=== PATIENT | female | born 1940 | race Caucasian/White ===

== ENCOUNTER 2020-12-12 02:33 | Emergency (ER) | payer MEDICARE, OTHER, SELFPAY ==
[2020-12-12] VITALS (8 sets, daily range): BP systolic 162–213; BP diastolic 75–113; PULSE 64–84; RESP 16–18; TEMP 36.7; O2SAT 93–98; BMI 32.5
--- NOTE | 2020-12-12 02:54 | HMH.EDGENADL ---
ED Disposition Clinical Impression: Angioedema Disposition: Home, Self-Care Condition on Discharge: Good Prescriptions: predniSONE [Prednisone 50mg Tab] 50 mg PO DAILY 4 Days #4 tab Transmission Status: Pending to [id number] - Critical Care Critical Care Time: No Attestation: On , the high probability of a clinically significant, sudden or life threatening deterioration of the following system(s) required my full and direct attention, intervention and personal management. The time I documented below is in addition to time spent performing reported procedures but includes the following listed in this critical care notation. Medical Decision Making - Medical Records Medical records reviewed: Yes: I reviewed the patient's medical records. - Pieter Inquiry Pt receiving controlled substance: No Vital Signs: 12/12/20 02:47 12/12/20 03:00 12/12/20 03:42 Temperature 98.0 F Temperature Source Oral Pulse Rate [Right] 76 71 70 Respiratory Rate 18 18 Blood Pressure [Right Arm] 213/113 H 202/85 H 165/75 H Blood Pressure Mean [Right Arm] 146 124 105 Blood Pressure Source [Right Arm] Automatic Cuff Automatic Cuff Blood Pressure Position [Right Arm] Sitting Supine 02 Sat by Pulse Oximetry 98 95 94 L Oxygen Delivery Method Room Air Room Air Room Air 12/12/20 04:00 12/12/20 04:30 12/12/20 05:00 Temperature Temperature Source Pulse Rate [Right] 69 71 64 Respiratory Rate Blood Pressure [Right Arm] 170/85 H 173/83 H 162/84 H Blood Pressure Mean [Right Arm] 113 113 110 Blood Pressure Source [Right Arm] Automatic Cuff Automatic Cuff Automatic Cuff Blood Pressure Position [Right Arm] 02 Sat by Pulse Oximetry 94 L 94 L 94 L Oxygen Delivery Method Room Air Room Air Room Air Orders (Tests/Meds): ED MEDICATIONS Generic Name Dose Route Start Last Admin Trade Name Freq PRN Reason Stop Dose Admin Sodium Chloride 8 ml 12/12/20 03:08 Sodium Chloride 0.9% 10ml Vial IV 01/11/21 03:07 NEEDED PRN dilute pepcid Discontinued Medications Generic Name Dose Route Start Last Admin Trade Name Freq PRN Reason Stop Dose Admin Dexamethasone Sodium Phosphate 10 mg 12/12/20 02:50 12/12/20 03:09 Dexamethasone 4mg/Ml 1ml Vial IV 12/12/20 02:51 10 mg ONCE ONE Administration Diphenhydramine HCl 25 mg 12/12/20 02:50 12/12/20 03:09 Diphenhydramine 25mg Capsule PO 12/12/20 02:51 Not Given ONCE ONE Diphenhydramine HCl 25 mg 12/12/20 03:08 12/12/20 03:09 Diphenhydramine 50mg/Ml Vial IV 12/12/20 03:09 25 mg ONCE ONE Administration Famotidine 20 mg 12/12/20 02:50 12/12/20 03:09 Famotidine 20mg Tablet PO 12/12/20 02:51 Not Given ONCE ONE Famotidine 20 mg 12/12/20 03:08 12/12/20 03:09 Famotidine 20mg/2ml Vial IV 12/12/20 03:09 20 mg ONCE ONE Administration Medical Decision Narrative: 80-year-old female presents with angioedema about 6 hours from onset. At this point she is able to speak in full sentences and she is awake and alert. She does not have palate or tonsillar edema and there is only one system involved and no concern for anaphylaxis. Given dexamethasone, Pepcid and Benadryl. Plan to observe in the emergency department with repeated evaluations. I reevaluated her at 4 AM and at 5:40 AM. On reassessment her uvula was better visualized and the tongue swelling was going down. She was requesting to go home and she says that she lives close should she have any issues she will return. No indication for intubation or admission at this point. General Adult HPI - General Chief complaint: Allergic Reaction Stated complaint: Tongue swollen Time Seen by Provider: 12/12/20 02:35 Mode of Arrival: Wheelchair Limitations: No Limitations Description of Symptoms (Recalled from ER Triage Doc. by RN): Pt states her tongue swelled up tonight about 2100, shw took 2 benadryl with no improvement. Pt states tjis happens every few months fo
== END 2020-12-12 05:52 | disposition home or self-care (01) ==
PROVIDERS: Emergency Provider Emergency Medicine
DX: T78.3XXA Angioneurotic edema, initial encounter (principal); J44.9 Chronic obstructive pulmonary disease, unspecified; Z79.899 Other long term (current) drug therapy; Z88.0 Allergy status to penicillin; Z88.2 Allergy status to sulfonamides
CPT/HCPCS: 96374; 96375; 99283

== ENCOUNTER 2021-05-01 16:32 | Emergency (ER) | payer MEDICARE, OTHER, SELFPAY ==
[2021-05-01 16:33] VITALS: RESP 16; O2SAT 98; BMI 31.7
--- NOTE | 2021-05-01 17:08 | HMH.EDUTC ---
[facility] [place] Clinical Impression: Allergic reaction Qualifiers: Encounter type: initial encounter Qualified Code(s): T78.40XA - Allergy, unspecified, initial encounter Disposition: Home, Self-Care Condition on Discharge: Good Instructions: DI for General Allergic Reactions, Prednisone Additional Instructions: Over the counter Benadryl may help with allergic reactions *Start oral steriods tomorrow and take as directed Follow up with your Family Doctor if any life threatening symptoms Straight to ER if any life threatening symptoms Return if needed Prescriptions: predniSONE [Prednisone 20mg Tab] 20 mg PO BID 5 Days #10 tab Transmission Status: [id number] Referrals: Provider,Referral, MD [Primary Care Provider] - As needed Time of Disposition: 17:15 Medical Decision Making - Pieter Inquiry Pt receiving controlled substance: No Pieter was queried for this patient: No Vital Signs: 05/01/21 16:33 Respiratory Rate 16 02 Sat by Pulse Oximetry 98 Oxygen Delivery Method Room Air Orders (Tests/Meds): ED MEDICATIONS Discontinued Medications Generic Name Dose Route Start Last Admin Trade Name Yocasta PRN Reason Stop Dose Admin Methylprednisolone Sodium Succinate 125 mg 05/01/21 17:10 05/01/21 17:24 Methylprednisolone Sod Succ 125mg Vial IM 05/01/21 17:11 125 mg ONCE ONE Administration Medical Decision Narrative: Patient states that she has taken SoluMedrol in the past without reactions or complications [facility] [place] - General Stated complaint: Jaw & lip is swollen pain in left ear Time Seen by Provider: 05/01/21 17:08 Mode of Arrival: Wheelchair Source of Information: Patient Limitations: No Limitations Description of Symptoms (Recalled from Triage Doc. by RN): pt c/o left ear pain and swelling on the side of her face HEENT Symptoms (Recalled from RN notes): No Resp Symptoms (Recalled from RN notes): No Skin Symptoms (Recalled from RN notes): No MS Symptoms (Recalled from RN notes): No Functional Status (Recalled from RN notes): na - History of Present Illness Provider Complaint: Patient state that she has had swelling on and off in her face for about 5 yrs State that they have done allergy tests and other testing to try to see what she may be having a reaction to but have not been able to find anything States that earlier today she noticed she was having some swelling beside the left side of her lip Denies swelling in her mouth, denies trouble swallowing or breathing able to speak easily - Related Data Home Medications Medication Instructions Recorded Confirmed Hydrocodone/Acetaminophen [Vicodin 1 each PO Q6 06/07/18 03/18/19 5-300 mg Tablet] LORazepam [Ativan 0.5mg 0.5 mg PO DAILY 06/07/18 03/18/19 tablet] Levothyroxine Sodium [Synthroid 50 mcg PO DAILY 06/07/18 03/18/19 50mcg (0.05mg) tab] Pantoprazole Sodium [Pantoprazole 20 mg PO DAILY 06/07/18 03/18/19 20mg Tab] Travoprost [Travatan 0.004% opth 2.5 ml EYE-BOTH DAILY 06/07/18 03/18/19 soln 2.5mL] Budesonide/Formoterol Fumarate 10.2 gm IH NEEDED PRN 03/18/19 03/18/19 [Symbicort 160-4.5 Mcg Inhaler] levalbuterol HCL [Xopenex] 0.31 mg IH NEEDED PRN 03/18/19 03/18/19 Previous Rx's Medication Instructions Recorded Benzonatate [Tessalon Perle 100mg 100 mg PO TID #30 cap 03/18/19 Cap] predniSONE [Prednisone 20mg 20 mg PO BID #10 tab 03/18/19 Tab] levofloxacin 500 mg tablet 500 mg PO DAILY 5 Days #5 tab 03/20/19 predniSONE [Prednisone 50mg Tab] 50 mg PO DAILY 4 Days #4 tab 12/12/20 predniSONE [Prednisone 20mg 20 mg PO BID 5 Days #10 tab 05/01/21 Tab] Allergies Allergy/AdvReac Type Severity Reaction Status Date / Time ibuprofen [From MOTRIN] Allergy Mild Verified 06/07/18 22:40 NSAIDS (Non-Steroidal Allergy Mild Verified 06/07/18 23:00 Anti-Inflamma [NSAIDS (NON-STEROIDAL ANTI-INFLAMMA] penicillin G [PENICILLIN G] Allergy Mild
[2021-05-01 17:28] VITALS: BP 0/0; PULSE 74; RESP 16; TEMP 36.9; O2SAT 98
== END 2021-05-01 17:31 | disposition home or self-care (01) ==
PROVIDERS: Emergency Provider Nurse Practitioner
DX: T78.40XA Allergy, unspecified, initial encounter (principal); H92.01 Otalgia, right ear; Z88.0 Allergy status to penicillin; Z88.2 Allergy status to sulfonamides
CPT/HCPCS: G0463; 96372; 99202

== ENCOUNTER 2021-07-09 11:14 | Emergency (ER) | payer MEDICARE, OTHER, SELFPAY ==
[2021-07-09 11:35] VITALS: BP 152/96; PULSE 88; RESP 20; TEMP 36.6; O2SAT 98; BMI 30.9
[2021-07-09 11:57] LABS: UTC Strep Screen (Rapid) Negative (Negative)
--- NOTE | 2021-07-09 12:14 | HMH.EDUTC ---
[facility] [place] Clinical Impression: Thrush Acid reflux Qualifiers: Esophagitis presence: esophagitis presence not specified Qualified Code(s): K21.9 - Gastro-esophageal reflux disease without esophagitis Disposition: Home, Self-Care Condition on Discharge: Good Instructions: DI for Gastroesophageal Reflux Disease (GERD), DI for Thrush, Thrush-Adult Additional Instructions: Take the medication as directed. Take the nystatin suspension as directed. The prescription will say for 14 days, just so you have plenty of it. If you are not getting better within 4 to 5 days, please follow up with your primary care doctor. If your symptoms do get better, please continue it for 48 hours after you feel better, then stop it. Drink plenty of fluids. Eat yogurt frequently for the next couple of weeks or so. Follow up with your primary care doctor. GO TO THE ER FOR ANY WORSENING SYMPTOMS OR CONCERNS Prescriptions: Nystatin 5 ml PO QID 14 Days #280 ml Transmission Status: Received by [id number] Pantoprazole Sodium [Protonix 40mg tablet] 40 mg PO DAILY #30 tab Transmission Status: Received by [id number] Referrals: Christiano Marsh CRNA [Primary Care Provider] - Time of Disposition: 12:35 Medical Decision Making - Pieter Inquiry Pt receiving controlled substance: No Vital Signs: 07/09/21 11:35 07/09/21 12:21 Temperature 97.9 F 97.9 F Temperature Source Oral Pulse Rate 88 Pulse Rate [Right Brachial] 88 Respiratory Rate 20 20 Blood Pressure 152/96 H Blood Pressure [Right Arm] 152/96 H Blood Pressure Mean [Right Arm] 114 Blood Pressure Source [Right Arm] Automatic Cuff Blood Pressure Position [Right Arm] Sitting 02 Sat by Pulse Oximetry 98 Oxygen Delivery Method Room Air - Lab Data Lab results reviewed: Yes: I reviewed the patient's lab results. Lab Results 07/09/21 11:52: Strep Scn Rapid Clinic Negative Orders (Tests/Meds): ED MEDICATIONS Discontinued Medications Generic Name Dose Route Start Last Admin Trade Name Freq PRN Reason Stop Dose Admin Methylprednisolone Sodium Succinate 125 mg 07/09/21 12:14 07/09/21 12:20 Methylprednisolone Sod Succ 125mg Vial IM 07/09/21 12:15 125 mg ONCE ONE Administration ORDERS Category Date Time Status Strep Screen Confirmation Routine Micro 07/09/21 11:52 Received [facility] [place] - General Stated complaint: sore throat, cracked tongue Time Seen by Provider: 07/09/21 12:14 Mode of Arrival: Ambulatory Source of Information: Patient Limitations: No Limitations Description of Symptoms (Recalled from Triage Doc. by RN): PATIENT C/O COUGH, SOA, DECREASED APPETITE (D/T GERD), SORE THROAT AND CRACKED TONGUE HEENT Symptoms (Recalled from RN notes): Yes Resp Symptoms (Recalled from RN notes): Yes Skin Symptoms (Recalled from RN notes): No MS Symptoms (Recalled from RN notes): No Functional Status (Recalled from RN notes): WNL - History of Present Illness Provider Complaint: She states that for the past 3 days she has had irritation of her mouth, throat and tongue. She states that there has been a white coating on her tongue and the inside of her cheeks. She has not been on antibiotics recently. She is out of her acid reflux medications and she is having to wait to see her pcp to get a prescription for this. She is afraid that her acid reflux has caused her mouth irritation. - Related Data Home Medications Medication Instructions Recorded Confirmed Hydrocodone/Acetaminophen [Vicodin 1 each PO Q6 06/07/18 03/18/19 5-300 mg Tablet] LORazepam [Ativan 0.5mg 0.5 mg PO DAILY 06/07/18 03/18/19 tablet] Levothyroxine Sodium [Synthroid 50 mcg PO DAILY 06/07/18 03/18/19 50mcg (0.05mg) tab] Pantoprazole Sodium [Pantoprazole 20 mg PO DAILY 06/07/18 03/18/19 20mg Tab] Travoprost [Travatan 0.004% opth 2.5 ml EYE-BOTH DAILY 06/07/18 03/18/19 soln 2.5mL] Budesonide/Formoterol Fumar
[2021-07-09 12:21] VITALS: BP 152/96; PULSE 88; RESP 20; TEMP 36.6; O2SAT 98
== END 2021-07-09 12:37 | disposition home or self-care (01) ==
PROVIDERS: Emergency Provider Nurse Practitioner Family; PCP Nurse Anesthetist, Certified Registered
DX: B37.0 Candidal stomatitis; K21.9 Gastro-esophageal reflux disease without esophagitis
CPT/HCPCS: 87880; 96372; 99202; G0463

== ENCOUNTER 2021-09-26 09:33 | Emergency (ER) | payer MEDICARE, OTHER, SELFPAY ==
[2021-09-26 11:05] VITALS: BP 175/82; PULSE 79; RESP 16; TEMP 36.5; O2SAT 96; BMI 30.9
--- NOTE | 2021-09-26 11:48 | HMH.EDUTC ---
[facility] – [place] Disposition Clinical Impression: COPD exacerbation Sinusitis Qualifiers: Sinusitis location: unspecified location Chronicity: acute Recurrence: non-recurrent Qualified Code(s): J01.90 - Acute sinusitis, unspecified Disposition: Home, Self-Care Condition on Discharge: Good Instructions: Chronic Obstructive Pulmonary Disease, DI for Sinusitis Additional Instructions: Drink plenty of fluids. Take tylenol or ibuprofen for pain or fever. Take the medications as directed. Follow up with your regular doctor. GO TO THE ER FOR ANY WORSENING SYMPTOMS Quarantine until you know the results of your covid-19 test. If it is positive, the health department should call you and give you further instructions about your length of Quarantine and other things. Notify your school or workplace of your results and follow their instructions regarding return to work/school. Don't start the oral steroids until tomorrow, since you had the shot here today. Prescriptions: predniSONE [Deltasone 10mg tablet] 10 mg PO DAILY 9 Days #21 tab Transmission Status: Received by [id number] guaiFENesin [Mucinex 600mg tablet] 1 - 2 tab PO BIDP PRN #30 tab PRN Reason: Congestion Transmission Status: Received by [id number] Azithromycin [Z-Nish 250mg Tab*] 250 mg PO UD DOSE PK #6 tab Transmission Status: Received by [id number] Referrals: Provider,Referral, MD [Primary Care Provider] - Time of Disposition: 12:00 Medical Decision Making - Medical Records Medical records reviewed: No: I reviewed the patient's medical records. - Pieter Inquiry Pt receiving controlled substance: No Vital Signs: 09/26/21 11:05 09/26/21 12:22 Temperature 97.7 F 97.7 F Temperature Source Oral Pulse Rate 79 Pulse Rate [Left] 79 Respiratory Rate 16 16 Blood Pressure 175/82 H Blood Pressure [Right Arm] 175/82 H Blood Pressure Mean [Right Arm] 113 02 Sat by Pulse Oximetry 96 - Lab Data Lab results reviewed: Yes: I reviewed the patient's lab results. Orders (Tests/Meds): ED MEDICATIONS Discontinued Medications Generic Name Dose Route Start Last Admin Trade Name Freq PRN Reason Stop Dose Admin Methylprednisolone Sodium Succinate 125 mg 09/26/21 11:54 09/26/21 12:12 Methylprednisolone Sod Succ 125mg Vial IM 09/26/21 11:55 125 mg ONCE ONE Administration Medical Decision Narrative: She refused a covid test [facility] [place] HPI - General Stated complaint: pain, sinus,SOA Time Seen by Provider: 09/26/21 11:48 Mode of Arrival: Ambulatory Source of Information: Patient Limitations: No Limitations Description of Symptoms (Recalled from Triage Doc. by RN): pt c/o worsening asthma. pt states she is having body aches, a sinus infection and SOA [id number]. HEENT Symptoms (Recalled from RN notes): Yes (sinus congestion/drainage) Resp Symptoms (Recalled from RN notes): Yes (SOA) Skin Symptoms (Recalled from RN notes): No MS Symptoms (Recalled from RN notes): No Functional Status (Recalled from RN notes): wnl - History of Present Illness Provider Complaint: She states that for the past 2 weeks she has had sinus congestion. She refuses a covid test. - Related Data Home Medications Medication Instructions Recorded Confirmed Hydrocodone/Acetaminophen [Vicodin 1 each PO Q6 06/07/18 03/18/19 5-300 mg Tablet] LORazepam [Ativan 0.5mg 0.5 mg PO DAILY 06/07/18 03/18/19 tablet] Levothyroxine Sodium [Synthroid 50 mcg PO DAILY 06/07/18 03/18/19 50mcg (0.05mg) tab] Pantoprazole Sodium [Pantoprazole 20 mg PO DAILY 06/07/18 03/18/19 20mg Tab] Travoprost [Travatan 0.004% opth 2.5 ml EYE-BOTH DAILY 06/07/18 03/18/19 soln 2.5mL] Budesonide/Formoterol Fumarate 10.2 gm IH NEEDED PRN 03/18/19 03/18/19 [Symbicort 160-4.5 Mcg Inhaler] levalbuterol HCL [Xopenex] 0.31 mg IH NEEDED PRN 03/18/19 03/18/19 Previous Rx's Medication Instructions Recorded Benzonatate [Tessal
[2021-09-26 12:22] VITALS: BP 175/82; PULSE 79; RESP 16; TEMP 36.5
== END 2021-09-26 12:24 | disposition home or self-care (01) ==
PROVIDERS: Emergency Provider Nurse Practitioner Family
DX: J44.1 Chronic obstructive pulmonary disease with (acute) exacerbation (principal); J01.90 Acute sinusitis, unspecified
CPT/HCPCS: G0463; 96372; 99202

== ENCOUNTER 2022-01-14 18:44 | Emergency (ER) | payer MEDICARE, OTHER, SELFPAY ==
[2022-01-14 18:45] VITALS: BP 144/86; PULSE 82; RESP 19; TEMP 37.1; O2SAT 97
--- NOTE | 2022-01-14 19:11 | HMH.EDUTC ---
[facility] [place]: Nasal congestion Disposition: Home, Self-Care Condition on Discharge: Good Instructions: DI for Arthritis, Prednisone, DI for Nasal Congestion Additional Instructions: *Monitor Temp, Over the counter Motrin or Tylenol as directed/as needed Tylenol every 4 hours and Motrin every 6 hours (as long as your family doctor has told you that you can take it) for fever or pain. and straight to ER if unable to lower temp less than 101.0 after medication given *Sleep elevated *Humidifier/Vaporizer Take medication as prescribed Return if needed Follow up IMMEDIATELY for new or worsening symptoms or no Noticeable improvement over the next 48-72 hours. 911 for difficulty breathing or swallowing Prescriptions: predniSONE [Deltasone 10mg tablet] 10 mg PO BID #8 tab Transmission Status: Pending to [id number] Referrals: Provider,Referral, MD [Primary Care Provider] - As needed Time of Disposition: 19:30 Medical Decision Making - Pieter Inquiry Pt receiving controlled substance: No Pieter was queried for this patient: No Vital Signs: 01/14/22 18:45 Temperature 98.8 F Temperature Source Oral Pulse Rate [Right Brachial] 82 Respiratory Rate 19 Blood Pressure [Right Arm] 144/86 H Blood Pressure Mean [Right Arm] 105 Blood Pressure Source [Right Arm] Automatic Cuff Blood Pressure Position [Right Arm] Sitting 02 Sat by Pulse Oximetry 97 Oxygen Delivery Method Room Air Medical Decision Narrative: Medication discussed with pharmacy [facility] [place] - General Stated complaint: SINUS DRAINAGE & BODY ACHES Time Seen by Provider: 01/14/22 19:11 Mode of Arrival: Ambulatory Source of Information: Patient Limitations: No Limitations Description of Symptoms (Recalled from Triage Doc. by RN): PATIENT C/O SINUS PRESSURE AND DRAINAGE SINCE THIS MORNING HEENT Symptoms (Recalled from RN notes): Yes Resp Symptoms (Recalled from RN notes): No Skin Symptoms (Recalled from RN notes): No MS Symptoms (Recalled from RN notes): No Functional Status (Recalled from RN notes): WNL - History of Present Illness Provider Complaint: Patient states that she has been having sinus pressure and drainage for a couple of days and got worse this morning States that she is also having issues with her arthritis States that usually she can take some Prednisone and it helps clear it up so tonight she came in to get checked and get treated if she can - Related Data Home Medications Medication Instructions Recorded Confirmed Hydrocodone/Acetaminophen [Vicodin 1 each PO Q6 06/07/18 03/18/19 5-300 mg Tablet] LORazepam [Ativan 0.5mg 0.5 mg PO DAILY 06/07/18 03/18/19 tablet] Levothyroxine Sodium [Synthroid 50 mcg PO DAILY 06/07/18 03/18/19 50mcg (0.05mg) tab] Pantoprazole Sodium [Pantoprazole 20 mg PO DAILY 06/07/18 03/18/19 20mg Tab] Travoprost [Travatan 0.004% opth 2.5 ml EYE-BOTH DAILY 06/07/18 03/18/19 soln 2.5mL] Budesonide/Formoterol Fumarate 10.2 gm IH NEEDED PRN 03/18/19 03/18/19 [Symbicort 160-4.5 Mcg Inhaler] levalbuterol HCL [Xopenex] 0.31 mg IH NEEDED PRN 03/18/19 03/18/19 Previous Rx's Medication Instructions Recorded Benzonatate [Tessalon Perle 100mg 100 mg PO TID #30 cap 03/18/19 Cap] predniSONE [Prednisone 20mg 20 mg PO BID #10 tab 03/18/19 Tab] levofloxacin 500 mg tablet 500 mg PO DAILY 5 Days #5 tab 03/20/19 predniSONE [Prednisone 50mg Tab] 50 mg PO DAILY 4 Days #4 tab 12/12/20 predniSONE [Prednisone 20mg 20 mg PO BID 5 Days #10 tab 05/01/21 Tab] Nystatin 5 ml PO QID 14 Days #280 ml 07/09/21 Pantoprazole Sodium [Protonix 40mg 40 mg PO DAILY #30 tab 07/09/21 tablet] Azithromycin [Z-Nish 250mg Tab*] 250 mg PO UD DOSE PK #6 tab 09/26/21 guaiFENesin [Mucinex 600mg tablet] 1 - 2 tab PO BIDP PRN #30 tab 09/26/21 predniSONE [Deltasone 10mg tablet] 10 mg PO DAILY 9 Days #21 tab 09/26/21 predniSONE [Deltasone 10mg tablet] 10 mg PO BID #8 tab 04
[2022-01-14 19:30] VITALS: BP 144/86; PULSE 82; RESP 19; TEMP 37.1; O2SAT 97
== END 2022-01-14 19:35 | disposition home or self-care (01) ==
PROVIDERS: Emergency Provider Nurse Practitioner
DX: J39.8 Other specified diseases of upper respiratory tract (principal); Z88.0 Allergy status to penicillin; Z88.2 Allergy status to sulfonamides
CPT/HCPCS: 96372; 99212; G0463

== ENCOUNTER 2022-08-04 18:21 | Emergency (ER) | payer MEDICARE, OTHER, SELFPAY ==
--- NOTE | 2022-08-04 18:31 | EXP.UTC ---
Discharge Plan Disposition Patient Disposition: Home, Self-Care Condition: Good Prescriptions Prescriptions: New azithromycin [Zithromax] 250 mg tablet 250 mg PO UD DOSE PK Qty: 6 0RF Rx Instructions: Take two (2) tablets today, then one (1) tablet days #2 thru #5 ketoconazole 2 % shampoo 1 applic topical Q3D 30 Days Qty: 120 2RF No Action levofloxacin [Levaquin] 500 mg tablet 500 mg PO DAILY 5 Days Qty: 5 0RF travoprost [Travatan Z] 2.5 ML drops 2.5 ml EYE-BOTH DAILY pantoprazole 20 MG tablet,delayed release (DR/EC) 20 mg PO DAILY lorazepam 0.5 MG tablet 0.5 mg PO DAILY levothyroxine [Synthroid] 50 MCG tablet 50 mcg PO DAILY hydrocodone-acetaminophen [Vicodin] 1 EACH tablet 1 ea PO Q6 prednisone 50 MG tablet 50 mg PO DAILY 4 Days Qty: 4 0RF prednisone 20 MG tablet 20 mg PO BID 5 Days Qty: 10 0RF Rx Instructions: Start on 05/02/21 prednisone 10 MG tablet 10 mg PO BID Qty: 8 0RF levalbuterol HCl 0.31 MG/3 ML solution for nebulization 0.31 mg IH NEEDED PRN (Reason: COPD) budesonide-formoterol 10.2 GM HFA aerosol inhaler 10.2 gm IH NEEDED PRN (Reason: COPD) prednisone 20 MG tablet 20 mg PO BID Qty: 10 0RF benzonatate 100 MG capsule 100 mg PO TID Qty: 30 0RF pantoprazole 40 MG tablet,delayed release (DR/EC) 40 mg PO DAILY Qty: 30 0RF nystatin 100,000 UNIT/ML suspension 5 ml PO QID 14 Days Qty: 280 0RF Rx Instructions: Swish and swallow 5 millilters qid for 14 days. (You may stop this 48 hours after your symptoms are better) prednisone 10 MG tablet 10 mg PO DAILY 9 Days Qty: 21 0RF Rx Instructions: Take 40 mg for 3 days, then take 20 mg for 3 days, then take 10 mg for 3 days, then stop. guaifenesin 600 MG tablet extended release 12hr 1 - 2 tab PO BIDP PRN (Reason: Congestion) Qty: 30 0RF azithromycin 250 MG tablet 250 mg PO UD DOSE PK Qty: 6 0RF Rx Instructions: Take two (2) tablets today, then one (1) tablet days #2 thru #5 Referrals Follow up/Referrals: Karishma Isblel MD [Referring] - See instructions Provider,MD Radha [Primary Care Provider] - See instructions Clinical Impressions Clinical Impression: Dermatitis, seborrheic, Sinusitis Instructions Patient Instructions: Sinusitis, Seborrheic Dermatitis, DI for Sinusitis Discharge ED Provider: Gabriel Harding [facility] [place] HPI General Stated complaint: rash on head, head pain Time Seen by Provider: 08/04/22 18:41 History of Present Illness Provider Complaint: She states that for the past 3 weeks she has had a rash on her scalp, the back of her neck and behind her ears. Her pcp has prescribed her a medication that did help. But, she is out of that medicine. She is also having sinus congestion and sinus drainage. Related Data Home Medications Medication Instructions Recorded Confirmed hydrocodone 5 mg-acetaminophen 300 1 ea PO Q6 Pain 06/07/18 03/18/19 mg tablet (Vicodin) levothyroxine 50 mcg tablet 50 mcg PO DAILY thyroid 06/07/18 03/18/19 (Synthroid) lorazepam 0.5 mg tablet 0.5 mg PO DAILY Anxiety 06/07/18 03/18/19 pantoprazole 20 mg tablet,delayed 20 mg PO DAILY GERD 06/07/18 03/18/19 release travoprost 0.004 % eye drops 2.5 ml EYE-BOTH DAILY unknown 06/07/18 03/18/19 (Travatan Z) budesonide-formoterol HFA 160 10.2 gm IH NEEDED PRN COPD 03/18/19 03/18/19 mcg-4.5 mcg/actuation aerosol inhaler levalbuterol HCl 0.31 mg/3 mL 0.31 mg IH NEEDED PRN COPD 03/18/19 03/18/19 solution for nebulization Previous Rx's Medication Instructions Recorded benzonatate 100 mg capsule 100 mg PO TID #30 caps 03/18/19 prednisone 20 mg tablet 20 mg PO BID #10 tabs 03/18/19 levofloxacin 500 mg tablet 500 mg PO DAILY 5 days #5 tabs 03/20/19 (Levaquin) prednisone 50 mg tablet 50 mg PO DAILY 4 days #4 tabs 12/12/20 prednisone 20 mg tablet 20 mg PO BID 5 days #10 tabs 05/01/21 nystatin 100,0
[2022-08-04 18:51] VITALS: BP 111/80; PULSE 69; RESP 20; TEMP 36.8; O2SAT 94; BMI 28.3
[2022-08-04 19:28] VITALS: BP 112/88; PULSE 71; RESP 20; TEMP 36.8; O2SAT 96
== END 2022-08-04 19:44 | disposition home or self-care (01) ==
PROVIDERS: Emergency Provider Nurse Practitioner Family
DX: L21.9 Seborrheic dermatitis, unspecified (principal); J32.9 Chronic sinusitis, unspecified
CPT/HCPCS: 96372; 99212; G0463; J1030

== ENCOUNTER 2022-10-20 19:08 | Emergency (ER) | payer MEDICARE, OTHER, SELFPAY ==
[2022-10-20 19:15] VITALS: BP 128/85; PULSE 85; RESP 20; TEMP 37; O2SAT 100; BMI 29.2
--- NOTE | 2022-10-20 19:50 | EXP.UTC ---
Discharge Plan Disposition Patient Disposition: Home, Self-Care Condition: Good Prescriptions Prescriptions: New prednisone 10 mg tablet 10 mg PO BID 3 Days Qty: 6 0RF azithromycin [Zithromax Z-Nish] 250 mg tablet See Rx Instructions .ROUTE .COMPLEX 5 Days Qty: 6 0RF Rx Instructions: For 250 mg dose pack: take 500 mg today (day 1), then 250 mg for 4 days (days 2-5) No Action levofloxacin [Levaquin] 500 mg tablet 500 mg PO DAILY 5 Days Qty: 5 0RF travoprost [Travatan Z] 2.5 ML drops 2.5 ml EYE-BOTH DAILY pantoprazole 20 MG tablet,delayed release (DR/EC) 20 mg PO DAILY lorazepam 0.5 MG tablet 0.5 mg PO DAILY levothyroxine [Synthroid] 50 MCG tablet 50 mcg PO DAILY hydrocodone-acetaminophen [Vicodin] 1 EACH tablet 1 ea PO Q6 prednisone 50 MG tablet 50 mg PO DAILY 4 Days Qty: 4 0RF prednisone 20 MG tablet 20 mg PO BID 5 Days Qty: 10 0RF Rx Instructions: Start on 05/02/21 prednisone 10 MG tablet 10 mg PO BID Qty: 8 0RF azithromycin [Zithromax] 250 mg tablet 250 mg PO UD DOSE PK Qty: 6 0RF Rx Instructions: Take two (2) tablets today, then one (1) tablet days #2 thru #5 ketoconazole 2 % shampoo 1 applic topical Q3D 30 Days Qty: 120 2RF levalbuterol HCl 0.31 MG/3 ML solution for nebulization 0.31 mg IH NEEDED PRN (Reason: COPD) budesonide-formoterol 10.2 GM HFA aerosol inhaler 10.2 gm IH NEEDED PRN (Reason: COPD) prednisone 20 MG tablet 20 mg PO BID Qty: 10 0RF benzonatate 100 MG capsule 100 mg PO TID Qty: 30 0RF pantoprazole 40 MG tablet,delayed release (DR/EC) 40 mg PO DAILY Qty: 30 0RF nystatin 100,000 UNIT/ML suspension 5 ml PO QID 14 Days Qty: 280 0RF Rx Instructions: Swish and swallow 5 millilters qid for 14 days. (You may stop this 48 hours after your symptoms are better) prednisone 10 MG tablet 10 mg PO DAILY 9 Days Qty: 21 0RF Rx Instructions: Take 40 mg for 3 days, then take 20 mg for 3 days, then take 10 mg for 3 days, then stop. guaifenesin 600 MG tablet extended release 12hr 1 - 2 tab PO BIDP PRN (Reason: Congestion) Qty: 30 0RF azithromycin 250 MG tablet 250 mg PO UD DOSE PK Qty: 6 0RF Rx Instructions: Take two (2) tablets today, then one (1) tablet days #2 thru #5 Referrals Follow up/Referrals: Provider,Referral, MD [Primary Care Provider] - See instructions Activity Restrictions/Add. Instructions Additional Instructions/Restrictions: Start oral steriods on 10/21/21 Take oral antibiotics as prescribed Make sure to follow up with your Family Doctor if no improvement or any worsenign of symptoms Straight to ER if any life threatening symptoms Clinical Impressions Clinical Impression: Lumbar radiculopathy Sinusitis Qualifiers: Sinusitis location: unspecified location Chronicity: unspecified Qualified Code(s): J32.9 - Chronic sinusitis, unspecified Instructions Patient Instructions: Sinusitis, Sciatica, DI for Sinusitis, DI for Sciatica Discharge ED Provider: Elaine Mayorga [facility] HPI General Stated complaint: sore throat, DEGROOT EARS Mode of Arrival: Wheelchair Source of Information: Patient and Relative Limitations: No Limitations Time Seen by Provider: 10/20/22 19:50 Description of Symptoms (Recalled from Triage Doc. by RN): DEGROOT, pain in right hip that shoots down leg, sinus pressure, and thrush HEENT Symptoms (Recalled from RN notes): Yes Resp Symptoms (Recalled from RN notes): No Skin Symptoms (Recalled from RN notes): No MS Symptoms (Recalled from RN notes): Yes (right hip) Functional Status (Recalled from RN notes): n/a History of Present Illness Provider Complaint: Patient states that she has been having sinus pain and pressure along with drainage in the back of her throat States that she noticed she had a white patch on her tongue and thinks she may have thrush States that also she has a history of sciatica and she has
[2022-10-20 20:26] VITALS: BP 128/85; PULSE 85; RESP 20; TEMP 37; O2SAT 100
== END 2022-10-20 20:26 | disposition home or self-care (01) ==
PROVIDERS: Emergency Provider Nurse Practitioner
DX: M54.16 Radiculopathy, lumbar region (principal); J32.9 Chronic sinusitis, unspecified
CPT/HCPCS: 96372; 99212; 99213; G0463

== ENCOUNTER 2022-10-30 15:16 | Emergency (ER) | payer MEDICARE, OTHER, SELFPAY ==
[2022-10-30 15:20] VITALS: BP 133/93; PULSE 85; RESP 22; TEMP 36.7; O2SAT 95; BMI 31.7
--- NOTE | 2022-10-30 15:29 | XR_ITS ---
PROCEDURE INFORMATION: Exam: XR Lumbosacral Spine Exam date and time: 10/30/2022 3:28 PM Age: 82 years old Clinical indication: Injury or trauma; Fall; Blunt trauma (contusions or hematomas) TECHNIQUE: Imaging protocol: Radiologic exam of the lumbosacral spine. Views: 2 or 3 views. COMPARISON: SPLUMBWO CT lumbar spine wo con 06/08/2018 12:23 AM FINDINGS: Bones/joints: Vertebral alignment is maintained. There is preservation of vertebral body heights. No visible fracture. Interpedicular distances are maintained. Intervertebral disc space narrowing at L5-S1 is re-identified in keeping with degenerative changes. Soft tissues: Unremarkable. IMPRESSION: No acute fracture. No traumatic subluxation.
--- NOTE | 2022-10-30 15:29 | XR_ITS ---
PROCEDURE INFORMATION: Exam: XR Left Foot Exam date and time: 10/30/2022 3:31 PM Age: 82 years old Clinical indication: Injury or trauma; Fall; Blunt trauma; Foot; Left TECHNIQUE: Imaging protocol: Radiologic exam of the Left foot. Views: 3 or more views. COMPARISON: No relevant prior studies available. FINDINGS: Bones/joints: Deformity along the 2nd 3rd and 4th metatarsal necks, suspicious for acute fractures. Correlate with point tenderness. Soft tissues: Soft tissue swelling about the forefoot. IMPRESSION: Deformity along the 2nd 3rd and 4th metatarsal necks, suspicious for acute fractures. Correlate with point tenderness.
--- NOTE | 2022-10-30 15:29 | XR_ITS ---
PROCEDURE INFORMATION: Exam: XR Left Hip Exam date and time: 10/30/2022 3:29 PM Age: 82 years old Clinical indication: Injury or trauma; Fall; Blunt trauma (contusions or hematomas); Left; Hip TECHNIQUE: Imaging protocol: Radiologic exam of the Left hip. Views: 2 or 3 views hip with pelvis when performed. COMPARISON: CR HIPCMLT XR hip LT 2-3V w/pelvis 06/08/2018 12:32 AM FINDINGS: Bones/joints: Moderate osteoarthritis right hip is re-identified as evidenced by diffusion space narrowing. No visible fracture or dislocation. Soft tissues: Unremarkable. IMPRESSION: No visible fracture or dislocation.
--- NOTE | 2022-10-30 16:09 | EXP.UTC ---
Discharge Plan Disposition Patient Disposition: Home, Self-Care Condition: Good Prescriptions Prescriptions: No Action hydrocodone-acetaminophen 7.5-325 mg tablet 1 tab PO Q6H PRN travoprost [Travatan Z] 2.5 ML drops 2.5 ml Eye-Both DAILY levothyroxine [Synthroid] 50 MCG tablet 50 mcg PO DAILY lorazepam 0.5 mg tablet 0.5 mg PO BID ketoconazole 2 % shampoo 1 applic topical Q3D 30 Days Qty: 120 2RF levalbuterol HCl 0.31 MG/3 ML solution for nebulization 0.31 mg inhalation NEEDED PRN (Reason: COPD) budesonide-formoterol 10.2 GM HFA aerosol inhaler 10.2 g inhalation NEEDED PRN (Reason: COPD) pantoprazole 40 MG tablet,delayed release (DR/EC) 40 mg PO DAILY Qty: 30 0RF Referrals Follow up/Referrals: Alycia Stewart, [Primary Care Provider] - See instructions Activity Restrictions/Add. Instructions Additional Instructions/Restrictions: minimum wt bearing to left foot. if walking apply wt to heel, leave boot in place specialty clinic(Dr. Dash) on tuesday at 8 am elevate ice Clinical Impressions Clinical Impression: Fracture of metatarsal bone of left foot Instructions Patient Instructions: DI for Foot Fracture Discharge ED Provider: Mikayla ([facility] [place] HPI General Stated complaint: AO@10/29/22 Fall LT foot and back inj Mode of Arrival: Ambulatory Source of Information: Patient Limitations: No Limitations Time Seen by Provider: 10/30/22 16:09 Description of Symptoms (Recalled from Triage Doc. by RN): PATIENT REPORTS FALLING LAST NIGHT AFTER TRIPPING OVER A RUG AND LANDING ON LEFT SIDE. C/O PAIN TO LEFT FOOT AND LOWER BACK. BRUING NOTED TO LEFT FOOT, LEG, AND ARM. DENIES HITTING HEAD, DENIES LOC HEENT Symptoms (Recalled from RN notes): No Resp Symptoms (Recalled from RN notes): No Skin Symptoms (Recalled from RN notes): No MS Symptoms (Recalled from RN notes): Yes Functional Status (Recalled from RN notes): WNL History of Present Illness Provider Complaint: 82 yr old female presents for s/p fall last pm. pt states she tripped over the rug and landed on her left side. pt c/o left foot and low back pain. pt states she did not hit her head. no loc Related Data Home Medications Medication Instructions Recorded Confirmed levothyroxine 50 mcg tablet 50 mcg PO DAILY thyroid 06/07/18 10/28/22 (Synthroid) travoprost 0.004 % eye drops 2.5 ml Eye-Both DAILY unknown 06/07/18 10/28/22 (Travatan Z) budesonide-formoterol HFA 160 10.2 g inhalation NEEDED PRN 03/18/19 10/28/22 mcg-4.5 mcg/actuation aerosol COPD inhaler levalbuterol HCl 0.31 mg/3 mL 0.31 mg inhalation NEEDED PRN 03/18/19 10/28/22 solution for nebulization COPD hydrocodone 7.5 mg-acetaminophen 1 tab PO Q6H PRN 10/28/22 10/28/22 325 mg tablet lorazepam 0.5 mg tablet 0.5 mg PO BID Anxiety 10/28/22 10/28/22 Previous Rx's Medication Instructions Recorded pantoprazole 40 mg tablet,delayed 40 mg PO DAILY #30 tabs 07/09/21 release ketoconazole 2 % shampoo 1 applic topical Q3D 1 month #120 08/04/22 mL Allergies Allergy/AdvReac Type Severity Reaction Status Date / Time levofloxacin [From Levaquin] Allergy Intermediate rash Verified 10/28/22 14:35 ibuprofen [From MOTRIN] Allergy Mild Verified 10/28/22 14:35 NSAIDS (Non-Steroidal Allergy Mild Verified 10/28/22 14:17 Anti-Inflamma [NSAIDS (NON-STEROIDAL ANTI-INFLAMMA] penicillin G [PENICILLIN G] Allergy Mild Verified 10/28/22 14:17 Sulfa (Sulfonamide Allergy Mild Verified 10/28/22 14:17 Antibiotics) [SULFA (SULFONAMIDE ANTIBIOTICS)] sibutramine [From Meridia] Allergy Verified 10/28/22 14:17 Worker's Comp Is this a Worker's Comp case?: No [facility] Disclaimer: The information contained in this section may have been updated after the patient was seen, as this information can be updated by other users. Medical History , YVONNE
[2022-10-30 16:50] VITALS: BP 133/93; PULSE 85; RESP 22; TEMP 36.7; O2SAT 95
== END 2022-10-30 16:58 | disposition home or self-care (01) ==
PROVIDERS: Emergency Provider Nurse Practitioner Family; PCP Family Medicine
DX: S92.325A Nondisplaced fracture of second metatarsal bone, left foot, initial encounter for closed fracture (principal); S92.335A Nondisplaced fracture of third metatarsal bone, left foot, initial encounter for closed fracture; S92.345A Nondisplaced fracture of fourth metatarsal bone, left foot, initial encounter for closed fracture; M54.50 Low back pain, unspecified; W01.0XXA Fall on same level from slipping, tripping and stumbling without subsequent striking against object, initial encounter
CPT/HCPCS: 72100; 73502; 73630; 99213; G0463

== ENCOUNTER → 2022-11-01 09:08 | Outpatient (CLI) | payer MEDICARE, OTHER, SELFPAY ==
[2022-11-01 10:08] LABS: Basophils # 0.1 K/mm3 (0-0.2); Basophils % 0.6 % (0.1-2.0); Eosinophils # 0.3 K/mm3 (0.0-0.4); Eosinophils % 2.6 % (0.1-12.0); Hematocrit 44.2 % (37.0-47.0); Hemoglobin 14.4 g/dL (12.2-16.2); Lymphocytes # 2.1 K/mm3 (0.7-4.5); Lymphocytes % 20.8 % (10-50); Mean Corpuscular HGB Conc 32.7 g/dL (31.8-35.4); Mean Corpuscular Hemoglobin 32.9 pg (27.0-31.2); Mean Corpuscular Volume 100.7 fl (81-99); Mean Platelet Volume 8.2 fl (7.4-10.4); Monocytes # 0.8 K/mm3 (0.1-1.0); Monocytes % 7.6 % (1.7-9.3); Neutrophils % 68.5 % (37.0-80.0); Platelet Count 363 K/mm3 (142-424); Red Blood Count 4.39 M/mm3 (4.20-5.40); Red Cell Distribution Width 14.2 % (11.5-17.5); White Blood Count 10.3 K/mm3 (4.8-10.8)
[2022-11-01 10:26] LABS: Chloride 103 mmol/L (98-107); Potassium 3.8 mmoL/L (3.5-5.1); Sodium 139 mmol/L (136-145)
[2022-11-01 10:28] LABS: Alanine Aminotransferase 16 U/L (12-78); Alkaline Phosphatase 77 U/L (38-126); Aspartate Amino Transferase 23 U/L (14-36); Bilirubin,Total 1.1 mg/dl (0.2-1.3); Blood Urea Nitrogen 14 mg/dl (7-17); Estimated Glomerular Filt Rate 95 ml/min (>60); GFR (African American) 116 ML/MIN (>60)
[2022-11-01 10:29] LABS: Albumin Level 4.1 g/dl (3.5-5.0); Albumin/Globulin Ratio 1.4 (1.1-1.8); Anion Gap 10.8 mEq/L (5-15); Carbon Dioxide 29 mmol/L (22.0-30.0); Chol/HDL Ratio 2.9 (1-3.5); Cholesterol 167 mg/dl (140-200); Glucose 104 mg/dl (74-100); HDL Cholesterol 58 mg/dl (40-60); Total Protein,Serum 7.1 g/dl (6.3-8.2); Triglycerides 109 mg/dl (30-150); VLDL Cholesterol 22 mg/dL (0-40)
[2022-11-01 10:40] LABS: Direct LDL Cholesterol 58.32 mg/dL (100-129)
[2022-11-01 11:00] LABS: Thyroid Stimulating Hormone 1.74 uIU/mL (0.465-4.68)
== END ==
PROVIDERS: PCP Family Medicine; Visit Provider Family Medicine
DX: E03.9 Hypothyroidism, unspecified (principal); K21.9 Gastro-esophageal reflux disease without esophagitis; J20.9 Acute bronchitis, unspecified; J44.0 Chronic obstructive pulmonary disease with (acute) lower respiratory infection
CPT/HCPCS: 36415; 80053; 80061; 84443; 85025

== ENCOUNTER → 2022-11-10 14:03 | Outpatient (POV) | payer MEDICARE, OTHER, SELFPAY ==
[2022-11-10 14:35] VITALS: BP 137/95; PULSE 85; RESP 18; O2SAT 98
--- NOTE | 2022-11-10 15:11 | EXP.PAIN.OV ---
HPI Data of Consult Patient: new to practice Consult date: 11/10/22 Requesting Physician: Odilia Bustos APRN Consult Narrative Reason for consult: Low back pain, right hip pain, right leg pain, recent left foot fracture History of present illness: Ms. Valdez is a 82 year old female who presents today as a new patient. She is a referral from Alycia Bustos's office. Today she rates her pain an 8 out of 10. Patient states her pain is all in her low back with radiating symptoms into her right hip and right leg. Patient also has left foot pain related to a recent fall approximately 2 weeks ago. Patient did have a fracture however it was non surgical and she is wearing a boot for [address] Dash is taking care of this left foot injury. Patient does state that she has had back pain for years and its progressively worsened over time. Patient denies any specific trauma or injury that started it. Patient does describe this as a throbbing, aching sensation with numbness and tingling down her right leg. She does states she has a significant osteoporosis history. Patient has had recent lumbar x-rays however she has not had any additional imaging for a few years. Patient has tried ibuprofen and Tylenol in the past and states that she had a severe allergic reaction to ibuprofen with swelling of her mouth and tongue. Patient does carry an EpiPen at all times for any such reactions. Patient states the Tylenol made no additional improvement. Patient is also tried heat and ice and topical creams such as icy hot Biofreeze and lidocaine with no relief. Patient does use a wheelchair or a walker for ambulation and she is currently in physical therapy however she states she has not had any improvement. Patient is currently managed with lorazepam 1 mg twice a day, [employer] 7.5 mg 4 times a day from an outside provider. Patient denies any side effects from these medications. She did state that she recently changed her primary care doctor. Her Pieter is [phone]. Its been reviewed and appropriate. CC: Odilia Bustos APRN [facility] Disclaimer: The information contained in this section may have been updated after the patient was seen, as this information can be updated by other users. Medical History (Updated 11/10/22 @ 15:14 by Odilia Bustos APRN) Bronchitis COPD exacerbation Nasal congestion Normal colonoscopy Sinusitis Sinusitis Thrush 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 H/O: hysterectomy 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 (Updated 11/10/22 @ 14:39 by Neha Gooden, RN) Smoking Status: Never smoker alcohol intake: never substance use type: denies use current occupational status: retired Travel in the last 8 weeks: None Review of Systems Review of Systems Review of systems:: pertinent systems reviewed and negative unless documented below Review of systems (narrative): Review of Systems: General: No recent weight changes, no fever, no sleep disturbances Respiratory: No cough, no shortness of air, no recurring pulmonary infections Cardiovascular/peripheral vascular: No chest pain, no palpitations, no edema, no shortness of breath Gastrointestinal: No new onset incontinence, normal bowel movements reported Genitourinary: No new onset incontinence Musculoskeletal: Low back pain, right hip pain, right leg pain Psychiatric: [Normal mood/affect] Neurological: [Denies weakness in extremities], [denies balance issues] Meds Home Medications and Allergies Home Medications Medication Instructions Recorded Confirmed Type levothyroxine 50 mcg tablet 50 mcg PO DAILY thyroid 06/07/18 11/10/22 History (Synthroid) travoprost 0.004 % eye drops 2.5 ml Eye-Both DAILY unknown 06/07/18 11/10/22 History (Travatan Z) budesonide-formoterol HFA 160 10.2 g inhalation NEEDED PRN 03/18/19 11/10/22 History mcg-4.5 mcg/actuation aerosol COPD inhaler levalbuterol HCl 0.31 mg/3 mL 0.31 mg inhalation NEEDED PRN 03/18/19
== END ==
PROVIDERS: Visit Provider Nurse Practitioner Family
DX: M51.16 Intervertebral disc disorders with radiculopathy, lumbar region (principal); M46.1 Sacroiliitis, not elsewhere classified; M47.26 Other spondylosis with radiculopathy, lumbar region; M24.28 Disorder of ligament, vertebrae; M16.11 Unilateral primary osteoarthritis, right hip
CPT/HCPCS: 99202; G0463

== ENCOUNTER 2022-11-16 09:37 | Day surgery (SDC) | payer MEDICARE, OTHER, SELFPAY ==
[2022-11-16 09:51] VITALS: BP 192/88; PULSE 90; RESP 18; TEMP 36.3; O2SAT 97
[2022-11-16 10:15] VITALS: BP 158/81; PULSE 87; RESP 18; O2SAT 90
--- NOTE | 2022-11-16 11:11 | P.PCN_ITS ---
Procedure Date: 11/16/22 Time: 10:45 Anesthesiologist:: Alex Tejeda CRNA Complications:: None Pre-procedure Diagnosis:: Right sacroiliitis. Right trochanteric bursitis Post-procedure Diagnosis:: Same. Indications for Procedure:: Patient is a very pleasant 82-year-old female comes our clinic today for right sacroiliac joint injection as well as right trochanteric bursa injection. Patient describes her pain as constant, dull, aching. She rates her pain 7/10. She has extreme point tenderness over the right sacroiliac joint as well as the right trochanteric bursa. Procedure Details:: Procedure: Right trochanteric bursa injection under fluoroscopy We then moved to the right trochanteric bursa.~ C-arm fluoroscopy was used to view the left greater trochanter.~ The skin and subcutaneous tissues overlying the right greater trochanter were anesthetized using lidocaine, 1.5% and a 25- gauge needle.~ After this, a 22-gauge spinal needle was inserted and advanced until it contacted the right greater trochanter.~ Dye was injected and good spread was seen throughout the right trochanteric bursa. After this, approximately 5 mL of bupivacaine, 0.25% and Depo-Medrol, 40 mg was incrementally injected into the right right trochanteric bursa.~ The patient tolerated the procedure well with no complications. Procedure: Right sacroliliac joint injection under fluoroscopy Informed consent was obtained and the risk and benefits of the procedure were explained to the patient.~ The patient was taken to the procedure room and noninvasive monitors were placed including noninvasive blood pressure cuff and pulse oximeter.~ The patient was placed prone on the procedure table.~ The~ right hip was cleansed using Betadine as a cleansing solution.~ C-arm fluorosocpy was used to view the right SI joint.~ The skin and subcutaneous tissues were anesthetized using Lidocaine 1.5% and a 25-gauge needle.~ After this, a 22-gauge spinal needle was inserted under fluoroscopic guidance into the inferior aspect of the right SI joint.~ Omnipaque dye was injected and a good spread was seen throughout the joint.~ After this, approximately 5 mL of bupivacaine 0.25% and Depo-Medrol 40 mg was incrementally injected into the sacroiliac joint.~ The patient tolerated the procedure well with no complications.~ The patient was observed in the Pain Clinic, then discharged home neurologically intact.~ Plan and Disposition:: Patient was discharged without incident.
== END 2022-11-16 10:15 | disposition home or self-care (01) ==
LOC: SC.PAINP 09:38
PROVIDERS: PCP Family Medicine; Visit Provider Nurse Anesthetist, Certified Registered
DX: M46.1 Sacroiliitis, not elsewhere classified (principal); M70.61 Trochanteric bursitis, right hip
CPT/HCPCS: 20610; 27096; 77002; G0260; J1030

== ENCOUNTER → 2022-11-30 11:06 | Outpatient (CLI) | payer MEDICARE, OTHER, SELFPAY ==
--- NOTE | 2022-11-30 11:15 | XR_ITS ---
FINAL REPORT CLINICAL HISTORY: Left met fracture COMPARISON: October 30, 2022 FINDINGS: 3 views of the left foot were obtained. There is interval healing of the fractures of the necks of the 2nd, 3rd, and 4th metatarsals. The bones are osteopenic. There are mild degenerative changes. There is new mild irregularity of the 2nd proximal phalanx. IMPRESSION: Interval healing of fractures of the 2nd, 3rd, and 4th metatarsal necks. New mild irregularity of the 2nd proximal phalanx. Nondisplaced fracture cannot be excluded. Reviewed, Interpreted and Dictated by Narciso Harding III, MD Transcribed by Mic Juárez Authenticated and . [facility]
== END ==
PROVIDERS: PCP Family Medicine; Visit Provider Podiatrist
DX: M79.672 Pain in left foot (principal)
CPT/HCPCS: 73630

== ENCOUNTER 2022-12-01 20:36 | Emergency (ER) | payer MEDICARE, OTHER, SELFPAY ==
[2022-12-01 20:39] VITALS: BP 152/88; PULSE 87; RESP 18; TEMP 37; O2SAT 94; BMI 29.2
--- NOTE | 2022-12-01 20:52 | XR_ITS ---
PROCEDURE INFORMATION: Exam: XR Chest Exam date and time: 12/01/2022 9:15 PM Age: 82 years old Clinical indication: Shortness of breath; Additional info: SOA TECHNIQUE: Imaging protocol: Radiologic exam of the chest. Views: 1 view. COMPARISON: CR Chest 03/18/2019 12:34 AM FINDINGS: Lungs: Hyperlucent changes are demonstrated. Increase in the lung volumes is demonstrated. Pleural spaces: Unremarkable. No pleural effusion. No pneumothorax. Heart/Mediastinum: Unremarkable. No cardiomegaly. Diaphragm: There is flattening of the hemidiaphragms. Bones/joints: Unremarkable. IMPRESSION: 1. No evidence of acute cardiopulmonary disease. 2. Chronic obstructive pulmonary disease.
[2022-12-01 21:09] LABS: Basophils # 0.1 K/mm3 (0-0.2); Basophils % 0.9 % (0.1-2.0); Eosinophils # 0.1 K/mm3 (0.0-0.4); Hematocrit 49.4 % (37.0-47.0); Hemoglobin 15.4 g/dL (12.2-16.2); Lymphocytes # 2.4 K/mm3 (0.7-4.5); Lymphocytes % 21.9 % (10-50); Mean Corpuscular HGB Conc 31.2 g/dL (31.8-35.4); Mean Corpuscular Hemoglobin 31.6 pg (27.0-31.2); Mean Corpuscular Volume 101.2 fl (81-99); Mean Platelet Volume 8.1 fl (7.4-10.4); Monocytes # 0.7 K/mm3 (0.1-1.0); Monocytes % 6.4 % (1.7-9.3); Neutrophils # 7.6 K/mm3 (1.8-7.8); Neutrophils % 69.9 % (37.0-80.0); Platelet Count 428 K/mm3 (142-424); Red Blood Count 4.88 M/mm3 (4.20-5.40); Red Cell Distribution Width 13.6 % (11.5-17.5); White Blood Count 10.9 K/mm3 (4.8-10.8)
[2022-12-01 21:11] LABS: VBG Base Excess 1.8 mmol/L (-2.4-2.3); VBG HCO3 25.9 mmol/L (23-30); VBG Oxygen Saturation 80.7 % (50-70); VBG PCO2 38.8 mmol/L (35-51); VBG PH 7.44 mmol/L (7.31-7.41); VBG PO2 41.5 mmol/L (28-40); VBG Total CO2 27.1 mmol/L (23-27)
[2022-12-01 21:14] VITALS: PULSE 79; PULSE 80
[2022-12-01 21:17] LABS: Anion Gap 7.2 mEq/L (5-15); Blood Urea Nitrogen 23 mg/dl (7-17); Calcium 9.4 mg/dl (8.4-10.2); Carbon Dioxide 28 mmol/L (22.0-30.0); Chloride 105 mmol/L (98-107); Creatinine Clearance Estimated 52 mL/min (50-200); Estimated Glomerular Filt Rate 95 ml/min (>60); GFR (African American) 116 ML/MIN (>60); Glucose 103 mg/dl (74-100); Magnesium 1.9 mg/dl (1.6-2.3); Potassium 4.2 mmoL/L (3.5-5.1); Sodium 136 mmol/L (136-145)
--- NOTE | 2022-12-01 21:21 | HMH.EDGENADL ---
Discharge Plan Disposition Patient Disposition: Home, Self-Care Condition: Good Prescriptions Prescriptions: New prednisone 50 mg tablet 50 mg PO DAILY 5 Days Qty: 5 0RF amoxicillin-pot clavulanate 875-125 mg tablet 1 tab PO BID Qty: 20 0RF No Action levalbuterol tartrate 45 mcg/actuation HFA aerosol inhaler 2 inh inhalation Q6H PRN acetaminophen [Tylenol] 325 mg capsule 325 mg PO QID PRN pantoprazole 40 mg tablet,delayed release (DR/EC) 40 mg PO DAILY Qty: 90 1RF levothyroxine [Synthroid] 50 mcg tablet 25 mcg PO DAILY Qty: 90 0RF methylprednisolone [Medrol (Nish)] 4 mg tablets,dose pack 4 mg PO DAILY Qty: 21 0RF Rx Instructions: Take as directed doxycycline hyclate 100 mg tablet 100 mg PO BID Qty: 20 0RF clobetasol 0.05 % solution 1 applic topical DAILY Qty: 50 3RF lorazepam 1 mg tablet 1 mg PO BID Label Comments: TAKE 1 TABLET BY MOUTH TWICE DAILY NEEDED FOR ANXIETY travoprost [Travatan Z] 2.5 ML drops 2.5 ml Eye-Both DAILY levalbuterol HCl 0.31 MG/3 ML solution for nebulization 0.31 mg inhalation NEEDED PRN (Reason: COPD) budesonide-formoterol 160-4.5 mcg/actuation HFA aerosol inhaler 2 inh inhalation BID Referrals Follow up/Referrals: Alycia Stewart DO [Primary Care Provider] - See instructions Activity Restrictions/Add. Instructions Additional Instructions/Restrictions: Return for worsening cough shortness of air chest pain or any other concerns within the next 8 hours otherwise follow-up with your primary care physician within the next few days Clinical Impressions Clinical Impression: Acute bacterial sinusitis Discharge ED Provider: Mark Pena General Adult HPI General Chief complaint: Shortness of Breath/Dyspnea Stated complaint: short breath cough Time Seen by Provider: 12/01/22 21:00 Mode of Arrival: Wheelchair Limitations: No Limitations Description of Symptoms (Recalled from ER Triage Doc. by RN): pt advises she started having drainage and a cough yesterday with some SOA that has gotten progressively worse today History of Present Illness HPI narrative: 82-year-old female with history of COPD chronic back pain GERD presents with sinus congestion for the last few days and cough. She says whenever this happens she starts wheezing a lot. She is trying to prevent this from getting bad. She denies fever or chills. No nausea vomiting diarrhea abdominal pain or chest pain. This feels like a typical asthma exacerbation for her. She says that the sinus drainage is dark and drainage down her throat coughing a lot keeping her up at night. Related Data Home Medications Medication Instructions Recorded Confirmed travoprost 0.004 % eye drops 2.5 ml Eye-Both DAILY unknown 06/07/18 11/30/22 (Travatan Z) levalbuterol HCl 0.31 mg/3 mL 0.31 mg inhalation NEEDED PRN 03/18/19 11/30/22 solution for nebulization COPD acetaminophen 325 mg capsule 325 mg PO QID PRN 11/25/22 11/30/22 (Tylenol) budesonide-formoterol HFA 160 2 inh inhalation BID COPD 11/25/22 11/30/22 mcg-4.5 mcg/actuation aerosol inhaler levalbuterol tartrate 45 2 inh inhalation Q6H PRN 11/25/22 11/30/22 mcg/actuation aerosol inhaler lorazepam 1 mg tablet 1 mg PO BID Anxiety 11/25/22 11/30/22 Previous Rx's Medication Instructions Recorded clobetasol 0.05 % scalp solution 1 applic topical DAILY #50 mL 11/25/22 doxycycline hyclate 100 mg tablet 100 mg PO BID #20 tabs 11/25/22 levothyroxine 50 mcg tablet 25 mcg PO DAILY thyroid #90 tabs 11/25/22 (Synthroid) methylprednisolone 4 mg tablets in 4 mg PO DAILY #21 tabs 11/25/22 a dose pack (Medrol (Nish)) pantoprazole 40 mg tablet,delayed 40 mg PO DAILY STOMACH #90 tabs 11/25/22 release amoxicillin 875 mg-potassium 1 tab PO BID #20 tabs 12/01/22 clavulanate 125 mg tablet prednisone 50 mg tablet 50 mg PO DAILY 5 days #5 tabs 12/01/22 Allergies Allergy/AdvReac Type S
--- NOTE | 2022-12-01 21:35 | PC.NURSE ---
md at bedside discussing poc with pt
[2022-12-01 21:45] VITALS: BP 160/105; PULSE 82; RESP 16; O2SAT 93
[2022-12-01 22:00] VITALS: BP 146/98; PULSE 76; RESP 16; O2SAT 95
[2022-12-01 22:07] VITALS: BP 140/96; PULSE 84; RESP 22; TEMP 36.8; O2SAT 98
== END 2022-12-01 22:21 | disposition home or self-care (01) ==
PROVIDERS: Emergency Provider Emergency Medicine; PCP Family Medicine
DX: J01.90 Acute sinusitis, unspecified (principal); J44.9 Chronic obstructive pulmonary disease, unspecified; K21.9 Gastro-esophageal reflux disease without esophagitis; M54.9 Dorsalgia, unspecified; G89.29 Other chronic pain; H26.9 Unspecified cataract; Z90.710 Acquired absence of both cervix and uterus
CPT/HCPCS: 71045; 80048; 82803; 83735; 85025; 96372; 99285

== ENCOUNTER → 2022-12-16 10:14 | Outpatient (CLI) | payer MEDICARE, OTHER, SELFPAY ==
--- NOTE | 2022-12-16 10:23 | XR_ITS ---
FINAL REPORT CLINICAL HISTORY: knee pain FINDINGS: Three views of the right knee reveal no evidence of fracture or dislocation. The bony alignment is normal. There are mild degenerative changes. There is a small joint effusion. No localized soft tissue abnormality is identified. IMPRESSION: Small joint effusion with no acute abnormality identified. Reviewed, Interpreted and Dictated by Narciso Harding III, MD Transcribed by Patricia Hilliard Authenticated and [facility]
--- NOTE | 2022-12-16 10:23 | XR_ITS ---
FINAL REPORT CLINICAL HISTORY: knee pain FINDINGS: Three views of the left knee reveal no evidence of fracture or dislocation. The bony alignment is normal. There are mild degenerative changes. There is medial compartment narrowing. There is no evidence of joint effusion. No localized soft tissue abnormality is seen. IMPRESSION: Mild degenerative change with medial compartment narrowing. No acute bony abnormality. Reviewed, Interpreted and Dictated by Narciso Harding III, MD Transcribed by Patricia Hilliard Authenticated and [facility]
== END ==
PROVIDERS: PCP Family Medicine; Visit Provider Orthopaedic Surgery
DX: M25.561 Pain in right knee (principal); M25.562 Pain in left knee
CPT/HCPCS: 73562

== ENCOUNTER → 2023-01-10 10:22 | Outpatient (CLI) | payer MEDICARE, OTHER, SELFPAY ==
--- NOTE | 2023-01-10 10:29 | XR_ITS ---
FINAL REPORT CLINICAL HISTORY: LEFT METATARSAL FRACTURES, FOLLOW-UP COMPARISON: 11/30/2022 FINDINGS: LEFT FOOT Three views again demonstrate mildly displaced and angulated fractures of the distal 2nd, 3rd, and 4th metatarsals. There is no intra-articular extension. The bones are well mineralized. No new abnormality is seen. IMPRESSION: Redemonstration of mildly displaced and angulated fractures of the distal 2nd, 3rd, and 4th metatarsals. Reviewed, Interpreted and Dictated by Rober Alamo MD Transcribed by Dang Eric Authenticated and [facility]
== END ==
PROVIDERS: PCP Family Medicine; Visit Provider Podiatrist
DX: S92.302A Fracture of unspecified metatarsal bone(s), left foot, initial encounter for closed fracture (principal)
CPT/HCPCS: 73630

== ENCOUNTER → 2023-01-10 11:37 | Outpatient (POV) | payer MEDICARE, OTHER, SELFPAY ==
--- NOTE | 2023-01-10 12:03 | EXP.PAIN.SOA ---
[facility] Pain Management SOAP Note Subjective:: Patient is a pleasant 82-year-old female who presents today for follow-up of right SI injection and right greater trochanteric bursa injection on 11/16/2022. We are currently treating the patient for degenerative disc disease of lumbar spine with lumbar radiculopathy symptoms, right hip pain, right leg pain, low back pain, recent left foot fracture, sacroiliitis, greater trochanteric bursitis, generalized joint pain. Today she rates her pain an 8 out of 10. Patient states that she had approximately 25% relief or more lasting approximately 3 to 4 weeks following these injections. She does states she is back to her baseline today and is complaining of overall joint pain in her back, hands and throughout her major joints. Patient states that she did recently have testing done by Dr. Yvonne Bustos's office and was diagnosed with rheumatoid arthritis. She does state that she has a family history of this. Patient is currently managed with Tylenol however she states that this does not provide significant relief. Patient previously had a severe allergic reaction to ibuprofen with mouth and tongue swelling. Patient does have to carry around an EpiPen and states that it is currently . Patient does use a wheelchair or walker for help with ambulation. She is currently in physical therapy however she does not state that she has had any additional relief. Patient is currently managed with lorazepam 1 mg twice daily. Patient denies any side effects from this medication. Patient denies any cardiac or kidney issues. Her Pieter is [phone]. Its been reviewed and appropriate. Review of Systems: General: No recent weight changes, no fever, no sleep disturbances Respiratory: No cough, no shortness of air, no recurring pulmonary infections Cardiovascular/peripheral vascular: No chest pain, no palpitations, no edema, no shortness of breath Gastrointestinal: No new onset incontinence, normal bowel movements reported Genitourinary: No new onset incontinence Musculoskeletal: Generalized joint pain Psychiatric: [Normal mood/affect] Neurological: [Denies weakness in extremities], [denies balance issues] Objective:: Physical Exam: General: Alert and oriented x3, no acute distress, pleasant and cooperative Lungs: Respirations even and unlabored, symmetrical chest expansion Eyes: PERRL Musculoskeletal: Flexion and extension of lumbar [spine] somewhat guarded secondary to pain, [antalgic gait noted] Neurological: Speech clear, no gross sensory deficit Assessment:: Low back pain, degenerative disc disease lumbar spine with lumbar radiculopathy symptoms, right hip pain, right leg pain, recent left foot fracture, sacroiliitis, greater trochanteric bursitis Plan:: Patient continues to experience significant pain in her low back as well as generalized joints. Patient did have limited range of motion of her lumbar spine during today's visit. I have discussed with the patient that she may benefit from a pain pump trial. Risk and benefits and educational handouts were given during today's visit. I will order the patient a psychiatric evaluation and if she is deemed an appropriate candidate we will plan on proceeding forward with a pain pump trial in the future. I have counseled the patient to contact her primary care doctor for sending in an updated prescription of her EpiPen's. Patient will follow-up in clinic following her psychiatric evaluation for reevaluation of symptoms and plan of care. Patient has been instructed to contact the clinic with any concerns before the next appointment. Dr. Wolf has reviewed this note and agrees with this plan of care. This note was dictated using voice recognition software and make contain errors or omissions. [facility] Disclaimer: The information contained in this section may have been updated after the patient was seen, as this information can be updated by other users. Medical History (Reviewed 04
[2023-01-10 12:55] VITALS: BP 150/100; PULSE 91; RESP 18; O2SAT 97
== END ==
PROVIDERS: Visit Provider Nurse Practitioner Family
DX: M51.16 Intervertebral disc disorders with radiculopathy, lumbar region (principal); M70.60 Trochanteric bursitis, unspecified hip; M46.1 Sacroiliitis, not elsewhere classified; M79.604 Pain in right leg; M25.551 Pain in right hip; S92.902D Unspecified fracture of left foot, subsequent encounter for fracture with routine healing
CPT/HCPCS: 73630; 99212; G0463

== ENCOUNTER 2023-02-08 18:19 | Emergency (ER) | payer MEDICARE, OTHER, SELFPAY ==
[2023-02-08 18:22] VITALS: BP 155/96; PULSE 105; RESP 22; TEMP 36.7; O2SAT 97; BMI 31.0
--- NOTE | 2023-02-08 18:35 | EXP.UTC ---
Discharge Plan Disposition Patient Disposition: Home, Self-Care Condition: Good Prescriptions Prescriptions: New mupirocin 2 % ointment 1 applic topical TID 7 Days Qty: 15 2RF methylprednisolone 4 mg Tablets,Dose Pack 4 mg PO DIRECTED Qty: 21 0RF cefdinir 300 mg capsule 300 mg PO BID Qty: 20 0RF No Action levalbuterol tartrate 45 mcg/actuation HFA aerosol inhaler 2 inh inhalation Q6H PRN (Reason: BREATHING) acetaminophen [Tylenol] 325 mg capsule 325 mg PO QID PRN (Reason: Pain) pantoprazole 40 mg tablet,delayed release (DR/EC) 40 mg PO DAILY Qty: 90 1RF levothyroxine [Synthroid] 50 mcg tablet 25 mcg PO DAILY Qty: 90 0RF lorazepam 1 mg tablet 1 mg PO BID Qty: 60 2RF travoprost [Travatan Z] 2.5 ML drops 2.5 ml Eye-Both DAILY clobetasol 0.05 % solution 1 applic topical DAILY levalbuterol HCl 0.31 MG/3 ML solution for nebulization 0.31 mg inhalation NEEDED PRN (Reason: COPD) budesonide-formoterol 160-4.5 mcg/actuation HFA aerosol inhaler 2 inh inhalation BID Referrals Follow up/Referrals: Alycia Stewart DO [Primary Care Provider] - See instructions Activity Restrictions/Add. Instructions Additional Instructions/Restrictions: Drink plenty of fluids. Take tylenol or ibuprofen for pain or fever. Take the medications as directed. Follow up with your regular doctor. GO TO THE ER FOR ANY WORSENING SYMPTOMS Apply the topical antibiotic ointment (mupirocin) to the areas on your scalp. Try not to scratch them or tear the scab off. Clinical Impressions Clinical Impression: Infected scalp abrasion, Sinusitis, Otitis media Instructions Patient Instructions: Middle Ear Infection, DI for Sinusitis, Mupirocin Discharge ED Provider: Gabriel Harding [facility] HPI General Stated complaint: Pressure on head,DEGROOT,earache, Time Seen by Provider: 02/08/23 18:35 History of Present Illness Provider Complaint: She states that for the past 2 days she has had worsening sinus congestion, bilateral ear pain and nasal drainage. She also has had several open areas on her scalp for the past several months. She was supposed to see the criminal records technician for these lesions but her appt was canceled today and rescheduled for May. Related Data Home Medications Medication Instructions Recorded Confirmed travoprost 0.004 % eye drops 2.5 ml Eye-Both DAILY unknown 06/07/18 01/10/23 (Travatan Z) levalbuterol HCl 0.31 mg/3 mL 0.31 mg inhalation NEEDED PRN 03/18/19 01/10/23 solution for nebulization COPD acetaminophen 325 mg capsule 325 mg PO QID PRN Pain 11/25/22 01/10/23 (Tylenol) budesonide-formoterol HFA 160 2 inh inhalation BID COPD 11/25/22 01/10/23 mcg-4.5 mcg/actuation aerosol inhaler levalbuterol tartrate 45 2 inh inhalation Q6H PRN BREATHING 11/25/22 01/10/23 mcg/actuation aerosol inhaler clobetasol 0.05 % scalp solution 1 applic topical DAILY SCALP 01/10/23 01/10/23 Previous Rx's Medication Instructions Recorded levothyroxine 50 mcg tablet 25 mcg PO DAILY thyroid #90 tabs 11/25/22 (Synthroid) pantoprazole 40 mg tablet,delayed 40 mg PO DAILY STOMACH #90 tabs 11/25/22 release lorazepam 1 mg tablet 1 mg PO BID Anxiety #60 tabs 12/15/22 cefdinir 300 mg capsule 300 mg PO BID #20 caps 02/08/23 methylprednisolone 4 mg tablets in 4 mg PO DIRECTED #21 tabs 02/08/23 a dose pack mupirocin 2 % topical ointment 1 applic topical TID 7 days #15 02/08/23 grams Allergies Allergy/AdvReac Type Severity Reaction Status Date / Time levofloxacin [From Levaquin] Allergy Intermediate rash Verified 01/10/23 10:07 ibuprofen [From MOTRIN] Allergy Mild Verified 01/10/23 10:07 NSAIDS (Non-Steroidal Allergy Mild Verified 01/10/23 10:07 Anti-Inflamma [NSAIDS (NON-STEROIDAL ANTI-INFLAMMA] Sulfa (Sulfonamide Allergy Mild Verified 01/10/23 10:07 Antibiotics) [SULFA (SULFONAMIDE ANTIBIOTICS)] domingaami
[2023-02-08 19:41] VITALS: BP 155/96; PULSE 105; RESP 22; TEMP 36.7; O2SAT 97
== END 2023-02-08 19:42 | disposition home or self-care (01) ==
PROVIDERS: Emergency Provider Nurse Practitioner Family; PCP Family Medicine
DX: J01.90 Acute sinusitis, unspecified (principal); H66.93 Otitis media, unspecified, bilateral; S01.00XA Unspecified open wound of scalp, initial encounter; L08.9 Local infection of the skin and subcutaneous tissue, unspecified; J44.9 Chronic obstructive pulmonary disease, unspecified; E03.9 Hypothyroidism, unspecified; K21.9 Gastro-esophageal reflux disease without esophagitis
CPT/HCPCS: 96372; 99212; 99214; G0463; J0696

== ENCOUNTER → 2023-03-01 11:24 | Outpatient (POV) | payer MEDICARE, OTHER, SELFPAY | PROVIDERS: Visit Provider Dermatology | DX: Z00.00 Encounter for general adult medical examination without abnormal findings (principal) ==

== ENCOUNTER 2023-03-28 15:17 | Emergency (ER) | payer MEDICARE, OTHER, SELFPAY ==
[2023-03-28 15:25] VITALS: BP 150/86; PULSE 96; RESP 28; TEMP 36.5; O2SAT 96; BMI 29.1
--- NOTE | 2023-03-28 15:41 | EXP.UTC ---
Discharge Plan Disposition Patient Disposition: Home, Self-Care Condition: Good Prescriptions Prescriptions: New levalbuterol tartrate 45 mcg/actuation HFA aerosol inhaler 2 inh inhalation Q6H Qty: 15 0RF azithromycin [Zithromax Z-Nish] 250 mg tablet See Rx Instructions .ROUTE .COMPLEX 5 Days Qty: 6 0RF Rx Instructions: For 250 mg dose pack: take 500 mg today (day 1), then 250 mg for 4 days (days 2-5) prednisone [prednisone] 20 mg tablet 20 mg PO BID 5 Days Qty: 10 0RF No Action levalbuterol tartrate 45 mcg/actuation HFA aerosol inhaler 2 inh inhalation Q6H PRN (Reason: BREATHING) acetaminophen [Tylenol] 325 mg capsule 325 mg PO QID PRN (Reason: Pain) pantoprazole 40 mg tablet,delayed release (DR/EC) 40 mg PO DAILY Qty: 90 1RF levothyroxine [Synthroid] 50 mcg tablet 25 mcg PO DAILY Qty: 90 0RF lorazepam 1 mg tablet 1 mg PO BID Qty: 60 2RF travoprost [Travatan Z] 2.5 ML drops 2.5 ml Eye-Both DAILY clobetasol 0.05 % solution 1 applic topical DAILY levalbuterol HCl 0.31 MG/3 ML solution for nebulization 0.31 mg inhalation NEEDED PRN (Reason: COPD) budesonide-formoterol 160-4.5 mcg/actuation HFA aerosol inhaler 2 inh inhalation BID mupirocin 2 % ointment 1 applic topical TID 7 Days Qty: 15 2RF methylprednisolone 4 mg Tablets,Dose Pack 4 mg PO DIRECTED Qty: 21 0RF cefdinir 300 mg capsule 300 mg PO BID Qty: 20 0RF Referrals Follow up/Referrals: Alycia Stewart, [Primary Care Provider] - See instructions Activity Restrictions/Add. Instructions Additional Instructions/Restrictions: Start oral steriods tomorrow You was sent in a replacement inhaler for the one you was prescribed that is not spraying Start antibiotic today. Be sure to complete entire prescription even if feeling better Monitor temp. Tylenol every 4 hours as needed and / or ibuprofen every 6 hours as needed ( As long as your primary care physician has told you that it ok to take both. For fever/aches/pains ER if no less than 101 despite Tylenol or Motrin Humidifier/vaporizer or hot steamy shower Inhaler every 6 hours as needed like we discussed. If unsure how to use it, ask pharmacist to demonstrate how. Should help open airways and improve cough, wheezing, and shortness of breath and use your Nebulizer as you was prescribed Mucinex during the day for your cough and cough suppressant only at night. Be sure to drink lots of water. Insurance may not cover a prescriptions for mucinex. Might be cheaper to get 400mg tablets and take 2 tablet in the morning, mid-day and evening with lots of water. *Start oral Prednisone steroid tomorrow. Helps with inflammation therefore, cough and wheezing. Follow directions on the package. Reviewed side effects. Patient reports taking them before. Follow up IMMEDIATELY for new or worsening of symptoms OR no noticeable improvement over the next 48-72 hours. 911 immediately for any life threatening symptoms such as chest pain or difficulty breathing Clinical Impressions Clinical Impression: COPD exacerbation Sinusitis Qualifiers: Sinusitis location: unspecified location Chronicity: unspecified Qualified Code(s): J32.9 - Chronic sinusitis, unspecified Instructions Patient Instructions: Sinusitis, DI for Sinusitis Discharge ED Provider: Elaine Mayorga [facility] General Stated complaint: Shortness of Breath Mode of Arrival: Ambulatory Source of Information: Patient Limitations: No Limitations Time Seen by Provider: 03/28/23 15:41 Description of Symptoms (Recalled from Triage Doc. by RN): PATIENT C/O SOA AND PRODUCTIVE COUGH WITH THICK, YELLOW SPUTUM X 2 DAYS HEENT Symptoms (Recalled from RN notes): No Resp Symptoms (Recalled from RN notes): Yes Skin Symptoms (Recalled from RN notes): No MS Symptoms (Recalled from RN notes): No Functional Status (Rec
[2023-03-28 16:17] VITALS: BP 150/86; PULSE 96; RESP 28; TEMP 36.5; O2SAT 96
== END 2023-03-28 16:30 | disposition home or self-care (01) ==
PROVIDERS: Emergency Provider Nurse Practitioner; PCP Family Medicine
DX: J44.1 Chronic obstructive pulmonary disease with (acute) exacerbation (principal); J01.90 Acute sinusitis, unspecified
CPT/HCPCS: 96372; 99212; 99214; G0463; J0696

== ENCOUNTER → 2023-04-06 16:19 | Outpatient (CLI) | payer MEDICARE, OTHER, SELFPAY ==
[2023-04-06 16:38] LABS: Basophils # 0.1 K/mm3 (0-0.2); Basophils % 0.3 % (0.1-2.0); Eosinophils # 0.1 K/mm3 (0.0-0.4); Eosinophils % 0.6 % (0.1-12.0); Hemoglobin 15.3 g/dL (12.2-16.2); Lymphocytes # 4.2 K/mm3 (0.7-4.5); Mean Corpuscular HGB Conc 30.6 g/dL (31.8-35.4); Mean Corpuscular Hemoglobin 31.5 pg (27.0-31.2); Mean Platelet Volume 8.2 fl (7.4-10.4); Monocytes # 1.1 K/mm3 (0.1-1.0); Monocytes % 6.4 % (1.7-9.3); Neutrophils % 68.7 % (37.0-80.0); Platelet Count 499 K/mm3 (142-424); Red Blood Count 4.86 M/mm3 (4.20-5.40); Red Cell Distribution Width 13.1 % (11.5-17.5); White Blood Count 17.4 K/mm3 (4.8-10.8)
[2023-04-06 16:40] LABS: MANUAL DIFFERENTIAL MANUAL DIFFERENTIAL (MANUAL DIFF)
[2023-04-06 18:14] LABS: Hypersegmented Neutrophils 1+; Lymphocytes % 31 % (10-50); Macrocytosis 1+; Monocytes % 2 % (2-9); Neutrophils % 67 % (42-76); Platelet Estimate Slight Increase; Total Cells Counted 100
[2023-04-15 14:28] LABS: D001-IgE D pteronyssinus <0.10 kU/L (Class 0); D002-IgE D farinae <0.10 kU/L (Class 0); E001-IgE Cat Dander <0.10 kU/L (Class 0); E005-IgE Dog Dander <0.10 kU/L (Class 0); E072-IgE Mouse Urine <0.10 kU/L (Class 0); G002-IgE Bermuda Grass <0.10 kU/L (Class 0); G006-IgE Timothy Grass <0.10 kU/L (Class 0); I006-IgE Cockroach, German <0.10 kU/L (Class 0); Immunoglobulin E, Total 101 IU/mL (6-495); M001-IgE Penicillium chrysogen <0.10 kU/L (Class 0); M002-IgE Cladosporium herbarum <0.10 kU/L (Class 0); M003-IgE Aspergillus fumigatus <0.10 kU/L (Class 0); M006-IgE Alternaria alternata <0.10 kU/L (Class 0); T001-IgE Maple/Box Elder <0.10 kU/L (Class 0); T003-IgE Common Silver Birch <0.10 kU/L (Class 0); T006-IgE Cedar, Mountain <0.10 kU/L (Class 0); T007-IgE Oak, White <0.10 kU/L (Class 0); T008-IgE Elm, American <0.10 kU/L (Class 0); T010-IgE Walnut <0.10 kU/L (Class 0); T014-IgE Cottonwood 0.15 kU/L (Class 0/I); T015-IgE Ash, White <0.10 kU/L (Class 0); T022-IgE Pecan, Hickory <0.10 kU/L (Class 0); T070-IgE White Mulberry <0.10 kU/L (Class 0); W001-IgE Ragweed, Short <0.10 kU/L (Class 0); W011-IgE Thistle, Russian <0.10 kU/L (Class 0); W014-IgE Pigweed, Common <0.10 kU/L (Class 0); W018-IgE Sheep Sorrel <0.10 kU/L (Class 0)
== END ==
PROVIDERS: PCP Nurse Practitioner Family; Visit Provider Internal Medicine Pulmonary Disease
DX: J30.9 Allergic rhinitis, unspecified (principal)
CPT/HCPCS: 36415; 82785; 85007; 85025; 86003

== ENCOUNTER 2023-05-06 08:56 | Day surgery (SDC) | payer MEDICARE, OTHER, SELFPAY ==
[2023-05-06 09:00] VITALS: BP 145/79; PULSE 94; RESP 20; O2SAT 97; BMI 30.9
[2023-05-06 10:27] VITALS: BP 178/89; PULSE 94; RESP 20; O2SAT 96
[2023-05-06 12:00] VITALS: BP 126/74; PULSE 107; RESP 20; O2SAT 94
--- NOTE | 2023-05-06 12:24 | PC.NURSE ---
1035-pt returned to bay, accompanied by nursing staff. denies pain, dressing c/d/i. 121/58, 102, 96%, 20. no needs or concerns at this time. 1050-pt resting in chair, family at bedside. no c/o pain. dressing c/d/i. 106/60, 90, 98%, 20. pt medicated with benadryl per prn order for c/o itching. no further needs or concerns at this time 1105-pt resting in chair. denies pain, dressing c/d/i. 135/86, 91, 96%, 20. tolerating po intake. no needs or concerns at this time. 1120-pt resting in chair. denies pain, dressing c/d/i. 119/82, 90 94%, 20. no needs or concerns at this time. 1130-pt ambulated in hallway accompanied by nursing staff. gait steady. no c/o pain. 1150-pt resting in chair. denies pain, dressing c/d/i. 134/76, 96, 96%, 20. no needs or concerns at this time.
--- NOTE | 2023-05-06 14:40 | P.PCN_ITS ---
Procedure Date: 05/06/23 Time: 14:41 Anesthesiologist:: Tai Wolf MD Complications:: None Pre-procedure Diagnosis:: Degenerative disc disease of lumbar spine with lumbar radiculopathy symptoms Post-procedure Diagnosis:: Same Indications for Procedure:: The patient is a pleasant 82-year-old white female who we are treating for low back pain with lumbar radiculopathy symptoms. She has increasing pain in her neck, low back, hips and legs. She also has a history of rheumatoid arthritis. She has failed all previous conservative treatments including injections, oral medications, physical therapy and she is not a candidate for surgery. She has had a successful psychological evaluation. She presents for intrathecal pump trial today. Procedure Details:: Pain pump trial Informed consent was obtained and the risk and benefits of the procedure was explained to the patient. The patient was taken to the procedure room and placed prone on the procedure table. Patient was prepped and draped in sterile fashion. C-arm fluoroscopy was used to view the lumbar spine. The skin and subcutaneous tissues were anesthetized using lidocaine. I placed a 18-gauge spinal needle into the L4-5 interspace and advanced until clear CSF was ob tained. After this intrathecal catheter was inserted and advanced very easily to the L1 vertebral body. The needle was withdrawn. We were able to freely withdraw clear CSF through the catheter. We then injected intrathecal opioid single shot bolus of 25 mcg followed by saline and followed by the previous CSF that was withdrawn. The needle and catheter were then removed and a Band-Aid was placed. Patient tolerated the procedure well with no complications. We reevaluated the patient after 30 minutes to 1 hour. She was also reassessed by physical therapy. Patient had 90 to 100% relief of her pain symptoms. Pain score is a 1 out of 10. She was much more functional. She was standing longer and walking better. By all indications this did seem to be a successful intrathecal pump trial. Patient was discharged home neurologic intact with good relief of pain symptoms. Plan and Disposition:: We will follow-up with this patient in 2 weeks. Will reevaluate symptoms at that time. We will evaluate efficacy of this trial. If successful we will plan on permanent placement with intrathecal morphine 1 mg per mill to start at 100 mcg/day.
== END 2023-05-06 12:00 | disposition home or self-care (01) ==
LOC: SC.PAINP 08:57
PROVIDERS: PCP Nurse Practitioner Family; Visit Provider Anesthesiology
DX: M51.16 Intervertebral disc disorders with radiculopathy, lumbar region (principal)
CPT/HCPCS: 62323; 96365

== ENCOUNTER → 2023-05-30 14:33 | Outpatient (CLI) | payer MEDICARE, OTHER, SELFPAY ==
[2023-05-30 15:02] LABS: Basophils # 0.1 K/mm3 (0-0.2); Basophils % 0.6 % (0.1-2.0); Eosinophils # 0.3 K/mm3 (0.0-0.4); Hematocrit 48.1 % (37.0-47.0); Hemoglobin 15.4 g/dL (12.2-16.2); Lymphocytes # 2.6 K/mm3 (0.7-4.5); Lymphocytes % 33.1 % (10-50); Mean Corpuscular Hemoglobin 31.8 pg (27.0-31.2); Mean Corpuscular Volume 99.4 fl (81-99); Mean Platelet Volume 7.9 fl (7.4-10.4); Monocytes # 0.5 K/mm3 (0.1-1.0); Monocytes % 6.7 % (1.7-9.3); Neutrophils # 4.4 K/mm3 (1.8-7.8); Neutrophils % 55.7 % (37.0-80.0); Platelet Count 447 K/mm3 (142-424); Red Blood Count 4.84 M/mm3 (4.20-5.40); Red Cell Distribution Width 13.5 % (11.5-17.5); White Blood Count 7.9 K/mm3 (4.8-10.8)
[2023-05-30 15:34] LABS: Anion Gap 15.1 mEq/L (5-15); Blood Urea Nitrogen 11 mg/dl (7-17); Calcium 9.9 mg/dl (8.4-10.2); Carbon Dioxide 23 mmol/L (22.0-30.0); Chloride 105 mmol/L (98-107); Estimated Glomerular Filt Rate 95 ml/min (>60); GFR (African American) 115 ML/MIN (>60); Glucose 107 mg/dl (74-100); Potassium 4.1 mmoL/L (3.5-5.1); Sodium 139 mmol/L (136-145)
[2023-05-30 21:42] LABS: Amphetamine/Metha Screen,Urine Negative ng/ml (<1000)
[2023-05-30 21:44] LABS: Benzodiazepines Screen,Urine Negative ng/ml (<200); Cannabinoid Screen,Urine Negative ng/ml (<50)
[2023-05-30 21:48] LABS: Cocaine Screen,Urine Negative ng/ml (<300); Methadone Screen,Urine Negative ng/ml (<300)
[2023-05-30 21:53] LABS: Barbiturates Screen,Urine Negative ng/ml (<200)
[2023-05-30 21:54] LABS: Opiate Screen,Urine Negative ng/ml (<300)
[2023-05-30 21:55] LABS: Phencyclidine Screen,Urine Negative ng/ml (<25)
== END ==
PROVIDERS: PCP Nurse Practitioner Family; Visit Provider Anesthesiology
DX: Z01.818 Encounter for other preprocedural examination (principal); Z79.899 Other long term (current) drug therapy
CPT/HCPCS: 36415; 80048; 80305; 85025

== ENCOUNTER 2023-05-30 15:05 | Emergency (ER) | payer MEDICARE, OTHER, SELFPAY ==
[2023-05-30 15:06] VITALS: BP 147/99; PULSE 97; RESP 20; TEMP 36.8; O2SAT 95; BMI 30.9
--- NOTE | 2023-05-30 15:21 | EXP.UTC ---
Discharge Plan Disposition Patient Disposition: Home, Self-Care Condition: Good Prescriptions Prescriptions: New budesonide-formoterol [Symbicort] 160-4.5 mcg/actuation HFA aerosol inhaler 2 puff inhalation BID 30 Days Qty: 10.2 2RF No Action acetaminophen [Tylenol] 325 mg capsule 325 mg PO QID PRN (Reason: Pain) pantoprazole 40 mg tablet,delayed release (DR/EC) 40 mg PO DAILY Qty: 90 1RF epinephrine 0.3 mg/0.3 mL auto-injector 0.3 mg IM Q5-15M PRN (Reason: Allergic Reaction) Rx Instructions: do not exceed 3 doses per episode fexofenadine [Audra Allergy] 180 mg tablet 180 mg PO DAILY fluticasone propionate [Flonase Allergy Relief] 50 mcg/actuation spray,suspension 1 spray intranasal DAILY Rx Instructions: administer into each nostril cyclobenzaprine 5 mg tablet 5 mg PO DAILY lorazepam 1 mg tablet 1 mg PO BID Qty: 60 2RF clobetasol 0.05 % solution 1 applic topical DAILY melatonin 1 mg Tablet 1 mg PO HS PRN (Reason: Insomnia) levothyroxine [Synthroid] 25 mcg tablet 25 mcg PO DAILY levalbuterol tartrate 45 mcg/actuation HFA aerosol inhaler 2 inh inhalation Q6H budesonide-formoterol [Symbicort] 160-4.5 mcg/actuation HFA aerosol inhaler 2 puff inhalation BID levalbuterol HCl 0.31 MG/3 ML solution for nebulization 0.31 mg inhalation NEEDED PRN (Reason: COPD) Referrals Follow up/Referrals: Sara Barrow APRN [Primary Care Provider] - See instructions Activity Restrictions/Add. Instructions Additional Instructions/Restrictions: Take the medications as directed. Follow up with your regular doctor. GO TO THE ER FOR ANY WORSENING SYMPTOMS Clinical Impressions Clinical Impression: Asthma Instructions Patient Instructions: Asthma -- Adult, Dexamethasone Discharge ED Provider: Gabriel Harding [facility] General Stated complaint: SOA Time Seen by Provider: 05/30/23 15:21 History of Present Illness Provider Complaint: She states that she has had history of asthma. She is out of her symbicort inhaler and she cannot travel to her pcp's office in [facility] at this time due to family illness. Related Data Home Medications Medication Instructions Recorded Confirmed levalbuterol HCl 0.31 mg/3 mL 0.31 mg inhalation NEEDED PRN 03/18/19 05/26/23 solution for nebulization COPD acetaminophen 325 mg capsule 325 mg PO QID PRN Pain 11/25/22 05/26/23 (Tylenol) clobetasol 0.05 % scalp solution 1 applic topical DAILY SCALP 01/10/23 05/26/23 epinephrine 0.3 mg/0.3 mL 0.3 mg IM Q5-15M PRN Allergic 04/04/23 05/26/23 injection, auto-injector Reaction fexofenadine 180 mg tablet 180 mg PO DAILY Allergy Symptoms 04/04/23 05/26/23 (Audra Allergy) fluticasone propionate 50 1 spray intranasal DAILY Allergy 04/04/23 05/26/23 mcg/actuation nasal Symptoms spray,suspension (Flonase Allergy Relief) cyclobenzaprine 5 mg tablet 5 mg PO DAILY Back Pain 04/06/23 05/26/23 budesonide-formoterol HFA 160 2 puff inhalation BID Copd 05/26/23 05/26/23 mcg-4.5 mcg/actuation aerosol inhaler (Symbicort) levalbuterol tartrate 45 2 inh inhalation Q6H Asthma 05/26/23 05/26/23 mcg/actuation aerosol inhaler levothyroxine 25 mcg tablet 25 mcg PO DAILY thyroid 05/26/23 05/26/23 (Synthroid) melatonin 1 mg tablet 1 mg PO HS PRN Insomnia 05/26/23 05/26/23 Previous Rx's Medication Instructions Recorded pantoprazole 40 mg tablet,delayed 40 mg PO DAILY STOMACH #90 tabs 11/25/22 release budesonide-formoterol HFA 160 2 puff inhalation BID 30 days 05/30/23 mcg-4.5 mcg/actuation aerosol #10.2 grams inhaler (Symbicort) lorazepam 1 mg tablet 1 mg PO BID Anxiety #60 tabs 05/30/23 Allergies Allergy/AdvReac Type Severity Reaction Status Date / Time levofloxacin [From Levaquin] Allergy Intermediate rash Verified 05/26/23 09:33 ibuprofen [From MOTRIN] Allergy Mild Verified 05/26/23 09:33 NSAIDS (Non-Steroidal
[2023-05-30 15:53] VITALS: BP 147/99; PULSE 97; RESP 20; TEMP 36.8; O2SAT 95
== END 2023-05-30 15:53 | disposition home or self-care (01) ==
PROVIDERS: Emergency Provider Nurse Practitioner Family; PCP Nurse Practitioner Family
DX: J45.901 Unspecified asthma with (acute) exacerbation (principal); I10 Essential (primary) hypertension; E03.9 Hypothyroidism, unspecified; G47.30 Sleep apnea, unspecified
CPT/HCPCS: 36415; 80048; 80305; 85025; 96372; 99212; 99214; G0463

== ENCOUNTER 2023-06-03 07:23 | Day surgery (SDC) | payer MEDICARE, OTHER, SELFPAY ==
[2023-05-26 09:50] VITALS: BMI 30.9
[2023-06-03 09:04] VITALS: BP 155/97; PULSE 96; RESP 18; TEMP 37.1; O2SAT 100
--- NOTE | 2023-06-03 10:56 | P.PNANES_ITS ---
[facility] Disclaimer: The information contained in this section may have been updated after the patient was seen, as this information can be updated by other users. Medical History Acute bacterial sinusitis Anxiety Asthma Bronchitis Cataract COPD exacerbation Dyspnea on exertion Edema of left foot Family history of asthma Fracture of metatarsal bone of left foot History of COPD History of COVID-19 History of gastroesophageal reflux (GERD) History of sleep apnea Hypertension Hypothyroid Infected scalp abrasion Ingrown toenail of left foot Irritable bowel syndrome (IBS) Left foot pain Menopause Multiple closed fractures of metatarsal bone of left foot Nail disorder (onychogryphosis) Nasal congestion Normal colonoscopy Psoriasis Sebaceous cyst of labia Sinusitis Sinusitis Sinusitis Sleep apnea Thrush Urinary tract infection 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 (Updated 06/03/23 @ 09:00 by Liv Montez RN) H/O bladder repair surgery H/O sinus surgery H/O: hysterectomy History of cholecystectomy History of surgery on arm Hx of cataract surgery 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 Other Asthma Diabetes Family history of cancer Heart attack Hypertension 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 Smoking Status: Never smoker alcohol intake: never substance use type: denies use current occupational status: retired Travel in the last 8 weeks: None [facility] Anesthesia Checklist Patient Identification Patient Identification: Arm Band and Verbal (Name & ) Structural Data Planned Operative Procedure/s: pain pump Consent for Planned Operative Procedure(s) Verified: Yes Verified Documents: Surgical Consent NPO Status Verified Time NPO: 00:00 Additional verifications Patient : No Anesthesia Reactions: No Hx Blood Transfusions: No Blood Transfusion Reaction: No Airway Assessment Mallampati Score:: Class I C-Spine Mobility Assessed: Yes TMJ Mobility Assessed: Yes Dentition: Edentulous Neurological Assessment Level of Consciousness: Awake and Alert Hx Seizures: No Anesthesia Plan ASA Class: III Anesthesia Type: IV sedation
[2023-06-03 11:56] VITALS: BP 91/63; PULSE 94; RESP 18; TEMP 36.7; O2SAT 98
[2023-06-03 12:07] VITALS: BP 89/67; PULSE 88; RESP 18; O2SAT 97
--- NOTE | 2023-06-03 12:21 | EXP.OP.NOTE ---
Date of procedure: 06/03/23 Pre-op Diagnosis:: Degenerative disease of lumbar spine with lumbar radiculopathy symptoms Post-op Diagnosis:: Same Procedure performed:: Permanent placement intrathecal pain pump with tunneled intrathecal catheter and pump generator placement Surgeon:: Tai Wolf MD PROSTHETIC TECHNICIAN:: Other Anesthesia: MAC Estimated blood loss (mL): 5 Clinical Note:: This patient is a pleasant 82-year-old white female who we are treating for low back pain with lumbar radiculopathy symptoms. She has increasing pain in her neck, low back, hips and legs. She also has history of rheumatoid arthritis. She has failed all previous conservative treatments including injections, oral medications, physical therapy and she is not a candidate for surgery. She has had a successful psychological evaluation and a successful intrathecal pump trial. She presents for permanent placement of her intrathecal pain pump today. Operative findings:: None Operative note:: Informed consent was obtained risk and benefits of the procedure were explained to the patient. Patient was taken the operating room placed prone on the procedure table. She was prepped and draped in sterile fashion. C-arm fluoroscopy was used to view the right flank. Nursing Home between the 12th rib and iliac crest we anesthetize the skin and subcutaneous tissues. I made an incision and dissected out the pump generator pocket. C-arm fluoroscopy was then used to be lumbar spine. The skin and subcutaneous tissues adjacent to the L5-S1 interspace were anesthetized using lidocaine. I made an incision and dissected down to the lumbar paraspinous fascia. A 17-gauge spinal needle was inserted and advanced into the L4-5 interspace until clear CSF was obtained. After this intrathecal catheter was inserted and advanced very easily to the T8 vertebral body. Catheter placement was checked in AP and lateral view. The catheter was posterior in position. The stylette of the catheter and the needle withdrawn. The catheter was secured to the fascia with anchoring device and 2-0 Prolene. I tunneled the catheter from the back to the generator pocket. I prepared the pump with 20 mils of intrathecal morphine 1 mg/mL. I connected to the field pump. We were able to freely withdraw clear CSF through the sideport. A antibiotic pouch was placed in the pocket. The pump was placed in the pocket. Again we checked to see if we could draw from the sideport. We are easily able to withdraw CSF from the sideport. Both incisions were then closed with 2-0 Vicryl followed by subcutaneous rishabh and 4-0 nylon. The patient was placed in an abdominal binder taken recovery in stable condition. Patient tolerated the procedure well with no complications. Pump was interrogated and started at 100 mcg/day of intrathecal morphine. Patient was discharged home neurologic intact with good relief of pain symptoms. Plan and disposition: We will follow-up with this patient in 1 week for wound check. We will follow-up in 2 to 3 weeks for suture removal. We will place the patient on Bactrim DS twice a day for 5 days for postop antibiotics. Condition: stable Disposition: PACU Complications:: None
[2023-06-03 12:25] VITALS: BP 109/56; PULSE 84; RESP 18; O2SAT 97
[2023-06-03 12:40] VITALS: BP 104/47; PULSE 83; RESP 18; O2SAT 94
== END 2023-06-03 12:45 | disposition home or self-care (01) ==
PROVIDERS: PCP Nurse Practitioner Family; Visit Provider Anesthesiology
DX: M51.16 Intervertebral disc disorders with radiculopathy, lumbar region (principal)
CPT/HCPCS: 62350; 62362; 96374; C1755; C1772

== ENCOUNTER → 2023-06-09 10:31 | Outpatient (POV) | payer MEDICARE, OTHER, SELFPAY ==
--- NOTE | 2023-06-09 11:02 | EXP.PAIN.PRO ---
Procedure Date: 06/09/23 Time: 11:02 Anesthesiologist:: Odilia Bustos APRN Complications:: None Pre-procedure Diagnosis:: Degenerative disc disease of lumbar spine with lumbar radiculopathy symptoms, right hip pain, right leg pain, recent left foot fracture, sacroiliitis, greater trochanteric bursa, generalized joint pain Post-procedure Diagnosis:: Same Indications for Procedure:: Patient is a pleasant 83-year-old female who presents today for 1 week postop of intrathecal pain pump placement on 06/03/2023. We are currently treating the patient for degenerative disc disease of lumbar spine with lumbar radiculopathy symptoms, right hip pain, right leg pain, recent left foot fracture, sacroiliitis, greater trochanteric bursitis, generalized joint pain. Today she rates her pain a 4 out of 10. Patient denies any new injury or trauma from her surgical procedure. Patient states that she has had much better improvement following the implant of this device. Patient is currently managed with morphine 1 mg/mL with a daily dose of 0.1 mg/day. Patient denies any side effects from this medication. Patient does state that today is a good day however she does still have incisional pain with some bruising and that yesterday she was having worsening pain. Patient does state today that a lot of her pain is related to her bilateral knees. She describes them as an achy sensation that is worse with increased activity or ambulation. She does state the pain interferes with her ability perform activities of daily living such as cooking and cleaning. Patient states that she has gotten cortisone injections in her knees before that did provide significant improvement. She does state that it has been several months and that she is interested in repeating these injections. Patient does use a wheelchair for help with ambulation. She is managed with lorazepam 1 mg twice a day from an outside provider. Her Pieter is [phone]. Its been reviewed and appropriate. Physical Exam: General: Alert and oriented x3, no acute distress, pleasant and cooperative Lungs: Respirations even and unlabored, symmetrical chest expansion Eyes: PERRL Musculoskeletal: Flexion and extension of lumbar [spine] somewhat guarded secondary to pain, [antalgic gait noted] Neurological: Speech clear, no gross sensory deficit Procedure Details:: Informed consent was obtained and the risk and benefits of the procedure were explained to the patient. Patient was taken to the procedure room where noninvasive monitoring was placed including noninvasive blood pressure cuff and pulse oximeter. Patient's pump was interrogated and was reprogrammed to morphine 0.11 mg/day. The patient tolerated the procedure well with no complications. Plan and Disposition:: Patient tolerated her intrathecal increase with no complications. Patient's incision sites are clean, dry, well-approximated with mild erythema and mild ecchymosis at right lateral incision, sutures intact at midline incision. I have discussed with the patient to continue her postop restrictions of minimal bending, lifting or twisting no submerging in water until her incision sites are fully healed and to use her abdominal binder to prevent seroma formation. I have discussed with the patient due to her worsening bilateral knee pain with limited range of motion that she may benefit from bilateral knee intra-articular injections. Risk and benefits were explained to the patient and she would like to proceed forward with this plan of care. We will schedule the patient for bilateral knee intra-articular injections. Patient has been instructed to contact the clinic with any concerns before the next appointment. Dr. Wolf has reviewed this note and agrees with this plan of care. This note was dictated using voice recognition software and make contain errors or omissions. -- It Is medically necessary for this patient to continue to have their intrathecal pump refil
[2023-06-09 12:53] VITALS: BP 138/53; PULSE 82; RESP 18; O2SAT 96; BMI 30.9
== END | disposition home or self-care (01) ==
PROVIDERS: PCP Internal Medicine; Visit Provider Nurse Practitioner Family
DX: M51.16 Intervertebral disc disorders with radiculopathy, lumbar region (principal); M25.551 Pain in right hip; M79.604 Pain in right leg; S92.902S Unspecified fracture of left foot, sequela; M46.1 Sacroiliitis, not elsewhere classified; M70.60 Trochanteric bursitis, unspecified hip; M25.50 Pain in unspecified joint; Z97.8 Presence of other specified devices
CPT/HCPCS: 62368; 99213; G0463

== ENCOUNTER 2023-06-21 09:59 | Day surgery (SDC) | payer MEDICARE, OTHER, SELFPAY ==
[2023-06-21 10:14] VITALS: BP 156/82; PULSE 84; RESP 16; TEMP 36.4; O2SAT 95; BMI 30.9
--- NOTE | 2023-06-21 10:24 | EXP.PAIN.PRO ---
Procedure Date: 06/21/23 Time: 10:10 Anesthesiologist:: Alex Tejeda CRNA Complications:: None Pre-procedure Diagnosis:: Bilateral osteoarthritis knees. Chronic bilateral knee pain. Post-procedure Diagnosis:: Same. Indications for Procedure:: Patient is a very pleasant 83-year-old female that comes our clinic today for bilateral intra-articular knee injections. Patient had the same procedure 6 months ago with significant improvement terms of her overall knee pain. Patient has difficulty ambulating secondary to increased pain in the bilateral knees. She has difficulty standing for any length of time due to bilateral knee pain. Procedure Details:: Details of the procedure explained to the patient. The patient taken to procedure room placed in the sitting position. The area of the bilateral knees was cleansed using chlorhexidine as a cleansing solution. Using a 22-gauge inch and half needle the right knee was accessed from the lateral anterior approach. After negative aspiration 60 cc of a solution containing 0.25% Marcaine +1% lidocaine and 40 mg of Depo-Medrol was injected. The same procedure was carried out in the left knee. Patient tolerated procedure without difficulty. No complications Plan and Disposition:: Patient was discharged without incident.
[2023-06-21 10:29] VITALS: BP 147/84; PULSE 80; RESP 20
== END 2023-06-21 10:30 | disposition home or self-care (01) ==
PROVIDERS: PCP Internal Medicine; Visit Provider Nurse Anesthetist, Certified Registered
DX: M17.0 Bilateral primary osteoarthritis of knee (principal); M25.561 Pain in right knee; M25.562 Pain in left knee; G89.29 Other chronic pain
CPT/HCPCS: 20610; J1040

== ENCOUNTER → 2023-07-06 11:33 | Outpatient (POV) | payer MEDICARE, OTHER, SELFPAY ==
--- NOTE | 2023-07-06 12:07 | EXP.PAIN.PRO ---
Procedure Date: 07/06/23 Time: 12:07 Anesthesiologist:: Odilia Bustos APRN Complications:: None Pre-procedure Diagnosis:: Degenerative disc disease of lumbar spine with lumbar radiculopathy symptoms, osteoarthritis bilateral knees, bilateral knee pain Post-procedure Diagnosis:: Same Indications for Procedure:: Patient is a pleasant 83-year-old female who presents today for follow-up of bilateral knee intra-articular injections as well as intrathecal adjustment and reprogram. We are currently treating the patient for degenerative disc disease of lumbar spine with lumbar radiculopathy symptoms, osteoarthritis bilateral knees, bilateral knee pain. Today the patient rates her pain a 6 out of 10. Patient does state that she is unsure to what extent the injections did help because she is continued to have pain and that the recent weather change has worsened and she does believe it is related to arthritis. Patient does state that she has noticed improvement in her walking and that her overall balance is much better. Patient is back to using her regular cane when walking. She does still state that she has some limited range of motion in her right leg however patient does have a history of shingles around that area and believes it might have something to do with that. Patient's daughter is a physical therapist and so she continues to do at home exercises and stretching to help with this. Patient denies any issues following her intrathecal pain pump implant. She is currently managed with morphine 1 mg/mL with a daily dose of 0.11 mg/day. Patient denies any side effects from this medication. Her Pieter is [phone]. Its been reviewed and appropriate Physical Exam: General: Alert and oriented x3, no acute distress, pleasant and cooperative Lungs: Respirations even and unlabored, symmetrical chest expansion Eyes: PERRL Musculoskeletal: Flexion and extension of lumbar [spine] somewhat guarded secondary to pain, [antalgic gait noted] Neurological: Speech clear, no gross sensory deficit Procedure Details:: Informed consent was obtained and the risk and benefits of the procedure were explained to the patient. Patient was taken to the procedure room where noninvasive monitoring was placed including noninvasive blood pressure cuff and pulse oximeter. Patient's pump was interrogated and was reprogrammed to morphine 0.121 mg/day. The patient tolerated the procedure well with no complications. Plan and Disposition:: Patient tolerated her intrathecal increase with no complications and was discharged neurologically intact. Patient will return to clinic in 2 weeks for reevaluation of symptoms and plan of care. Patient has been instructed to contact the clinic with any concerns before the next appointment. Dr. Wolf has reviewed this note and agrees with this plan of care. This note was dictated using voice recognition software and make contain errors or omissions. -- It Is medically necessary for this patient to continue to have their intrathecal pump refilled at regular intervals. This patient had an intrathecal pain pump implanted after meeting criteria of chronic intractable pain for greater than 3 months and failing conservative treatments. Patient has committed and been compliant to the treatment plan and all planned follow up care. Since implantation of the intrathecal pain pump, the patient has had decreased pain and been more functional. Oral medications have been reduced including intake of oral opioids. Patient continues to do well with intrathecal therapy with decrease in pain symptoms and increase in functional status. Stopping intrathecal medications can lead to life threatening withdrawal, seizures, cardiac arrest, severe pain, and possible . Pumps that are not refilled at regular intervals can be damages and cause and need for replacement. We continually titrate dose and concentration to optimize pain relief and function. We are limited in concen
[2023-07-06 13:35] VITALS: BP 153/100; PULSE 93; RESP 18; O2SAT 95; BMI 30.4
== END | disposition home or self-care (01) ==
PROVIDERS: PCP Internal Medicine; Visit Provider Nurse Practitioner Family
DX: M51.16 Intervertebral disc disorders with radiculopathy, lumbar region (principal); M17.0 Bilateral primary osteoarthritis of knee; M25.561 Pain in right knee; M25.562 Pain in left knee; Z97.8 Presence of other specified devices
CPT/HCPCS: 62368; 99213; G0463

== ENCOUNTER → 2023-07-18 12:53 | Outpatient (POV) | payer MEDICARE, OTHER, SELFPAY ==
--- OUTSIDE RECORDS SUMMARY | 2023-07-18 12:57 | XMS_ITS | Patient Health Record ---
Author Name Unknown Organization [facility] Address [address] [address] Care Team Providers Care Animal Nursery Worker Name Role Phone Camelia Collins Unavailable [phone] ALLERGIES Allergen (clinical drug ingredient) Drug/Non Drug Allergy documented on EMR Reaction Allergy Type Onset Date Status Non-steroidal anti-inflammatory agent (FN) NSAIDS (uncoded) short of breath Allergy Active ibuprofen Ibuprofen Unknown Drug Allergy Active Sulfanilamide swelling and hives Drug Allergy Active REASON FOR REFERRAL No Information MEDICATIONS Medication SIG (Take, Route, Frequency, Duration) Notes Start Date End Date Status Ativan 1 MG 1 tablet as needed O rally twice a day Unknown Synthroid 25 MCG 1 tablet on an empty stomach in the morning Orally Once a day Unknown Albuterol Sulfate 108 (90 Base) MCG/ACT 2 puffs as needed Inhalation every 6 hrs Unknown Xopenex 0.63 MG/3ML 3 ml Inhalation ever y 8 hrs Unknown HYDROcodone-Acetaminophen 7.5-325 MG 1 tablet as needed Orally every 6 hrs Unknown Ipratropium [place] 0.02 % Inhalation Unknown Gas-X 80 MG 1 tablet after meals and at bedtime as needed Orally Four times a day Unknown PROzac 20 MG 1 capsule Orally Onc e a day for 30 day(s)
[2023-07-18 13:10] VITALS: BP 151/85; PULSE 94; RESP 20; BMI 30.9
--- NOTE | 2023-07-18 13:19 | P.PCN_ITS ---
Procedure Date: 07/18/23 Time: 13:00 Anesthesiologist:: Alex Tejeda CRNA Complications:: None Pre-procedure Diagnosis:: Degenerative disc lumbar spine multilevels. Lumbar radiculopathy. Osteoarthritis bilateral knees. Chronic bilateral knee pain. Post-procedure Diagnosis:: Same. Indications for Procedure:: This patient is a very pleasant 83-year-old female who comes our clinic today for intrathecal pain pump reprogramming. Patient currently being managed with morphine sulfate 1 mg/mL at a daily dose of 0.1210 mg/day. Patient complaining of some right hip and leg radiculopathy to the foot. She rates her pain 6/10. Patient denies low back pain. I think it is reasonable to increase the pain pump rate. Patient denies any side effects or complications with the current intrathecal pain pump management. Patient is status post bilateral intra- articular knee injections on 07/06/2023. She reports 80% improvement in her bilateral knee pain. We will increase her pump by 10%. Also, we will set up PTM for her. Patient is continuing to take lorazepam 1 mg p.o. twice daily from her PCP. Procedure Details:: Details of the procedure explained to the patient. The patient's pump was interrogated. The rate was increased by 10%. Patient's new rate is 0.1329 mg/day. Patient's PTM was set up with her granddaughter present. They both voiced understanding. We will see her back in 2 weeks for additional reprogramming if needed. Plan and Disposition:: Patient was discharged without incident. Patient's [facility] #[id number] is been reviewed and appropriate.
== END | disposition home or self-care (01) ==
PROVIDERS: PCP Internal Medicine; Visit Provider Nurse Anesthetist, Certified Registered
DX: M51.16 Intervertebral disc disorders with radiculopathy, lumbar region (principal); M17.0 Bilateral primary osteoarthritis of knee; M25.561 Pain in right knee; M25.562 Pain in left knee; G89.29 Other chronic pain; Z97.8 Presence of other specified devices
CPT/HCPCS: 62368; 99212; G0463

== ENCOUNTER 2023-09-20 09:13 | Day surgery (SDC) | payer MEDICARE, OTHER, SELFPAY ==
[2023-09-20 09:35] VITALS: BP 144/76; PULSE 89; RESP 16; TEMP 36.4; O2SAT 96; BMI 30.9
[2023-09-20 09:51] VITALS: BP 145/77; PULSE 83; O2SAT 96
[2023-09-20 09:58] VITALS: BP 128/73; PULSE 83; RESP 16; O2SAT 96
--- NOTE | 2023-09-20 11:02 | EXP.PAIN.PRO ---
Procedure Date: 09/20/23 Time: 10:00 Anesthesiologist:: Alex Tejeda CRNA Complications:: None Pre-procedure Diagnosis:: Degenerative disc lumbar spine follows. Lumbar radiculopathy. Osteoarthritis bilateral knees. Chronic bilateral knee pain. Post-procedure Diagnosis:: Same. Indications for Procedure:: This patient is a very pleasant 83-year-old female comes our clinic today for intrathecal pain pump interrogation and reprogramming. She is currently being managed with morphine sulfate 1 mg/mL at a daily dose of 0.1329 mg/day. Patient complaining of some increased low back pain with activity. Pain supersedes PTM doses. She is requesting increase today. Patient rates her overall pain 5/10. Procedure Details:: Details of the procedure explained to the patient. The patient taken the procedure room placed in the sitting position. The area over the pump was cleaned using chlorhexidine's cleansing solution. I had difficulty accessing the intrathecal pain pump port. Patient was placed under fluoroscopy. Fluoroscopy view confirms pump has flipped. The pump was flipped upright with no trouble. Pump was accessed with ease using a 22-gauge inch and half needle. 6.1 mL of solution was withdrawn and discarded appropriately. The pump was then filled with morphine sulfate 1 mg/mL. The rate was increased by 10%. The new dose of 0.1461 mg/day. Patient tolerated procedure without difficulty. There are no complications. Plan and Disposition:: Patient was discharged without incident.
== END 2023-09-20 09:58 | disposition home or self-care (01) ==
PROVIDERS: PCP Internal Medicine; Visit Provider Nurse Anesthetist, Certified Registered
DX: M51.16 Intervertebral disc disorders with radiculopathy, lumbar region (principal); M17.0 Bilateral primary osteoarthritis of knee; M25.561 Pain in right knee; M25.562 Pain in left knee; G89.29 Other chronic pain; Z97.8 Presence of other specified devices
CPT/HCPCS: 62368

== ENCOUNTER 2023-10-13 19:07 | Emergency (ER) | payer MEDICARE, OTHER, SELFPAY ==
--- NOTE | 2023-10-13 19:18 | XR_ITS ---
PROCEDURE INFORMATION: Exam: XR Chest Exam date and time: 10/13/2023 7:17 PM Age: 83 years old Clinical indication: Cough TECHNIQUE: Imaging protocol: Radiologic exam of the chest. Views: 2 views. COMPARISON: CR XR CHEST PORTABLE 12/01/2022 9:15 PM FINDINGS: Lungs: Hyperexpanded lungs suggestive of underlying emphysematous changes. No consolidation. Pleural spaces: Unremarkable. No pleural effusion. No pneumothorax. Heart/Mediastinum: Unremarkable. No cardiomegaly. Bones/joints: No acute findings. Intraperitoneal space: Right upper quadrant surgical clips IMPRESSION: No acute pulmonary findings. Suspected emphysematous changes.
[2023-10-13 19:45] VITALS: BP 148/78; PULSE 97; RESP 20; TEMP 37; O2SAT 94; BMI 30.9
--- NOTE | 2023-10-13 19:56 | ED_ITS ---
Discharge Plan Disposition Patient Disposition: Home, Self-Care Condition: Good Prescriptions Prescriptions: New azithromycin [Zithromax] 250 mg tablet 250 mg PO UD DOSE PK Qty: 6 0RF Rx Instructions: Take two (2) tablets today, then one (1) tablet days #2 thru #5 benzonatate [benzonatate] 100 mg capsule 100 mg PO TIDP PRN (Reason: Cough) Qty: 30 0RF methylprednisolone 4 mg Tablets,Dose Pack 4 mg PO DIRECTED 6 Days Qty: 21 0RF Rx Instructions: Take 1 pack as directed for 6 days No Action acetaminophen [Tylenol] 325 mg capsule 325 mg PO QID PRN (Reason: Pain) fexofenadine [Audra Allergy] 180 mg tablet 180 mg PO DAILY fluticasone propionate [Flonase Allergy Relief] 50 mcg/actuation spray,suspension 1 spray intranasal DAILY Rx Instructions: administer into each nostril lorazepam 1 mg tablet 1 mg PO BID Qty: 60 2RF pantoprazole 40 mg tablet,delayed release (DR/EC) 40 mg PO DAILY Qty: 90 1RF pseudoephedrine HCl 60 mg tablet 60 mg PO Q6H PRN (Reason: nasal congestion) Qty: 30 0RF Rx Instructions: DNExceed 4 doses/24h griseofulvin ultramicrosize 125 mg tablet 125 mg PO TID Qty: 90 0RF Rx Instructions: must administer with high-fat meal or food albuterol sulfate 2.5 mg /3 mL (0.083 %) solution for nebulization 2.5 mg inhalation Q6H ipratropium-albuterol 0.5 mg-3 mg(2.5 mg base)/3 mL solution for nebulization 3 ml inhalation Q6H PRN (Reason: .) travoprost 0.004 % drops 1 drp ophthalmic (eye) HS fluocinonide 0.05 % solution 1 applic topical BID epinephrine 0.3 mg/0.3 mL auto-injector 0.3 mg IM Q5-15M PRN (Reason: Allergic Reaction) Qty: 2 0RF Rx Instructions: do not exceed 3 doses per episode levothyroxine [Synthroid] 25 mcg tablet 25 mcg PO DAILY Qty: 30 0RF levalbuterol tartrate 45 mcg/actuation HFA aerosol inhaler 2 puff inhalation Q4-6H PRN (Reason: shortness of breath or wheezing) Qty: 15 2RF budesonide-formoterol [Symbicort] 160-4.5 mcg/actuation HFA aerosol inhaler 2 puff inhalation BID Qty: 10.2 2RF terbinafine HCl 250 mg tablet 250 mg PO DAILY Qty: 30 0RF melatonin 1 mg Tablet 1 mg PO HS PRN (Reason: Insomnia) morphine (PF) 1 mg/mL Solution 1 mg epidural CONT Rx Instructions: SEE EMR FOR CURRENT DAILY DOSE Referrals Follow up/Referrals: Javed Olivares DO [Primary Care Provider] - See instructions Activity Restrictions/Add. Instructions Additional Instructions/Restrictions: Take tylenol for pain or fever. Take the medications as directed. Follow up with your regular doctor. GO TO THE ER FOR ANY WORSENING SYMPTOMS Clinical Impressions Clinical Impression: Acute bronchitis, Acute viral syndrome Instructions Patient Instructions: DI for Acute Bronchitis, DI for Viral Syndrome Discharge ED Provider: Gabriel Harding [facility] General Stated complaint: DEGROOTKINGA Time Seen by Provider: 10/13/23 19:56 History of Present Illness Provider Complaint: She states that for the past 2 days she has had chest congestion and a productive cough with yellowish sputum. She denies any fever/chills/body aches. She does c/o a headache that started earlier today. She denies any known covid-19 and influenza exposure. She took a home covid-19 test today that was negative. Related Data Home Medications Medication Instructions Recorded Confirmed acetaminophen 325 mg capsule 325 mg PO QID PRN Pain 11/25/22 09/20/23 (Tylenol) fexofenadine 180 mg tablet 180 mg PO DAILY Allergy Symptoms 04/04/23 09/20/23 (Audra Allergy) fluticasone propionate 50 1 spray intranasal DAILY Allergy 04/04/23 09/20/23 mcg/actuation nasal Symptoms spray,suspension (Flonase Allergy Relief) melatonin 1 mg tablet 1 mg PO HS PRN Insomnia 05/26/23 09/20/23 morphine (PF) 1 mg/mL injection 1 mg epidural CONT Pain 06/10/23 09/20/23 solution albuterol sulfate 2.5 mg/3 mL 2.5 mg inhalation Q6H 07/27/23 09/20/23 (0.083 %) solution for nebulization fluocinonide 0.05 % topical 1 applic topical BID 07/27/23 09/20/23 solution ipratropium 0.5 mg-albuterol 3 mg 3 ml inhalation Q6H PRN . 07/27/23 09/20/23 (2.5 mg base)/3 mL nebulization soln travoprost 0.004 % eye drops 1 drp ophthalmic (eye) HS 07/27/23 09/20/23 Previous Rx's Medication Instructions Recorded budesonide-formoterol HFA 160 2 puff inhalation BID soa #10.2 07/27/23 mcg-4.5 mcg/actuation aerosol grams inhaler (Symbicort) epinephrine 0.3 mg/0.3 mL 0.3 mg (0.3 mL) IM Q5-15M PRN 07/27/23 injection, auto-injector Allergic Reaction #2 ea levalbuterol tartrate 45 2 puff inhalation Q4-6H PRN 07/27/23 mcg/actuation aerosol inhaler shortness of breath or wheezing #15 grams levothyroxine 25 mcg tablet 25 mcg PO DAILY thyroid #30 tabs 07/27/23 (Synthroid) terbinafine HCl 250 mg tablet 250 mg PO DAILY #30 tabs 08/02/23 griseofulvin ultramicrosize 125 mg 125 mg PO TID #90 tabs 08/17/23 tablet pantoprazole 40 mg tablet,delayed 40 mg PO DAILY STOMACH #90 tabs 08/17/23 release pseudoephedrine HCl 60 mg tablet 60 mg PO Q6H PRN nasal congestion 08/17/23 #30 tabs lorazepam 1 mg tablet 1 mg PO BID Anxiety #60 tabs 08/29/23 azithromycin 250 mg tablet 250 mg PO UD DOSE PK #6 tabs 10/13/23 (Zithromax) benzonatate 100 mg capsule 100 mg PO TIDP PRN Cough #30 caps 10/13/23 methylprednisolone 4 mg tablets in 4 mg PO DIRECTED 6 days #21 tabs 10/13/23 a dose pack Allergies Allergy/AdvReac Type Severity Reaction Status Date / Time levofloxacin [From Levaquin] Allergy Intermediate rash Verified 10/13/23 20:05 ibuprofen [From MOTRIN] Allergy Mild Verified 10/13/23 20:05 NSAIDS (Non-Steroidal Allergy Mild Verified 10/13/23 20:05 Anti-Inflamma [NSAIDS (NON-STEROIDAL ANTI-INFLAMMA] Sulfa (Sulfonamide Allergy Mild Verified 10/13/23 20:05 Antibiotics) [SULFA (SULFONAMIDE ANTIBIOTICS)] sibutramine [From Meridia] Allergy Verified 10/13/23 20:05 [facility] Disclaimer: The information contained in this section may have been updated after the patient was seen, as this information can be updated by other users. Medical History Acute bacterial sinusitis Anxiety Asthma Bronchitis Cataract COPD exacerbation Dyspnea on exertion Edema of left foot Family history of asthma Fracture of metatarsal bone of left foot History of COPD History of COVID-19 History of gastroesophageal reflux (GERD) History of sleep apnea Hypertension Hypothyroid Infected scalp abrasion Ingrown toenail of left foot Irritable bowel syndrome (IBS) Left foot pain Menopause Multiple closed fractures of metatarsal bone of left foot Nail disorder (onychogryphosis) Nasal congestion Normal colonoscopy Psoriasis Sebaceous cyst of labia Sinusitis Sinusitis Sinusitis Sleep apnea Thrush Urinary tract infection 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 H/O bladder repair surgery H/O sinus surgery H/O: hysterectomy History of cholecystectomy History of surgery on arm Hx of cataract surgery 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 Other Asthma Diabetes Family history of cancer Heart attack Hypertension 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 Smoking Status: Never smoker alcohol intake: never substance use type: denies use current occupational status: other Travel in the last 8 weeks: None ROS Obtained: Yes All systems reviewed & no additional complaints except as documented Constitutional Constitutional: Reports poor appetite Eyes Eyes: Reports system reviewed and no additional complaints, except as documented ENT Ears, Nose, Mouth, and Throat: Reports as per HPI Cardiovascular Cardiovascular: Reports system reviewed and no additional complaints, except as documented and Denies chest pain Respiratory Respiratory: Denies shortness of breath, Reports chest congestion, Reports cough, Denies stridor and Denies wheezing Gastrointestinal Gastrointestingal: Reports system reviewed and no additional complaints, except as documented; Denies abdominal pain, diarrhea or vomiting Musculoskeletal Musculoskeletal: Reports system reviewed and no additional complaints, except as documented and Denies arthralgias Integumentary/Breasts Skin/Breast: Reports system reviewed and no additional complaints, except as documented and Denies rash Neurologic Neurologic: Denies paresthesias Allergic/Immunologic Allergic/Immunologic: Denies wheezing Physical Exam General General appearance: alert and in no apparent distress Head Head exam: atraumatic, normocephalic and normal inspection Eye Eye exam: Present normal appearance, PERRL and EOMI ENT ENT exam: Present normal exam, normal oropharynx, mucous membranes moist, TM's normal bilaterally and normal external ear exam Neck Neck exam: Present normal inspection, full ROM and trachea midline; Absent meningismus or lymphadenopathy Chest Chest inspection: Present normal inspection and symmetric chest wall rise; Absent tenderness Respiratory Respiratory exam: Present normal lung sounds bilaterally; Absent respiratory distress Cardiovascular Cardiovascular exam: Present regular rate and normal rhythm; Absent JVD Abdominal Exam Abdominal exam: Present soft and normal bowel sounds; Absent distention, tenderness or guarding Extremities Exam Extremities exam: Present normal inspection, full ROM and normal capillary refill; Absent calf tenderness Back Exam Back exam: Present normal inspection; Absent tenderness Neurological Exam Neurological exam: Present alert and oriented X3 Psychiatric Psychiatric exam: Present normal affect and normal mood Skin Skin exam: Present warm, dry, intact and normal color Lymphatic Lymphatic Findings: no adenopathy Medical Decision Making Medical Records Medical records reviewed: No I reviewed the patient's medical records. Pieter Inquiry Pt receiving controlled substance: No Lab Data Lab results reviewed: Yes I reviewed the patient's lab results. Orders (Tests/Meds): ORDERS Category Date Time Status Chest XR 2 view (NOT portable) [XR chest 2V] Stat Exams 10/13/23 19:18 Taken Radiology Data #1: Image(s): Chest Image Reviewed: Yes I reviewed the patient's radiology image Preliminary Findings: No Infiltrates Seen PROCEDURE INFORMATION: Exam: XR Chest Exam date and time: 10/13/2023 7:17 PM Age: 83 years old Clinical indication: Cough TECHNIQUE: Imaging protocol: Radiologic exam of the chest. Views: 2 views. COMPARISON: CR XR CHEST PORTABLE 12/01/2022 9:15 PM FINDINGS: Lungs: Hyperexpanded lungs suggestive of underlying emphysematous changes. No consolidation. Pleural spaces: Unremarkable. No pleural effusion. No pneumothorax. Heart/Mediastinum: Unremarkable. No cardiomegaly. Bones/joints: No acute findings. Intraperitoneal space: Right upper quadrant surgical clips IMPRESSION: No acute pulmonary findings. Suspected emphysematous changes.
[2023-10-13] MEDS: DEXAMETHASONE 4MG/ML 1ML VIAL 8 MG IM (20:25)
[2023-10-13 20:45] LABS: Adenovirus,PCR Not Detected (NotDetected); Coronavirus 19, PCR Not Detected (NotDetected); Coronavirus 229E Not Detected (NotDetected); Coronavirus NL63 Not Detected (NotDetected); Coronavirus OC43 Not Detected (NotDetected); Coronovirus HKU1,PCR Not Detected (NotDetected); Human Metapneumovirus Not Detected (NotDetected); Influenza A, PCR Not Detected (NotDetected); Influenza AH1, 2009 Not Detected (NotDetected); Influenza AH1, PCR Not Detected (NotDetected); Influenza AH3,PCR Not Detected (NotDetected); Influenza B, PCR Not Detected (NotDetected); Parainfluenza 1, PCR Not Detected (NotDetected); Parainfluenza 2, PCR Not Detected (NotDetected); Parainfluenza 3, PCR Not Detected (NotDetected); Parainfluenza 4, PCR Not Detected (NotDetected); Respiratory Syncytial Virus Not Detected (NotDetected); Rhinovirus/Enterovirus Not Detected (NotDetected)
[2023-10-13 20:52] VITALS: BP 148/78; PULSE 97; RESP 18; TEMP 37; O2SAT 94
== END 2023-10-13 20:52 | disposition home or self-care (01) ==
PROVIDERS: Emergency Provider Nurse Practitioner Family; PCP Internal Medicine
DX: J20.9 Acute bronchitis, unspecified (principal); B34.9 Viral infection, unspecified; R51.9 Headache, unspecified; J44.9 Chronic obstructive pulmonary disease, unspecified; I10 Essential (primary) hypertension; E03.9 Hypothyroidism, unspecified; G47.30 Sleep apnea, unspecified
CPT/HCPCS: 71046; 87581; 87632; 87635; 87798; 96372; 99212; 99214; G0463

== ENCOUNTER → 2023-11-10 10:48 | Outpatient (POV) | payer MEDICARE, OTHER, SELFPAY ==
--- NOTE | 2023-11-10 11:18 | EXP.PAIN.PRO ---
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 We are currently treating the patient for degenerative disc disease of lumbar spine with lumbar radiculopathy symptoms, osteoarthritis bilateral knees. Today she rates her pain a 3 out of 10. Patient states that she was getting out of her vehicle when she hit her back on the seat enough that it hit along the pump area. Patient states she did have some swelling and additional pain and felt like overall the device moved. Patient states they then had trouble with the bolus device trying to read. Patient states it was just until yesterday that they were able to finally find the right spots and then able to do the boluses. Patient is currently managed with morphine 1 mg/mL with a daily dose of 0.1461 mg/day. Patient denies any side effects from this medication. She does state that she feels like she could use an adjustment. She states she recently had a family function that was at [employer]ism and the prolonged alliance party worsened her overall back pain. Her Pieter has been reviewed and is appropriate. Physical Exam: General: Alert and oriented x3, no acute distress, pleasant and cooperative Lungs: Respirations even and unlabored, symmetrical chest expansion Eyes: PERRL Musculoskeletal: Flexion and extension of lumbar [spine] somewhat guarded secondary to pain, [antalgic gait noted] Neurological: Speech clear, no gross sensory deficit Procedure Details:: Informed consent was obtained and the risk and benefits of the procedure were explained to the patient. Patient was taken to the procedure room where noninvasive monitoring was placed including noninvasive blood pressure cuff and pulse oximeter. Patient's pump was interrogated and was reprogrammed to morphine 0.1535 mg/day. The patient tolerated the procedure well with no complications. Plan and Disposition:: Patient tolerated her intrathecal increase with no complications. Patient's device is within normal limits with no swelling noted or erythema. Patient's device was able to read without complications. I have counseled the patient that we will continue to watch this and when we do her pump refill we will see if we have any discrepancies or trouble accessing the pump at that point. Patient will return to clinic in 2 weeks for possible additional adjustment and reprogram. Patient has been instructed to contact the clinic with any concerns before the next appointment. Dr. Wolf has reviewed this note and agrees with this plan of care. This note was dictated using voice recognition software and make contain errors or omissions. -- It Is medically necessary for this patient to continue to have their intrathecal pump refilled at regular intervals. This patient had an intrathecal pain pump implanted after meeting criteria of chronic intractable pain for greater than 3 months and failing conservative treatments. Patient has committed and been compliant to the treatment plan and all planned follow up care. Since implantation of the intrathecal pain pump, the patient has had decreased pain and been more functional. Oral medications have been reduced including intake of oral opioids. Patient continues to do well with intrathecal therapy with decrease in pain symptoms and increase in functional status. Stopping intrathecal medications can lead to life threatening withdrawal, seizures, cardiac arrest, severe pain, and possible . Pumps that are not refilled at regular intervals can be damages and cause and need for replacement. We continually titrate dose and concentration to optimize pain relief and function. We are limited in concentration for certain drugs to safely deliver medications through the pump and stay within the recommendations from the Polyanalgesic Consensus Committee Guidelines. Depending on dose and concentration these pumps may need to be refilled sooner than 3 months as we titrate.
[2023-11-10 11:58] VITALS: BP 135/73; PULSE 95; RESP 18; O2SAT 94; BMI 29.5
== END | disposition home or self-care (01) ==
PROVIDERS: Visit Provider Nurse Practitioner Family
DX: M51.16 Intervertebral disc disorders with radiculopathy, lumbar region (principal); M17.0 Bilateral primary osteoarthritis of knee; Z97.8 Presence of other specified devices; Z45.1 Encounter for adjustment and management of infusion pump
CPT/HCPCS: 62368; 99213; G0463

== ENCOUNTER 2023-11-18 18:08 | Emergency (ER) | payer MEDICARE, OTHER, SELFPAY ==
[2023-11-18 18:40] VITALS: BP 138/72; PULSE 100; RESP 18; TEMP 36.4; O2SAT 95; BMI 29.5
[2023-11-18 18:59] LABS: Influenza A, PCR Not Detected (NotDetected); Influenza B, PCR Not Detected (NotDetected)
--- NOTE | 2023-11-18 19:19 | ED_ITS ---
Discharge Plan Disposition Patient Disposition: Home, Self-Care Condition: Good Prescriptions Prescriptions: No Action acetaminophen [Tylenol] 325 mg capsule 325 mg PO QID PRN (Reason: Pain) fexofenadine [Audra Allergy] 180 mg tablet 180 mg PO DAILY fluticasone propionate [Flonase Allergy Relief] 50 mcg/actuation spray,suspension 1 spray intranasal DAILY Rx Instructions: administer into each nostril lorazepam 1 mg tablet 1 mg PO BID Qty: 60 2RF pantoprazole 40 mg tablet,delayed release (DR/EC) 40 mg PO DAILY Qty: 90 1RF pseudoephedrine HCl 60 mg tablet 60 mg PO Q6H PRN (Reason: nasal congestion) Qty: 30 0RF Rx Instructions: DNExceed 4 doses/24h griseofulvin ultramicrosize 125 mg tablet 125 mg PO TID Qty: 90 0RF Rx Instructions: must administer with high-fat meal or food albuterol sulfate 2.5 mg /3 mL (0.083 %) solution for nebulization 2.5 mg inhalation Q6H ipratropium-albuterol 0.5 mg-3 mg(2.5 mg base)/3 mL solution for nebulization 3 ml inhalation Q6H PRN (Reason: .) travoprost 0.004 % drops 1 drp ophthalmic (eye) HS fluocinonide 0.05 % solution 1 applic topical BID epinephrine 0.3 mg/0.3 mL auto-injector 0.3 mg IM Q5-15M PRN (Reason: Allergic Reaction) Qty: 2 0RF Rx Instructions: do not exceed 3 doses per episode levothyroxine [Synthroid] 25 mcg tablet 25 mcg PO DAILY Qty: 30 0RF levalbuterol tartrate 45 mcg/actuation HFA aerosol inhaler 2 puff inhalation Q4-6H PRN (Reason: shortness of breath or wheezing) Qty: 15 2RF budesonide-formoterol [Symbicort] 160-4.5 mcg/actuation HFA aerosol inhaler 2 puff inhalation BID Qty: 10.2 2RF terbinafine HCl 250 mg tablet 250 mg PO DAILY Qty: 30 0RF melatonin 1 mg Tablet 1 mg PO HS PRN (Reason: Insomnia) morphine (PF) 1 mg/mL Solution 1 mg epidural CONT Rx Instructions: SEE EMR FOR CURRENT DAILY DOSE Referrals Follow up/Referrals: Javed Olivares DO [Primary Care Provider] - See instructions Activity Restrictions/Add. Instructions Additional Instructions/Restrictions: self isolate 5 days No sign of a bacterial infection. Likely viral. Viruses can take 7-14 days to run their course. Nasal saline and bulb syringe or nose Gerri to remove nasal drainage to help with nasal congestion. Hard to eat, drink, sleep with nasal congestion so important to keep this cleaned out. Monitor temp. Tylenol or Motrin as needed for pain or fever Encourage fluids, water, Gatorade, Powerade, Pedialyte if infant/toddler/child Warm salt water gargles Warm fluids Sore throat lozenges Sleep elevated Humidifier/vaporizer Follow-up immediately for new or worsening symptoms or no noticeable improvement over the next 48-72 hours. Clinical Impressions Clinical Impression: COVID-19 Instructions Patient Instructions: DI for COVID-19 (Suspected or Confirmed ) Discharge ED Provider: Mikayla ([facility])Beti [facility] [place] HPI General Stated complaint: headache, body aches Mode of Arrival: Ambulatory Source of Information: Patient Limitations: No Limitations Time Seen by Provider: 11/18/23 19:19 Description of Symptoms (Recalled from Triage Doc. by RN): Pt's symptoms are sinus pressure, chills, body aches, and DEGROOT. HEENT Symptoms (Recalled from RN notes): Yes Resp Symptoms (Recalled from RN notes): No Skin Symptoms (Recalled from RN notes): No MS Symptoms (Recalled from RN notes): No Functional Status (Recalled from RN notes): n/a History of Present Illness Provider Complaint: 83 yr old female presents for sinus pressure, chills, body aches, and DEGROOT. Related Data Home Medications Medication Instructions Recorded Confirmed acetaminophen 325 mg capsule 325 mg PO QID PRN Pain 11/25/22 11/10/23 (Tylenol) fexofenadine 180 mg tablet 180 mg PO DAILY Allergy Symptoms 04/04/23 11/10/23 (Audra Allergy) fluticasone propionate 50 1 spray intranasal DAILY Allergy 04/04/23 11/10/23 mcg/actuation nasal Symptoms spray,suspension (Flonase Allergy Relief) melatonin 1 mg tablet 1 mg PO HS PRN Insomnia 05/26/23 11/10/23 morphine (PF) 1 mg/mL injection 1 mg epidural CONT Pain 06/10/23 11/10/23 solution albuterol sulfate 2.5 mg/3 mL 2.5 mg inhalation Q6H 07/27/23 11/10/23 (0.083 %) solution for nebulization fluocinonide 0.05 % topical 1 applic topical BID 07/27/23 11/10/23 solution ipratropium 0.5 mg-albuterol 3 mg 3 ml inhalation Q6H PRN . 07/27/23 11/10/23 (2.5 mg base)/3 mL nebulization soln travoprost 0.004 % eye drops 1 drp ophthalmic (eye) HS 07/27/23 11/10/23 Previous Rx's Medication Instructions Recorded budesonide-formoterol HFA 160 2 puff inhalation BID soa #10.2 07/27/23 mcg-4.5 mcg/actuation aerosol grams inhaler (Symbicort) epinephrine 0.3 mg/0.3 mL 0.3 mg (0.3 mL) IM Q5-15M PRN 07/27/23 injection, auto-injector Allergic Reaction #2 ea levalbuterol tartrate 45 2 puff inhalation Q4-6H PRN 07/27/23 mcg/actuation aerosol inhaler shortness of breath or wheezing #15 grams levothyroxine 25 mcg tablet 25 mcg PO DAILY thyroid #30 tabs 07/27/23 (Synthroid) terbinafine HCl 250 mg tablet 250 mg PO DAILY #30 tabs 08/02/23 griseofulvin ultramicrosize 125 mg 125 mg PO TID #90 tabs 08/17/23 tablet pantoprazole 40 mg tablet,delayed 40 mg PO DAILY STOMACH #90 tabs 08/17/23 release pseudoephedrine HCl 60 mg tablet 60 mg PO Q6H PRN nasal congestion 08/17/23 #30 tabs lorazepam 1 mg tablet 1 mg PO BID Anxiety #60 tabs 08/29/23 Allergies Allergy/AdvReac Type Severity Reaction Status Date / Time levofloxacin [From Levaquin] Allergy Intermediate rash Verified 11/18/23 18:52 ibuprofen [From MOTRIN] Allergy Mild Verified 11/18/23 18:52 NSAIDS (Non-Steroidal Allergy Mild Verified 11/18/23 18:52 Anti-Inflamma [NSAIDS (NON-STEROIDAL ANTI-INFLAMMA] Sulfa (Sulfonamide Allergy Mild Verified 11/18/23 18:52 Antibiotics) [SULFA (SULFONAMIDE ANTIBIOTICS)] sibutramine [From Meridia] Allergy Verified 11/18/23 18:52 Worker's Comp Is this a Worker's Comp case?: No [facility] Disclaimer: The information contained in this section may have been updated after the patient was seen, as this information can be updated by other users. Medical History , 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) Acute bacterial sinusitis Anxiety Asthma Bronchitis Cataract COPD exacerbation Dyspnea on exertion Edema of left foot Family history of asthma Fracture of metatarsal bone of left foot History of COPD History of COVID-19 History of gastroesophageal reflux (GERD) History of sleep apnea Hypertension Hypothyroid Infected scalp abrasion Ingrown toenail of left foot Irritable bowel syndrome (IBS) Left foot pain Menopause Multiple closed fractures of metatarsal bone of left foot Nail disorder (onychogryphosis) Nasal congestion Normal colonoscopy Psoriasis Sebaceous cyst of labia Sinusitis Sinusitis Sinusitis Sleep apnea Thrush Urinary tract infection 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 , 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) H/O bladder repair surgery H/O sinus surgery H/O: hysterectomy History of cholecystectomy History of surgery on arm Hx of cataract surgery 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 , [employer]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) Diabetes Family history of cancer Heart attack Hypertension Asthma 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 , [employer]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) Smoking Status: Never smoker alcohol intake: never substance use type: denies use current occupational status: retired Travel in the last 8 weeks: None ROS Obtained: Yes All systems reviewed & no additional complaints except as documented Constitutional Constitutional: Reports system reviewed and no additional complaints, except as documented, Reports as per HPI, Reports body ache, Reports chills and Reports fever(s) Eyes Eyes: Reports system reviewed and no additional complaints, except as documented ENT Ears, Nose, Mouth, and Throat: Reports system reviewed and no additional complaints, except as documented and Reports as per HPI Cardiovascular Cardiovascular: Reports system reviewed and no additional complaints, except as documented Respiratory Respiratory: Reports system reviewed and no additional complaints, except as documented Musculoskeletal Musculoskeletal: Reports system reviewed and no additional complaints, except as documented Integumentary/Breasts Skin/Breast: Reports system reviewed and no additional complaints, except as documented Neurologic Neurologic: Reports system reviewed and no additional complaints, except as documented Endocrine Endocrine: Reports system reviewed and no additional complaints, except as documented Hematologic/Lymphatic Henatologic/Lymphatic: Reports system reviewed and no additional complaints, except as documented Allergic/Immunologic Allergic/Immunologic: Reports system reviewed and no additional complaints, except as documented Physical Exam General General appearance: alert and in no apparent distress Head Head exam: atraumatic Eye Eye exam: Present normal appearance and PERRL ENT ENT exam: Present TM's normal bilaterally Expanded ENT Exam Nose exam: Present sinus tenderness Respiratory Respiratory exam: Present normal lung sounds bilaterally Cardiovascular Cardiovascular exam: Present regular rate and normal rhythm Neurological Exam Neurological exam: Present alert and oriented X3 Skin Skin exam: Present warm, intact and normal color Medical Decision Making Medical Records Medical records reviewed: Yes I reviewed the patient's medical records. Pieter Inquiry Pt receiving controlled substance: No Pieter was queried for this patient: No Vital Signs: 11/18/23 18:40 Temperature 97.6 F Temperature Source Oral Pulse Rate [Right Radial] 100 H Respiratory Rate 18 Blood Pressure [Right Arm] 138/72 Blood Pressure Mean [Right Arm] 94 Blood Pressure Source [Right Arm] Automatic Cuff Blood Pressure Position [Right Arm] Sitting 02 Sat by Pulse Oximetry 95 Oxygen Delivery Method Room Air Lab Data Lab results reviewed: Yes I reviewed the patient's lab results. Orders (Tests/Meds): ORDERS Category Date Time Status Rapid PCR Covid and Flu A/B Stat Lab 11/18/23 18:46 Received
[2023-11-18 19:37] LABS: Coronavirus 19, PCR Detected (NotDetected)
[2023-11-18 19:48] VITALS: BP 138/72; PULSE 100; RESP 18; TEMP 36.4; O2SAT 95
== END 2023-11-18 19:48 | disposition home or self-care (01) ==
PROVIDERS: Emergency Provider Nurse Practitioner Family; PCP Internal Medicine
DX: U07.1 COVID-19 (principal); R51.9 Headache, unspecified; R50.9 Fever, unspecified; R09.81 Nasal congestion; M79.18 Myalgia, other site; I10 Essential (primary) hypertension; E03.9 Hypothyroidism, unspecified
CPT/HCPCS: 87636; 99212; 99213; G0463

== ENCOUNTER → 2023-11-28 10:42 | Outpatient (POV) | payer MEDICARE, OTHER, SELFPAY ==
--- NOTE | 2023-11-28 11:41 | P.PCN_ITS ---
Procedure Date: 11/28/23 Time: 11:42 Anesthesiologist:: Odilia Bustos APRN Complications:: None Pre-procedure Diagnosis:: Degenerative disc disease of lumbar spine with lumbar radiculopathy symptoms, osteoarthritis bilateral knees Post-procedure Diagnosis:: Same Indications for Procedure:: Patient is a pleasant 83-year-old female who presents today for intrathecal adjustment and reprogram. We are currently treating the patient for degenerative disc disease of lumbar spine with lumbar radiculopathy symptoms, osteoarthritis bilateral knees. Today she rates her pain a 8 out of 10. Patient denies any new trauma or injury. She does state that she has been recently sick however was negative for COVID. Patient states that she has allover pain in her back and neck as well as her hands legs and shoulders. She states she has been using her bolus device 3 times a day. Patient is currently managed with morphine 1 mg/mL with a daily dose of 0.1535 mg/day. She denies any side effects from this medication. Patient does have a history of osteoarthritis in multiple locations and states she is requesting a referral to rheumatology if we can help with this. Her Pieter has been reviewed and is appropriate. Physical Exam: General: Alert and oriented x3, no acute distress, pleasant and cooperative Lungs: Respirations even and unlabored, symmetrical chest expansion Eyes: PERRL Musculoskeletal: Flexion and extension of lumbar [spine] somewhat guarded secondary to pain, [antalgic gait noted] Neurological: Speech clear, no gross sensory deficit Procedure Details:: Informed consent was obtained and the risk and benefits of the procedure were explained to the patient. Patient was taken to the procedure room where noninvasive monitoring was placed including noninvasive blood pressure cuff and pulse oximeter. Patient's pump was interrogated and was reprogrammed to morphine 0.169 mg/day. The patient tolerated the procedure well with no complications. Plan and Disposition:: Patient tolerated her intrathecal increase with no complications and was discharged neurologically intact. I have discussed with the patient that I sent a referral for rheumatology and that they will reach out to her for her visit. Patient will return to clinic at her next intrathecal refill date. We will see the patient back in the clinic at the next intrathecal refill. Patient has been instructed to contact the clinic with any concerns before the next appointment. Dr. Wolf has reviewed this note and agrees with this plan of care. This note was dictated using voice recognition software and make contain errors or omissions. -- It Is medically necessary for this patient to continue to have their intrathecal pump refilled at regular intervals. This patient had an intrathecal pain pump i mplanted after meeting criteria of chronic intractable pain for greater than 3 months and failing conservative treatments. Patient has committed and been compliant to the treatment plan and all planned follow up care. Since implantation of the intrathecal pain pump, the patient has had decreased pain and been more functional. Oral medications have been reduced including intake of oral opioids. Patient continues to do well with intrathecal therapy with decrease in pain symptoms and increase in functional status. Stopping intrathecal medications can lead to life threatening withdrawal, seizures, cardiac arrest, severe pain, and possible . Pumps that are not refilled at regular intervals can be damages and cause and need for replacement. We continually titrate dose and concentration to optimize pain relief and function. We are limited in concentration for certain drugs to safely deliver medications through the pump and stay within the recommendations from the Polyanalgesic Consensus Committee Guidelines. Depending on dose and concentration these pumps may need to be refilled sooner than 3 months as we titrate.
[2023-11-28 11:45] VITALS: BP 145/76; PULSE 105; RESP 18; O2SAT 95; BMI 29.5
== END | disposition home or self-care (01) ==
PROVIDERS: PCP Internal Medicine; Visit Provider Nurse Practitioner Family
DX: M51.16 Intervertebral disc disorders with radiculopathy, lumbar region (principal); M17.0 Bilateral primary osteoarthritis of knee; Z97.8 Presence of other specified devices; Z45.1 Encounter for adjustment and management of infusion pump
CPT/HCPCS: 62368; 99213; G0463

== ENCOUNTER 2023-12-13 08:57 | Day surgery (SDC) | payer MEDICARE, OTHER, SELFPAY ==
[2023-12-13 09:13] VITALS: BP 164/97; PULSE 104; RESP 18; TEMP 36.4; O2SAT 96
[2023-12-13 09:48] VITALS: BP 152/101; PULSE 90; RESP 16; O2SAT 96
--- NOTE | 2023-12-13 09:51 | EXP.PAIN.PRO ---
Procedure Date: 12/13/23 Time: 09:40 Anesthesiologist:: Alex Tejeda CRNA Complications:: None Pre-procedure Diagnosis:: Degenerative disc sees lumbar spine multilevels. Lumbar radiculopathy. Lumbar postlaminectomy syndrome. Chronic pain syndrome. Post-procedure Diagnosis:: Same. Indications for Procedure:: Patient is a very pleasant 83-year-old female comes our clinic today for intrathecal pain pump interrogation refill. She is currently being managed with morphine sulfate 1 mg/mL at a rate of 0.1690 mg/day. She doing very well with her current settings. She does not report any side effects or complications. She is not requesting any changes. Procedure Details:: Details of the procedure explained to the patient. The patient taken procedure and placed in sitting position. The area of the pump was cleansed using chlorhexidine's cleansing solution. The pump was interrogated. The pump was accessed with ease using a 22-gauge inch and half needle. 9.5 mL of solution was withdrawn. 5.2 mL of solution was expected. The pump was then filled with 20 cc of solution containing morphine sulfate 1 mg/mL. The rate will continue at 0.1690 mg/day. Patient tolerated procedure without difficulty. There are no complications. Plan and Disposition:: Patient was discharged without incident.
== END 2023-12-13 09:48 | disposition home or self-care (01) ==
PROVIDERS: PCP Internal Medicine; Visit Provider Nurse Anesthetist, Certified Registered
DX: M51.16 Intervertebral disc disorders with radiculopathy, lumbar region (principal); M96.1 Postlaminectomy syndrome, not elsewhere classified; G89.4 Chronic pain syndrome; Z97.8 Presence of other specified devices; Z45.1 Encounter for adjustment and management of infusion pump
CPT/HCPCS: 95991

== ENCOUNTER 2024-02-21 09:52 | Day surgery (SDC) | payer MEDICARE, OTHER, SELFPAY ==
[2024-02-21 10:05] VITALS: BP 166/79; PULSE 95; RESP 18; TEMP 36.2; O2SAT 93
--- NOTE | 2024-02-21 10:13 | EXP.PAIN.PRO ---
Procedure Date: 02/21/24 Time: 10:30 Anesthesiologist:: Alex Tejeda CRNA Complications:: None Pre-procedure Diagnosis:: Degenerative disc lumbar spine multilevels. Lumbar radiculopathy. Lumbar postlaminectomy syndrome. Chronic pain syndrome. Post-procedure Diagnosis:: Same. Indications for Procedure:: Patient is a very pleasant 83-year-old female comes our clinic today for intrathecal pain pump interrogation refill. Patient is reporting increase in overall pain over the last several days. Cervical and lumbar pain. Bilateral hip and leg radicular symptoms. Bilateral shoulder pain. She is reporting pain score 10/10. She is currently being managed with morphine sulfate intrathecal 1 mg/mL at a rate of 0.1690 mg/day. Procedure Details:: Details of the procedure explained to the patient. The patient taken procedure room placed in the prone position on the fluoroscopy table. The area of the pump was cleansed using chlorhexidine as a cleansing solution. Under fluoroscopy it was noted the intrathecal pain pump was flipped. I was able to flip the pump upright without difficulty. 5 mL of solution was expected and 16 mL of solution was removed from the pump. Pump was refilled with 20 cc of solution containing morphine sulfate 1 mg/mL. The rate will remain the same. Discussed in detail the pump discrepancy with Dr. Wolf. He will see her tomorrow in [place] for catheter dye study. Discussed in detail with the patient today. She understands. Will give the patient the [place] office information, directions, time of appointment. Plan and Disposition:: Patient was discharged without incident.
[2024-02-21 11:01] VITALS: BP 137/75; PULSE 85; RESP 18; O2SAT 93
[2024-02-21 12:56] LABS: Amphetamine/Metha Screen,Urine Negative ng/ml (<1000)
[2024-02-21 12:57] LABS: Barbiturates Screen,Urine Negative ng/ml (<200); Benzodiazepines Screen,Urine Negative ng/ml (<200)
[2024-02-21 12:58] LABS: Cannabinoid Screen,Urine Negative ng/ml (<50)
[2024-02-21 12:59] LABS: Cocaine Screen,Urine Negative ng/ml (<300); Methadone Screen,Urine Negative ng/ml (<300)
[2024-02-21 13:00] LABS: Opiate Screen,Urine Negative ng/ml (<300); Phencyclidine Screen,Urine Negative ng/ml (<25)
[2024-02-28 11:25] LABS: Opiates Negative (Cutoff=100)
== END 2024-02-21 11:02 | disposition home or self-care (01) ==
PROVIDERS: Anesthesiology; PCP Internal Medicine; Visit Provider Nurse Anesthetist, Certified Registered
DX: M51.16 Intervertebral disc disorders with radiculopathy, lumbar region (principal); M96.1 Postlaminectomy syndrome, not elsewhere classified; G89.4 Chronic pain syndrome; Z97.8 Presence of other specified devices; Z45.1 Encounter for adjustment and management of infusion pump
CPT/HCPCS: 80307; 80361; 80365; 95991; G0480

== ENCOUNTER 2024-03-08 14:10 | Emergency (ER) | payer MEDICARE, OTHER, SELFPAY ==
[2024-03-08] VITALS (9 sets, daily range): BP systolic 105–150; BP diastolic 67–106; PULSE 83–109; RESP 18–22; TEMP 36.5; O2SAT 92–97; BMI 29.5
--- NOTE | 2024-03-08 14:20 | ECG_ITS ---
APPROVED REPORT Exam: Resting ECG HR:94 bpm ECG Measurements Heart Rate 94 AXES LA 126 P 82 QRSd 80 QRS 64 QT 328 T 48 QTc 380 Conclusion SINUS RHYTHM LOW QRS VOLTAGE IN PRECORDIAL LEADS [QRS DEFLECTION < 1.0 mV IN CHEST LEADS] POSSIBLE RIGHT VENTRICULAR CONDUCTION DELAY [RSR (QR) IN V1/V2] BORDERLINE ECG Electronically signed by : MARICEL JULIO, 03/08/2024 16:07:51
--- NOTE | 2024-03-08 14:23 | CT_ITS ---
FINAL REPORT TECHNIQUE: After the administration of intravenous contrast, axial images were obtained through the abdomen and pelvis by computed tomography. The study was performed with techniques to keep radiation dose as low as reasonably achievable, (ALARA). Individual dose reduction techniques using automated exposure control or adjustment of mA and/or kV according to the patient's size were employed. CLINICAL HISTORY: nausea/vomiting COMPARISON: None FINDINGS: Abdomen: There is chronic scarring at the lung bases. There is moderate fatty infiltration of the liver. There is extensive intra/extrahepatic biliary ductal dilatation. The common duct measures up to 2.1 cm in diameter. No definite obstructing stones are identified. The gallbladder is surgically absent. Spleen is unremarkable. The pancreas is atrophic. The adrenals and kidneys are unremarkable. a The aorta is normal in caliber. There is no free fluid or adenopathy. Pelvis: The appendix is not identified. There is moderate diverticulosis in the sigmoid colon without evidence of diverticulitis. There are fluid-filled loops in the proximal jejunum which are mildly distended up to 3 cm, nonspecific. The urinary bladder is incompletely distended. There is no free fluid or adenopathy. IMPRESSION: Marked intra/extrahepatic biliary ductal dilatation without definite obstructing lesion. Correlate with lab values. ERCP may be of value. Sigmoid diverticulosis without diverticulitis. Fluid-filled mildly distended loops in the proximal jejunum, nonspecific. Reviewed, Interpreted and Dictated by Rober Alamo MD Transcribed by Karuna Veloz Authenticated and [facility]
--- NOTE | 2024-03-08 14:25 | ED_ITS ---
Discharge Plan Disposition Patient Disposition: Xfer Short-Term Hosp Chief Complaint: Nausea/Vomiting/Diarrhea Prescriptions Prescriptions: No Action acetaminophen [Tylenol] 325 mg capsule 325 mg PO QID PRN (Reason: Pain) fexofenadine [Audra Allergy] 180 mg tablet 180 mg PO DAILY fluticasone propionate [Flonase Allergy Relief] 50 mcg/actuation spray,suspension 1 spray intranasal DAILY Rx Instructions: administer into each nostril pantoprazole 40 mg tablet,delayed release (DR/EC) 40 mg PO DAILY Qty: 90 1RF pseudoephedrine HCl 60 mg tablet 60 mg PO Q6H PRN (Reason: nasal congestion) Qty: 30 0RF Rx Instructions: DNExceed 4 doses/24h griseofulvin ultramicrosize 125 mg tablet 125 mg PO TID Qty: 90 0RF Rx Instructions: must administer with high-fat meal or food lorazepam 1 mg tablet 1 mg PO BID Qty: 60 2RF albuterol sulfate 2.5 mg /3 mL (0.083 %) solution for nebulization 2.5 mg inhalation Q6H ipratropium-albuterol 0.5 mg-3 mg(2.5 mg base)/3 mL solution for nebulization 3 ml inhalation Q6H PRN (Reason: .) travoprost 0.004 % drops 1 drp ophthalmic (eye) HS fluocinonide 0.05 % solution 1 applic topical BID epinephrine 0.3 mg/0.3 mL auto-injector 0.3 mg IM Q5-15M PRN (Reason: Allergic Reaction) Qty: 2 0RF Rx Instructions: do not exceed 3 doses per episode levothyroxine [Synthroid] 25 mcg tablet 25 mcg PO DAILY Qty: 30 0RF levalbuterol tartrate 45 mcg/actuation HFA aerosol inhaler 2 puff inhalation Q4-6H PRN (Reason: shortness of breath or wheezing) Qty: 15 2RF budesonide-formoterol [Symbicort] 160-4.5 mcg/actuation HFA aerosol inhaler 2 puff inhalation BID Qty: 10.2 2RF terbinafine HCl 250 mg tablet 250 mg PO DAILY Qty: 30 0RF melatonin 1 mg Tablet 1 mg PO HS PRN (Reason: Insomnia) morphine (PF) 1 mg/mL Solution 1 mg epidural CONT Rx Instructions: SEE EMR FOR CURRENT DAILY DOSE Referrals Follow up/Referrals: Javed Olivares DO [Primary Care Provider] - See instructions Clinical Impressions Clinical Impression: Nausea & vomiting, Constipation, Common bile duct dilatation, Abdominal pain Instructions Patient Instructions: DI for Diarrhea and Traveler's Diarrhea -- Adult, DI for Diarrhea and Traveler's Diarrhea -- Child, DI for Nausea -- Adult, DI for Nausea -- Child Discharge ED Provider: Gurpreet Morgan General Adult HPI <Odilia Valle DO - Last Filed: 03/08/24 15:51> General Chief complaint: Nausea/Vomiting/Diarrhea Stated complaint: vomiting, weakness, SOA Time Seen by Provider: 03/08/24 14:17 Mode of Arrival: Wheelchair Source of Information: Patient Limitations: No Limitations Description of Symptoms (Recalled from ER Triage Doc. by RN): n/v/d History of Present Illness HPI narrative: This patient is a 83-year-old female with a history of chronic pain with pain that she reports is not working, IBS with constipation, COPD, hypothyroidism, recurrent UTI presented to the emergency department for evaluation with concern for intractable nausea and vomiting since this morning. She has not been able to tolerate oral intake. She also notes that she is been having issues with constipation. Her last bowel movement was yesterday, but was very hard. Prior to that, it was 2 days before. She does note history of abdominal surgeries including hysterectomy, cholecystectomy, bladder repair. No fevers, chest pain, shortness of breath, or other concerns noted. She does note concern that she is not been able to keep her medications down today, including her oxycodone and anxiety medicine. Related Data Home Medications Medication Instructions Recorded Confirmed acetaminophen 325 mg capsule 325 mg PO QID PRN Pain 11/25/22 02/21/24 (Tylenol) fexofenadine 180 mg tablet 180 mg PO DAILY Allergy Symptoms 04/04/23 02/21/24 (Audra Allergy) fluticasone propionate 50 1 spray intranasal DAILY Allergy 04/04/23 02/21/24 mcg/actuation nasal Symptoms spray,suspension (Flonase Allergy Relief) melatonin 1 mg tablet 1 mg PO HS PRN Insomnia 05/26/23 02/21/24 morphine (PF) 1 mg/mL injection 1 mg epidural CONT Pain 06/10/23 02/21/24 solution albuterol sulfate 2.5 mg/3 mL 2.5 mg inhalation Q6H 07/27/23 02/21/24 (0.083 %) solution for nebulization fluocinonide 0.05 % topical 1 applic topical BID 07/27/23 02/21/24 solution ipratropium 0.5 mg-albuterol 3 mg 3 ml inhalation Q6H PRN . 07/27/23 02/21/24 (2.5 mg base)/3 mL nebulization soln travoprost 0.004 % eye drops 1 drp ophthalmic (eye) HS 07/27/23 02/21/24 Previous Rx's Medication Instructions Recorded budesonide-formoterol HFA 160 2 puff inhalation BID soa #10.2 07/27/23 mcg-4.5 mcg/actuation aerosol grams inhaler (Symbicort) epinephrine 0.3 mg/0.3 mL 0.3 mg (0.3 mL) IM Q5-15M PRN 07/27/23 injection, auto-injector Allergic Reaction #2 ea levalbuterol tartrate 45 2 puff inhalation Q4-6H PRN 07/27/23 mcg/actuation aerosol inhaler shortness of breath or wheezing #15 grams levothyroxine 25 mcg tablet 25 mcg PO DAILY thyroid #30 tabs 07/27/23 (Synthroid) terbinafine HCl 250 mg tablet 250 mg PO DAILY #30 tabs 08/02/23 griseofulvin ultramicrosize 125 mg 125 mg PO TID #90 tabs 08/17/23 tablet pantoprazole 40 mg tablet,delayed 40 mg PO DAILY STOMACH #90 tabs 08/17/23 release pseudoephedrine HCl 60 mg tablet 60 mg PO Q6H PRN nasal congestion 08/17/23 #30 tabs lorazepam 1 mg tablet 1 mg PO BID Anxiety #60 tabs 11/30/23 Allergies Allergy/AdvReac Type Severity Reaction Status Date / Time levofloxacin [From Levaquin] Allergy Intermediate rash Verified 02/21/24 10:06 ibuprofen [From MOTRIN] Allergy Mild Verified 02/21/24 10:06 NSAIDS (Non-Steroidal Allergy Mild Verified 02/21/24 10:06 Anti-Inflamma [NSAIDS (NON-STEROIDAL ANTI-INFLAMMA] Sulfa (Sulfonamide Allergy Mild Verified 02/21/24 10:06 Antibiotics) [SULFA (SULFONAMIDE ANTIBIOTICS)] sibutramine [From Meridia] Allergy Verified 02/21/24 10:06 PFSH <Odilia Valle DO - Last Filed: 03/08/24 15:51> [facility] Disclaimer: The information contained in this section may have been updated after the patient was seen, as this information can be updated by other users. Medical History Urinary tract infection Sleep apnea History of COVID-19 Menopause Anxiety Psoriasis History of gastroesophageal reflux (GERD) Irritable bowel syndrome (IBS) Hypothyroid Hypertension History of sleep apnea History of COPD Asthma Family history of asthma Dyspnea on exertion Sinusitis Infected scalp abrasion Acute bacterial sinusitis Ingrown toenail of left foot Nail disorder (onychogryphosis) Sebaceous cyst of labia Cataract Multiple closed fractures of metatarsal bone of left foot Left foot pain Edema of left foot Normal colonoscopy Fracture of metatarsal bone of left foot Sinusitis Nasal congestion Sinusitis COPD exacerbation Thrush Bronchitis 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 History of surgery on arm History of cholecystectomy H/O sinus surgery H/O bladder repair surgery Hx of cataract surgery H/O: hysterectomy 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 Other Asthma Diabetes Family history of cancer Heart attack Hypertension 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 Smoking Status: Never smoker alcohol intake: never substance use type: denies use current occupational status: retired Travel in the last 8 weeks: None <Odilia Valle DO - Last Filed: 03/08/24 15:51> ROS Obtained: Yes All systems reviewed & no additional complaints except as documented Physical Exam <Odilia Valle DO - Last Filed: 03/08/24 15:51> General General appearance: alert and in no apparent distress Head Head exam: atraumatic and normocephalic Eye Eye exam: Present normal appearance, PERRL and EOMI ENT ENT exam: Present normal exam, normal oropharynx, mucous membranes moist and normal external ear exam Neck Neck exam: Present normal inspection, full ROM and trachea midline; Absent tenderness Chest Chest inspection: Present normal inspection and symmetric chest wall rise; Absent tenderness Respiratory Respiratory exam: Present normal lung sounds bilaterally; Absent respiratory distress, wheezes, stridor or accessory muscle use Cardiovascular Cardiovascular exam: Present normal rhythm and tachycardia Abdominal Exam Abdominal exam: Present soft; Absent distention, tenderness or guarding Extremities Exam Extremities exam: Present normal inspection, full ROM and normal capillary refill; Absent tenderness or edema Back Exam Back exam: Present normal inspection and full ROM; Absent tenderness Neurological Exam Neurological exam: Present alert, oriented X3, CN II-XII intact and normal gait; Absent motor sensory deficit Psychiatric Psychiatric exam: Present normal affect and normal mood Skin Skin exam: Present warm and dry Medical Decision Making <Odilia Valle, DO - Last Filed: 03/08/24 15:51> Medical Records Medical records reviewed: Yes I reviewed the patient's medical records. Pieter Inquiry Pt receiving controlled substance: No Vital Signs: 03/08/24 14:12 03/08/24 14:24 03/08/24 14:30 Temperature 97.7 F Temperature Source Oral Pulse Rate 109 H 95 H Pulse Rate [Right] 97 H Respiratory Rate 22 Blood Pressure 105/74 L Blood Pressure [Right Arm] 117/78 Blood Pressure Mean Blood Pressure Mean [Right Arm] 91 02 Sat by Pulse Oximetry 94 L 95 94 L Oxygen Delivery Method Room Air Room Air 03/08/24 15:00 03/08/24 15:30 03/08/24 16:30 Temperature Temperature Source Pulse Rate 85 84 83 Pulse Rate [Right] Respiratory Rate 18 Blood Pressure 121/68 112/74 150/106 H Blood Pressure [Right Arm] Blood Pressure Mean 86 Blood Pressure Mean [Right Arm] 02 Sat by Pulse Oximetry 92 L 92 L 93 L Oxygen Delivery Method Room Air Room Air 03/08/24 17:00 Temperature Temperature Source Pulse Rate 88 Pulse Rate [Right] Respiratory Rate Blood Pressure 136/67 Blood Pressure [Right Arm] Blood Pressure Mean Blood Pressure Mean [Right Arm] 02 Sat by Pulse Oximetry 94 L Oxygen Delivery Method Room Air Lab Data Lab results reviewed: Yes I reviewed the patient's lab results. Lab Results 03/08/24 14:30: Sodium 139, Potassium 4.4, Chloride 105, Carbon Dioxide 23, A nion Gap 15.4 H, BUN 9, Creatinine 0.50 L, Estimated Creat Clear 52, Estimated GFR 118, Est GFR ( Amer) 142, Glucose 107 H, Calcium 10.3 H, Total Bilirubin 0.8, AST 52 H, ALT 29, Alkaline Phosphatase 137 H, Total Protein 7.5, Albumin 4.3, Globulin 3.2, Albumin/Globulin Ratio 1.3, Lipase 28 03/08/24 15:36: WBC 13.2 H, RBC 4.62, Hgb 14.9, Hct 47.7 H, MCV 103.2 H, MCH 32.3 H, MCHC 31.3 L, RDW 14.0, Plt Count 429 H, MPV 8.3, Neut % (Auto) 84.1 H, L ymph % (Auto) 9.3 L, Darke % (Auto) 5.6, Eos % (Auto) 0.8, Baso % (Auto) 0.3, N eut # (Auto) 11.1 H, Lymph # (Auto) 1.2, Darke # (Auto) 0.7, Eos # (Auto) 0.1, Baso # (Auto) 0.0 03/08/24 15:36 03/08/24 14:30 Orders (Tests/Meds): ED MEDICATIONS Discontinued Medications Generic Name Dose Route Start Last Admin Trade Name Freq PRN Reason Stop Dose Admin Lactated Ringer's 1,000 mls @ 999 mls/hr 03/08/24 14:24 03/08/24 14:43 Lactated Ringer's 1000 Ml Bag IV 03/08/24 15:24 999 mls/hr .Q1H1M ONE Administration Iopamidol 75 ml 03/08/24 16:10 03/08/24 16:11 Iopamidol-370 (76%);100ml Bottle IV 03/08/24 16:11 75 ml ONCE ONE Administration Ondansetron HCl 4 mg 03/08/24 14:24 03/08/24 14:43 Ondansetron 4mg/2ml Vial IV 03/08/24 14:25 4 mg ONCE ONE Administration Sodium Chloride 10 ml 03/08/24 16:10 03/08/24 16:11 Sodium Chloride 0.9% 10ml Syr (Rad Only) IV 03/08/24 16:11 10 ml ONCE ONE Administration ORDERS Category Date Time Status CT abdomen pelvis w con Stat Cat Scan 03/08/24 14:23 Completed POCUS Point of Care (ER Only) Stat Exams 03/08/24 17:05 Ordered Complete Blood Count Auto Diff Stat Lab 03/08/24 15:36 Completed Comprehensive Metabolic Panel Stat Lab 03/08/24 14:30 Completed Lipase Stat Lab 03/08/24 14:30 Completed UA [Urinalysis and Microscopic] Stat Lab 03/08/24 14:18 Ordered ECG Data Tracing #1: I reviewed this ECG and interpreted as documented below: Normal sinus rhythm with a ventricular rate of [address] changes concerning for ischemia. Normal axis and intervals. ECG initial impression date: 03/08/24 ECG initial impression time: 14:21 Medical Decision Narrative: In summary, this patient is a 83-year-old female presenting to the Emergency Department for evaluation of nausea, vomiting, and constipation. Differential diagnoses considered include but are not limited to bowel obstruction, colitis, diverticulitis, gastroenteritis, dehydration, electrolyte derangement. Ruling out the most morbid conditions drove assessment. It should be noted patient's history includes irritable bowel syndrome, DEEPIKA, and GERD which may or may not be at goal therapy. This complicates all aspects of care by increasing patient's risk for morbidity. I reviewed patient's past medical records and noted previous evaluations in pain management clinic with concern for chronic back pain as well as knee osteoarthritis with orthopedics. On exam, the patient is alert and oriented, GCS of 15. She is sitting in bed in no acute distress. Abdominal exam is relatively benign, however her age, surgical history, and comorbidities increased risk for intra-abdominal pathology. Workup included CBC, CMP, lipase, urinalysis, and CT abdomen and pelvis with IV contrast. She was given a bolus of IV fluids as well as IV Zofran. EKG was obtained and is reassuring. Patient care signed out to the oncoming provider, Dr. Morgan, pending workup and disposition. <Gurpreet Morgan MD - Last Filed: 03/08/24 17:52> Vital Signs: 03/08/24 14:12 03/08/24 14:24 03/08/24 14:30 Temperature 97.7 F Temperature Source Oral Pulse Rate 109 H 95 H Pulse Rate [Right] 97 H Respiratory Rate 22 Blood Pressure 105/74 L Blood Pressure [Right Arm] 117/78 Blood Pressure Mean Blood Pressure Mean [Right Arm] 91 02 Sat by Pulse Oximetry 94 L 95 94 L Oxygen Delivery Method Room Air Room Air 03/08/24 15:00 03/08/24 15:30 03/08/24 16:30 Temperature Temperature Source Pulse Rate 85 84 83 Pulse Rate [Right] Respiratory Rate 18 Blood Pressure 121/68 112/74 150/106 H Blood Pressure [Right Arm] Blood Pressure Mean 86 Blood Pressure Mean [Right Arm] 02 Sat by Pulse Oximetry 92 L 92 L 93 L Oxygen Delivery Method Room Air Room Air 03/08/24 17:00 Temperature Temperature Source Pulse Rate 88 Pulse Rate [Right] Respiratory Rate Blood Pressure 136/67 Blood Pressure [Right Arm] Blood Pressure Mean Blood Pressure Mean [Right Arm] 02 Sat by Pulse Oximetry 94 L Oxygen Delivery Method Room Air Lab Data Lab Results 03/08/24 14:30: Sodium 139, Potassium 4.4, Chloride 105, Carbon Dioxide 23, A nion Gap 15.4 H, BUN 9, Creatinine 0.50 L, Estimated Creat Clear 52, Estimated GFR 118, Est GFR ( Amer) 142, Glucose 107 H, Calcium 10.3 H, Total Bilirubin 0.8, AST 52 H, ALT 29, Alkaline Phosphatase 137 H, Total Protein 7.5, Albumin 4.3, Globulin 3.2, Albumin/Globulin Ratio 1.3, Lipase 28 03/08/24 15:36: WBC 13.2 H, RBC 4.62, Hgb 14.9, Hct 47.7 H, MCV 103.2 H, MCH 32.3 H, MCHC 31.3 L, RDW 14.0, Plt Count 429 H, MPV 8.3, Neut % (Auto) 84.1 H, L ymph % (Auto) 9.3 L, Darke % (Auto) 5.6, Eos % (Auto) 0.8, Baso % (Auto) 0.3, N eut # (Auto) 11.1 H, Lymph # (Auto) 1.2, Darke # (Auto) 0.7, Eos # (Auto) 0.1, Baso # (Auto) 0.0 Orders (Tests/Meds): ED MEDICATIONS Discontinued Medications Generic Name Dose Route Start Last Admin Trade Name Freq PRN Reason Stop Dose Admin Lactated Ringer's 1,000 mls @ 999 mls/hr 03/08/24 14:24 03/08/24 14:43 Lactated Ringer's 1000 Ml Bag IV 03/08/24 15:24 999 mls/hr .Q1H1M ONE Administration Iopamidol 75 ml 03/08/24 16:10 03/08/24 16:11 Iopamidol-370 (76%);100ml Bottle IV 03/08/24 16:11 75 ml ONCE ONE Administration Ondansetron HCl 4 mg 03/08/24 14:24 03/08/24 14:43 Ondansetron 4mg/2ml Vial IV 03/08/24 14:25 4 mg ONCE ONE Administration Sodium Chloride 10 ml 03/08/24 16:10 03/08/24 16:11 Sodium Chloride 0.9% 10ml Syr (Rad Only) IV 03/08/24 16:11 10 ml ONCE ONE Administration ORDERS Category Date Time Status CT abdomen pelvis w con Stat Cat Scan 03/08/24 14:23 Completed POCUS Point of Care (ER Only) Stat Exams 03/08/24 17:05 Ordered Complete Blood Count Auto Diff Stat Lab 03/08/24 15:36 Completed Comprehensive Metabolic Panel Stat Lab 03/08/24 14:30 Completed Lipase Stat Lab 03/08/24 14:30 Completed UA [Urinalysis and Microscopic] Stat Lab 03/08/24 14:18 Ordered Medical Decision Narrative: In summary, this patient is a 83-year-old female presenting to the Emergency Department for evaluation of nausea, vomiting, and constipation. Differential diagnoses considered include but are not limited to bowel obstruction, colitis, diverticulitis, gastroenteritis, dehydration, electrolyte derangement. Ruling out the most morbid conditions drove assessment. It should be noted patient's history includes irritable bowel syndrome, DEEPIKA, and GERD which may or may not be at goal therapy. This complicates all aspects of care by increasing patient's risk for morbidity. I reviewed patient's past medical records and noted previous evaluations in pain management clinic with concern for chronic back pain as well as knee osteoarthritis with orthopedics. On exam, the patient is alert and oriented, GCS of 15. She is sitting in bed in no acute distress. Abdominal exam is relatively benign, however her age, surgical history, and comorbidities increased risk for intra-abdominal pathology. Workup included CBC, CMP, lipase, urinalysis, and CT abdomen and pelvis with IV contrast. She was given a bolus of IV fluids as well as IV Zofran. EKG was obtained and is reassuring. Patient care signed out to the oncoming provider, Dr. Morgan, pending workup and disposition. Cathy: I assumed primary responsibility for this patient after signout from previous physician. On my evaluation, patient with mild discomfort, but very well-appearing on exam. Abdomen is benign. No overlying skin changes. Patient does appear chronically ill, but in no acute distress. Blood pressure 112/74, heart rate 74, 96% on room air. Workup independently interpreted and significant for Leukocytosis 13.2 with neutrophilia, thrombocytosis 429. Chemistry with nonactionable electrolytes or kidney function. Anion gap nonactionable at 15. LFTs nonactionable, with mild elevation AST and alkaline phosphatase, normal bilirubin and ALT. Lipase nonactionable as well. CT abdomen pelvis with dilated common bile duct and intrahepatic ducts, but no obvious source of obstruction. Right upper quadrant ultrasound with 18 mm common bile duct with no source of distal obstruction. Otherwise normal right upper quadrant ultrasound. [facility] was contacted and case was discussed at length given concern for common bile duct obstruction and dilation. Graciously excepted transfer under Dr. Wright to [facility] emergency department. Procedures <Gurpreet Morgan MD - Last Filed: 03/08/24 17:52> Limited Ultrasound Indication:: Limited RUQ ultrasound Indication: Abdominal pain Identified structures: -Common bile duct -Liver Findings: Surgically absent gallbladder Common bile duct width (mm) (normal is </= 6mm): 18 mm Impression: Surgically absent gallbladder Common bile duct dilation 18 mm Images were saved to permanent archive The study was technically adequate CPT 92290-64 This study was performed by me, and I personally interpreted all images/videos. Based on my clinical judgement, these images were adequate and did not necessitate further imaging. Critical Care <Odilia Valle DO - Last Filed: 03/08/24 15:51> Critical Care Time Critical Care Time: No
[2024-03-08] MEDS: ONDANSETRON 4MG/2ML VIAL 4 MG IV (14:43)
[2024-03-08] MEDS: LACTATED RINGERS 1000ML 1,000 ML 999 ML IV (14:43)
[2024-03-08 15:41] LABS: Basophils % 0.3 % (0.1-2.0); Eosinophils # 0.1 K/mm3 (0.0-0.4); Eosinophils % 0.8 % (0.1-12.0); Hematocrit 47.7 % (37.0-47.0); Hemoglobin 14.9 g/dL (12.2-16.2); Lymphocytes # 1.2 K/mm3 (0.7-4.5); Lymphocytes % 9.3 % (10-50); Mean Corpuscular HGB Conc 31.3 g/dL (31.8-35.4); Mean Corpuscular Hemoglobin 32.3 pg (27.0-31.2); Mean Corpuscular Volume 103.2 fl (81-99); Mean Platelet Volume 8.3 fl (7.4-10.4); Monocytes # 0.7 K/mm3 (0.1-1.0); Monocytes % 5.6 % (1.7-9.3); Neutrophils # 11.1 K/mm3 (1.8-7.8); Neutrophils % 84.1 % (37.0-80.0); Platelet Count 429 K/mm3 (142-424); Red Blood Count 4.62 M/mm3 (4.20-5.40); White Blood Count 13.2 K/mm3 (4.8-10.8)
[2024-03-08 15:43] LABS: Chloride 105 mmol/L (98-107)
[2024-03-08 15:44] LABS: Potassium 4.4 mmoL/L (3.5-5.1); Sodium 139 mmol/L (136-145)
[2024-03-08 15:46] LABS: Alanine Aminotransferase 29 U/L (12-78); Alkaline Phosphatase 137 U/L (38-126); Anion Gap 15.4 mEq/L (5-15); Aspartate Amino Transferase 52 U/L (14-36); Bilirubin,Total 0.8 mg/dl (0.2-1.3); Blood Urea Nitrogen 9 mg/dl (7-17); Calcium 10.3 mg/dl (8.4-10.2); Carbon Dioxide 23 mmol/L (22.0-30.0); Creatinine Clearance Estimated 52 mL/min (50-200); Estimated Glomerular Filt Rate 118 ml/min (>60); GFR (African American) 142 ML/MIN (>60); Glucose 107 mg/dl (74-100); Lipase 28 U/L (23-300)
[2024-03-08 15:47] LABS: Albumin Level 4.3 g/dl (3.5-5.0); Albumin/Globulin Ratio 1.3 (1.1-1.8); Globulin 3.2 g/dL (1.3-3.2); Total Protein,Serum 7.5 g/dl (6.3-8.2)
[2024-03-08] MEDS: IOPAMIDOL-370 (76%);100ML BOTTLE 75 ML IV (16:11)
[2024-03-08] MEDS: SODIUM CHLORIDE 0.9% 10ML SYR (RAD ONLY) 10 ML IV (16:11)
--- NOTE | 2024-03-08 17:44 | PC.NURSE ---
calling [facility] for transfer to hospital med [facility]
--- NOTE | 2024-03-08 17:44 | PC.NURSE ---
speaking with at [facility]
--- NOTE | 2024-03-08 18:10 | PC.NURSE ---
called report to [facility] at [facility]
== END 2024-03-08 18:45 | disposition short-term general hospital (02) ==
PROVIDERS: Emergency Medicine; Emergency Provider Emergency Medicine; PCP Internal Medicine
DX: R10.9 Unspecified abdominal pain (principal); R11.2 Nausea with vomiting, unspecified; K59.00 Constipation, unspecified; K83.8 Other specified diseases of biliary tract; J44.9 Chronic obstructive pulmonary disease, unspecified; E03.9 Hypothyroidism, unspecified; K21.9 Gastro-esophageal reflux disease without esophagitis; I10 Essential (primary) hypertension
CPT/HCPCS: 74177; 80053; 83690; 85025; 93005; 96361; 96374; 99285; J2405; J7120; Q9967

== ENCOUNTER 2024-04-06 06:01 | Day surgery (SDC) | payer MEDICARE, OTHER, SELFPAY ==
[2024-04-06] MEDS: LACTATED RINGERS 1000ML 1,000 ML 25 ML IV (06:26)
[2024-04-06 06:34] VITALS: BP 142/66; PULSE 83; RESP 18; TEMP 36.4; O2SAT 95
--- NOTE | 2024-04-06 07:15 | EXP.ANES.CKL ---
[facility] Disclaimer: The information contained in this section may have been updated after the patient was seen, as this information can be updated by other users. Medical History GERD (gastroesophageal reflux disease) Urinary tract infection Sleep apnea History of COVID-19 Menopause Anxiety Psoriasis History of gastroesophageal reflux (GERD) Irritable bowel syndrome (IBS) Hypothyroid Hypertension History of sleep apnea History of COPD Asthma Family history of asthma Dyspnea on exertion Sinusitis Infected scalp abrasion Acute bacterial sinusitis Ingrown toenail of left foot Nail disorder (onychogryphosis) Sebaceous cyst of labia Cataract Multiple closed fractures of metatarsal bone of left foot Left foot pain Edema of left foot Normal colonoscopy Fracture of metatarsal bone of left foot Sinusitis Nasal congestion Sinusitis COPD exacerbation Thrush Bronchitis 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 History of eye surgery History of surgery on arm History of cholecystectomy H/O sinus surgery H/O bladder repair surgery Hx of cataract surgery H/O: hysterectomy 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 Other Asthma Diabetes Family history of cancer Heart attack Hypertension 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 Smoking Status: Never smoker alcohol intake: never substance use type: denies use current occupational status: retired Travel in the last 8 weeks: None [facility] Anesthesia Checklist Patient Identification Patient Identification: Arm Band and Verbal (Name & ) Structural Data Admitted From: Home Planned Operative Procedure/s: IPPP Consent for Planned Operative Procedure(s) Verified: Yes Verified Documents: Surgical Consent NPO Status Verified Time NPO: 00:00 Chart Verification Results Verified: CBC and BMP Additional verifications Anesthesia Reactions: No Hx Blood Transfusions: No Blood Transfusion Reaction: No Airway Assessment Mallampati Score:: Class III C-Spine Mobility Assessed: Yes TMJ Mobility Assessed: Yes Dentition: Edentulous Neurological Assessment Level of Consciousness: Awake Hx Seizures: No Numbness or tingling in extremities: No Anesthesia Plan Anesthesia Risk discussed: Yes Anesthesia Plan: Verified ASA Class: III Anesthesia Type: MAC
[2024-04-06] MEDS: VANCOMYCIN/WATER FOR INJ (PEG) 1.5 GM/300 ML PIGGYBACK IV (07:50)
[2024-04-06] MEDS: SODIUM CHLORIDE 0.9% 20ML VIAL 40 ML IV (08:12)
[2024-04-06] MEDS: LIDOCAINE 1% W/EPI 1:100,000 20ML VIAL 40 ML (08:13)
[2024-04-06] MEDS: GENTAMICIN 80 MG/2 ML VIAL 160 MG (08:13)
[2024-04-06 08:55] VITALS: BP 122/63; PULSE 85; RESP 16; TEMP 36.8; O2SAT 100
[2024-04-06 09:05] VITALS: BP 132/72; PULSE 89; RESP 16; O2SAT 93
[2024-04-06 09:15] VITALS: BP 138/72; PULSE 86; RESP 18; O2SAT 94
[2024-04-06 09:25] VITALS: BP 134/65; PULSE 86; RESP 18; O2SAT 96
--- NOTE | 2024-04-06 12:39 | EXP.OP.NOTE ---
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 She started to have some increasing pain and there were discrepancies on her refill. We did do an intrathecal catheter dye study we were unable to withdraw through the catheter access port. It was suspected that the catheter was kinked or obstructed. Patient reports for replacement/revision of her intrathecal catheter today. Operative findings:: None Operative note:: Informed consent was obtained risk and benefits of the procedure were explained to the patient. Patient was taken the operating room placed prone on the procedure table. She was prepped and draped in sterile fashion. C-arm fluoroscopy was used to view the intrathecal pain pump reservoir and the current intrathecal catheter. The skin and subcutaneous tissues overlying the reservoir were anesthetized using lidocaine. I made an incision dissected out the pain pump generator and disconnected the catheter. I tied off the existing catheter with 0 silk ties x 3. C-arm fluoroscopy was then used to view the lumbar spine. The skin and subcutaneous tissues adjacent to the L4-5 and L5-S1 interspace were anesthetized using lidocaine. I made an incision dissected down to the lumbar paraspinous fascia. I then placed a 17-gauge spinal needle and advanced into the L4-5 interspace until clear CSF was obtained. After this intrathecal catheter was inserted and advanced very easily to the T8 vertebral body. The stylette of the catheter and the needle were withdrawn. Catheter was found to be in good position it was midline and posterior. Catheter was secured to the fascia with an anchor device and 2-0 Prolene. The pump was filled with 20 mL intrathecal morphine 1 mg/mL. I tunneled the catheter from the back to the generator pocket. I attached catheter to the generator. We were able to freely withdraw clear CSF through the catheter aspiration port. Placed the generator back in the pocket. This was with an antibiotic pouch. Both incisions were then closed with 2-0 Vicryl followed by 4-0 nylon and rishabh. Patient was placed in abdominal binder taken recovery in stable condition. The pump was interrogated and started at 50 mcg/day. Patient tolerated the procedure well with no complications. Patient was discharged home neurologic intact with good relief of pain symptoms. Plan and disposition: Will follow-up with this patient in 1 week for wound check and reprogram. Will follow-up in 2 to 3 weeks for suture and staple removal. Condition: stable Disposition: PACU Complications:: None
== END 2024-04-06 09:25 | disposition home or self-care (01) ==
PROVIDERS: PCP Internal Medicine; Visit Provider Anesthesiology
PROC: (CPT 62350; principal; 2024-04-06 07:30)
DX: Z45.49 Encounter for adjustment and management of other implanted nervous system device (principal)
CPT/HCPCS: 62350; 96374; C1755; J1580; J2704; J7120

== ENCOUNTER 2024-04-26 14:38 | Outpatient (POV) | payer MEDICARE, OTHER, SELFPAY ==
--- NOTE | 2024-04-26 15:09 | P.PCN_ITS ---
Procedure Date: 04/26/24 Time: 15:12 Anesthesiologist:: Odilia Bustos APRN Complications:: None Pre-procedure Diagnosis:: Degenerative disc disease of lumbar spine with lumbar radiculopathy symptoms, right leg pain Post-procedure Diagnosis:: same Indications for Procedure:: Patient is a pleasant 84-year-old female who presents today for 1 week postop of her catheter replacement on her intrathecal pump. Patient had this procedure done on April 07, 2024. She denies any new trauma or injury. She does state that she feels like the pain is better than what it was prior however she is still having worsening pain that goes from her low back into her entire right extremity. Patient is described the pain as an aching, throbbing sensation with numbness and tingling that does interfere with her ability perform activities of daily living.patient denies any recent injection therapy. Patient is currently managed with morphine 1 mg/mL with a daily dose of 0.1 mg/day. She denies any side effects. Patient is requesting if we can go up on her current medication. Her Pieter has been reviewed and is appropriate. Physical Exam: General: Alert and oriented x3, no acute distress, pleasant and cooperative Lungs: Respirations even and unlabored, symmetrical chest expansion Eyes: PERRL Musculoskeletal: Flexion and extension of lumbar [spine] somewhat guarded secondary to pain, [antalgic gait noted] positive right leg raise with decreased sensation to light touch Neurological: Speech clear, no gross sensory deficit Skin: Incision sites are clean, dry, well-approximated with sutures and rishabh intact Procedure Details:: Informed consent was obtained and the risk and benefits of the procedure were explained to the patient. Patient was taken to the procedure room where noninvasive monitoring was placed including noninvasive blood pressure cuff and pulse oximeter. Patient's pump was interrogated and was reprogrammed to morphine 0.11 mg/day. The patient tolerated the procedure well with no complications. Plan and Disposition:: Patient is experiencing worsening pain in her low back that radiates down her entire right extremity. Patient did have limited range of motion of her lumbar spine and a positive right leg raise with decreased sensation to light touch. I did discuss with patient that she may benefit from a right transforaminal epidural steroid injection. Risk and benefits were discussed with patient and she would like to proceed forward with this plan of care. Patient does have substantial numbness and tingling into her extremity. Patient has tried continu ed at home stretching exercise for longer than 6 weeks with no additional change. Patient did tolerate her intrathecal increase with no complications and was discharged neurologically intact. Patient did have most of her sutures and rishabh removed during today's visit however we did have to leave in place about 4 rishabh. We will plan on taking these out when she comes for her injection. Patient was counseled to continue her postop restrictions for the full 6 weeks and she is still continues to wear her back brace. Patient will be scheduled for a right transforaminal epidural steroid injection L4-L5 and L5-S1 under fluoroscopy. We will see the patient back in the clinic at the next intrathecal refill. Patient has been instructed to contact the clinic with any concerns before the next appointment. Dr. Wolf has reviewed this note and agrees with this plan of care. This note was dictated using voice recognition software and make contain errors or omissions. -- It Is medically necessary for this patient to continue to have their intrathecal pump refilled at regular intervals. This patient had an intrathecal pain pump implanted after meeting criteria of chronic intractable pain for greater than 3 months and failing conservative treatments. Patient has committed and been compliant to the treatment plan and all planned follow up care. Since implantation of the intrathecal pain pump, the patient has had decreased pain and been more functional. Oral medications have been reduced including intake of oral opioids. Patient continues to do well with intrathecal therapy with d ecrease in pain symptoms and increase in functional status. Stopping intrathecal medications can lead to life threatening withdrawal, seizures, cardiac arrest, severe pain, and possible . Pumps that are not refilled at regular intervals can be damages and cause and need for replacement. We continually titrate dose and concentration to optimize pain relief and function. We are limited in concentration for certain drugs to safely deliver medications through the pump and stay within the recommendations from the Polyanalgesic Consensus Committee Guidelines. Depending on dose and concentration these pumps may need to be refilled sooner than 3 months as we titrate.
[2024-04-26 15:10] VITALS: BP 124/79; PULSE 87; RESP 18; O2SAT 98; BMI 29.3
== END 2024-04-26 23:59 | disposition home or self-care (01) ==
PROVIDERS: PCP Internal Medicine; Visit Provider Nurse Practitioner Family
DX: G89.29 Other chronic pain (principal); M51.36 Other intervertebral disc degeneration, lumbar region; M54.16 Radiculopathy, lumbar region
CPT/HCPCS: 62368; 99213; G0463

== ENCOUNTER 2024-05-08 12:26 | Day surgery (SDC) | payer MEDICARE, OTHER, SELFPAY ==
[2024-05-08 13:03] VITALS: BP 135/79; PULSE 88; RESP 16; TEMP 36.8; O2SAT 93; BMI 29.3
--- NOTE | 2024-05-08 13:16 | PC.NURSE ---
Remaining rishabh removed from pt back from recent surgery. Skin glue and steri strips applied to area after rishabh removed. Pt tolerated well.
[2024-05-08] MEDS: LIDOCAINE 1% 5ML PF VIAL 5 ML (13:19)
--- NOTE | 2024-05-08 13:21 | EXP.PAIN.PRO ---
Procedure Date: 05/08/24 Time: 13:10 Anesthesiologist:: Alex Tejeda CRNA Complications:: None Pre-procedure Diagnosis:: Degenerative disc lumbar spine multilevels. Lumbar radiculopathy. Post-procedure Diagnosis:: Same Indications for Procedure:: Patient is a pleasant 84-year-old female comes our clinic today for right transforaminal L4-5 and L5-S1 level. Patient has right hip and leg radicular symptoms to the foot. She rates the pain 8/10. Patient is currently being managed with intrathecal pain pump containing morphine sulfate 1 mg/mL. She recently had pump revision done with Dr. Wolf. She is doing very well. Incision looks clean and dry. Benton were removed today and Steri-Strips applied. Procedure Details:: Details of the procedure explained to the patient. The patient was taken to procedure room placed in the prone position. The area over the lumbar spine was cleansed using chlorhexidine as a cleansing solution. Using fluoroscopy guidance markers were placed over the right border of the L5 vertebral body. At each marker the skin and subcutaneous tissue was anesthetized using 1% lidocaine and a 25-gauge needle. At this time using fluoroscopy guidance 3 and half inch 22-gauge spinal needle was used to access the upper one third of the L5-S1 foramen. Using fluoroscopy guidance in the lateral position needle position was confirmed using 0.5 mL of contrast dye. Good spread was noted in the epidural space at each level. After negative aspiration 2 mL of 1% lidocaine and 40 mg of Depo-Medrol was injected at each level. Patient tolerated procedure without difficulty. There are no complications. I did not do the L4-5 level transforaminal epidural steroid injection due to pump location and fresh incision proximity. My suggestion in the future as we treat the patient conservatively with her intrathecal pain pump medication. Patient has multiple sores that appear to be open in the region of the lumbar spine. Also, patient has extreme difficulty getting on the fluoroscopy table requiring a tremendous amount of assistance. Plan and Disposition:: Patient was discharged without incident.
[2024-05-08 13:26] VITALS: BP 136/91; PULSE 87; RESP 16; O2SAT 94
== END 2024-05-08 13:26 | disposition home or self-care (01) ==
PROVIDERS: PCP Internal Medicine; Visit Provider Nurse Anesthetist, Certified Registered
DX: M54.16 Radiculopathy, lumbar region (principal); G89.29 Other chronic pain
CPT/HCPCS: 64483; J1010

== ENCOUNTER 2024-05-30 09:26 | Outpatient (POV) | payer MEDICARE, OTHER, SELFPAY ==
[2024-05-30 10:05] VITALS: BP 116/80; PULSE 94; RESP 16; O2SAT 94; BMI 28.3
--- NOTE | 2024-05-30 10:08 | EXP.PAIN.PRO ---
Procedure Date: 05/30/24 Time: 10:09 Anesthesiologist:: Odilia Bustos APRN Complications:: None Pre-procedure Diagnosis:: Degenerative disc disease of lumbar spine with lumbar radiculopathy symptoms Post-procedure Diagnosis:: Same Indications for Procedure:: Patient is a pleasant 84-year-old female who presents today for follow-up. Today she rates her pain an 8 out of 10. Patient denies any new trauma or injury. She did just recently have a right transforaminal injection however she states she really did not notice significant relief. Patient does state that she still has the low back and right leg symptoms. Patient does state that she does also have joint pain all over and that she did talk to Pat regarding a referral to rheumatology. Patient would like to proceed forward with this option. Patient does also state that she has been still seeing Velvet Mccoy and that she does typically do a urine drug screen in their office as well as our office and would like to see whether or not if we can just go down to 1. Patient states that she did talk to Velvet Mccoy and that she said it was perfectly fine if she wanted to do her urine drug screens with our office and that they can get a copy of this. Patient is asking if this is an issue with our office. Patient is currently managed with morphine 1 mg/mL with a daily dose of 0.11 mg/day. Patient denies any side effects from this medication. She is also prescribed lorazepam from an outside provider. Her Pieter has been reviewed and is appropriate. Physical Exam: General: Alert and oriented x3, no acute distress, pleasant and cooperative Lungs: Respirations even and unlabored, symmetrical chest expansion Eyes: PERRL Musculoskeletal: Flexion and extension of lumbar [spine] somewhat guarded secondary to pain, [antalgic gait noted] Neurological: Speech clear, no gross sensory deficit Procedure Details:: Informed consent was obtained and the risk and benefits of the procedure were explained to the patient. Patient was taken to the procedure room where noninvasive monitoring was placed including noninvasive blood pressure cuff and pulse oximeter. Patient's pump was interrogated and was reprogrammed to morphine 0.121 mg/day. The patient tolerated the procedure well with no complications. Plan and Disposition:: Patient tolerated her intrathecal adjustment and reprogram with no complications and was discharged neurologically intact. We will submit for a rheumatology consult to [facility] for chronic joint pain. Patient is already scheduled for her next intrathecal refill. We will see the patient back in the clinic at the next intrathecal refill. Patient has been instructed to contact the clinic with any concerns before the next appointment. Dr. Wolf has reviewed this note and agrees with this plan of care. This note was dictated using voice recognition software and make contain errors or omissions. -- It Is medically necessary for this patient to continue to have their intrathecal pump refilled at regular intervals. This patient had an intrathecal pain pump implanted after meeting criteria of chronic intractable pain for greater than 3 months and failing conservative treatments. Patient has committed and been compliant to the treatment plan and all planned follow up care. Since implantation of the intrathecal pain pump, the patient has had decreased pain and been more functional. Oral medications have been reduced including intake of oral opioids. Patient continues to do well with intrathecal therapy with decrease in pain symptoms and increase in functional status. Stopping intrathecal medications can lead to life threatening withdrawal, seizures, cardiac arrest, severe pain, and possible . Pumps that are not refilled at regular intervals can be damages and cause and need for replacement. We continually titrate dose and concentration to optimize pain relief and function. We are limited in concentration for certain drugs to safely deliver medications through the pump and stay within the recommendations from the Polyanalgesic Consensus Committee Guidelines. Depending on dose and concentration these pumps may need to be refilled sooner than 3 months as we titrate.
== END 2024-05-30 23:59 | disposition home or self-care (01) ==
PROVIDERS: PCP Internal Medicine; Visit Provider Nurse Practitioner Family
DX: M51.36 Other intervertebral disc degeneration, lumbar region (principal)
CPT/HCPCS: 62368; 99213; G0463

== ENCOUNTER 2024-06-27 10:36 | Outpatient (CLI) | payer MEDICARE, OTHER, SELFPAY ==
[2024-06-27 10:27] LABS: Microscopic, Urine URINE MICROSCOPIC (MICROSCOPIC)
[2024-06-27 10:41] LABS: Appearance,Urine CLEAR (Clear); Bilirubin,Urine Negative (Negative); Blood, Urine TRACE-I (Negative); Color,Urine YELLOW (Yellow); Glucose,Urine (UA) Negative (Negative); Ketones,Urine Negative (Negative); Leukocyte Esterase,Urine TRACE (Negative); Nitrate,Urine Negative (Negative); PH,Urine 5.5 (5.0-8.5); Protein,Urine TRACE (Negative); Specific Gravity, Urine >= 1.030 (1.005-1.030); Urobilinogen,Urine 0.2 EU/dl (0.2)
[2024-06-27 11:11] LABS: Bacteria,Urine 1+ /lpf; RBC,Urine Occasional #/hpf (0-3)
== END 2024-06-27 23:59 | disposition home or self-care (01) ==
LOC: LAB.DROPOF 10:37
PROVIDERS: PCP Nurse Practitioner Family; Visit Provider Nurse Practitioner Family
DX: N39.0 Urinary tract infection, site not specified (principal)
CPT/HCPCS: 81001; 87086; 87088; 87186

== ENCOUNTER 2024-07-03 12:48 | Day surgery (SDC) | payer MEDICARE, OTHER, SELFPAY ==
[2024-07-03 12:55] VITALS: BP 118/53; PULSE 78; RESP 16; TEMP 36.6; O2SAT 95; BMI 28.5
[2024-07-03 13:10] VITALS: BP 169/72; PULSE 77; RESP 18; O2SAT 96
[2024-07-03 13:12] VITALS: BP 169/72; PULSE 77; RESP 18; O2SAT 96
[2024-07-03 13:24] VITALS: BP 139/74; PULSE 85; RESP 18; O2SAT 97
--- NOTE | 2024-07-03 13:30 | EXP.PAIN.PRO ---
Procedure Date: 07/03/24 Time: 13:15 Anesthesiologist:: Alex Tejeda CRNA Complications:: None Pre-procedure Diagnosis:: Degenerative disc lumbar spine multilevels. Lumbar radiculopathy. Post-procedure Diagnosis:: Same. Indications for Procedure:: InsultPatient is a very pleasant 84-year-old female that comes our clinic today for intrathecal pain pump interrogation and refill. Patient currently being managed with eight 1 mg/mL at a rate of 0.1-1 0 mg/day. She is doing very well with her current settings. She is not requesting any changes or adjustments. She is not reporting any side effects or complications. She rates her pain 2/10. Procedure Details:: Details of the procedure explained to the patient. The patient taken procedure and placed in sitting position. They over the pumps cleansed using chlorhexidine as a cleansing solution. The pump was interrogated. The pump was accessed with ease using a 22-gauge inch and a half needle. 8 mL of solution was withdrawn discarded appropriate. The pump was then filled with 20 cc of solution containing morphine sulfate 1 mg/mL. Pump rate will remain the same at 0.1-1 0 mg/day. Patient tolerated procedure without difficulty. No complications. Plan and Disposition:: Patient was discharged without incident.
== END 2024-07-03 13:24 | disposition home or self-care (01) ==
PROVIDERS: PCP Internal Medicine; Visit Provider Nurse Anesthetist, Certified Registered
DX: M51.16 Intervertebral disc disorders with radiculopathy, lumbar region (principal)
CPT/HCPCS: 95991

== ENCOUNTER 2024-09-09 11:16 | Observation (INO) | payer MEDICARE, OTHER, SELFPAY ==
[2024-09-09] VITALS (12 sets, daily range): BP systolic 110–139; BP diastolic 55–78; PULSE 80–105; RESP 12–24; TEMP 36.5–36.9; O2SAT 87–99; BMI 28.3; BMI 29.4
--- NOTE | 2024-09-09 11:36 | ECG_ITS ---
APPROVED REPORT Exam: Resting ECG HR:91 bpm ECG Measurements Heart Rate 91 AXES IL 161 P 96 QRSd 89 QRS 58 QT 342 T 52 QTc 391 Conclusion Sinus rhythm, occasional PVC Electronically signed by : AMADA RODRIGUEZ, 09/09/2024 15:23:44
--- NOTE | 2024-09-09 11:38 | [facility].EDCP ---
Discharge Plan Disposition Patient Disposition: Admitted Clinical Impressions Clinical Impression: Pneumonia, CHF (congestive heart failure), Acute hypoxemic respiratory failure Discharge ED Provider: Gurpreet Morgan HPI General Chief Complaint: Shortness of Breath/Dyspnea Stated Complaint: SOA, cough, pain on L side of head Time Seen by Provider: 09/09/24 11:24 Mode of Arrival: Wheelchair Source of Information: Patient Limitations: No Limitations Description of Symptoms (Recalled from ER Triage Doc. by RN): pt has been coughing and spitting up for the past 3-4 days and has been using nebulizer machine but not helping at all. History of Present Illness HPI narrative: Please note that above description of symptoms, in this electronic medical record under categorization of recalled from ER triage doctor by RN are reflective of an initial nursing assessment, however, is not reflective of my full history and physical exam that was personally taken and clarified. Consequentially, this preceding description of symptoms, which may include the patient's categorized chief complaint in the EMR, do not reflect my personal clinical impression, and the ultimate description of history of present illness and patient stated complaints should be deferred to this section of the note. Unless stated otherwise or congruent with this section of the note, additional signs, symptoms, or incongruence should be interpreted as inaccurate with my clinical impression. Related Data Home Medications ?Medication ?Instructions ?Recorded ?Confirmed acetaminophen 325 mg capsule 325 mg PO QID PRN Pain 11/25/22 07/03/24 (Tylenol) fexofenadine 180 mg tablet 180 mg PO DAILY Allergy Symptoms 04/04/23 07/03/24 (Audra Allergy) fluticasone propionate 50 1 spray intranasal DAILY Allergy 04/04/23 07/03/24 mcg/actuation nasal Symptoms spray,suspension (Flonase Allergy Relief) melatonin 1 mg tablet 1 mg PO HS PRN Insomnia 05/26/23 07/03/24 morphine (PF) 1 mg/mL injection 1 mg epidural CONT Pain 06/10/23 07/03/24 solution albuterol sulfate 2.5 mg/3 mL 2.5 mg inhalation Q6H 07/27/23 07/03/24 (0.083 %) solution for nebulization travoprost 0.004 % eye drops 1 drp ophthalmic (eye) HS 07/27/23 07/03/24 Previous Rx's ?Medication ?Instructions ?Recorded epinephrine 0.3 mg/0.3 mL 0.3 mg (0.3 mL) IM Q5-15M PRN 07/27/23 injection, auto-injector Allergic Reaction #2 ea budesonide-formoterol HFA 160 2 puff inhalation BID soa #10.2 05/07/24 mcg-4.5 mcg/actuation aerosol grams inhaler (Symbicort) ketoconazole 1 % shampoo 1 applic topical Q3D #200 mL 05/07/24 levalbuterol tartrate 45 2 puff inhalation Q4-6H PRN 05/07/24 mcg/actuation aerosol inhaler shortness of breath or wheezing #15 grams levothyroxine 25 mcg tablet 25 mcg PO DAILY thyroid #30 tabs 05/07/24 (Synthroid) pantoprazole 40 mg tablet,delayed 40 mg PO DAILY STOMACH #30 tabs 05/07/24 release calcipotriene 0.005 % scalp 1 applic topical DAILY #60 mL 06/27/24 solution cephalexin 500 mg capsule 500 mg PO Q12H 10 days #20 caps 06/27/24 fluocinonide 0.05 % topical 1 applic topical BID #60 mL 06/27/24 solution lorazepam 1 mg tablet 1 mg PO BID Anxiety #60 tabs 07/12/24 ipratropium 0.5 mg-albuterol 3 mg See Rx Instructions .Route 09/08/24 (2.5 mg base)/3 mL nebulization .COMPLEX #180 mL soln Allergies Allergy/AdvReac Type Severity Reaction Status Date / Time levofloxacin (From Levaquin) Allergy Intermediate rash Verified 06/27/24 08:47 ibuprofen (From MOTRIN) Allergy Mild Verified 06/27/24 08:47 NSAIDS (Non-Steroidal Allergy Mild Verified 06/27/24 08:47 Anti-Inflamma (NSAIDS (NON-STEROIDAL ANTI-INFLAMMA) Sulfa (Sulfonamide Allergy Mild Verified 06/27/24 08:47 Antibiotics) (SULFA (SULFONAMIDE ANTIBIOTICS)) sibutramine (From Meridia) Allergy Verified 06/27/24 08:47 [facility] Disclaimer: The information contained in this section may have been updated after the patient was seen, as this information can be updated by other users. Medical History (Updated 09/09/24 @ 13:52 by Gurpreet Morgan MD) UTI (urinary tract infection) Angioedema Allergic reaction Otitis media Acute bronchitis Acute viral syndrome COVID-19 Nausea & vomiting Abdominal pain GERD (gastroesophageal reflux disease) Urinary tract infection Sleep apnea History of COVID-19 Menopause Anxiety Psoriasis History of gastroesophageal reflux (GERD) Irritable bowel syndrome (IBS) Hypothyroid Hypertension History of sleep apnea History of COPD Asthma Family history of asthma Dyspnea on exertion Sinusitis Infected scalp abrasion Acute bacterial sinusitis Ingrown toenail of left foot Nail disorder (onychogryphosis) Sebaceous cyst of labia Cataract Multiple closed fractures of metatarsal bone of left foot Left foot pain Edema of left foot Normal colonoscopy Fracture of metatarsal bone of left foot Sinusitis Nasal congestion Sinusitis COPD exacerbation Thrush Bronchitis 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 History of eye surgery History of surgery on arm History of cholecystectomy H/O sinus surgery H/O bladder repair surgery Hx of cataract surgery H/O: hysterectomy 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 Other Asthma Diabetes Family history of cancer Heart attack Hypertension 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 Smoking Status: Never smoker alcohol intake: never substance use type: denies use current occupational status: retired Other Medical History Have you received the Flu Vaccine for this season: No Have you received the Pneumonia Vaccine: No ROS Obtained: Yes All systems reviewed & no additional complaints except as documented Physical Exam General General appearance: alert and in no apparent distress Neck Neck exam: Present trachea midline Chest Chest inspection: Present normal inspection and symmetric chest wall rise Respiratory Respiratory exam: Present wheezes (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 92% on room air, no history of COPD (reported)) and other (Speaking in full sentences); Absent respiratory distress, stridor, accessory muscle use or prolonged expiratory phase Cardiovascular Cardiovascular exam: Present regular rate, normal rhythm and other (Pulses equal and symmetric in upper and lower extremities) Extremities Exam Extremities exam: Absent edema Neurological Exam Neurological exam: Present alert, oriented X3 and CN II-XII intact Skin Skin exam: Present warm and dry; Absent cyanosis, diaphoresis or pallor HEART Score HEART Score HEART Score assessment performed?: Yes History (anamnesis): Slightly suspicious ECG: Normal Age: >65 years Risk factors: 3 or more risk factors Troponin: </= normal limit HEART Score: 4 Critical Care Critical Care Time Critical Care Time: Yes (cardiopulmonary) Attestation: On 09/09/24, the high probability of a clinically significant, sudden or life threatening deterioration of the following system(s) required my full and direct attention, intervention and personal management. The time I documented below is in addition to time spent performing reported procedures but includes the following listed in this critical care notation. Total Time Total Critical Care Time: 35 Medical Decision Making Medical Records Medical records reviewed: Yes I reviewed the patient's medical records. Pieter Inquiry Pt receiving controlled substance: No Pieter was queried for this patient: No Vital Signs Vital Signs: 09/09/24 11:18 09/09/24 13:36 Temperature 98.5 F 98.2 F Temperature Source Oral Pulse Rate 90 Pulse Rate [Left Radial] 98 H Respiratory Rate 20 12 Blood Pressure 120/57 L Blood Pressure [Right Arm] 120/78 Blood Pressure Mean [Right Arm] 92 02 Sat by Pulse Oximetry 92 L Oxygen Delivery Method Room Air Nasal Cannula Oxygen Flow Rate (LPM) 2 Lab Data Labs: Lab Results 09/09/24 11:41: VBG pH 7.48 H, VBG pCO2 30.2 L, VBG pO2 173.0 H, VBG HCO3 22.0 L, VBG Total CO2 23.0, VBG O2 Saturation 99.3 H, VBG Base Excess -1.5, VBG Lactic Acid 1.3 09/09/24 11:55: WBC 15.6 H, RBC 4.09 L, Hgb 13.0, Hct 40.8, MCV 99.6 H, MCH 31.9 H, MCHC 32.0, RDW 13.7, Plt Count 382, MPV 8.4, Neut % (Auto) 80.8 H, Lymph % (Auto) 12.4, Blount % (Auto) 5.9, Eos % (Auto) 0.5, Baso % (Auto) 0.4, Neut # (Auto) 12.6 H, Lymph # (Auto) 1.9, Blount # (Auto) 0.9, Eos # (Auto) 0.1, Baso # (Auto) 0.1, Total Counted 100, Neutrophils % (Manual) 81 H, Lymphocytes % (Manual) 16, Monocytes % (Manual) 3, Platelet Estimate Normal, RBC Morphology Normal, PT 11.6, INR 1.04, APTT 30.7 H, Sodium 136, Potassium 4.4, Chloride 107, Carbon Dioxide 23, Anion Gap 10.4, BUN 9, Creatinine 0.50 L, Estimated Creat Clear 49, Estimated GFR 117, Est GFR ( Amer) 142, Glucose 106 H, Calcium 8.4, Total Bilirubin 1.6 H, AST 26, ALT 12, Alkaline Phosphatase 63, Troponin I < 0.01, NT-Pro-B Natriuret Pep 2430 H, Total Protein 6.9, Albumin 3.6, Globulin 3.3 H, Albumin/Globulin Ratio 1.1 09/09/24 11:55 09/09/24 11:55 Response Orders (Tests/Meds): ED MEDICATIONS Discontinued Medications Generic Name Dose Route Start Last Admin Trade Name Freq PRN Reason Stop Dose Admin Albuterol/Ipratropium 9 ml 09/09/24 11:40 09/09/24 11:53 Ipratropium/Albuterol 3 Ml Neb IH 09/09/24 11:41 9 ml ONCE ONE Administration Azithromycin 500 mg 09/09/24 13:16 09/09/24 13:29 Azithromycin 250mg Tablet PO 09/09/24 13:17 500 mg ONCE ONE Administration Furosemide 40 mg 09/09/24 13:16 09/09/24 13:29 Furosemide 40mg/4ml Vial IV 09/09/24 13:17 40 mg ONCE ONE Administration Ceftriaxone Sodium 2 gm/ 100 mls @ 200 mls/hr 09/09/24 13:16 09/09/24 13:29 Sodium Chloride IV 09/09/24 13:45 200 mls/hr ONCE ONE Administration ORDERS Category Date Time Status CT head/brain wo con Stat Cat Scan 09/09/24 11:41 Completed XR chest portable Stat Exams 09/09/24 11:40 Completed Complete Blood Count Auto Diff AMLAB Lab 09/10/24 06:00 Ordered Complete Blood Count Auto Diff Stat Lab 09/09/24 11:55 Completed Comprehensive Metabolic Panel AMLAB Lab 09/10/24 06:00 Ordered Comprehensive Metabolic Panel Stat Lab 09/09/24 11:55 Completed Full Resp Panel w/COVID ([facility]) Routine Lab 09/09/24 13:24 Ordered Magnesium AMLAB Lab 09/10/24 06:00 Ordered NT Pro Brain Natriuretic Pep. Stat Lab 09/09/24 11:55 Completed PT INR [Prothrombin Time INR] Stat Lab 09/09/24 11:55 Completed PTT [Activated Partial Thrombo Time] Stat Lab 09/09/24 11:55 Completed Troponin I Q3H Lab 09/09/24 14:45 Ordered Troponin I Q3H Lab 09/09/24 17:45 Ordered Troponin I Stat Lab 09/09/24 11:55 Completed Blood Culture Stat Micro 09/09/24 12:00 Received Venous Blood Gas Stat RT 09/09/24 11:41 Completed CA echo doppler complete Routine Y 09/09/24 13:23 Ordered MDM Narrative Medical Decision Narrative: This is an 84-year-old female with history of hypertension, hyperlipidemia, DEEPIKA, anxiety, glaucoma presenting with shortness of breath and cough. Patient states that she was told she had COPD at 1 point, has never been formally tested for it. Has no smoking history, not on home oxygen. States that she is coming in because she started having a cough 4 days prior to this, became productive 2 days prior to this with yellow and green sputum. Today, 09/09, started having right-sided chest wall pains in the front and had 1 episode of hemoptysis that was dark brown. Associated fevers that were not objectively measured. Came in for this reason. No shortness of breath, nausea, vomiting, diarrhea, abdominal complaints, diaphoresis, syncope, or any other concerns. History was obtained via conversation with patient and family. On arrival, patient hemodynamically stable, alert, oriented x4, appropriate, GCS 15, moving all extremities spontaneously, pupils equal and reactive to light. Full physical exam performed and significant for chronically ill-appearing female no acute distress. Abdomen soft, nontender, nondistended. 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 Cardiac exam without murmurs gallops or rubs. Differential includes bronchitis, pneumonia, ACS, DC, PE, pneumothorax, among others. Patient was given DuoNebs for symptomatic management and correction of underlying abnormalities. Patient placed on continuous cardiac monitoring and continuous pulse ox with initial blood pressure 120/78, heart rate 98, saturation 92% on room air, placed on 2 L nasal cannula. Independent interpretation of EKG shows sinus rhythm 91 bpm with occasional PVCs. [place] 161, QRS 89, QTc 391. Normal axis. No acute ischemic change. Workup independently interpreted and significant for leukocytosis 16,000 with neutrophilia. Coags normal. VBG with pH 7.48, CO2 a little low at 30, bicarb low at 7.2 consistent with mild metabolic acidosis with respiratory compensation. Chemistry nonactionable. Troponin negative, BNP elevated 2400 with no baseline with which to compare. On independent interpretation of imaging, no acute pulmonary edema or vascular congestion. Bilateral lung space opacities concerning for potential atypical pneumonia. See radiology read for full review of final results. Heart score 4. On reevaluation, patient still requiring oxygen to saturate greater than 90 to 92%. Hypoxemic respiratory failure in the setting of CHF exacerbation as well as atypical pneumonia necessitates admission for further management. Patient was given 2 g ceftriaxone, 500 mg azithromycin, 40 mg IV Lasix. Hospital medicine contacted and interactive discussion had, patient to be admitted. Monorail Operator disclaimer Much of this encounter note is an electronic senior hydrogeologist spoken language to printed text. Electronic senior hydrogeologist of the spoken language may permit errors. Although I have reviewed the note, some errors may still exist.
--- NOTE | 2024-09-09 11:40 | XR_ITS ---
PROCEDURE INFORMATION: Exam: XR Chest Exam date and time: 09/09/2024 12:09 PM Age: 84 years old Clinical indication: Cough and wheezing; Additional info: Right anterior inspiratory wheezing, prod cough TECHNIQUE: Imaging protocol: Radiologic exam of the chest. Views: 1 view. COMPARISON: CR XR CHEST 2V 10/13/2023 7:17 PM FINDINGS: Lungs: Patchy ground glass and reticulonodular opacities compatible with atypical pneumonia. Pleural spaces: No visible pleural effusion. No pneumothorax. Heart/Mediastinum: Cardiomediastinal silouhette is within normal limits. Bones/joints: No evidence of acute osseous abnormality. IMPRESSION: Patchy ground glass and reticulonodular opacities compatible with atypical pneumonia.
--- NOTE | 2024-09-09 11:41 | CT_ITS ---
PROCEDURE INFORMATION: Exam: CT Head Without Contrast Exam date and time: 09/09/2024 12:15 PM Age: 84 years old Clinical indication: Pain; Headache; Other: DEGROOT; Additional info: Tenderness and DEGROOT crown of head TECHNIQUE: Imaging protocol: Computed tomography of the head without contrast. Radiation optimization: All CT scans at this facility use at least one of these dose optimization techniques: automated exposure control; mA and/or kV adjustment per patient size (includes targeted exams where dose is matched to clinical indication); or iterative reconstruction. COMPARISON: No relevant prior studies available. FINDINGS: Brain: Global cerebral volume loss. No acute intracranial hemorrhage. No intra- or extra-axial fluid collection. No mass effect or midline shift. No loss of bullock-white matter differentiation. Cerebral ventricles: No hydrocephalus. Paranasal sinuses: Mucosal thickening and frothy fluid in the right frontal sinus and right maxillary sinus compatible with sinusitis. Mastoid air cells: Visualized mastoid air cells are clear. Bones: No evidence of acute calvarial or skull base fracture. Soft tissues: Unremarkable. IMPRESSION: 1. No evidence of acute intracranial abnormality. 2. Mucosal thickening and frothy fluid in the right frontal sinus and right maxillary sinus compatible with sinusitis.
[2024-09-09] MEDS: IPRATROPIUM/ALBUTEROL 3 ML NEB 9 ML IH (11:53)
[2024-09-09 12:08] LABS: Lactate Venous 1.3 mmol/L (0.4-2.0); VBG Base Excess -1.5 mmol/L (-2.4-2.3); VBG Oxygen Saturation 99.3 % (50-70); VBG PCO2 30.2 mmol/L (35-51); VBG PH 7.48 mmol/L (7.31-7.41)
[2024-09-09 12:13] LABS: Basophils # 0.1 K/mm3 (0-0.2); Basophils % 0.4 % (0.1-2.0); Eosinophils # 0.1 K/mm3 (0.0-0.4); Eosinophils % 0.5 % (0.1-12.0); Hematocrit 40.8 % (37.0-47.0); Lymphocytes # 1.9 K/mm3 (0.7-4.5); Lymphocytes % 12.4 % (10-50); Mean Corpuscular Hemoglobin 31.9 pg (27.0-31.2); Mean Corpuscular Volume 99.6 fl (81-99); Mean Platelet Volume 8.4 fl (7.4-10.4); Monocytes # 0.9 K/mm3 (0.1-1.0); Monocytes % 5.9 % (1.7-9.3); Neutrophils # 12.6 K/mm3 (1.8-7.8); Neutrophils % 80.8 % (37.0-80.0); Platelet Count 382 K/mm3 (142-424); Red Blood Count 4.09 M/mm3 (4.20-5.40); Red Cell Distribution Width 13.7 % (11.5-17.5); White Blood Count 15.6 K/mm3 (4.8-10.8)
[2024-09-09 12:15] LABS: MANUAL DIFFERENTIAL MANUAL DIFFERENTIAL (MANUAL DIFF)
[2024-09-09 12:17] LABS: Albumin Level 3.6 g/dl (3.5-5.0); Chloride 107 mmol/L (98-107); Potassium 4.4 mmoL/L (3.5-5.1); Sodium 136 mmol/L (136-145)
[2024-09-09 12:19] LABS: Blood Urea Nitrogen 9 mg/dl (7-17)
[2024-09-09 12:20] LABS: Alanine Aminotransferase 12 U/L (12-78); Albumin/Globulin Ratio 1.1 (1.1-1.8); Alkaline Phosphatase 63 U/L (38-126); Anion Gap 10.4 mEq/L (5-15); Aspartate Amino Transferase 26 U/L (14-36); Bilirubin,Total 1.6 mg/dl (0.2-1.3); Calcium 8.4 mg/dl (8.4-10.2); Carbon Dioxide 23 mmol/L (22.0-30.0); Creatinine Clearance Estimated 49 mL/min (50-200); Estimated Glomerular Filt Rate 117 ml/min (>60); GFR (African American) 142 ML/MIN (>60); Globulin 3.3 g/dL (1.3-3.2); Glucose 106 mg/dl (74-100); Total Protein,Serum 6.9 g/dl (6.3-8.2)
[2024-09-09 12:24] LABS: Lymphocytes % 16 % (10-50); Monocytes % 3 % (2-9); Neutrophils % 81 % (42-76); Platelet Estimate Normal; RBC Morphology Normal; Total Cells Counted 100
[2024-09-09 12:28] LABS: Activated Partial Thrombo Time 30.7 seconds (22.8-30.6); INR 1.04 (0.9-1.1); Prothrombin Time 11.6 seconds (10.1-12.5)
[2024-09-09 12:29] LABS: NT Pro Brain Natriuretic Pep. 2430 pg/mL (0-450)
[2024-09-09 12:32] LABS: Troponin I < 0.01 ng/ml (0.00-0.034)
--- NOTE | 2024-09-09 13:24 | P.HP_ITS ---
History of Present Illness *Admission Date: 09/09/24 *Reason for visit:: Cough, shortness of breath, weakness *History of present illness: Ms. cid is an 84-year-old female with 3 to 4 days of productive cough. States she has been getting more weak lately. Has been using her nebulizer at home with no benefit. Denies any nausea or vomiting initially on presentation but had some upon arrival to the medicine floor. Workup in the ER concerning for O2 sats in the low 90s. BNP elevated above 2000. White count elevated at 15. Chest imaging obtained with no focal consolidation but does have patchy findings in her right lower lung concerning for atypical pneumonia. Medicine consulted for CHF exacerbation and atypical pneumonia. Started on ceftriaxone and azithromycin as well as 2 L oxygen to maintain sats in the mid 90s. On arrival to the floor, patient has family at bedside they help supplement history. States she had an episode of nausea and vomiting upon arrival to the floor. Has had intermittent fevers over the past few days. Denies any diarrhea. No chest pain but does have some abdominal discomfort. She had this several months ago and was at for several days with no clear diagnosis as to why she had unexplained biliary dilatation. Patient was feeling weak earlier today which is what caused her to come to the hospital for evaluation. Normally does not wear oxygen. No previous history of CHF. Cough productive for green sputum. [facility] Disclaimer: The information contained in this section may have been updated after the patient was seen, as this information can be updated by other users. Medical History UTI (urinary tract infection) Angioedema Allergic reaction Otitis media Acute bronchitis Acute viral syndrome COVID-19 Nausea & vomiting Abdominal pain GERD (gastroesophageal reflux disease) Urinary tract infection Sleep apnea History of COVID-19 Menopause Anxiety Psoriasis History of gastroesophageal reflux (GERD) Irritable bowel syndrome (IBS) Hypothyroid Hypertension History of sleep apnea History of COPD Asthma Family history of asthma Dyspnea on exertion Sinusitis Infected scalp abrasion Acute bacterial sinusitis Ingrown toenail of left foot Nail disorder (onychogryphosis) Sebaceous cyst of labia Cataract Multiple closed fractures of metatarsal bone of left foot Left foot pain Edema of left foot Normal colonoscopy Fracture of metatarsal bone of left foot Sinusitis Nasal congestion Sinusitis COPD exacerbation Thrush Bronchitis 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 History of eye surgery History of surgery on arm History of cholecystectomy H/O sinus surgery H/O bladder repair surgery Hx of cataract surgery H/O: hysterectomy 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 Other Asthma Diabetes Family history of cancer Heart attack Hypertension 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 Smoking Status: Never smoker alcohol intake: never substance use type: denies use current occupational status: retired Other Medical History Have you received the Flu Vaccine for this season: No Have you received the Pneumonia Vaccine: No Review of Systems Review of Systems Review of systems (narrative): 14 point review of systems performed, pertinent positives and negatives as per [facility] Meds Home Medications and Allergies Home Medications ?Medication ?Instructions ?Recorded ?Confirmed ?Type fexofenadine 180 mg tablet 180 mg PO DAILY 04/04/23 09/09/24 History (Audra Allergy) melatonin 1 mg tablet 1 mg PO HSP PRN Insomnia 05/26/23 09/09/24 History morphine (PF) 1 mg/mL injection 1 mg epidural CONT Pain 06/10/23 09/09/24 History solution lorazepam 1 mg tablet 1 mg PO BID Anxiety #60 tabs 07/12/24 09/09/24 Rx ipratropium 0.5 mg-albuterol 3 mg 3 ml inhalation Q6HP PRN Shortness 09/09/24 09/09/24 History (2.5 mg base)/3 mL nebulization Of Breath soln levothyroxine 25 mcg tablet 25 mcg PO DAILY 09/09/24 09/09/24 History netarsudil 0.02 % eye drops 1 drp ophthalmic (eye) HS 09/09/24 09/09/24 History (Rhopressa) pantoprazole 40 mg tablet,delayed 40 mg PO DAILY 09/09/24 09/09/24 History release New Prescriptions to Start Prescriptions: Allergies Allergy/AdvReac Type Severity Reaction Status Date / Time levofloxacin (From Levaquin) Allergy Intermediate rash Verified 06/27/24 08:47 ibuprofen (From MOTRIN) Allergy Mild Verified 06/27/24 08:47 NSAIDS (Non-Steroidal Allergy Mild Verified 06/27/24 08:47 Anti-Inflamma (NSAIDS (NON-STEROIDAL ANTI-INFLAMMA) Sulfa (Sulfonamide Allergy Mild Verified 06/27/24 08:47 Antibiotics) (SULFA (SULFONAMIDE ANTIBIOTICS)) sibutramine (From Meridia) Allergy Verified 06/27/24 08:47 Exam Data for Last 24 hours Vital signs and Labs for Last 24 Hours: Temp Pulse Resp BP Pulse Ox O2 Del Method 98.5 F 98 H 20 120/78 92 L Room Air 09/09/24 11:18 09/09/24 11:18 09/09/24 11:18 09/09/24 11:18 09/09/24 11:18 09/09/24 11:18 Laboratory Results - last 24 hr 09/09/24 11:41: VBG pH 7.48 H, VBG pCO2 30.2 L, VBG pO2 173.0 H, VBG HCO3 22.0 L , VBG Total CO2 23.0, VBG O2 Saturation 99.3 H, VBG Base Excess -1.5, VBG Lactic Acid 1.3 09/09/24 11:55: WBC 15.6 H, RBC 4.09 L, Hgb 13.0, Hct 40.8, MCV 99.6 H, MCH 31.9 H, MCHC 32.0, RDW 13.7, Plt Count 382, MPV 8.4, Neut % (Auto) 80.8 H, Lymph % (Auto) 12.4, [place] % (Auto) 5.9, Eos % (Auto) 0.5, Baso % (Auto) 0.4, Neut # (Auto) 12.6 H, Lymph # (Auto) 1.9, [place] # (Auto) 0.9, Eos # (Auto) 0.1, Baso # (Auto) 0.1, Total Counted 100, Neutrophils % (Manual) 81 H, Lymphocytes % (Manual) 16, Monocytes % (Manual) 3, Platelet Estimate Normal, RBC Morphology Normal, PT 11.6, INR 1.04, APTT 30.7 H, Sodium 136, Potassium 4.4, Chloride 107, Carbon Dioxide 23, Anion Gap 10.4, BUN 9, Creatinine 0.50 L, Estimated Creat Clear 49, Estimated GFR 117, Est GFR ( Amer) 142, Glucose 106 H, Calcium 8.4, Total Bilirubin 1.6 H, AST 26, ALT 12, Alkaline Phosphatase 63, Troponin I < 0.01, NT-Pro-B Natriuret Pep 2430 H, Total Protein 6.9, Albumin 3.6, Globulin 3.3 H, Albumin/Globulin Ratio 1.1 I & O for Last 24 hours: Intake & Output 09/06/24 09/07/24 09/08/24 09/09/24 23:59 23:59 23:59 23:59 Weight 74.843 kg Constitutional Constitutional: no acute distress, average body habitus, chronically ill appearing and cooperative *Routine HEENT Exam Head: Present normocephalic Eye: Present EOMI and PERRL ENT: Present mucous membranes moist *Routine Neck Exam Neck: Present supple; Absent lymphadenopathy *Routine Respiratory Exam Respiratory: Present prolonged expiratory phase and crackles; Absent accessory muscle use, rhonchi or wheezes *Routine Cardiovascular Exam Cardiovascular: Present RRR *Routine Abdominal Exam Abdominal: Present soft, normoactive bowel sounds and tenderness (Mild tenderness left abdomen) *Routine Rectal Exam Rectal:: deferred *Routine Genitalia Exam Genitalia:: deferred *Routine Extremities Exam Extremities: Absent cyanosis, clubbing or edema *Routine Skin Exam Skin: Present intact and warm; Absent rash *Routine Neurological Exam Neurological: Present alert, oriented X3 and moving all extremities; Absent altered mental status Assessment and Plan *Assessment and plan (1) Pneumonia: Status: Acute Category: Medical Code(s): J18.9 - Pneumonia, unspecified organism (2) CHF (congestive heart failure): Status: Acute Category: Medical Code(s): I50.9 - Heart failure, unspecified (3) Bilateral foot pain: Status: Acute Category: Medical Code(s): M79.671 - Pain in right foot; M79.672 - Pain in left foot (4) Rheumatoid arthritis: Status: Acute Category: Medical Code(s): M06.9 - Rheumatoid arthritis, unspecified (5) Constipation: Status: Acute Category: Medical Code(s): K59.00 - Constipation, unspecified (6) COPD (chronic obstructive pulmonary disease): Status: Acute Category: Medical Code(s): J44.9 - Chronic obstructive pulmonary disease, unspecified (7) Degenerative disc disease, lumbar: Status: Acute Category: Medical Code(s): M51.36 - Other intervertebral disc degeneration, lumbar region (8) Hypothyroid: Status: Acute Category: Medical Code(s): E03.9 - Hypothyroidism, unspecified (9) Anxiety: Status: Acute Category: Medical Code(s): F41.9 - Anxiety disorder, unspecified Plan 84-year-old female with history of rheumatoid arthritis who presents with worsening cough. Findings concerning for atypical pneumonia and CHF. Discussed case with ER physician, request admission for diuresis and further management along with antibiotics. I agreed to admit for further treatment. Problems addressed as follows: Atypical pneumonia -Per my review of chest x-ray, has patchy airspace findings bilaterally, more prominent in right lower lobe. Concern for atypical pneumonia. In setting of elevated white count and oxygen requirement, will continue ceftriaxone and azithromycin daily -Sputum and blood cultures pending -Goal sats greater than 90%, wean as tolerated - DuoNebs every 6 hours scheduled New onset CHF -No previous history. BNP elevated at 2400. Administered Lasix 40 mg IV once in the ER. Responding well -Continue Lasix 40 mg daily. Echo ordered for the morning. -Kidney function electrolytes normal with BUN 9, creatinine 0.5, potassium 4.4. Repeat CBC, CMP, magnesium ordered for the morning. Chronic pain Pain pump in situ Rheumatoid arthritis -Due to have her pain pump refilled tomorrow. Pain management consulted to evaluate and assist with refill during admission if possible. Anxiety: continue Ativan 1 mg twice daily per home regimen Hypothyroid: Continue home levothyroxine 25 mcg daily. TSH pending Left-sided abdominal discomfort. Reviewed imaging from earlier this year. Patient had significant constipation. Given her pain pump presents, suspect she still has constipation. Liver enzymes were not abnormal. Will add lipase to her labs. Initiate bowel regimen with MiraLAX and docusate senna. Monitor for improvement Continue pantoprazole 40 mg daily per home regimen DNR Regular diet Lovenox 40 mg subcu daily
--- NOTE | 2024-09-09 13:25 | PC.NURSE ---
SPOKE WITH WEAVING SUPERVISOR FOR BED ASSIGNMENT FOR ADMISSION
[2024-09-09] MEDS: AZITHROMYCIN 250MG TABLET 500 MG PO (13:29)
[2024-09-09] MEDS: CEFTRIAXONE SODIUM 2 GM in 0.9 % SODIUM CHLORIDE 100 ML IV (13:29)
[2024-09-09] MEDS: FUROSEMIDE 40MG/4ML VIAL 40 MG IV (13:29)
--- NOTE | 2024-09-09 13:36 | PC.NURSE ---
Called report to Rober Mo RN
--- NOTE | 2024-09-09 13:55 | PC.NURSE ---
assisted room 6 to and from the bathroom gave her a warm blanket and pt had no other needs
[2024-09-09 13:57] LABS: Adenovirus,PCR Not Detected (NotDetected); Bordetella Pertussis Not Detected (NotDetected); Chlamydophila Pneumoniae, PCR Not Detected (NotDetected); Coronavirus 19, PCR Not Detected (NotDetected); Coronavirus 229E Not Detected (NotDetected); Coronavirus NL63 Not Detected (NotDetected); Coronavirus OC43 Not Detected (NotDetected); Coronovirus HKU1,PCR Not Detected (NotDetected); Human Metapneumovirus Not Detected (NotDetected); Influenza A, PCR Not Detected (NotDetected); Influenza AH1, 2009 Not Detected (NotDetected); Influenza AH1, PCR Not Detected (NotDetected); Influenza AH3,PCR Not Detected (NotDetected); Influenza B, PCR Not Detected (NotDetected); Mycoplasma Pneumoniae, PCR Not Detected (NotDetected); Parainfluenza 1, PCR Not Detected (NotDetected); Parainfluenza 2, PCR Not Detected (NotDetected); Parainfluenza 3, PCR Not Detected (NotDetected); Parainfluenza 4, PCR Not Detected (NotDetected); Respiratory Syncytial Virus Not Detected (NotDetected); Rhinovirus/Enterovirus Not Detected (NotDetected)
--- NOTE | 2024-09-09 14:02 | HMH.PHAINT1 ---
Pharmacy Intervention Comments: MEDICATION RECONCILIATION COMPLETED ON PATIENT USING EXTERNAL FILL HISTORY FROM PHARMACY AND RICK REPORT. -SHARON BRADFORD, KAREND
--- NOTE | 2024-09-09 14:08 | PC.NURSE ---
arrived by w/c from ED
[2024-09-09 15:09] LABS: Troponin I < 0.01 ng/ml (0.00-0.034)
[2024-09-09] MEDS: ONDANSETRON 4MG/2ML VIAL 4 MG IV (15:24)
[2024-09-09 17:01] LABS: Lipase 20 U/L (23-300)
[2024-09-09] MEDS: POLYETHYLENE GLYCOL 3350 17 GM PACKET PO (17:53)
[2024-09-09 18:16] LABS: Troponin I < 0.01 ng/ml (0.00-0.034)
[2024-09-09] MEDS: IPRATROPIUM/ALBUTEROL 3 ML NEB IH (18:57)
[2024-09-09] MEDS: MELATONIN 5MG TABLET 2.5 MG PO (20:38)
[2024-09-09] MEDS: PANTOPRAZOLE 40MG TABLET 40 MG PO (20:38)
[2024-09-09] MEDS: SENNOSIDES 8.6MG/DOCUSATE 50MG TABLET 1 TAB PO (20:38)
[2024-09-09] MEDS: LORazepam 1MG TABLET 1 MG PO (20:39)
[2024-09-10] VITALS: BP 121/55; PULSE 84; RESP 14; TEMP 37.4; O2SAT 95
[2024-09-10 04:00] VITALS: BP 106/56; PULSE 83; RESP 16; TEMP 36.5; O2SAT 96; BMI 29.6
[2024-09-10 06:17] VITALS: PULSE 64; PULSE 68; O2SAT 94
[2024-09-10] MEDS: IPRATROPIUM/ALBUTEROL 3 ML NEB IH ×2 (06:17→11:38)
[2024-09-10 07:17] LABS: Basophils # 0.1 K/mm3 (0-0.2); Eosinophils # 0.1 K/mm3 (0.0-0.4); Eosinophils % 0.8 % (0.1-12.0); Hematocrit 40.5 % (37.0-47.0); Hemoglobin 13.1 g/dL (12.2-16.2); Lymphocytes # 1.9 K/mm3 (0.7-4.5); Lymphocytes % 14.3 % (10-50); Mean Corpuscular HGB Conc 32.4 g/dL (31.8-35.4); Mean Corpuscular Hemoglobin 31.7 pg (27.0-31.2); Mean Corpuscular Volume 97.9 fl (81-99); Mean Platelet Volume 8.8 fl (7.4-10.4); Monocytes # 1.2 K/mm3 (0.1-1.0); Monocytes % 8.7 % (1.7-9.3); Neutrophils # 9.9 K/mm3 (1.8-7.8); Neutrophils % 75.2 % (37.0-80.0); Platelet Count 404 K/mm3 (142-424); Red Blood Count 4.13 M/mm3 (4.20-5.40); Red Cell Distribution Width 13.5 % (11.5-17.5); White Blood Count 13.2 K/mm3 (4.8-10.8)
[2024-09-10 07:23] LABS: Alanine Aminotransferase 10 U/L (12-78); Albumin Level 3.5 g/dl (3.5-5.0); Albumin/Globulin Ratio 1.2 (1.1-1.8); Alkaline Phosphatase 99 U/L (38-126); Anion Gap 10.6 mEq/L (5-15); Aspartate Amino Transferase 27 U/L (14-36); Blood Urea Nitrogen 14 mg/dl (7-17); Calcium 8.5 mg/dl (8.4-10.2); Carbon Dioxide 29 mmol/L (22.0-30.0); Chloride 101 mmol/L (98-107); Creatinine Clearance Estimated 51 mL/min (50-200); Estimated Glomerular Filt Rate 95 ml/min (>60); GFR (African American) 115 ML/MIN (>60); Glucose 90 mg/dl (74-100); Magnesium 1.9 mg/dl (1.6-2.3); Potassium 3.6 mmoL/L (3.5-5.1); Sodium 137 mmol/L (136-145); Total Protein,Serum 6.5 g/dl (6.3-8.2)
[2024-09-10 07:53] LABS: Thyroid Stimulating Hormone 1.37 uIU/mL (0.465-4.68)
[2024-09-10 08:00] VITALS: BP 125/51; PULSE 83; RESP 18; TEMP 36.8; O2SAT 91
[2024-09-10] MEDS: FUROSEMIDE 40MG/4ML VIAL 40 MG IV (08:37)
[2024-09-10] MEDS: LEVOTHYROXINE 25MCG (0.025MG) TAB 25 MCG PO (08:37)
[2024-09-10] MEDS: ENOXAPARIN 40MG/0.4ML SYRINGE 40 MG SUBCUT (08:37)
[2024-09-10] MEDS: LORazepam 1MG TABLET 1 MG PO (08:39)
--- NOTE | 2024-09-10 10:01 | PC.NURSE ---
room air saturation 88% at rest. pt is now on 1 l nc.
--- NOTE | 2024-09-10 10:23 | HMH.PROCNOTE ---
[facility] Procedure Note Date: 09/10/24 Time: 10:20 Procedure Note:: Degenerative disc disease of lumbar spine with lumbar radiculopathy symptoms Patient is a pleasant 84-year-old female who presents today for intrathecal adjustment and reprogram. Today she does rate her pain a 10 out of 10. Patient states over the last month her pain is just been increased and does believe some of the issues of her heart failure and pneumonia that she was admitted for was causing some of the problems. Patient states that she has not had any side effects to her pump medication of morphine 1 mg/mL with a daily dose of 0.121 mg/day. She states that this does make a big difference for her however she feels like it could use additional adjustment. Patient does state that they are planning on sending her home today. Patient denies any other changes from our last visit. She does state that she did get into see a customer success representative and that appointment will be in October. Patient is prescribed lorazepam from an outside provider. Her Pieter has been reviewed and is appropriate. Physical Exam: General: Alert and oriented x3, no acute distress, pleasant and cooperative Lungs: Respirations even and unlabored, symmetrical chest expansion Eyes: PERRL Musculoskeletal: Flexion and extension of Lumbar [spine] somewhat guarded secondary to pain, [antalgic gait noted] Neurological: Speech clear, no gross sensory deficit Informed consent was obtained and the risk and benefits of the procedure were explained to the patient. Patient was taken to the procedure room where noninvasive monitoring was placed including noninvasive blood pressure cuff and pulse oximeter. Patient's pump was interrogated and was reprogrammed to morphine 0.139 mg/day. The patient tolerated the procedure well with no complications. Patient tolerated her intrathecal adjustment with no complications and was discharged neurologically intact. Patient does have medication and her pump to get to October 19, 2023 however does have her next intrathecal refill coming up mid September. Patient was counseled at that appointment we will plan on doing additional adjustment if needed. Patient acknowledges understanding. Patient did have family present for this visit. We will see the patient back in the clinic at the next intrathecal refill. Patient has been instructed to contact the clinic with any concerns before the next appointment. Dr. Wolf has reviewed this note and agrees with this plan of care. This note was dictated using voice recognition software and make contain errors or omissions. -- It Is medically necessary for this patient to continue to have their intrathecal pump refilled at regular intervals. This patient had an intrathecal pain pump implanted after meeting criteria of chronic intractable pain for greater than 3 months and failing conservative treatments. Patient has committed and been compliant to the treatment plan and all planned follow up care. Since implantation of the intrathecal pain pump, the patient has had decreased pain and been more functional. Oral medications have been reduced including intake of oral opioids. Patient continues to do well with intrathecal therapy with decrease in pain symptoms and increase in functional status. Stopping intrathecal medications can lead to life threatening withdrawal, seizures, cardiac arrest, severe pain, and possible . Pumps that are not refilled at regular intervals can be damages and cause and need for replacement. We continually titrate dose and concentration to optimize pain relief and function. We are limited in concentration for certain drugs to safely deliver medications through the pump and stay within the recommendations from the Polyanalges[employer] Consensus Committee Guidelines. Depending on dose and concentration these pumps may need to be refilled sooner than 3 months as we titrate.
--- NOTE | 2024-09-10 11:15 | HMH.PTEV ---
Physical Therapy Evaluation Rehab PT IP Evaluation Start: 09/10/24 09:00 Freq: ONCE Status: Active Protocol: Document 09/10/24 10:46 PHORNE (Rec: 09/10/24 11:15 PHORNE [id number]) Subjective/History History History Pt is an 84 yo female who presents to [facility] w/ multiple days of a productive cough and progressive weakness. Pt states she lives at home w/ her granddaughter. She states she has a walker at home that she uses for ambulation. Before admission to [facility], she reports independence w/ ADLs and ambulation. Subjective Subjective Pt presents semi-reclined in bed this morning w/ family at bedside. Pt states OT was just in the room and she walked down the sweet and did exercises already . Pt's granddaughter reports her O2 dropped to 88 during OT treatment earlier. Pt is alert and oriented x3 this morning. Rehab PT IP Eval Objective Appearance Patient Behavior Appropriate,Cooperative Patient Orientation Person,Place,Birthday Difficulty following instructions none Speech Pattern Clear,Appropriate,Coherent Ambulation Patient Able to Ambulate Yes Ambulation Observation IP General Gait Pattern Observation No Deviations/Normal Ambulation Distance (feet) 10 Ambulation Assistive Device None Ambulation Ability Contact Guard/Hand Hold Balance Ability to Arise Able, uses arms to help Sitting Balance Steady, safe Standing Balance Steady, wide stance Dynamic Sitting Balance Ability Good Dynamic Standing Balance Ability Good Transfers Bed Transfer Ability Independent Sit to Stand Bed Transfer Ability Contact Guard/Hand Hold Rehab PT IP prob,goals,plan Problems Date of Evaluation: 09/10/24 Discharge Plan PT Discharge Plan Currently, pt is most appropriate to return home once medically stable for d/c. Pt would benefit from home health services to increase strength and endurance for ambulation and transfers. Performed therapeutic activity w/o O2 delivery via nasal cannula. O2 dropped to 91 at the completion of ambulation and sit/stand task. Eval Complexity Eval Charge Codes 50961 - High Complexity PHYSICIAN CERTIFICATION: I certify the specified therapy services for Briana Valdez are required, authorized, and reviewed every 30 days.
--- NOTE | 2024-09-10 11:20 | PC.NURSE ---
room air saturation 90-92%
--- NOTE | 2024-09-10 11:26 | EXP.DC.SUM ---
General Admission date:: 09/09/24 Discharge date: 09/10/24 HPI HPI HPI: Ms. cid is an 84-year-old female with 3 to 4 days of productive cough. States she has been getting more weak lately. Has been using her nebulizer at home with no benefit. Denies any nausea or vomiting initially on presentation but had some upon arrival to the medicine floor. Workup in the ER concerning for O2 sats in the low 90s. BNP elevated above 2000. White count elevated at 15. Chest imaging obtained with no focal consolidation but does have patchy findings in her right lower lung concerning for atypical pneumonia. Medicine consulted for CHF exacerbation and atypical pneumonia. Started on ceftriaxone and azithromycin as well as 2 L oxygen to maintain sats in the mid 90s. On arrival to the floor, patient has family at bedside they help supplement history. States she had an episode of nausea and vomiting upon arrival to the floor. Has had intermittent fevers over the past few days. Denies any diarrhea. No chest pain but does have some abdominal discomfort. She had this several months ago and was at for several days with no clear diagnosis as to why she had unexplained biliary dilatation. Patient was feeling weak earlier today which is what caused her to come to the hospital for evaluation. Normally does not wear oxygen. No previous history of CHF. Cough productive for green sputum. Hospital Course Hospital Course Hospital Course: 84-year-old female with history of rheumatoid arthritis who presents with worsening cough. Findings concerning for atypical pneumonia and CHF. Discussed case with ER physician, request admission for diuresis and further management along with antibiotics. I agreed to admit for further treatment. He did well overnight and remained on room air. Transition to oral antibiotics to complete course. Stable to discharge home. Problems addressed as follows: Atypical pneumonia -Per my review of chest x-ray, has patchy airspace findings bilaterally, more prominent in right lower lobe. Concern for atypical pneumonia. In setting of elevated white count and oxygen requirement, treated with ceftriaxone and azithromycin on admission. Transition to cefdinir and azithromycin to complete 5 days of antibiotics for pneumonia. Sputum and blood cultures pending negative at time of discharge., Remained stable on room air throughout the entire admission. DuoNebs during admission. No indication for nebulizers at discharge. Room air saturation of 91 on day of discharge. New onset CHF -No previous history. BNP elevated at 2400. Administered Lasix 40 mg IV once in the ER. Responding well. Negative fluid balance during admission. Continue Lasix 20 mg daily. Would benefit from repeat labs at follow-up with PCP. Kidney function normal with BUN 9, creatinine 0.5, potassium normal around 4 during admission. - Chronic pain Pain pump in situ Rheumatoid arthritis -Due to have her pain pump refilled, follow-up with pain management for refill. Management consulted our facility, defer further management to patient's pain clinic which she is established with. Anxiety: continue Ativan 1 mg twice daily per home regimen Hypothyroid: Continue home levothyroxine 25 mcg daily. TSH 1.37 Left-sided abdominal discomfort. Reviewed imaging from earlier this year. Patient had significant constipation. Given her pain pump presents, suspect she still has constipation. Liver enzymes were not abnormal. Lipase normal. Had bowel movement during admission. Previously evaluated and worked up at . No source identified. Further management as an outpatient. Continue pantoprazole 40 mg daily per home regimen Exam Data for Last 24 hours Vital signs and Labs for Last 24 Hours: Temp Pulse Resp BP Pulse Ox O2 Del Method O2 Flow Rate 98.2 F 83 18 125/51 L 91 L Nasal Cannula 1 09/10/24 08:00 09/10/24 08:00 09/10/24 08:00 09/10/24 08:00 09/10/24 08:00 09/10/24 10:35 09/10/24 10:35 FiO2 28 09/09/24 22:56 Laboratory Results - last 24 hr 09/09/24 11:20: Chlamy pneumoniae PCR Not detected, Adenovirus (PCR) Not detected, B. pertussis DNA (PCR) Not detected, Coronavirus OC43 (PCR) Not detected, Coronavirus HKU1 (PCR) Not detected, Coronavirus 229E (PCR) Not detected, SARS-CoV-2 (PCR) Not detected, Coronavirus NL63 (PCR) Not detected, Human Metapneumovir PCR Not detected, Influenza A (H1) PCR Not detected, Influ A (H1N1/09) PCR Not detected, Influenza A (H3) PCR Not detected, Influenza Type A (PCR) Not detected, Influenza Type B (PCR) Not detected, M. pneumoniae (PCR) Not detected, Parainfluenza 1 (PCR) Not detected, Parainfluenza 2 (PCR) Not detected, Parainfluenza 3 (PCR) Not detected, Parainfluenza 4 (PCR) Not detected, RSV (PCR) Not detected, Entero/Rhino (PCR) Not detected 09/09/24 11:41: VBG pH 7.48 H, VBG pCO2 30.2 L, VBG pO2 173.0 H, VBG HCO3 22.0 L, VBG Total CO2 23.0, VBG O2 Saturation 99.3 H, VBG Base Excess -1.5, VBG Lactic Acid 1.3 09/09/24 11:55: WBC 15.6 H, RBC 4.09 L, Hgb 13.0, Hct 40.8, MCV 99.6 H, MCH 31.9 H, MCHC 32.0, RDW 13.7, Plt Count 382, MPV 8.4, Neut % (Auto) 80.8 H, Lymph % (Auto) 12.4, Blackford % (Auto) 5.9, Eos % (Auto) 0.5, Baso % (Auto) 0.4, Neut # (Auto) 12.6 H, Lymph # (Auto) 1.9, Blackford # (Auto) 0.9, Eos # (Auto) 0.1, Baso # (Auto) 0.1, Total Counted 100, Neutrophils % (Manual) 81 H, Lymphocytes % (Manual) 16, Monocytes % (Manual) 3, Platelet Estimate Normal, RBC Morphology Normal, PT 11.6, INR 1.04, APTT 30.7 H, Sodium 136, Potassium 4.4, Chloride 107, Carbon Dioxide 23, Anion Gap 10.4, BUN 9, Creatinine 0.50 L, Estimated Creat Clear 49, Estimated GFR 117, Est GFR ( Amer) 142, Glucose 106 H, Calcium 8.4, Total Bilirubin 1.6 H, AST 26, ALT 12, Alkaline Phosphatase 63, Troponin I < 0.01, NT-Pro-B Natriuret Pep 2430 H, Total Protein 6.9, Albumin 3.6, Globulin 3.3 H, Albumin/Globulin Ratio 1.1 09/09/24 14:30: Troponin I < 0.01 09/09/24 14:35: Lipase 20 L 09/09/24 17:45: Troponin I < 0.01 09/10/24 06:11: WBC 13.2 H, RBC 4.13 L, Hgb 13.1, Hct 40.5, MCV 97.9, MCH 31.7 H, MCHC 32.4, RDW 13.5, Plt Count 404, MPV 8.8, Neut % (Auto) 75.2, Lymph % (Auto) 14.3, Blackford % (Auto) 8.7, Eos % (Auto) 0.8, Baso % (Auto) 1.0, Neut # (Auto) 9.9 H, Lymph # (Auto) 1.9, Blackford # (Auto) 1.2 H, Eos # (Auto) 0.1, Baso # (Auto) 0.1, Sodium 137, Potassium 3.6, Chloride 101, Carbon Dioxide 29, Anion Gap 10.6, BUN 14 D, Creatinine 0.60, Estimated Creat Clear 51, Estimated GFR 95, Est GFR ( Amer) 115, Glucose 90, Calcium 8.5, Magnesium 1.9, Total Bilirubin 1.0, AST 27, ALT 10 L, Alkaline Phosphatase 99, Total Protein 6.5, Albumin 3.5, Globulin 3.0, Albumin/Globulin Ratio 1.2, TSH 1.37 I & O for Last 24 hours: Intake & Output 09/07/24 09/08/24 09/09/24 09/10/24 23:59 23:59 23:59 23:59 Intake Total 60 / 60 240 / 240 Output Total 0 / 0 700 / 700 Balance 60 / 60 -460 / -460 Weight 78.075 kg 78.653 kg Constitutional Constitutional: no acute distress, average body habitus, chronically ill appearing and cooperative *Routine HEENT Exam Head: Present normocephalic Eye: Present EOMI and PERRL ENT: Present mucous membranes moist *Routine Neck Exam Neck: Present supple; Absent lymphadenopathy *Routine Respiratory Exam Respiratory: Present rhonchi; Absent respiratory distress, wheezes or crackles *Routine Cardiovascular Exam Cardiovascular: Present RRR *Routine Abdominal Exam Abdominal: Present soft and normoactive bowel sounds; Absent tenderness *Routine Rectal Exam Patient deferred: visual exam *Routine Exam Patient deferred: external exam *Routine Extremities Exam Extremities: Absent cyanosis, clubbing or edema *Routine Skin Exam Skin: Present intact and warm; Absent rash *Routine Neurological Exam Neurological: Present alert, oriented X3 and moving all extremities; Absent altered mental status Results Data Completed and Pending Labs on day of discharge: Labs from last 24 hours 09/10/24 09/09/24 09/09/24 06:11 17:45 14:35 WBC 13.2 H RBC 4.13 L Hgb 13.1 Hct 40.5 MCV 97.9 MCH 31.7 H MCHC 32.4 RDW 13.5 Plt Count 404 MPV 8.8 Neut % (Auto) 75.2 Lymph % (Auto) 14.3 Blackford % (Auto) 8.7 Eos % (Auto) 0.8 Baso % (Auto) 1.0 Neut # (Auto) 9.9 H Lymph # (Auto) 1.9 Blackford # (Auto) 1.2 H Eos # (Auto) 0.1 Baso # (Auto) 0.1 Total Counted Neutrophils % (Manual) Lymphocytes % (Manual) Monocytes % (Manual) Platelet Estimate RBC Morphology PT INR APTT VBG pH VBG pCO2 VBG pO2 VBG HCO3 VBG Total CO2 VBG O2 Saturation VBG Base Excess VBG Lactic Acid Sodium 137 Potassium 3.6 Chloride 101 Carbon Dioxide 29 Anion Gap 10.6 BUN 14 D Creatinine 0.60 Estimated Creat Clear 51 Estimated GFR 95 Est GFR ( Amer) 115 Glucose 90 Calcium 8.5 Magnesium 1.9 Total Bilirubin 1.0 AST 27 ALT 10 L Alkaline Phosphatase 99 Troponin I < 0.01 NT-Pro-B Natriuret Pep Total Protein 6.5 Albumin 3.5 Globulin 3.0 Albumin/Globulin Ratio 1.2 Lipase 20 L TSH 1.37 Chlamy pneumoniae PCR Adenovirus (PCR) B. pertussis DNA (PCR) Coronavirus OC43 (PCR) Coronavirus HKU1 (PCR) Coronavirus 229E (PCR) SARS-CoV-2 (PCR) Coronavirus NL63 (PCR) Human Metapneumovir PCR Influenza A (H1) PCR Influ A (H1N1/09) PCR Influenza A (H3) PCR Influenza Type A (PCR) Influenza Type B (PCR) M. pneumoniae (PCR) Parainfluenza 1 (PCR) Parainfluenza 2 (PCR) Parainfluenza 3 (PCR) Parainfluenza 4 (PCR) RSV (PCR) Entero/Rhino (PCR) 09/09/24 09/09/24 09/09/24 14:30 11:55 11:41 WBC 15.6 H RBC 4.09 L Hgb 13.0 Hct 40.8 MCV 99.6 H MCH 31.9 H MCHC 32.0 RDW 13.7 Plt Count 382 MPV 8.4 Neut % (Auto) 80.8 H Lymph % (Auto) 12.4 Blackford % (Auto) 5.9 Eos % (Auto) 0.5 Baso % (Auto) 0.4 Neut # (Auto) 12.6 H Lymph # (Auto) 1.9 Blackford # (Auto) 0.9 Eos # (Auto) 0.1 Baso # (Auto) 0.1 Total Counted 100 Neutrophils % (Manual) 81 H Lymphocytes % (Manual) 16 Monocytes % (Manual) 3 Platelet Estimate Normal RBC Morphology Normal PT 11.6 INR 1.04 APTT 30.7 H VBG pH 7.48 H VBG pCO2 30.2 L VBG pO2 173.0 H VBG HCO3 22.0 L VBG Total CO2 23.0 VBG O2 Saturation 99.3 H VBG Base Excess -1.5 VBG Lactic Acid 1.3 Sodium 136 Potassium 4.4 Chloride 107 Carbon Dioxide 23 Anion Gap 10.4 BUN 9 Creatinine 0.50 L Estimated Creat Clear 49 Estimated GFR 117 Est GFR ( Amer) 142 Glucose 106 H Calcium 8.4 Magnesium Total Bilirubin 1.6 H AST 26 ALT 12 Alkaline Phosphatase 63 Troponin I < 0.01 < 0.01 NT-Pro-B Natriuret Pep 2430 H Total Protein 6.9 Albumin 3.6 Globulin 3.3 H Albumin/Globulin Ratio 1.1 Lipase TSH Chlamy pneumoniae PCR Adenovirus (PCR) B. pertussis DNA (PCR) Coronavirus OC43 (PCR) Coronavirus HKU1 (PCR) Coronavirus 229E (PCR) SARS-CoV-2 (PCR) Coronavirus NL63 (PCR) Human Metapneumovir PCR Influenza A (H1) PCR Influ A (H1N1/09) PCR Influenza A (H3) PCR Influenza Type A (PCR) Influenza Type B (PCR) M. pneumoniae (PCR) Parainfluenza 1 (PCR) Parainfluenza 2 (PCR) Parainfluenza 3 (PCR) Parainfluenza 4 (PCR) RSV (PCR) Entero/Rhino (PCR) 09/09/24 11:20 WBC RBC Hgb Hct MCV MCH MCHC RDW Plt Count MPV Neut % (Auto) Lymph % (Auto) Blackford % (Auto) Eos % (Auto) Baso % (Auto) Neut # (Auto) Lymph # (Auto) [place] # (Auto) Eos # (Auto) Baso # (Auto) Total Counted Neutrophils % (Manual) Lymphocytes % (Manual) Monocytes % (Manual) Platelet Estimate RBC Morphology PT INR APTT VBG pH VBG pCO2 VBG pO2 VBG HCO3 VBG Total CO2 VBG O2 Saturation VBG Base Excess VBG Lactic Acid Sodium Potassium Chloride Carbon Dioxide Anion Gap BUN Creatinine Estimated Creat Clear Estimated GFR Est GFR ( Amer) Glucose Calcium Magnesium Total Bilirubin AST ALT Alkaline Phosphatase Troponin I NT-Pro-B Natriuret Pep Total Protein Albumin Globulin Albumin/Globulin Ratio Lipase TSH Chlamy pneumoniae PCR Not detected Adenovirus (PCR) Not detected B. pertussis DNA (PCR) Not detected Coronavirus OC43 (PCR) Not detected Coronavirus HKU1 (PCR) Not detected Coronavirus 229E (PCR) Not detected SARS-CoV-2 (PCR) Not detected Coronavirus NL63 (PCR) Not detected Human Metapneumovir PCR Not detected Influenza A (H1) PCR Not detected Influ A (H1N1/09) PCR Not detected Influenza A (H3) PCR Not detected Influenza Type A (PCR) Not detected Influenza Type B (PCR) Not detected M. pneumoniae (PCR) Not detected Parainfluenza 1 (PCR) Not detected Parainfluenza 2 (PCR) Not detected Parainfluenza 3 (PCR) Not detected Parainfluenza 4 (PCR) Not detected RSV (PCR) Not detected Entero/Rhino (PCR) Not detected DS: Diagnosis Discharge Diagnosis (1) Pneumonia: Status: Acute Code(s): J18.9 - Pneumonia, unspecified organism (2) CHF (congestive heart failure): Status: Acute Code(s): I50.9 - Heart failure, unspecified (3) Bilateral foot pain: Status: Acute Code(s): M79.671 - Pain in right foot; M79.672 - Pain in left foot (4) Rheumatoid arthritis: Status: Acute Code(s): M06.9 - Rheumatoid arthritis, unspecified (5) Constipation: Status: Acute Code(s): K59.00 - Constipation, unspecified (6) COPD (chronic obstructive pulmonary disease): Status: Acute Code(s): J44.9 - Chronic obstructive pulmonary disease, unspecified (7) Degenerative disc disease, lumbar: Status: Acute Code(s): M51.36 - Other intervertebral disc degeneration, lumbar region (8) Hypothyroid: Status: Acute Code(s): E03.9 - Hypothyroidism, unspecified (9) Anxiety: Status: Acute Code(s): F41.9 - Anxiety disorder, unspecified Meds Home Medications and Allergies Home Medications ?Medication ?Instructions ?Recorded ?Confirmed ?Type fexofenadine 180 mg tablet 180 mg PO DAILY 04/04/23 09/09/24 History (Audra Allergy) melatonin 1 mg tablet 1 mg PO HSP PRN Insomnia 05/26/23 09/09/24 History morphine (PF) 1 mg/mL injection 1 mg epidural CONT Pain 06/10/23 09/09/24 History solution lorazepam 1 mg tablet 1 mg PO BID Anxiety #60 tabs 07/12/24 09/09/24 Rx levothyroxine 25 mcg tablet 25 mcg PO DAILY 09/09/24 09/09/24 History netarsudil 0.02 % eye drops 1 drp ophthalmic (eye) HS 09/09/24 09/09/24 History (Rhopressa) pantoprazole 40 mg tablet,delayed 40 mg PO DAILY 09/09/24 09/09/24 History release azithromycin 500 mg tablet 500 mg PO DAILY 3 days #3 tabs 09/10/24 Rx cefdinir 300 mg capsule 300 mg PO BID 3 days #6 caps 09/10/24 Rx furosemide 40 mg tablet (Lasix) 20 mg (1/2 x 40 mg) PO DAILY #30 09/10/24 Rx tabs sennosides 8.6 mg-docusate sodium 1 tab PO BID PRN constipation 30 09/10/24 Rx 50 mg tablet (Stimulant Laxative days #60 tabs Plus) ipratropium 0.5 mg-albuterol 3 mg 3 ml inhalation Q6HP PRN Shortness 09/12/24 Rx (2.5 mg base)/3 mL nebulization Of Breath #180 mL soln New Prescriptions to Start Prescriptions: Gabriel Richmond cefdinir Gabriel Thurman furosemide [Lasix] Gabriel Thurman sennosides-docusate sodium [Stimulant Laxative Plus] Gabriel Thurman Allergies Allergy/AdvReac Type Severity Reaction Status Date / Time levofloxacin (From [facility]) Allergy Intermediate rash Verified 06/27/24 08:47 ibuprofen (From [facility]) Allergy Mild Verified 06/27/24 08:47 NSAIDS (Non-Steroidal Allergy Mild Verified 06/27/24 08:47 Anti-Inflamma (NSAIDS (NON-STEROIDAL ANTI-INFLAMMA) Sulfa (Sulfonamide Allergy Mild Verified 06/27/24 08:47 Antibiotics) (SULFA (SULFONAMIDE ANTIBIOTICS)) sibutramine (From [facility]) Allergy Verified 06/27/24 08:47 Discharge Plan Disposition Patient Disposition: Home Health Service Condition: Fair Discharge Order Discharge Orders: Discharge Order (Routine); Ordered 09/10/24 Ordered By: Gabriel Thurman Follow up Plan Follow up with: Tai Wolf MD [Staff Physician] - 09/25/24 1:00 pm Javed Olivares DO [Primary Care Provider] - 09/18/24 9:00 am Prescriptions/Medication Reconciliation: New sennosides-docusate sodium [Stimulant Laxative Plus] 8.6-50 mg Tablet 1 tab PO BID PRN (Reason: constipation) 30 Days Qty: 60 0RF cefdinir 300 mg capsule 300 mg PO BID 3 Days Qty: 6 0RF Rx Instructions: start morning of 09/11/24 azithromycin 500 mg tablet 500 mg PO DAILY 3 Days Qty: 3 0RF Rx Instructions: start morning of 09/11/24 furosemide [Lasix] 40 mg tablet 20 mg PO DAILY Qty: 30 0RF Continued fexofenadine [Audra Allergy] 180 mg tablet 180 mg PO DAILY lorazepam 1 mg tablet 1 mg PO BID Qty: 60 2RF melatonin 1 mg Tablet 1 mg PO HSP PRN (Reason: Insomnia) morphine (PF) 1 mg/mL Solution 1 mg epidural CONT Rhopressa 0.02 % drops 1 drp ophthalmic (eye) HS Patient Comments: INSTILL 1 DROP INTO AFFECTED EYE(S) ONCE DAILY IN THE EVENING levothyroxine 25 mcg tablet 25 mcg PO DAILY pantoprazole 40 mg tablet,delayed release (DR/EC) 40 mg PO DAILY No Action ipratropium-albuterol 0.5 mg-3 mg(2.5 mg base)/3 mL solution for nebulization 3 ml inhalation Q6HP PRN (Reason: Shortness Of Breath) Qty: 180 0RF Problem Reconciliation Problems Reviewed?: Yes Patient Discharge Instructions ACTIVITY: Continue current activity DIET: continue same diet Patient Instructions: DI for Heart Failure, DI for Pneumonia -- Adult, DI for Respiratory Failure Print Language: German Providers Primary Care Provider: Javed Olivares Admit Provider: Gabriel Thurman Attending Provider: Gabriel Thurman
[2024-09-10 11:38] VITALS: PULSE 77; PULSE 80
--- NOTE | 2024-09-10 11:51 | SW/DCPLANNER ---
Addendum entered by Jessica Vee 09/10/24 14:56: Patient information was faxed to [facility]. [facility] stated that services will start this week for this patient. Original Note: I spoke w/ this patient regarding plans once medically stable for discharge. PT/OT evaluated patient and recommended returning home w/ home health services. Patient is agreeable to home health services and does not have an agency preference. I will set up home health once patient is medically stable for discharge. Per MD patient will discharge home this afternoon.
[2024-09-10] MEDS: CEFTRIAXONE SODIUM 1 GM in 0.9 % SODIUM CHLORIDE 50 ML IV (12:20)
[2024-09-10] MEDS: AZITHROMYCIN 500 MG in 0.9 % SODIUM CHLORIDE 250 ML 250 MG IV (12:40)
--- NOTE | 2024-09-10 13:23 | CA_ITS ---
APPROVED REPORT EXAM: Comprehensive 2D, Doppler, and color-flow Echocardiogram Continuous Pickling Line Pickler Helper: Yuliet Brooks RDCS Ht: 5 ft 4 in Wt: 173lbs BSA: 1.84 BP: 120/78 mmHg Indications: CHF,SOA,PNEUMONIA M-Mode Dimensions RVDd 2.19 cm (0.9-2.6) LA Diam 3.90 cm (1.9-4.0) LVDd 5.41 cm (3.5-5.7) LVDs 4.02 cm (3.5-5.7) IVSd 0.80 cm (0.6-1.1) PWd 0.85 cm (0.6-1.1) EF (Teich) 50.10% FS 25.70% EDV (Teich) 141.90 mL ESV (Teich) 70.80 mL LV Diastology E Decel Time 247 (160-240 msec) E/A Ratio 1.2 Aortic Valve MARYBEL Index 2.24 cm2/m2 AoV Peak Emanuel. 122.0 (50-130 cm/s) AO Peak GR. 6.00 mmHg AO Mean GR. 3.00 (<5 mmHg) AO VTI 21.9 (18-25 cm) MARYBEL (VTI) 4.21 (2.5-4.5 cm2) Mitral Valve MV E Max Emanuel. 96.0 (40-130 cm/s) MV A Velocity 79.0 (40-130 cm/s) E/A Ratio 1.22 MV PHT 72.0 ms Tricuspid Valve TR P. Velocity 272.00 cm/s RAP Estimate 10.00 mmHg RVSP 39.50 mmHg Left Ventricle The left ventricle is normal size. The left ventricular systolic function is normal. The left ventricular ejection fraction is within the normal range. There is increased LV wall thickness. There is normal LV segmental wall motion. The left ventricular diastolic function is normal. LVEF is 55%. Right Ventricle Right ventricle is mildly dilated. Right ventricle is mildly hypokinetic. Atria The left atrium size is normal. The right atrium is mildly dilated. There is no Doppler evidence of interatrial shunt. Aortic Valve The aortic valve is mildly thickened. There is no aortic valvular stenosis. No aortic regurgitation is present. Mitral Valve The mitral valve is normal in structure. No evidence of mitral valve stenosis. Trace mitral regurgitation. Tricuspid Valve Tricuspid valve is grossly normal in structure and function. The tricuspid valve leaflets are thin and pliable. RVSP is 30-35 mmHg. Pulmonic Valve The pulmonary valve is normal in structure. Trace pulmonic regurgitation. Great Vessels The aortic root is normal in size. IVC is normal in size and collapses >50% with inspiration. Pericardium There is no pericardial effusion. Other Information Study Quality: Fair Conclusion Normal LV systolic function. Mild RV dilation with mild reduction in RV function. Mild RA dilation. Electronically signed by : Daniella Stroud MD 09/10/2024 11:37:56
--- NOTE | 2024-09-11 09:48 | SW/DCPLANNER ---
Spoke with patient on the phone. Patient stated she is doing well and that she was able to get her medicine filled and that she has called to get new hoses for her oxygen equipement. Patient stated that she has got an appointment with her primary care Dr and that she needed to cancel the one with Dr Olivares. Patient stated that she has no concerns or questions at this time. Zee Trammell
== END 2024-09-10 13:44 | disposition home health service (06) ==
LOC: ER 11:24 → 2ND 13:27
PROVIDERS: Admitting Provider Internal Medicine Adolescent Medicine; Emergency Provider Emergency Medicine; PCP Internal Medicine; Visit Provider Internal Medicine Adolescent Medicine
DX: J18.9 Pneumonia, unspecified organism (principal); I50.9 Heart failure, unspecified; M79.671 Pain in right foot; M79.672 Pain in left foot; M06.9 Rheumatoid arthritis, unspecified; K59.00 Constipation, unspecified; J44.9 Chronic obstructive pulmonary disease, unspecified; E03.9 Hypothyroidism, unspecified; F41.9 Anxiety disorder, unspecified; Z79.899 Other long term (current) drug therapy; M51.16 Intervertebral disc disorders with radiculopathy, lumbar region
CPT/HCPCS: 36415; 62368; 70450; 71045; 80053; 82803; 83690; 83735; 83880; 84443; 84484; 85007; 85025; 85027; 85610; 85730; 87040; 87633; 93005; 93306; 94640; 94760; 97163; 97165; 99291; G0378; J0456; J0696; J1650; J1940; J2405; J7050; J7620

== ENCOUNTER 2024-09-25 11:25 | Day surgery (SDC) | payer MEDICARE, OTHER, SELFPAY ==
[2024-09-25 11:48] VITALS: BP 145/69; PULSE 75; RESP 16; TEMP 36.4; O2SAT 95; BMI 28.7
[2024-09-25 11:49] VITALS: BP 160/92; PULSE 80; RESP 18; O2SAT 97
[2024-09-25 11:57] VITALS: BP 160/92; PULSE 80; RESP 18; O2SAT 97
--- NOTE | 2024-09-25 12:00 | EXP.PAIN.PRO ---
Procedure Date: 09/25/24 Time: 12:01 Anesthesiologist:: Odilia Bustos APRN Complications:: None Pre-procedure Diagnosis:: Degenerative disc disease of lumbar spine with lumbar radiculopathy symptoms Post-procedure Diagnosis:: Same Indications for Procedure:: Patient is a pleasant 84-year-old female who presents today for intrathecal refill and reprogram. Today she rates her pain a 4 out of 10. She denies any new trauma or injury. She does state that she has been experiencing worsening pain throughout her low back. Patient is currently managed with morphine 1 mg/mL. She denies any side effects from this medication. Her Pieter has been reviewed and is appropriate. Physical Exam: General: Alert and oriented x3, no acute distress, pleasant and cooperative Lungs: Respirations even and unlabored, symmetrical chest expansion Eyes: PERRL Musculoskeletal: Flexion and extension of lumbar [spine] somewhat guarded secondary to pain, [antalgic gait noted] Neurological: Speech clear, no gross sensory deficit Procedure Details:: Informed consent was obtained and the risk and benefits of the procedure were explained to the patient. The patient had noninvasive monitoring placed including noninvasive blood pressure cuff and pulse oximeter. Patient's pump was interrogated. The area over the pump was cleansed with chlorhexidine as a cleansing solution. In sterile fashion the pump was accessed with a 22-gauge needle. Approximately 7 mls of the pump solution was removed and discarded appropriately. The pump was then refilled with 20 mL's of morphine 1 mg/mL. The needle was withdrawn and a bandage was placed over the puncture site. The infusion rate was reprogrammed and morphine 0.153 mg/day. The patient tolerated well with no complication. Plan and Disposition:: Patient tolerated her intrathecal refill and increase with no complications and was discharged neurologically intact. Patient will return to clinic on or before December 23, 2024. Patient agrees with this plan of care. We will see the patient back in the clinic at the next intrathecal refill. Patient has been instructed to contact the clinic with any concerns before the next appointment. Dr. Wolf has reviewed this note and agrees with this plan of care. This note was dictated using voice recognition software and make contain errors or omissions. -- It Is medically necessary for this patient to continue to have their intrathecal pump refilled at regular intervals. This patient had an intrathecal pain pump implanted after meeting criteria of chronic intractable pain for greater than 3 months and failing conservative treatments. Patient has committed and been compliant to the treatment plan and all planned follow up care. Since implantation of the intrathecal pain pump, the patient has had decreased pain and been more functional. Oral medications have been reduced including intake of oral opioids. Patient continues to do well with intrathecal therapy with decrease in pain symptoms and increase in functional status. Stopping intrathecal medications can lead to life threatening withdrawal, seizures, cardiac arrest, severe pain, and possible . Pumps that are not refilled at regular intervals can be damages and cause and need for replacement. We continually titrate dose and concentration to optimize pain relief and function. We are limited in concentration for certain drugs to safely deliver medications through the pump and stay within the recommendations from the Polyanalgesic Consensus Committee Guidelines. Depending on dose and concentration these pumps may need to be refilled sooner than 3 months as we titrate. A UDS is needed to verify patient's compliance with our office pain contract. This is ordered based off specific treatments related to chronic pain with the potential to abuse certain medications.
[2024-09-25 12:04] VITALS: BP 131/97; PULSE 77; RESP 18; O2SAT 97
== END 2024-09-25 12:04 | disposition home or self-care (01) ==
PROVIDERS: PCP Internal Medicine; Visit Provider Nurse Practitioner Family
DX: M51.16 Intervertebral disc disorders with radiculopathy, lumbar region (principal)
CPT/HCPCS: 62370

== ENCOUNTER 2024-11-21 20:50 | Observation (INO) | payer MEDICARE, OTHER, SELFPAY ==
[2024-11-21 20:57] VITALS: BP 109/63; PULSE 105; RESP 18; TEMP 36.8; O2SAT 93; BMI 28.8
--- NOTE | 2024-11-21 21:08 | PC.NURSE ---
[id number] pt assisted from wheelchair to bed. Pt discloses she has been having chest pain all day to the left side. Enoch shooter's helper performing EKG
--- NOTE | 2024-11-21 21:10 | ECG_ITS ---
APPROVED REPORT Exam: Resting ECG HR:122 bpm ECG Measurements Heart Rate 122 AXES NM 176 P 81 QRSd 86 QRS 56 QT 409 T 69 QTc 482 Conclusion SINUS TACHYCARDIA POSSIBLE RIGHT VENTRICULAR CONDUCTION DELAY [RSR (QR) IN V1/V2] ABNORMAL RHYTHM ECG No STEMI Electronically signed by : BABATUNDE BOLAÑOS, 11/23/2024 05:57:41
[2024-11-21 21:30] VITALS: BP 140/84; PULSE 121; RESP 30; O2SAT 89
--- NOTE | 2024-11-21 21:33 | XR_ITS ---
PROCEDURE INFORMATION: Exam: XR Chest Exam date and time: 11/21/2024 10:11 PM Age: 84 years old Clinical indication: Chest wall pain; Additional info: SOA, cough, hypoxemia, cp TECHNIQUE: Imaging protocol: Radiologic exam of the chest. Views: 1 view. COMPARISON: CR XR CHEST PORTABLE 09/09/2024 12:09 PM FINDINGS: Lungs: Mild interstitial and airspace opacities in the bilateral lower lungs. Left basilar atelectasis. Pleural spaces: Unremarkable. No pleural effusion. No pneumothorax. Heart/Mediastinum: Unremarkable. No cardiomegaly. Vasculature: Aorta is calcified. Diaphragm: Mild elevation of the left hemidiaphragm. Bones/joints: Unremarkable. IMPRESSION: Mild interstitial and airspace opacities in the bilateral lower lungs. Suspicious for pulmonary edema versus pneumonia. Correlate clinically.
--- NOTE | 2024-11-21 21:35 | [facility].EDGENADL ---
Discharge Plan Disposition Patient Disposition: Admitted Clinical Impressions Clinical Impression: Sepsis, Altered mental status, Atypical pneumonia, Non-ST elevation MO (NSTEMI) Discharge ED Provider: Gurpreet Morgan General Adult HPI <Gurpreet Morgan MD - Last Filed: 11/21/24 22:59> General Chief complaint: Altered Mental Status Stated complaint: SOA, vomiting, not eating,weak Time Seen by Provider: 11/21/24 21:12 Mode of Arrival: Wheelchair Source of Information: Patient Limitations: No Limitations Description of Symptoms (Recalled from ER Triage Doc. by RN): Pt presents with granddaughter for evaluation of altered mental status that stated today, vomiting, urinary incontinence. History of Present Illness HPI narrative: Please note that above description of symptoms, in this electronic medical record under categorization of recalled from ER triage doctor by RN are reflective of an initial nursing assessment, however, is not reflective of my full history and physical exam that was personally taken and clarified. Consequentially, this preceding description of symptoms, which may include the patient's categorized chief complaint in the EMR, do not reflect my personal clinical impression, and the ultimate description of history of present illness and patient stated complaints should be deferred to this section of the note. Unless stated otherwise or congruent with this section of the note, additional signs, symptoms, or incongruence should be interpreted as inaccurate with my clinical impression. Related Data Home Medications ?Medication ?Instructions ?Recorded ?Confirmed fexofenadine 180 mg tablet 180 mg PO DAILY 04/04/23 11/21/24 (Audra Allergy) melatonin 1 mg tablet 1 mg PO HSP PRN Insomnia 05/26/23 11/21/24 morphine (PF) 1 mg/mL injection 1 mg epidural CONT Pain 06/10/23 11/21/24 solution levothyroxine 25 mcg tablet 25 mcg PO DAILY 09/09/24 11/21/24 netarsudil 0.02 % eye drops 1 drp ophthalmic (eye) HS 09/09/24 11/21/24 (Rhopressa) pantoprazole 40 mg tablet,delayed 40 mg PO DAILY 09/09/24 11/21/24 release Previous Rx's ?Medication ?Instructions ?Recorded furosemide 40 mg tablet (Lasix) 20 mg (1/2 x 40 mg) PO DAILY #30 09/10/24 tabs sennosides 8.6 mg-docusate sodium 1 tab PO BID PRN constipation 30 09/10/24 50 mg tablet (Stimulant Laxative days #60 tabs Plus) ipratropium 0.5 mg-albuterol 3 mg 3 ml inhalation Q6HP PRN Shortness 09/12/24 (2.5 mg base)/3 mL nebulization Of Breath #180 mL soln budesonide-formoterol HFA 160 2 puff inhalation BID soa #10.2 09/18/24 mcg-4.5 mcg/actuation aerosol grams inhaler (Symbicort) levalbuterol tartrate 45 2 puff inhalation Q4-6H PRN 09/18/24 mcg/actuation aerosol inhaler shortness of breath or wheezing #15 grams pseudoephedrine HCl 30 mg tablet 30 mg PO Q6H PRN nasal congestion 09/18/24 (Nasal Decongestant #30 tabs (pseudoephedrine)) lorazepam 1 mg tablet 1 mg PO BID Anxiety #60 tabs 10/11/24 Allergies Allergy/AdvReac Type Severity Reaction Status Date / Time levofloxacin (From Levaquin) Allergy Intermediate rash Verified 10/29/24 10:55 ibuprofen (From MOTRIN) Allergy Mild Verified 10/29/24 10:55 NSAIDS (Non-Steroidal Allergy Mild Verified 10/29/24 10:55 Anti-Inflamma (NSAIDS (NON-STEROIDAL ANTI-INFLAMMA) Sulfa (Sulfonamide Allergy Mild Verified 10/29/24 10:55 Antibiotics) (SULFA (SULFONAMIDE ANTIBIOTICS)) sibutramine (From Meridia) Allergy Verified 10/29/24 10:55 PFSH <Gurpreet Morgan MD - Last Filed: 11/21/24 22:59> [facility] Disclaimer: The information contained in this section may have been updated after the patient was seen, as this information can be updated by other users. Medical History (Updated 11/22/24 @ 01:56 by Charity Jang MD) Pneumonia UTI (urinary tract infection) Angioedema Allergic reaction Otitis media Acute bronchitis Acute viral syndrome COVID-19 Nausea & vomiting Abdominal pain GERD (gastroesophageal reflux disease) Urinary tract infection Sleep apnea History of COVID-19 Menopause Anxiety Psoriasis History of gastroesophageal reflux (GERD) Irritable bowel syndrome (IBS) Hypothyroid Hypertension History of sleep apnea History of COPD Asthma Family history of asthma Dyspnea on exertion Sinusitis Infected scalp abrasion Acute bacterial sinusitis Ingrown toenail of left foot Nail disorder (onychogryphosis) Sebaceous cyst of labia Cataract Multiple closed fractures of metatarsal bone of left foot Left foot pain Edema of left foot Normal colonoscopy Fracture of metatarsal bone of left foot Sinusitis Nasal congestion Sinusitis COPD exacerbation Thrush Bronchitis 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 History of eye surgery History of surgery on arm History of cholecystectomy H/O sinus surgery H/O bladder repair surgery Hx of cataract surgery H/O: hysterectomy 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 Other Asthma Diabetes Family history of cancer Heart attack Hypertension 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 (Updated 11/22/24 @ 01:51 by Milagro Christopher RN) Smoking Status: Never smoker alcohol intake: never substance use type: denies use current occupational status: retired Travel in the last 8 weeks: None Have you lived/traveled outside [place] in past 30 days?: No Contact w/someone who lives/traveled outside US past 30 days?: No Exposure to someone with infectious disease in past 14 days?: No Do you have a fever (greater than 100.4 F or 38 C)?: No Have you tested positive for COVID-19: No Exposed to someone with COVID-19 in past 14 days?: No Do you have a sore throat?: No Do you have a cough?: No Do you have any weakness?: No Do you have any diarrhea?: No Are you experiencing any unusual bleeding?: No Do you have any muscle aches/pain?: No Do you have any abdominal pain?: No Are you experiencing loss of taste or smell?: No Other Medical History Have you received the Flu Vaccine for this season: No Have you received the Pneumonia Vaccine: No <Gurpreet Morgan MD - Last Filed: 11/21/24 22:59> ROS Obtained: Yes All systems reviewed & no additional complaints except as documented Physical Exam <Gurpreet Morgan MD - Last Filed: 11/21/24 22:59> General General appearance: alert, in no apparent distress and obtunded Head Head exam: atraumatic and normocephalic Eye Eye exam: Present normal appearance, PERRL and EOMI ENT ENT exam: Present mucous membranes dry Neck Neck exam: Present normal inspection, full ROM and trachea midline Respiratory Respiratory exam: Absent respiratory distress, wheezes, stridor, accessory muscle use or prolonged expiratory phase Cardiovascular Cardiovascular exam: Present normal rhythm, tachycardia and other (Pulses equal symmetric in upper and lower extremities) Abdominal Exam Abdominal exam: Present soft; Absent distention, tenderness, guarding, rebound, rigidity or pulsatile mass Extremities Exam Extremities exam: Absent edema Neurological Exam Neurological exam: Present alert and CN II-XII intact; Absent oriented X3 (Oriented only to person) or motor sensory deficit Skin Skin exam: Present warm and dry; Absent diaphoresis or erythema Medical Decision Making <Gurpreet Morgan MD - Last Filed: 11/21/24 22:59> Medical Records Medical records reviewed: Yes I reviewed the patient's medical records. Screening: Per USPSTF and CDC recommendations, given the prevalence of disease in our region, it is our hospital?s policy to screen for HIV and viral Hepatitis for all patients aged 18 and over and those with ongoing risk factors. Pieter Inquiry Pt receiving controlled substance: No Pieter was queried for this patient: No Vital Signs: 11/21/24 20:57 11/21/24 21:30 11/21/24 21:45 Temperature 98.3 F Temperature Source Oral Pulse Rate 121 H 93 H Pulse Rate [Right] 105 H Respiratory Rate 18 30 H 25 H Blood Pressure 140/84 Blood Pressure [Right Arm] 109/63 L Blood Pressure Mean [Right Arm] 78 Blood Pressure Source [Right Arm] Automatic Cuff Blood Pressure Position [Right Arm] Sitting 02 Sat by Pulse Oximetry 93 L 89 L 92 L Oxygen Delivery Method Room Air 11/21/24 23:45 11/22/24 00:31 11/22/24 01:00 Temperature Temperature Source Pulse Rate 89 82 Pulse Rate [Right] Respiratory Rate 24 Blood Pressure 113/43 L 91/71 L Blood Pressure [Right Arm] Blood Pressure Mean [Right Arm] Blood Pressure Source [Right Arm] Blood Pressure Position [Right Arm] 02 Sat by Pulse Oximetry 94 L 95 Oxygen Delivery Method Room Air 11/22/24 01:23 Temperature 98.2 F Temperature Source Pulse Rate 75 Pulse Rate [Right] Respiratory Rate 18 Blood Pressure 98/66 L Blood Pressure [Right Arm] Blood Pressure Mean [Right Arm] Blood Pressure Source [Right Arm] Blood Pressure Position [Right Arm] 02 Sat by Pulse Oximetry Oxygen Delivery Method Room Air Lab Data Lab Results 11/21/24 00:19: Urine Color Yellow, Urine Appearance Clear, Urine pH 6.0, Ur Specific [place] 1.025, Urine Protein Trace, Urine Glucose (UA) Negative, Urine Ketones 1+, Urine Blood 1+ A, Urine Nitrate Negative, Urine Bilirubin Negative, Urine Urobilinogen 1.0, Ur Leukocyte Esterase Negative, Urine RBC 5-10, Urine WBC 3-5, Urine Bacteria 1+, Urine Mucus 1+ 11/21/24 21:34: VBG pH 7.42 H, VBG pCO2 39.7, VBG pO2 42.0 H, VBG HCO3 25.1, VBG Total CO2 26.3, VBG O2 Saturation 80.6 H, VBG Base Excess 0.6, VBG Lactic Acid 1.5 11/21/24 22:29: SARS-CoV-2 (PCR) Not detected, Influenza A Untype (PCR) Not detected, Influenza Type B (PCR) Not detected 11/21/24 23:15: WBC 23.8 H*, RBC 4.27, Hgb 13.4, Hct 40.0, MCV 93.7, MCH 31.4 H, MCHC 33.5, RDW 14.2, Plt Count 299, MPV 10.2, Neut % (Auto) 87.3 H, Lymph % (Auto) 4.5 L, [place] % (Auto) 7.1, Eos % (Auto) 0.0 L, Baso % (Auto) 0.3, Neut # (Auto) 20.8 H, Lymph # (Auto) 1.1, [place] # (Auto) 1.7 H, Eos # (Auto) 0.0, Baso # (Auto) 0.1, Total Counted 100, Neutrophils % (Manual) 91 H, Lymphocytes % (Manual) 9 L, Platelet Estimate Normal, Stomatocytes 1+, PT 11.7, INR 1.05, APTT 30.6, Sodium 133 L, Potassium 3.9, Chloride 100, Carbon Dioxide 25, Anion Gap 11.9, BUN 9, Creatinine 0.60, Estimated Creat Clear 49, Estimated GFR 95, Est GFR ( Amer) 115, Glucose 112 H, Calcium 8.8, Total Bilirubin 1.2, AST 23, ALT 17, Alkaline Phosphatase 82, Troponin I 0.04 H, NT-Pro-B Natriuret Pep 1720 H, Total Protein 6.9, Albumin 4.1, Globulin 2.8, Albumin/Globulin Ratio 1.5, Lipase 15 L, Procalcitonin 1.08 11/21/24 23:15 11/21/24 23:15 Orders (Tests/Meds): ED MEDICATIONS Generic Name Dose Route Start Last Admin Trade Name Freq PRN Reason Stop Dose Admin Acetaminophen 650 mg 11/22/24 01:11 Acetaminophen 325mg Tab PO 12/22/24 01:10 Q4HP PRN Fever or Mild Pain (1-3) Hydrocodone Bitart/Acetaminophen 1 tab 11/22/24 01:11 Hydrocodone/Apap 5/325 Mg Tablet PO 12/22/24 01:10 Q4HP PRN Mild to Moderate Pain (1-6) Albuterol/Ipratropium 3 ml 11/22/24 06:00 Ipratropium/Albuterol 3 Ml Neb IH 12/22/24 05:59 Q6RT [facility] Azithromycin 250 mg 11/22/24 09:00 Azithromycin 250mg Tablet PO 12/02/24 08:59 DAILY [facility] Furosemide 40 mg 11/22/24 01:10 Furosemide 40mg/4ml Vial IV 11/22/24 01:11 ONCE ONE Heparin Sodium (Porcine) 5,000 unit 11/22/24 09:00 Heparin Sodium 5,000 Unit/Ml Vial SUBCUT 12/22/24 08:59 TID [facility] Vancomycin HCl 2,000 mg/ 250 mls @ 125 mls/hr 11/22/24 01:00 Sodium Chloride IV 11/22/24 02:59 ONCE ONE Ceftriaxone Sodium 1 gm/ 50 mls @ 100 mls/hr 11/22/24 01:15 Sodium Chloride IV 12/02/24 01:14 Q24H [facility] Miscellaneous 1 each 11/22/24 00:45 Vancomycin Consult Request NOTAPPLIC 12/22/24 00:44 CONSULT PHARMACY [facility] Ondansetron HCl 4 mg 11/22/24 01:11 Ondansetron 4mg/2ml Vial IV 12/22/24 01:10 Q8HP PRN Nausea Sodium Chloride 10 ml 11/22/24 01:11 Sodium Chloride 0.9% 10ml Flush Syringe IV 12/22/24 01:10 NEEDED PRN Maintain IV Site Sodium Chloride 3 ml 11/22/24 01:27 Sodium Chloride 3% 15ml Neb IH 12/22/24 01:26 ONCE PRN INDUCE SPUTUM COLLECTION Discontinued Medications Generic Name Dose Route Start Last Admin Trade Name Yocasta PRN Reason Stop Dose Admin Sodium Chloride 1,000 mls @ 999 mls/hr 11/21/24 21:33 11/21/24 23:28 Sod Chlor 0.9% 1000ml Bag IV 11/21/24 22:33 999 mls/hr .Q1H1M ONE Administration Ceftriaxone Sodium 2 gm/ 100 mls @ 200 mls/hr 11/21/24 23:12 11/21/24 23:28 Sodium Chloride IV 11/21/24 23:41 200 mls/hr ONCE ONE Administration Azithromycin 500 mg/ Sodium 250 mls @ 250 mls/hr 11/21/24 23:12 11/21/24 23:29 Chloride IV 11/21/24 23:13 250 mls/hr ONCE ONE Administration Ondansetron HCl 4 mg 11/22/24 00:27 11/22/24 01:11 Ondansetron 4mg/2ml Vial IV 11/22/24 00:28 4 mg ONCE ONE Administration ORDERS Category Date Time Status CT head/brain wo con Stat Cat Scan 11/21/24 23:49 Completed XR chest portable Stat Exams 11/21/24 21:33 Completed Complete Blood Count Auto Diff Stat Lab 11/21/24 23:15 Completed Comprehensive Metabolic Panel Stat Lab 11/21/24 23:15 Completed Lipase Stat Lab 11/21/24 23:15 Completed NT Pro Brain Natriuretic Pep. Stat Lab 11/21/24 23:15 Completed PT INR [Prothrombin Time INR] Stat Lab 11/21/24 23:15 Completed PTT [Activated Partial Thrombo Time] Stat Lab 11/21/24 23:15 Completed Procalcitonin Stat Lab 11/21/24 23:15 Completed Rapid PCR Covid and Flu A/B Stat Lab 11/21/24 22:29 Completed Troponin I Stat Lab 11/21/24 23:15 Completed Urinalysis and Microscopic Stat Lab 11/21/24 00:19 Completed Blood Culture Stat Micro 11/21/24 23:20 Received Venous Blood Gas Stat RT 11/21/24 21:34 Completed Medical Decision Narrative: This is an 84-year-old female history of hypertension, hyper lipidemia, CHF, presenting with vomiting, decreased p.o. intake, weakness, chest pain, among other complaints. Patient's daughter providing most of history, but patient corroborating story. Patient has been vomiting starting today, 11/21. Numerous episodes of nonbloody, nonbilious vomiting. No diarrhea. No abdominal pain, fevers or chills, but states that she has been vomiting so much that she is actually urinated on herself due to forceful vomiting. Has not eaten since yesterday, 11/20. Daughter states that patient was too weak to ambulate and perform her ADLs, so brought her in for further evaluation. History was obtained via conversation with patient and daughter. On arrival, patient hemodynamically stable, alert, oriented to person appropriate, GCS 15, moving all extremities spontaneously, pupils equal and reactive to light. Full physical exam performed and significant for chronically ill-appearing female who is in no acute distress. She is laying on her left side because she has a sacral decubitus ulcer that is painful. Speaking full sentences, alert and oriented to person. Abdomen is soft, nontender, nondistended. Patient's lungs are clear, cardiac exam without murmurs gallops or rubs. No lower extremity edema. Differential includes pneumonia, bronchitis, gastritis, gastroenteritis, pancreatitis, urinary tract infection, sepsis, dehydration, among others. Patient placed on continuous cardiac monitoring and continuous pulse ox with initial blood pressure 109/63, heart rate 105, saturation 93% on room air. Independent interpretation of EKG shows sinus tachycardia 122 bpm with no acute ischemic change. CA 176, QRS 86, QTc 482 with normal axis. Patient was given 1 L fluid bolus for symptomatic management and correction of underlying abnormalities. Chest x-ray independently interpreted, patient does have bilateral patchy opacities consistent with what appears to be atypical pneumonia. Difficult IV access, I placed right upper extremity median vein 20-gauge catheter under ultrasound guidance. Patient given ceftriaxone and azithromycin for this. Labs pending at time of handoff to oncoming physician. Special Services Director disclaimer Much of this encounter note is an electronic director of knowledge management spoken language to printed text. Electronic director of knowledge management of the spoken language may permit errors. Although I have reviewed the note, some errors may still exist. <Charity Jang MD - Last Filed: 11/22/24 01:56> Vital Signs: 11/21/24 20:57 11/21/24 21:30 11/21/24 21:45 Temperature 98.3 F Temperature Source Oral Pulse Rate 121 H 93 H Pulse Rate [Right] 105 H Respiratory Rate 18 30 H 25 H Blood Pressure 140/84 Blood Pressure [Right Arm] 109/63 L Blood Pressure Mean [Right Arm] 78 Blood Pressure Source [Right Arm] Automatic Cuff Blood Pressure Position [Right Arm] Sitting 02 Sat by Pulse Oximetry 93 L 89 L 92 L Oxygen Delivery Method Room Air 11/21/24 23:45 11/22/24 00:31 11/22/24 01:00 Temperature Temperature Source Pulse Rate 89 82 Pulse Rate [Right] Respiratory Rate 24 Blood Pressure 113/43 L 91/71 L Blood Pressure [Right Arm] Blood Pressure Mean [Right Arm] Blood Pressure Source [Right Arm] Blood Pressure Position [Right Arm] 02 Sat by Pulse Oximetry 94 L 95 Oxygen Delivery Method Room Air 11/22/24 01:23 Temperature 98.2 F Temperature Source Pulse Rate 75 Pulse Rate [Right] Respiratory Rate 18 Blood Pressure 98/66 L Blood Pressure [Right Arm] Blood Pressure Mean [Right Arm] Blood Pressure Source [Right Arm] Blood Pressure Position [Right Arm] 02 Sat by Pulse Oximetry Oxygen Delivery Method Room Air Lab Data Lab Results 11/21/24 00:19: Urine Color Yellow, Urine Appearance Clear, Urine pH 6.0, Ur Specific [place] 1.025, Urine Protein Trace, Urine Glucose (UA) Negative, Urine Ketones 1+, Urine Blood 1+ A, Urine Nitrate Negative, Urine Bilirubin Negative, Urine Urobilinogen 1.0, Ur Leukocyte Esterase Negative, Urine RBC 5-10, Urine WBC 3-5, Urine Bacteria 1+, Urine Mucus 1+ 11/21/24 21:34: VBG pH 7.42 H, VBG pCO2 39.7, VBG pO2 42.0 H, VBG HCO3 25.1, VBG Total CO2 26.3, VBG O2 Saturation 80.6 H, VBG Base Excess 0.6, VBG Lactic Acid 1.5 11/21/24 22:29: SARS-CoV-2 (PCR) Not detected, Influenza A Untype (PCR) Not detected, Influenza Type B (PCR) Not detected 11/21/24 23:15: WBC 23.8 H*, RBC 4.27, Hgb 13.4, Hct 40.0, MCV 93.7, MCH 31.4 H, MCHC 33.5, RDW 14.2, Plt Count 299, MPV 10.2, Neut % (Auto) 87.3 H, Lymph % (Auto) 4.5 L, [place] % (Auto) 7.1, Eos % (Auto) 0.0 L, Baso % (Auto) 0.3, Neut # (Auto) 20.8 H, Lymph # (Auto) 1.1, [place] # (Auto) 1.7 H, Eos # (Auto) 0.0, Baso # (Auto) 0.1, Total Counted 100, Neutrophils % (Manual) 91 H, Lymphocytes % (Manual) 9 L, Platelet Estimate Normal, Stomatocytes 1+, PT 11.7, INR 1.05, APTT 30.6, Sodium 133 L, Potassium 3.9, Chloride 100, Carbon Dioxide 25, Anion Gap 11.9, BUN 9, Creatinine 0.60, Estimated Creat Clear 49, Estimated GFR 95, Est GFR ( Amer) 115, Glucose 112 H, Calcium 8.8, Total Bilirubin 1.2, AST 23, ALT 17, Alkaline Phosphatase 82, Troponin I 0.04 H, NT-Pro-B Natriuret Pep 1720 H, Total Protein 6.9, Albumin 4.1, Globulin 2.8, Albumin/Globulin Ratio 1.5, Lipase 15 L, Procalcitonin 1.08 Orders (Tests/Meds): ED MEDICATIONS Generic Name Dose Route Start Last Admin Trade Name Freq PRN Reason Stop Dose Admin Acetaminophen 650 mg 11/22/24 01:11 Acetaminophen 325mg Tab PO 12/22/24 01:10 Q4HP PRN Fever or Mild Pain (1-3) Hydrocodone Bitart/Acetaminophen 1 tab 11/22/24 01:11 Hydrocodone/Apap 5/325 Mg Tablet PO 12/22/24 01:10 Q4HP PRN Mild to Moderate Pain (1-6) Albuterol/Ipratropium 3 ml 11/22/24 06:00 Ipratropium/Albuterol 3 Ml Neb 12/22/24 05:59 Q6RT [facility] Azithromycin 250 mg 11/22/24 09:00 Azithromycin 250mg Tablet PO 12/02/24 08:59 DAILY [facility] Furosemide 40 mg 11/22/24 01:10 Furosemide 40mg/4ml Vial IV 11/22/24 01:11 ONCE ONE Heparin Sodium (Porcine) 5,000 unit 11/22/24 09:00 Heparin Sodium 5,000 Unit/Ml Vial SUBCUT 12/22/24 08:59 TID [facility] Vancomycin HCl 2,000 mg/ 250 mls @ 125 mls/hr 11/22/24 01:00 Sodium Chloride IV 11/22/24 02:59 ONCE ONE Ceftriaxone Sodium 1 gm/ 50 mls @ 100 mls/hr 11/22/24 01:15 Sodium Chloride IV 12/02/24 01:14 Q24H [facility] Miscellaneous 1 each 11/22/24 00:45 Vancomycin Consult Request NOTAPPLIC 12/22/24 00:44 CONSULT PHARMACY [facility] Ondansetron HCl 4 mg 11/22/24 01:11 Ondansetron 4mg/2ml Vial IV 12/22/24 01:10 Q8HP PRN Nausea Sodium Chloride 10 ml 11/22/24 01:11 Sodium Chloride 0.9% 10ml Flush Syringe IV 12/22/24 01:10 NEEDED PRN Maintain IV Site Sodium Chloride 3 ml 11/22/24 01:27 Sodium Chloride 3% 15ml Neb IH 12/22/24 01:26 ONCE PRN INDUCE SPUTUM COLLECTION Discontinued Medications Generic Name Dose Route Start Last Admin Trade Name Freq PRN Reason Stop Dose Admin Sodium Chloride 1,000 mls @ 999 mls/hr 11/21/24 21:33 11/21/24 23:28 Sod Chlor 0.9% 1000ml Bag IV 11/21/24 22:33 999 mls/hr .Q1H1M ONE Administration Ceftriaxone Sodium 2 gm/ 100 mls @ 200 mls/hr 11/21/24 23:12 11/21/24 23:28 Sodium Chloride IV 11/21/24 23:41 200 mls/hr ONCE ONE Administration Azithromycin 500 mg/ Sodium 250 mls @ 250 mls/hr 11/21/24 23:12 11/21/24 23:29 Chloride IV 11/21/24 23:13 250 mls/hr ONCE ONE Administration Ondansetron HCl 4 mg 11/22/24 00:27 11/22/24 01:11 Ondansetron 4mg/2ml Vial IV 11/22/24 00:28 4 mg ONCE ONE Administration ORDERS Category Date Time Status CT head/brain wo con Stat Cat Scan 11/21/24 23:49 Completed XR chest portable Stat Exams 11/21/24 21:33 Completed Complete Blood Count Auto Diff Stat Lab 11/21/24 23:15 Completed Comprehensive Metabolic Panel Stat Lab 11/21/24 23:15 Completed Lipase Stat Lab 11/21/24 23:15 Completed NT Pro Brain Natriuretic Pep. Stat Lab 11/21/24 23:15 Completed PT INR [Prothrombin Time INR] Stat Lab 11/21/24 23:15 Completed PTT [Activated Partial Thrombo Time] Stat Lab 11/21/24 23:15 Completed Procalcitonin Stat Lab 11/21/24 23:15 Completed Rapid PCR Covid and Flu A/B Stat Lab 11/21/24 22:29 Completed Troponin I Stat Lab 11/21/24 23:15 Completed Urinalysis and Microscopic Stat Lab 11/21/24 00:19 Completed Blood Culture Stat Micro 11/21/24 23:20 Received Venous Blood Gas Stat RT 11/21/24 21:34 Completed Medical Decision Narrative: This is an 84-year-old female history of hypertension, hyper lipidemia, CHF, presenting with vomiting, decreased p.o. intake, weakness, chest pain, among other complaints. Patient's daughter providing most of history, but patient corroborating story. Patient has been vomiting starting today, 11/21. Numerous episodes of nonbloody, nonbilious vomiting. No diarrhea. No abdominal pain, fevers or chills, but states that she has been vomiting so much that she is actually urinated on herself due to forceful vomiting. Has not eaten since yesterday, 11/20. Daughter states that patient was too weak to ambulate and perform her ADLs, so brought her in for further evaluation. History was obtained via conversation with patient and daughter. On arrival, patient hemodynamically stable, alert, oriented to person appropriate, GCS 15, moving all extremities spontaneously, pupils equal and reactive to light. Full physical exam performed and significant for chronically ill-appearing female who is in no acute distress. She is laying on her left side because she has a sacral decubitus ulcer that is painful. Speaking full sentences, alert and oriented to person. Abdomen is soft, nontender, nondistended. Patient's lungs are clear, cardiac exam without murmurs gallops or rubs. No lower extremity edema. Differential includes pneumonia, bronchitis, gastritis, gastroenteritis, pancreatitis, urinary tract infection, sepsis, dehydration, among others. Patient placed on continuous cardiac monitoring and continuous pulse ox with initial blood pressure 109/63, heart rate 105, saturation 93% on room air. Independent interpretation of EKG shows sinus tachycardia 122 bpm with no acute ischemic change. CA 176, QRS 86, QTc 482 with normal axis. Patient was given 1 L fluid bolus for symptomatic management and correction of underlying abnormalities. Chest x-ray independently interpreted, patient does have bilateral patchy opacities consistent with what appears to be atypical pneumonia. Difficult IV access, I placed right upper extremity median vein 20-gauge catheter under ultrasound guidance. Patient given ceftriaxone and azithromycin for this. Labs pending at time of handoff to oncoming physician. Special Services Director disclaimer Much of this encounter note is an electronic director of knowledge management spoken language to printed text. Electronic director of knowledge management of the spoken language may permit errors. Although I have reviewed the note, some errors may still exist. Jang: Upon my assumption of care patient is stable and resting more comfortably. I agree with the assessment and plan from Dr. Morgan. Patient has already received Rocephin azithromycin for concerns of possible atypical pneumonia. Labs were pending when I took over care and demonstrate significant leukocytosis increasing concerns for sepsis. Due to history of fluid overload on furosemide, she is not receiving a full 30 mL/kg fluid bolus, but I did add vancomycin for additional broad-spectrum antibiotic coverage with her severe leukocytosis Labs also demonstrate trace hyponatremia which is not actionable at this time, patient has slightly elevated troponin at 0.04 but no ischemic changes on ECG, possible slight NSTEMI from her tachycardia and generalized illness at this time but patient does not have chest pain which is reassuring. BNP elevated at 1720, actually decreased compared to previous labs. UA collected after Leach placement does not demonstrate findings of infection. Patient's VBG had pH 7.42 with lactic normal at 1.5 CT head was added to workup by me since patient had an alteration in mental status with hallucinations. I personally interpreted head CT and do not appreciate acute intracranial abnormality, patient has small hyperdensity in the left cerebral hemisphere, this appears unchanged from prior. See radiology read for final interpretation. On reassessment patient continues to be stable, resting comfortably, I recommended admission and patient and family are comfortable with this plan. I discussed this case with the hospitalist who graciously accepted the patient for admission for pneumonia, sepsis, altered mental status Procedures <Gurpreet Morgan MD - Last Filed: 11/21/24 22:59> Limited Ultrasound Indication:: Ultrasound-guided line placement Indication: -Difficult access, numerous unsuccessful pokes Identified structures: -Right upper extremity veins Location/access site: -Upper extremity median vein Vessel patency: -Patent Direct visualization? -Yes Impression: Successful placement of 20-gauge IV catheter in right median vein Images were not saved to permanent archive The study was technically adequate CPT Codes: Venipuncture: 13066-14 Age <3 yo: 21725-82 Age >3yo: 00396-29 Central line <5 yo: 00429-79 Central line >5 yo: 53671-33 This study was performed by me, and I personally interpreted all images/videos. Based on my clinical judgement, these images were adequate and did not necessitate further imaging Critical Care <Gurpreet Morgan MD - Last Filed: 11/21/24 22:59> Critical Care Time Critical Care Time: No
[2024-11-21 21:45] VITALS: PULSE 93; RESP 25; O2SAT 92
[2024-11-21 22:39] LABS: Coronavirus 19, PCR Not Detected (NotDetected); Influenza A, PCR Not Detected (NotDetected); Influenza B, PCR Not Detected (NotDetected)
[2024-11-21] MEDS: 0.9 % SODIUM CHLORIDE 1000ML 1,000 ML 999 ML IV (23:28)
[2024-11-21] MEDS: CEFTRIAXONE SODIUM 2 GM in 0.9 % SODIUM CHLORIDE 100 ML IV (23:28)
[2024-11-21 23:29] LABS: Basophils # 0.1 K/mm3 (0-0.2); Basophils % 0.3 % (0.1-2.0); Hemoglobin 13.4 g/dL (12.2-16.2); Lymphocytes # 1.1 K/mm3 (0.7-4.5); Lymphocytes % 4.5 % (10-50); Mean Corpuscular HGB Conc 33.5 g/dL (31.8-35.4); Mean Corpuscular Hemoglobin 31.4 pg (27.0-31.2); Mean Corpuscular Volume 93.7 fl (81-99); Mean Platelet Volume 10.2 fl (7.4-10.4); Monocytes # 1.7 K/mm3 (0.1-1.0); Monocytes % 7.1 % (1.7-9.3); Neutrophils # 20.8 K/mm3 (1.8-7.8); Neutrophils % 87.3 % (37.0-80.0); Platelet Count 299 K/mm3 (142-424); Red Blood Count 4.27 M/mm3 (4.20-5.40); Red Cell Distribution Width 14.2 % (11.5-17.5); White Blood Count 23.8 K/mm3 (4.8-10.8)
[2024-11-21 23:29] LABS: Lactate Venous 1.5 mmol/L (0.4-2.0); VBG Base Excess 0.6 mmol/L (-2.4-2.3); VBG HCO3 25.1 mmol/L (23-30); VBG Oxygen Saturation 80.6 % (50-70); VBG PCO2 39.7 mmol/L (35-51); VBG PH 7.42 mmol/L (7.31-7.41); VBG Total CO2 26.3 mmol/L (23-27)
[2024-11-21] MEDS: AZITHROMYCIN 500 MG in 0.9 % SODIUM CHLORIDE 250 ML 250 MG IV (23:29)
[2024-11-21 23:31] LABS: MANUAL DIFFERENTIAL MANUAL DIFFERENTIAL (MANUAL DIFF)
[2024-11-21 23:39] LABS: Activated Partial Thrombo Time 30.6 seconds (22.8-30.6); INR 1.05 (0.9-1.1); Prothrombin Time 11.7 seconds (10.1-12.5)
[2024-11-21 23:41] LABS: Alanine Aminotransferase 17 U/L (12-78); Albumin Level 4.1 g/dl (3.5-5.0); Albumin/Globulin Ratio 1.5 (1.1-1.8); Alkaline Phosphatase 82 U/L (38-126); Anion Gap 11.9 mEq/L (5-15); Aspartate Amino Transferase 23 U/L (14-36); Bilirubin,Total 1.2 mg/dl (0.2-1.3); Blood Urea Nitrogen 9 mg/dl (7-17); Calcium 8.8 mg/dl (8.4-10.2); Carbon Dioxide 25 mmol/L (22.0-30.0); Chloride 100 mmol/L (98-107); Creatinine Clearance Estimated 49 mL/min (50-200); Estimated Glomerular Filt Rate 95 ml/min (>60); GFR (African American) 115 ML/MIN (>60); Globulin 2.8 g/dL (1.3-3.2); Glucose 112 mg/dl (74-100); Lipase 15 U/L (23-300); Potassium 3.9 mmoL/L (3.5-5.1); Sodium 133 mmol/L (136-145); Total Protein,Serum 6.9 g/dl (6.3-8.2)
[2024-11-21 23:45] VITALS: RESP 24
--- NOTE | 2024-11-21 23:49 | CT_ITS ---
PROCEDURE INFORMATION: Exam: CT Head Without Contrast Exam date and time: 11/21/2024 11:59 PM Age: 84 years old Clinical indication: Altered mental status/memory loss; Additional info: AMS TECHNIQUE: Imaging protocol: Computed tomography of the head without contrast. Radiation optimization: All CT scans at this facility use at least one of these dose optimization techniques: automated exposure control; mA and/or kV adjustment per patient size (includes targeted exams where dose is matched to clinical indication); or iterative reconstruction. COMPARISON: CT HEAD/BRAIN WO CON 09/09/2024 12:15 PM FINDINGS: Brain: There is age related atrophy. No hemorrhage. Stable white matter hypodensity within the insular region bilaterally [id number]. Small bilateral basal ganglia hypodensities consistent with old lacunar infarcts. No mass effect. Cerebral ventricles: No ventriculomegaly. Paranasal sinuses: Patchy disease within the right ethmoid air cells and inferior right frontal sinus. Prior resection of the ostiomeatal complex bilaterally. Mastoid air cells: Visualized mastoid air cells are well aerated. Orbital cavities: There has been bilateral lens extraction. Bones: Unremarkable. No acute fracture. Soft tissues: Unremarkable. IMPRESSION: No acute intracranial abnormality.
[2024-11-21 23:53] LABS: Troponin I 0.04 ng/ml (0.00-0.034)
[2024-11-21 23:57] LABS: Procalcitonin 1.08 ng/mL (0.0-2.0)
[2024-11-21 23:59] LABS: NT Pro Brain Natriuretic Pep. 1720 pg/mL (0-450)
[2024-11-22] VITALS (25 sets, daily range): BP systolic 88–165; BP diastolic 41–81; PULSE 63–126; RESP 12–24; TEMP 36.8–37.2; O2SAT 87–99; BMI 31.2
[2024-11-22 00:23] LABS: Microscopic, Urine URINE MICROSCOPIC (MICROSCOPIC)
[2024-11-22 00:32] LABS: Lymphocytes % 9 % (10-50); Neutrophils % 91 % (42-76); Total Cells Counted 100
[2024-11-22 00:33] LABS: Platelet Estimate Normal; Stomatocytes 1+
[2024-11-22 01:00] LABS: Appearance,Urine CLEAR (Clear); Bilirubin,Urine Negative (Negative); Blood, Urine 1+ (Negative); Color,Urine YELLOW (Yellow); Glucose,Urine (UA) Negative (Negative); Ketones,Urine 1+ (Negative); Leukocyte Esterase,Urine Negative (Negative); Nitrate,Urine Negative (Negative); Protein,Urine TRACE (Negative); Specific Gravity, Urine 1.025 (1.005-1.030)
--- NOTE | 2024-11-22 01:10 | CA_ITS ---
APPROVED REPORT EXAM: Comprehensive 2D, Doppler, and color-flow Echocardiogram Mold Stacker: JEANCARLOS Vallecillo, RVS Ht: 5 ft 0 in Wt: 168lbs BSA: 1.73 BP: 91/71 mmHg Indications: Spsis, CHF, pulmonary edema, COPD, Fatigue 2D Dimensions Left Atrium 3.46 cm LA Volume 66.50 mL LA Volume Index [id number] mL/m2 (M/F) 16-34 M-Mode Dimensions RVDd 3.60 cm (0.9-2.6) LA Diam 4.31 cm (1.9-4.0) LVDd 4.27 cm (3.5-5.7) LVDs 2.71 cm (3.5-5.7) IVSd 0.97 cm (0.6-1.1) PWd 0.83 cm (0.6-1.1) EF (Teich) 66.40% FS 36.40% EDV (Teich) 81.30 mL TAPSE 2.30 (<1.7) ESV (Teich) 27.30 mL LV Diastology E Decel Time 277 (160-240 msec) E/A Ratio 0.96 MED A' 10.80 cm/s LAT A' 10.20 cm/s Aortic Valve MARYBEL Index 1.69 cm2/m2 AoV Peak Emanuel. 117.0 (50-130 cm/s) AO Peak GR. 5.50 mmHg AO Mean GR. 2.70 (<5 mmHg) AO VTI 21.0 (18-25 cm) MARYBEL (VTI) 3.00 (2.5-4.5 cm2) Mitral Valve MV A Velocity 70.0 (40-130 cm/s) E/A Ratio 0.96 Tricuspid Valve TR P. Velocity 243.00 cm/s RAP Estimate 15.00 mmHg RVSP 38.60 mmHg Left Ventricle The left ventricle is normal size. The left ventricular systolic function is normal. The left ventricular ejection fraction is within the normal range. There is increased LV wall thickness. There is normal LV segmental wall motion. Diastolic function is indeterminate. LVEF is 60%. Right Ventricle Right ventricle is moderately dilated. Right ventricle is mildly hypokinetic. Atria Left atrium is mildly dilated. Right atrium is moderately dilated. There is no Doppler evidence of interatrial shunt. Aortic Valve The aortic valve is mildly thickened. There is no aortic valvular stenosis. Trace aortic regurgitation. Mitral Valve The mitral valve is mildly thickened. No evidence of mitral valve stenosis. Mild mitral regurgitation. Tricuspid Valve The tricuspid valve leaflets are thin and pliable. Mild tricuspid regurgitation. RVSP is 30-35 mmHg. Pulmonic Valve The pulmonary valve is normal in structure. Trace pulmonic regurgitation. Great Vessels The aortic root is normal in size. The ascending aorta is normal in size. IVC is normal in size and collapses >50% with inspiration. Pericardium Small sized, anterior pericardial effusion is present. Largest pocket measures 0.4 cm in diastole. No echo indications of tamponade. Other Information Study Quality: Fair Conclusion Normal LV systolic function. Moderate RV dilation with mild reduction in RV function. Biatrial dilation. Mild MR, mild TR. Small sized, anterior pericardial effusion is present. Largest pocket measures 0.4 cm in diastole. No echo indications of tamponade. Electronically signed by : Daniella Stroud MD 11/22/2024 23:48:34
[2024-11-22] MEDS: ONDANSETRON 4MG/2ML VIAL 4 MG IV (01:11)
--- NOTE | 2024-11-22 01:16 | P.HP_ITS ---
<Statement entered by Franklyn Caballero MD - 11/27/24 14:21> I personally examined the patient and agree with the plan of care outlined by the WORK CHECKER. History of Present Illness *Admission Date: 11/22/24 *Reason for visit:: Weakness *History of present illness: This is an 84-year-old female who has a past medical history significant for angioedema, acute bronchitis, COVID-19, GERD, sleep apnea, menopause, anxiety, psoriasis, GERD, irritable bowel syndrome, hypothyroidism, hypertension, asthma, cataract, and COPD exacerbation who presents with a chief complaint of vomiting, decreased p.o. intake, confusion, weakness, decreased appetite, and chest pain. Due to patient's symptoms, she presented to the emergency room for evaluation. While in the emergency room, CT scan of the head was negative for any acute intracranial process. Chest x-ray revealed mild interstitial and airspace opacities in the bilateral lower lung suspicious for pulmonary edema versus pneumonia and her white blood cell count was significantly elevated; moreover, patient was intermittently hypoxic with room air sats in the upper 80s.. Due to these findings, patient was admitted for further management. During my evaluation of the patient, patient states she came to the emergency room because she had increased weakness. She states that she could not stand up on her own but her granddaughter had to help her up. She also states she has been having intermittent confusion. She was able to answer all questions appropriately during my evaluation. She does voice some weakness and intermittent chest discomfort. Moreover, patient states she has been having some shortness of air with a nonfocal headache. She is currently denying any lightheadedness, dizziness, abdominal pain, nonbilious emesis, rigors, dyspnea, PND, orthopnea, fever, or diarrhea. Additional pertinent vitals obtained include a white blood cell count of 23.8, neutrophils 87.3%, sodium 133, blood glucose of 112, troponin 0.04, and BNP of 1720. [facility] Disclaimer: The information contained in this section may have been updated after the patient was seen, as this information can be updated by other users. Medical History (Updated 11/22/24 @ 01:26 by Bethany Grigsby RN) Pneumonia UTI (urinary tract infection) Angioedema Allergic reaction Otitis media Acute bronchitis Acute viral syndrome COVID-19 Nausea & vomiting Abdominal pain GERD (gastroesophageal reflux disease) Urinary tract infection Sleep apnea History of COVID-19 Menopause Anxiety Psoriasis History of gastroesophageal reflux (GERD) Irritable bowel syndrome (IBS) Hypothyroid Hypertension History of sleep apnea History of COPD Asthma Family history of asthma Dyspnea on exertion Sinusitis Infected scalp abrasion Acute bacterial sinusitis Ingrown toenail of left foot Nail disorder (onychogryphosis) Sebaceous cyst of labia Cataract Multiple closed fractures of metatarsal bone of left foot Left foot pain Edema of left foot Normal colonoscopy Fracture of metatarsal bone of left foot Sinusitis Nasal congestion Sinusitis COPD exacerbation Thrush Bronchitis 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 History of eye surgery History of surgery on arm History of cholecystectomy H/O sinus surgery H/O bladder repair surgery Hx of cataract surgery H/O: hysterectomy 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 Other Asthma Diabetes Family history of cancer Heart attack Hypertension 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 Smoking Status: Never smoker alcohol intake: never substance use type: denies use current occupational status: retired Travel in the last 8 weeks: None Have you lived/traveled outside [place] in past 30 days?: No Contact w/someone who lives/traveled outside US past 30 days?: No Exposure to someone with infectious disease in past 14 days?: No Do you have a fever (greater than 100.4 F or 38 C)?: No Have you tested positive for COVID-19: No Exposed to someone with COVID-19 in past 14 days?: No Do you have a sore throat?: No Do you have a cough?: No Do you have any weakness?: No Do you have any diarrhea?: No Are you experiencing any unusual bleeding?: No Do you have any muscle aches/pain?: No Do you have any abdominal pain?: No Are you experiencing loss of taste or smell?: No Other Medical History Have you received the Flu Vaccine for this season: No Have you received the Pneumonia Vaccine: No Review of Systems Review of Systems Review of systems:: pertinent systems reviewed and negative unless documented below Constitutional Constitutional: Reports system reviewed and no additional complaints, except as documented Eyes Eyes: Reports system reviewed and no additional complaints, except as documented ENT Ears, Nose, Mouth, and Throat: Reports system reviewed and no additional complaints, except as documented *Cardiovascular Cardiovascular: Reports chest pain and Reports dyspnea *Respiratory Respiratory: Reports dyspnea *Gastrointestinal Gastrointestinal: Reports vomiting *Genitourinary Genitourinary: Reports system reviewed and no additional complaints, except as documented *Musculoskeletal Musculoskeletal: Reports muscle weakness Integumentary/Breasts Skin/Breast: Reports system reviewed and no additional complaints, except as documented *Neurologic Neurologic: Reports confusion Psychiatric Psychiatric: Reports system reviewed and no additional complaints, except as documented and Reports confusion Endocrine Endocrine: Reports system reviewed and no additional complaints, except as documented Hematologic/Lymphatic Hematologic/Lymphatic: Reports system reviewed and no additional complaints, except as documented Allergic/Immunologic Allergic/Immunologic: Reports system reviewed and no additional complaints, except as documented Meds Home Medications and Allergies Home Medications ?Medication ?Instructions ?Recorded ?Confirmed ?Type fexofenadine 180 mg tablet 180 mg PO DAILY 04/04/23 11/21/24 History (Audra Allergy) melatonin 1 mg tablet 1 mg PO HSP PRN Insomnia 05/26/23 11/21/24 History morphine (PF) 1 mg/mL injection 1 mg epidural CONT Pain 06/10/23 11/21/24 History solution levothyroxine 25 mcg tablet 25 mcg PO DAILY 09/09/24 11/21/24 History netarsudil 0.02 % eye drops 1 drp ophthalmic (eye) HS 09/09/24 11/21/24 History (Rhopressa) pantoprazole 40 mg tablet,delayed 40 mg PO DAILY 09/09/24 11/21/24 History release furosemide 40 mg tablet (Lasix) 20 mg (1/2 x 40 mg) PO DAILY #30 09/10/24 11/21/24 Rx tabs sennosides 8.6 mg-docusate sodium 1 tab PO BID PRN constipation 30 09/10/24 11/21/24 Rx 50 mg tablet (Stimulant Laxative days #60 tabs Plus) ipratropium 0.5 mg-albuterol 3 mg 3 ml inhalation Q6HP PRN Shortness 09/12/24 0 11/21/24 Rx (2.5 mg base)/3 mL nebulization Of Breath #180 mL soln budesonide-formoterol HFA 160 2 puff inhalation BID soa #10.2 09/18/24 11/21/24 Rx mcg-4.5 mcg/actuation aerosol grams inhaler (Symbicort) levalbuterol tartrate 45 2 puff inhalation Q4-6H PRN 09/18/24 11/21/24 Rx mcg/actuation aerosol inhaler shortness of breath or wheezing #15 grams pseudoephedrine HCl 30 mg tablet 30 mg PO Q6H PRN nasal congestion 09/18/24 11/21/24 Rx (Nasal Decongestant #30 tabs (pseudoephedrine)) lorazepam 1 mg tablet 1 mg PO BID Anxiety #60 tabs 10/11/24 11/21/24 Rx New Prescriptions to Start Prescriptions: Allergies Allergy/AdvReac Type Severity Reaction Status Date / Time levofloxacin (From Levaquin) Allergy Intermediate rash Verified 10/29/24 10:55 ibuprofen (From MOTRIN) Allergy Mild Verified 10/29/24 10:55 NSAIDS (Non-Steroidal Allergy Mild Verified 10/29/24 10:55 Anti-Inflamma (NSAIDS (NON-STEROIDAL ANTI-INFLAMMA) Sulfa (Sulfonamide Allergy Mild Verified 10/29/24 10:55 Antibiotics) (SULFA (SULFONAMIDE ANTIBIOTICS)) sibutramine (From Meridia) Allergy Verified 10/29/24 10:55 Exam Data for Last 24 hours Vital signs and Labs for Last 24 Hours: Temp Pulse Resp BP Pulse Ox O2 Del Method 98.3 F 82 24 91/71 L 95 Room Air 11/21/24 20:57 11/22/24 01:00 11/21/24 23:45 11/22/24 01:00 11/22/24 01:00 11/22/24 01:00 Laboratory Results - last 24 hr 11/21/24 00:19: Urine Color Yellow, Urine Appearance Clear, Urine pH 6.0, Ur Specific [place] 1.025, Urine Protein Trace, Urine Glucose (UA) Negative, Urine Ketones 1+, Urine Blood 1+ A, Urine Nitrate Negative, Urine Bilirubin Negative, Urine Urobilinogen 1.0, Ur Leukocyte Esterase Negative 11/21/24 21:34: VBG pH 7.42 H, VBG pCO2 39.7, VBG pO2 42.0 H, VBG HCO3 25.1, VBG Total CO2 26.3, VBG O2 Saturation 80.6 H, VBG Base Excess 0.6, VBG Lactic Acid 1.5 11/21/24 22:29: SARS-CoV-2 (PCR) Not detected, Influenza A Untype (PCR) Not detected, Influenza Type B (PCR) Not detected 11/21/24 23:15: WBC 23.8 H*, RBC 4.27, Hgb 13.4, Hct 40.0, MCV 93.7, MCH 31.4 H, MCHC 33.5, RDW 14.2, Plt Count 299, MPV 10.2, Neut % (Auto) 87.3 H, Lymph % (Auto) 4.5 L, [place] % (Auto) 7.1, Eos % (Auto) 0.0 L, Baso % (Auto) 0.3, Neut # (Auto) 20.8 H, Lymph # (Auto) 1.1, [place] # (Auto) 1.7 H, Eos # (Auto) 0.0, Baso # (Auto) 0.1, Total Counted 100, Neutrophils % (Manual) 91 H, Lymphocytes % (Manual) 9 L, Platelet Estimate Normal, Stomatocytes 1+, PT 11.7, INR 1.05, APTT 30.6, Sodium 133 L, Potassium 3.9, Chloride 100, Carbon Dioxide 25, Anion Gap 11.9, BUN 9, Creatinine 0.60, Estimated Creat Clear 49, Estimated GFR 95, Est GFR ( Amer) 115, Glucose 112 H, Calcium 8.8, Total Bilirubin 1.2, AST 23, ALT 17, Alkaline Phosphatase 82, Troponin I 0.04 H, NT-Pro-B Natriuret Pep 1720 H, Total Protein 6.9, Albumin 4.1, Globulin 2.8, Albumin/Globulin Ratio 1.5, Lipase 15 L, Procalcitonin 1.08 I & O for Last 24 hours: Intake & Output 11/19/24 11/20/24 11/21/24 11/22/24 23:59 23:59 23:59 23:59 Weight 76.204 kg *Routine HEENT Exam Head: Present normocephalic Eye: Present EOMI ENT: Present mucous membranes moist *Routine Respiratory Exam Respiratory: Present diminished air movement and able to speak in complete sentences *Routine Cardiovascular Exam Cardiovascular: Present Normal S1, Normal S2 and tachycardia *Routine Abdominal Exam Abdominal: Present soft and obese *Routine Rectal Exam Rectal:: deferred *Routine Genitalia Exam Genitalia:: deferred H&P: Result Impressions This is an 84-year-old female presents with increased weakness, chest pain, shortness of breath, decreased appetite found to have a pulmonary edema with possible superimposed bilateral lower lobe pneumonia. Respiratory panel was negative for COVID and flu. Patient is also acutely hypoxic requiring supplemental oxygen. Patient is currently meeting sepsis criteria with high heart rate, tachycardia, elevated white blood cell count, and source of pulmonary infection Assessment and Plan *Assessment and plan (1) Sepsis: Status: Acute Qualifiers: Acute respiratory failure type: with hypoxia Sepsis acute organ dysfunction status: with acute organ dysfunction Sepsis type: sepsis due to unspecified organism Severe sepsis acute organ dysfunction type: acute respiratory failure Severe sepsis shock status: without septic shock Qualified Code(s): A41.9 - Sepsis, unspecified organism; R65.20 - Severe sepsis without septic shock; J96.01 - Acute respiratory failure with hypoxia Category: Medical Code(s): A41.9 - Sepsis, unspecified organism (2) Pneumonia: Status: Acute Qualifiers: Laterality: bilateral Lung location: lower lobe of lung Pneumonia type: due to unspecified organism Qualified Code(s): J18.9 - Pneumonia, unspecified organism Category: Medical Code(s): J18.9 - Pneumonia, unspecified organism (3) Pulmonary edema: Status: Acute Qualifiers: Chronicity: acute Qualified Code(s): J81.0 - Acute pulmonary edema Category: Medical Code(s): J81.1 - Chronic pulmonary edema (4) Altered mental state: Status: Acute Qualifiers: Altered mental status type: unspecified Qualified Code(s): R41.82 - Altered mental status, unspecified Category: Medical Code(s): R41.82 - Altered mental status, unspecified (5) Leukocytosis: Status: Acute Qualifiers: Leukocytosis type: unspecified Qualified Code(s): D72.829 - Elevated white blood cell count, unspecified Category: Medical Code(s): D72.829 - Elevated white blood cell count, unspecified (6) Acute hypoxic respiratory failure: Status: Acute Category: Medical Code(s): J96.01 - Acute respiratory failure with hypoxia (7) Sinus tachycardia: Status: Acute Category: Medical Code(s): R00.0 - Tachycardia, unspecified (8) Elevated troponin: Status: Acute Category: Medical Code(s): R79.89 - Other specified abnormal findings of blood chemistry Plan Assessment: Sepsis -Due to pulmonary edema, patient did not receive 30 mL/kg of body weight of IV hydration I believe given her additional fluid volume will cause more harm -Sepsis reperfusion screening performed -Obtain blood cultures x 2 -Obtain venous lactic acid -Obtain procalcitonin Bilateral lower lobe community-acquired pneumonia -1 g Rocephin IV daily -Patient received 500 mg of azithromycin IV in the emergency room we will continue 250 mg p.o. daily -DuoNebs every 6 hours -Sputum for culture Pulmonary edema -Will obtain 2D echo -Will give 1 dose of 40 mg of Lasix IV x 1-will discuss with attending for additional doses -Monitor intake and output Altered mental status: Mostly likely due to toxic metabolic encephalopathy -Improving Leukocytosis with left shift -Antibiotics as above -Will monitor white blood cell count daily -Obtain procalcitonin Acute hypoxic respiratory failure -Nasal cannula to maintain oxygen saturation greater 94% Sinus tachycardia -Improving -Most likely in the setting of sepsis and acute hypoxemia Elevated troponin -Most likely in the setting of sepsis -Most likely due to demand ischemia -Obtain 2D echo -Will trend troponin -Will consider teachers' aide consultation -Currently low suspicion for acute coronary syndrome Plan: Admit patient to the MedSur unit on telemetry Up to chair daily campus monitor Daily weight Occupational Therapy Physical therapy Saline lock Vital signs every shift Cardiac diet CBC/BMP daily Trend troponin every 6 hours 5000 using heparin subcu every 8 hours 5 mg [place] p.o. every 4 hours for moderate pain 4 mg Zofran IV push to 8 hours. Nausea vomit Full code I will discuss this case with attending physician Dr. Caballero and a look forward to more input
[2024-11-22 01:23] LABS: Bacteria,Urine 1+ /lpf; Mucus,Urine 1+ /lpf
--- NOTE | 2024-11-22 01:53 | EXP.SEPSISRE ---
[facility] Tissue Perfusion Eval Sepsis Re-Evaluation Performed: Yes Date Performed: 11/22/24 Time Performed: 01:53
[2024-11-22] MEDS: VANCOMYCIN HCL 2,000 MG in 0.9 % SODIUM CHLORIDE 250 ML 125 MG IV (02:00)
[2024-11-22] MEDS: HYDROCODONE/APAP 5/325 MG TABLET 1 TAB PO (02:17)
[2024-11-22] MEDS: FUROSEMIDE 40MG/4ML VIAL 40 MG IV ×3 (02:17→16:13)
[2024-11-22] MEDS: SODIUM CHLORIDE 3% 15ML NEB 3 ML IH (02:32)
[2024-11-22] MEDS: FUROSEMIDE 20 MG/2 ML VIAL IV (03:16)
[2024-11-22] MEDS: LORazepam 2MG/ML VIAL 0.5 MG IV (03:19)
[2024-11-22] MEDS: METOPROLOL TARTRATE 25MG TABLET 12.5 MG PO (03:49)
--- NOTE | 2024-11-22 03:49 | PC.NURSE ---
Called to pts room after grand daughter reported pt having difficulty breathing. Pt found to be SOA with 02 sats at 77 on 2 liters. Increased 02 to 5 liters and placed call to Luis Rasheed APRN. Order for Lasix and Ativan IV, see DEC. Pts RR at 36, 02 sats slowly increasing to mid 90s. Plan for pt to be transferred to Step Down, report to Milagro Christopher Rn. Luis in to see pt and provide information to family. 1400 ml urine out per f/c since arrival to floor.
[2024-11-22 04:13] LABS: ABG Base Excess -3.7 mmol/L (-2.4-2.3); ABG HCO3 20.9 mmhg (22.0-26.0); ABG Oxygen Saturation 92 % (90-100); ABG PCO2 33.4 mmhg (35.0-45.0); ABG PH 7.41 mmol/L (7.35-7.45); ABG PO2 62.8 mmhg (80-100); ABG TCO2 21.9 mmhg (23-27)
[2024-11-22 04:14] LABS: Allen's Test Acceptable; Source Right Radial
--- NOTE | 2024-11-22 04:24 | PC.NURSE ---
0350: ABG obtained 0400: Per D, Kathya pause Bi-pap at this time do to ABG and pt improving.
--- NOTE | 2024-11-22 04:54 | P.EN_ITS ---
Called by nursing staff stating patient was tachypneic, restless, and in respiratory distress. Encourage nursing staff to give ordered 40 mg of Lasix and an additional 20 mg of Lasix for total of 60 mg of Lasix. No presented to patient's bedside: Assessment complete patient and expiratory wheezing still, increase respiratory rate, patient is in a sinus tachycardia in the 130s-150s, s he was diaphoretic S1-S2 no murmur no rub; change patient's level of care stepdown obtain arterial blood gas-arterial blood gas within normal limits, will use BiPAP to help with flash pulmonary edema. Patient diuresed a total of 1400 after Lasix. Her workload of breathing improved. Gave patient 12.5 mg of metoprolol p.o. x 1; will continue 12.5 mg of metoprolol p.o. twice daily- subject to change per attending; will continue 40 mg of Lasix IV twice daily- will update attending physician
--- NOTE | 2024-11-22 05:10 | PC.NURSE ---
Pt transferred to room 266 in ICU at this time via bed and accompanied by staff x3. Report given to CONCEPCION Garcia and Yessy, Scenery Builder.
--- NOTE | 2024-11-22 05:21 | PC.NURSE ---
Pt arrived to ICU unit from med-surg via bed @05:10
[2024-11-22] MEDS: IPRATROPIUM/ALBUTEROL 3 ML NEB IH (06:34)
[2024-11-22 06:35] LABS: Basophils # 0.1 K/mm3 (0-0.2); Basophils % 0.2 % (0.1-2.0); Eosinophils # 1.4 K/mm3 (0.0-0.4); Eosinophils % 6.7 % (0.1-12.0); Hematocrit 38.5 % (37.0-47.0); Hemoglobin 12.6 g/dL (12.2-16.2); Lymphocytes # 0.9 K/mm3 (0.7-4.5); Lymphocytes % 4.4 % (10-50); Mean Corpuscular HGB Conc 32.7 g/dL (31.8-35.4); Mean Corpuscular Hemoglobin 30.7 pg (27.0-31.2); Mean Corpuscular Volume 93.7 fl (81-99); Mean Platelet Volume 10.5 fl (7.4-10.4); Monocytes # 1.3 K/mm3 (0.1-1.0); Neutrophils # 17.2 K/mm3 (1.8-7.8); Neutrophils % 82.1 % (37.0-80.0); Platelet Count 277 K/mm3 (142-424); Red Blood Count 4.11 M/mm3 (4.20-5.40); Red Cell Distribution Width 14.3 % (11.5-17.5); White Blood Count 20.9 K/mm3 (4.8-10.8)
[2024-11-22 06:44] LABS: Chloride 104 mmol/L (98-107)
[2024-11-22 06:45] LABS: Potassium 3.5 mmoL/L (3.5-5.1); Sodium 137 mmol/L (136-145)
[2024-11-22 06:48] LABS: Anion Gap 12.5 mEq/L (5-15); Blood Urea Nitrogen 11 mg/dl (7-17); Calcium 7.7 mg/dl (8.4-10.2); Carbon Dioxide 24 mmol/L (22.0-30.0); Creatinine Clearance Estimated 54 mL/min (50-200); Estimated Glomerular Filt Rate 95 ml/min (>60); GFR (African American) 115 ML/MIN (>60); Glucose 108 mg/dl (74-100)
[2024-11-22 07:39] LABS: Troponin I 0.09 ng/ml (0.00-0.034)
[2024-11-22 08:11] LABS: Procalcitonin 1.98 ng/mL (0.0-2.0)
[2024-11-22] MEDS: HEPARIN SODIUM 5,000 UNIT/ML VIAL 5000 UNIT SUBCUT ×2 (08:33→13:12)
[2024-11-22] MEDS: AZITHROMYCIN 250MG TABLET 250 MG PO (08:33)
--- NOTE | 2024-11-22 10:14 | HMH.OTEV ---
OT Inpatient Evaluation Rehab OT IP Evaluation Start: 11/22/24 01:11 Freq: ONCE Status: Active Protocol: Document 11/22/24 10:09 [facility] (Rec: 11/22/24 10:14 [facility] [id number]) Rehab OT IP Assessment Subjective History Pt oriented x 3 on arrival. Pt's daughter present and supportive. Pt admitted on due to PNA and sepsis. History and physical: This is an 84-year-old female who has a past medical history significant for angioedema, acute bronchitis, COVID-19, GERD, sleep apnea, menopause, anxiety, psoriasis, GERD, irritable bowel syndrome, hypothyroidism, hypertension, asthma, cataract, and COPD exacerbation who presents with a chief complaint of vomiting , decreased p.o. intake, confusion, weakness, decreased appetite, and chest pain. Due to patient's symptoms, she presented to the emergency room for evaluation. While in the emergency room, CT scan of the head was negative for any acute intracranial process . Chest x-ray revealed mild interstitial and airspace opacities in the bilateral lower lung suspicious for pulmonary edema versus pneumonia and her white blood cell count was significantly elevated; moreover, patient was intermittently hypoxic with room air sats in the upper 80s.. Due to these findings, patient was admitted for further management. During my evaluation of the patient, patient states she came to the emergency room because she had increased weakness. She states that she could not stand up on her own but her granddaughter had to help her up. She also states she has been having intermittent confusion. She was able to answer all questions appropriately during my evaluation. She does voice some weakness and intermittent chest discomfort. Moreover, patient states she has been having some shortness of air with a nonfocal headache. She is currently denying any lightheadedness, dizziness, abdominal pain, nonbilious emesis, rigors, dyspnea, PND, orthopnea, fever, or diarrhea. Additional pertinent vitals obtained include a white blood cell count of 23.8, neutrophils 87.3%, sodium 133, blood glucose of 112, troponin 0.04, and BNP of 1720 . Subjective I feel better than yesterday. Pt reports prior to being in the hospital, she lived at home with her granddaughter. Pt claims normally she is independent with dressing, bathing, and feeding. She is dependent with all IADLs. She uses a rolling walker at home , but also has a wheelchair if needed. Objective Patient Orientation Person,Place,Birthday Right Upper Extremity Gross ROM WFL Left Upper Extremity Gross ROM WFL Bed Mobility bed mobility-scooting,bed mobility - supine/sit Assist Level Supervision/Stand by Transfer Training Sit/Stand Transfer Assist Level Supervision/Stand by Lower Body Dressing Ability Standby Assistance Rehab OT IP prob,goals,plan Problems Date of Evaluation: 11/22/24 Rehab Potential Rehab Potential Innapropriate for Skilled Therapy Discharge Plan OT Discharge Plan Pt appears to be at her baseline with functional transfers and ADL independence . Pt can return home with family assistance once she is medically stable per physician . Therapist recommends HH OT evaluation upon returning home to assess home environment for increased safety. Eval Complexity Eval Charge Codes 58406 - Low Complexity PHYSICIAN CERTIFICATION: I certify the specified therapy services for Briana Valdez are required, authorized, and reviewed every 30 days.
--- NOTE | 2024-11-22 10:35 | HMH.PTEV ---
Physical Therapy Evaluation Rehab PT IP Evaluation Start: 11/22/24 01:11 Freq: ONCE Status: Active Protocol: Document 11/22/24 10:29 [facility] (Rec: 11/22/24 10:35 [facility] [id number]) Subjective/History History History 84-year-old female who has a past medical history significant for angioedema, acute bronchitis, COVID-19, GERD, sleep apnea, menopause, anxiety, psoriasis, GERD, irritable bowel syndrome, hypothyroidism, hypertension, asthma, cataract, and COPD exacerbation who presents with a chief complaint of vomiting , decreased p.o. intake, confusion, weakness, decreased appetite, and chest pain. Pt reports she lives with family, who assist her with ADL's as needed, but she is generally independent with all mobility using a RW and all ADLs. Having a ramp built at entrance of her home at this time. Subjective Subjective Pt has no c/o this am, feels much better overall and agrees to OOB mobility assessment. Rehab PT IP Eval Objective Appearance Patient Behavior Appropriate Patient Orientation Person,Place,Time Difficulty following instructions none Speech Pattern Clear Ambulation Patient Able to Ambulate Yes Ambulation Observation IP General Gait Pattern Observation No Deviations/Normal Ambulation Distance (feet) 75 Ambulation Assistive Device Standard Walker Ambulation Ability Supervision/Stand by Balance Ability to Arise Able, uses arms to help Sitting Balance Steady, safe Standing Balance Steady, wide stance Dynamic Sitting Balance Ability Good Dynamic Standing Balance Ability Good Transfers Bed Transfer Ability Supervision/Stand by Chair Transfer Ability Supervision/Stand by Sit to Stand Bed Transfer Ability Supervision/Stand by Sit to Stand Chair Transfer Ability Supervision/Stand by Rehab PT IP prob,goals,plan Problems Date of Evaluation: 11/22/24 Discharge Plan PT Discharge Plan Pt currently has no inpatient therapy needs and is appropriate to return home once medically stable for d/c. Eval Complexity Eval Charge Codes 49778 - High Complexity PHYSICIAN CERTIFICATION: I certify the specified therapy services for Briana Valdez are required, authorized, and reviewed every 30 days.
[2024-11-22 11:38] LABS: Troponin I 0.07 ng/ml (0.00-0.034)
--- NOTE | 2024-11-22 13:06 | SW/DCPLANNER ---
Spoke with patient about having home health services. Patient stated that she isnt interested in having someone come to her home. Patient stated that she has family members who help her out. Zee Trammell
[2024-11-22 16:59] LABS: Basophils # 0.1 K/mm3 (0-0.2); Basophils % 0.4 % (0.1-2.0); Eosinophils # 0.1 K/mm3 (0.0-0.4); Eosinophils % 0.4 % (0.1-12.0); Hematocrit 38.8 % (37.0-47.0); Hemoglobin 12.8 g/dL (12.2-16.2); Lymphocytes # 1.9 K/mm3 (0.7-4.5); Lymphocytes % 11.2 % (10-50); Mean Corpuscular Hemoglobin 31.2 pg (27.0-31.2); Mean Corpuscular Volume 94.6 fl (81-99); Mean Platelet Volume 10.4 fl (7.4-10.4); Monocytes # 1.5 K/mm3 (0.1-1.0); Monocytes % 8.7 % (1.7-9.3); Neutrophils # 13.5 K/mm3 (1.8-7.8); Neutrophils % 78.9 % (37.0-80.0); Platelet Count 192 K/mm3 (142-424); Red Cell Distribution Width 14.4 % (11.5-17.5)
[2024-11-22 17:15] LABS: MANUAL DIFFERENTIAL MANUAL DIFFERENTIAL (MANUAL DIFF)
--- NOTE | 2024-11-22 17:18 | EXP.DC.SUM ---
General Admission date:: 11/22/24 HPI HPI HPI: This is an 84-year-old female who has a past medical history significant for angioedema, acute bronchitis, COVID-19, GERD, sleep apnea, menopause, anxiety, psoriasis, GERD, irritable bowel syndrome, hypothyroidism, hypertension, asthma, cataract, and COPD exacerbation who presents with a chief complaint of vomiting, decreased p.o. intake, confusion, weakness, decreased appetite, and chest pain. Due to patient's symptoms, she presented to the emergency room for evaluation. While in the emergency room, CT scan of the head was negative for any acute intracranial process. Chest x-ray revealed mild interstitial and airspace opacities in the bilateral lower lung suspicious for pulmonary edema versus pneumonia and her white blood cell count was significantly elevated; moreover, patient was intermittently hypoxic with room air sats in the upper 80s.. Due to these findings, patient was admitted for further management. During my evaluation of the patient, patient states she came to the emergency room because she had increased weakness. She states that she could not stand up on her own but her granddaughter had to help her up. She also states she has been having intermittent confusion. She was able to answer all questions appropriately during my evaluation. She does voice some weakness and intermittent chest discomfort. Moreover, patient states she has been having some shortness of air with a nonfocal headache. She is currently denying any lightheadedness, dizziness, abdominal pain, nonbilious emesis, rigors, dyspnea, PND, orthopnea, fever, or diarrhea. Additional pertinent vitals obtained include a white blood cell count of 23.8, neutrophils 87.3%, sodium 133, blood glucose of 112, troponin 0.04, and BNP of 1720. Hospital Course Hospital Course Hospital Course: Briana Valdez is a 84-year-old female who presented with shortness of breath and was admitted for acute hypoxic respiratory failure, community-acquired pneumonia and HFpEF exacerbation. #Acute hypoxic respiratory failure #Community-acquired pneumonia #HFpEF exacerbation, right heart failure ? CXR showing bibasilar opacities with edema, BNP 1720. ? Clinically improved with ceftriaxone, azithromycin, IV Lasix diuresis. Weaned back to room air with appropriate saturations. ? ECHO reveals moderate RV dilation with mild reduction in RV function, preserved LV function. ? Increased Lasix from 20 mg to 40 mg daily, will hold off on spironolactone due to soft pressures. ? Also discharged with cefdinir, azithromycin for 5 more days. ? Will follow-up with cardiology within 1 week. Exam Data for Last 24 hours Vital signs and Labs for Last 24 Hours: Temp Pulse Resp BP Pulse Ox O2 Del Method O2 Flow Rate 98.2 F 72 12 100/49 L 97 Nasal Cannula 1 11/22/24 12:04 11/22/24 12:04 11/22/24 12:04 11/22/24 12:04 11/22/24 12:04 11/22/24 13:00 11/22/24 13:00 Laboratory Results - last 24 hr 11/21/24 00:19: Urine Color Yellow, Urine Appearance Clear, Urine pH 6.0, Ur Specific [place] 1.025, Urine Protein Trace, Urine Glucose (UA) Negative, Urine Ketones 1+, Urine Blood 1+ A, Urine Nitrate Negative, Urine Bilirubin Negative, Urine Urobilinogen 1.0, Ur Leukocyte Esterase Negative, Urine RBC 5-10, Urine WBC 3-5, Urine Bacteria 1+, Urine Mucus 1+ 11/21/24 21:34: VBG pH 7.42 H, VBG pCO2 39.7, VBG pO2 42.0 H, VBG HCO3 25.1, VBG Total CO2 26.3, VBG O2 Saturation 80.6 H, VBG Base Excess 0.6, VBG Lactic Acid 1.5 11/21/24 22:29: SARS-CoV-2 (PCR) Not detected, Influenza A Untype (PCR) Not detected, Influenza Type B (PCR) Not detected 11/21/24 23:15: WBC 23.8 H*, RBC 4.27, Hgb 13.4, Hct 40.0, MCV 93.7, MCH 31.4 H, MCHC 33.5, RDW 14.2, Plt Count 299, MPV 10.2, Neut % (Auto) 87.3 H, Lymph % (Auto) 4.5 L, [place] % (Auto) 7.1, Eos % (Auto) 0.0 L, Baso % (Auto) 0.3, Neut # (Auto) 20.8 H, Lymph # (Auto) 1.1, [place] # (Auto) 1.7 H, Eos # (Auto) 0.0, Baso # (Auto) 0.1, Total Counted 100, Neutrophils % (Manual) 91 H, Lymphocytes % (Manual) 9 L, Platelet Estimate Normal, Stomatocytes 1+, PT 11.7, INR 1.05, APTT 30.6, Sodium 133 L, Potassium 3.9, Chloride 100, Carbon Dioxide 25, Anion Gap 11.9, BUN 9, Creatinine 0.60, Estimated Creat Clear 49, Estimated GFR 95, Est GFR ( Amer) 115, Glucose 112 H, Calcium 8.8, Total Bilirubin 1.2, AST 23, ALT 17, Alkaline Phosphatase 82, Troponin I 0.04 H, NT-Pro-B Natriuret Pep 1720 H, Total Protein 6.9, Albumin 4.1, Globulin 2.8, Albumin/Globulin Ratio 1.5, Lipase 15 L, Procalcitonin 1.08 11/22/24 03:26: Specimen Source Right radial, O2 % 3lpm, ABG pH 7.41, ABG pCO2 33.4 L, ABG pO2 62.8 L, ABG HCO3 20.9 L, ABG Total CO2 21.9 L, ABG O2 Saturation 92, ABG Base Excess -3.7 L, Rodriguez Test Acceptable 11/22/24 06:23: WBC 20.9 H*, RBC 4.11 L, Hgb 12.6, Hct 38.5, MCV 93.7, MCH 30.7, MCHC 32.7, RDW 14.3, Plt Count 277, MPV 10.5 H, Neut % (Auto) 82.1 H, Lymph % (Auto) 4.4 L, [place] % (Auto) 6.0, Eos % (Auto) 6.7, Baso % (Auto) 0.2, Neut # (Auto) 17.2 H, Lymph # (Auto) 0.9, [place] # (Auto) 1.3 H, Eos # (Auto) 1.4 H, Baso # (Auto) 0.1, Sodium 137, Potassium 3.5, Chloride 104, Carbon Dioxide 24, Anion Gap 12.5, BUN 11, Creatinine 0.60, Estimated Creat Clear 54, Estimated GFR 95, Est GFR ( Amer) 115, Glucose 108 H, Calcium 7.7 L, Troponin I 0.09 H, Procalcitonin 1.98 11/22/24 11:04: Troponin I 0.07 H 11/22/24 16:51: WBC 17.0 H, RBC 4.10 L, Hgb 12.8, Hct 38.8, MCV 94.6, MCH 31.2, MCHC 33.0, RDW 14.4, Plt Count 192 D, MPV 10.4, Neut % (Auto) 78.9, Lymph % (Auto) 11.2, [place] % (Auto) 8.7, Eos % (Auto) 0.4, Baso % (Auto) 0.4, Neut # (Auto) 13.5 H, Lymph # (Auto) 1.9, [place] # (Auto) 1.5 H, Eos # (Auto) 0.1, Baso # (Auto) 0.1 I & O for Last 24 hours: Intake & Output 11/19/24 11/20/24 11/21/24 11/22/24 23:59 23:59 23:59 23:59 Intake Total 240 / 240 Output Total 500 / 500 Balance -260 / -260 Weight 76.204 kg 83.098 kg Constitutional Constitutional: no acute distress *Routine HEENT Exam Head: Present normocephalic Eye: Present EOMI and PERRL ENT: Present mucous membranes moist *Routine Neck Exam Neck: Present supple; Absent lymphadenopathy *Routine Respiratory Exam Respiratory: Present CTA bilaterally *Routine Cardiovascular Exam Cardiovascular: Present RRR *Routine Abdominal Exam Abdominal: Present soft and normoactive bowel sounds; Absent tenderness *Routine Extremities Exam Extremities: Absent cyanosis, clubbing or edema *Routine Skin Exam Skin: Present warm; Absent rash *Routine Neurological Exam Neurological: Present alert and oriented X3 Results Data Completed and Pending Labs on day of discharge: Labs from last 24 hours 11/22/24 11/22/24 11/22/24 16:51 11:04 06:23 WBC 17.0 H 20.9 H* RBC 4.10 L 4.11 L Hgb 12.8 12.6 Hct 38.8 38.5 MCV 94.6 93.7 MCH 31.2 30.7 MCHC 33.0 32.7 RDW 14.4 14.3 Plt Count 192 D 277 MPV 10.4 10.5 H Neut % (Auto) 78.9 82.1 H Lymph % (Auto) 11.2 4.4 L [place] % (Auto) 8.7 6.0 Eos % (Auto) 0.4 6.7 Baso % (Auto) 0.4 0.2 Neut # (Auto) 13.5 H 17.2 H Lymph # (Auto) 1.9 0.9 [place] # (Auto) 1.5 H 1.3 H Eos # (Auto) 0.1 1.4 H Baso # (Auto) 0.1 0.1 Total Counted Neutrophils % (Manual) Lymphocytes % (Manual) Platelet Estimate Stomatocytes PT INR APTT Specimen Source O2 % ABG pH ABG pCO2 ABG pO2 ABG HCO3 ABG Total CO2 ABG O2 Saturation ABG Base Excess Rodriguez Test VBG pH VBG pCO2 VBG pO2 VBG HCO3 VBG Total CO2 VBG O2 Saturation VBG Base Excess VBG Lactic Acid Sodium 137 Potassium 3.5 Chloride 104 Carbon Dioxide 24 Anion Gap 12.5 BUN 11 Creatinine 0.60 Estimated Creat Clear 54 Estimated GFR 95 Est GFR ( Amer) 115 Glucose 108 H Calcium 7.7 L Total Bilirubin AST ALT Alkaline Phosphatase Troponin I 0.07 H 0.09 H NT-Pro-B Natriuret Pep Total Protein Albumin Globulin Albumin/Globulin Ratio Lipase Procalcitonin 1.98 Urine Color Urine Appearance Urine pH Ur Specific [place] Urine Protein Urine Glucose (UA) Urine Ketones Urine Blood Urine Nitrate Urine Bilirubin Urine Urobilinogen Ur Leukocyte Esterase Urine RBC Urine WBC Urine Bacteria Urine Mucus SARS-CoV-2 (PCR) Influenza A Untype (PCR) Influenza Type B (PCR) 11/22/24 11/21/24 11/21/24 03:26 23:15 22:29 WBC 23.8 H* RBC 4.27 Hgb 13.4 Hct 40.0 MCV 93.7 MCH 31.4 H MCHC 33.5 RDW 14.2 Plt Count 299 MPV 10.2 Neut % (Auto) 87.3 H Lymph % (Auto) 4.5 L [place] % (Auto) 7.1 Eos % (Auto) 0.0 L Baso % (Auto) 0.3 Neut # (Auto) 20.8 H Lymph # (Auto) 1.1 [place] # (Auto) 1.7 H Eos # (Auto) 0.0 Baso # (Auto) 0.1 Total Counted 100 Neutrophils % (Manual) 91 H Lymphocytes % (Manual) 9 L Platelet Estimate Normal Stomatocytes 1+ PT 11.7 INR 1.05 APTT 30.6 Specimen Source Right radial O2 % 3lpm ABG pH 7.41 ABG pCO2 33.4 L ABG pO2 62.8 L ABG HCO3 20.9 L ABG Total CO2 21.9 L ABG O2 Saturation 92 ABG Base Excess -3.7 L Rodriguez Test Acceptable VBG pH VBG pCO2 VBG pO2 VBG HCO3 VBG Total CO2 VBG O2 Saturation VBG Base Excess VBG Lactic Acid Sodium 133 L Potassium 3.9 Chloride 100 Carbon Dioxide 25 Anion Gap 11.9 BUN 9 Creatinine 0.60 Estimated Creat Clear 49 Estimated GFR 95 Est GFR ( Amer) 115 Glucose 112 H Calcium 8.8 Total Bilirubin 1.2 AST 23 ALT 17 Alkaline Phosphatase 82 Troponin I 0.04 H NT-Pro-B Natriuret Pep 1720 H Total Protein 6.9 Albumin 4.1 Globulin 2.8 Albumin/Globulin Ratio 1.5 Lipase 15 L Procalcitonin 1.08 Urine Color Urine Appearance Urine pH Ur Specific [place] Urine Protein Urine Glucose (UA) Urine Ketones Urine Blood Urine Nitrate Urine Bilirubin Urine Urobilinogen Ur Leukocyte Esterase Urine RBC Urine WBC Urine Bacteria Urine Mucus SARS-CoV-2 (PCR) Not detected Influenza A Untype (PCR) Not detected Influenza Type B (PCR) Not detected 11/21/24 11/21/24 21:34 00:19 WBC RBC Hgb Hct MCV MCH MCHC RDW Plt Count MPV Neut % (Auto) Lymph % (Auto) [place] % (Auto) Eos % (Auto) Baso % (Auto) Neut # (Auto) Lymph # (Auto) [place] # (Auto) Eos # (Auto) Baso # (Auto) Total Counted Neutrophils % (Manual) Lymphocytes % (Manual) Platelet Estimate Stomatocytes PT INR APTT Specimen Source O2 % ABG pH ABG pCO2 ABG pO2 ABG HCO3 ABG Total CO2 ABG O2 Saturation ABG Base Excess Rodriguez Test VBG pH 7.42 H VBG pCO2 39.7 VBG pO2 42.0 H VBG HCO3 25.1 VBG Total CO2 26.3 VBG O2 Saturation 80.6 H VBG Base Excess 0.6 VBG Lactic Acid 1.5 Sodium Potassium Chloride Carbon Dioxide Anion Gap BUN Creatinine Estimated Creat Clear Estimated GFR Est GFR ( Amer) Glucose Calcium Total Bilirubin AST ALT Alkaline Phosphatase Troponin I NT-Pro-B Natriuret Pep Total Protein Albumin Globulin Albumin/Globulin Ratio Lipase Procalcitonin Urine Color Yellow Urine Appearance Clear Urine pH 6.0 Ur Specific [place] 1.025 Urine Protein Trace Urine Glucose (UA) Negative Urine Ketones 1+ Urine Blood 1+ A Urine Nitrate Negative Urine Bilirubin Negative Urine Urobilinogen 1.0 Ur Leukocyte Esterase Negative Urine RBC 5-10 Urine WBC 3-5 Urine Bacteria 1+ Urine Mucus 1+ SARS-CoV-2 (PCR) Influenza A Untype (PCR) Influenza Type B (PCR) DS: Diagnosis Discharge Diagnosis (1) Sepsis: Status: Acute Code(s): A41.9 - Sepsis, unspecified organism Qualifiers: Acute respiratory failure type: with hypoxia Sepsis acute organ dysfunction status: with acute organ dysfunction Sepsis type: sepsis due to unspecified organism Severe sepsis acute organ dysfunction type: acute respiratory failure Severe sepsis shock status: without septic shock Qualified Code(s): A41.9 - Sepsis, unspecified organism; R65.20 - Severe sepsis without septic shock; J96.01 - Acute respiratory failure with hypoxia (2) Pneumonia: Status: Acute Code(s): J18.9 - Pneumonia, unspecified organism Qualifiers: Laterality: bilateral Lung location: lower lobe of lung Pneumonia type: due to unspecified organism Qualified Code(s): J18.9 - Pneumonia, unspecified organism (3) Pulmonary edema: Status: Acute Code(s): J81.1 - Chronic pulmonary edema Qualifiers: Chronicity: acute Qualified Code(s): J81.0 - Acute pulmonary edema (4) Altered mental state: Status: Acute Code(s): R41.82 - Altered mental status, unspecified Qualifiers: Altered mental status type: unspecified Qualified Code(s): R41.82 - Altered mental status, unspecified (5) Leukocytosis: Status: Acute Code(s): D72.829 - Elevated white blood cell count, unspecified Qualifiers: Leukocytosis type: unspecified Qualified Code(s): D72.829 - Elevated white blood cell count, unspecified (6) Acute hypoxic respiratory failure: Status: Acute Code(s): J96.01 - Acute respiratory failure with hypoxia (7) Sinus tachycardia: Status: Acute Code(s): R00.0 - Tachycardia, unspecified (8) Elevated troponin: Status: Acute Code(s): R79.89 - Other specified abnormal findings of blood chemistry Meds Home Medications and Allergies Home Medications ?Medication ?Instructions ?Recorded ?Confirmed ?Type fexofenadine 180 mg tablet 180 mg PO DAILY 04/04/23 10/29/24 History (Audra Allergy) melatonin 1 mg tablet 1 mg PO HSP PRN Insomnia 05/26/23 11/21/24 History morphine (PF) 1 mg/mL injection 1 mg epidural CONT Pain 06/10/23 11/21/24 History solution levothyroxine 25 mcg tablet 25 mcg PO DAILY 09/09/24 10/29/24 History netarsudil 0.02 % eye drops 1 drp ophthalmic (eye) HS 09/09/24 10/29/24 History (Rhopressa) pantoprazole 40 mg tablet,delayed 40 mg PO DAILY 09/09/24 10/29/24 History release sennosides 8.6 mg-docusate sodium 1 tab PO BID PRN constipation 30 09/10/24 11/21/24 Rx 50 mg tablet (Stimulant Laxative days #60 tabs Plus) budesonide-formoterol HFA 160 2 puff inhalation BID soa #10.2 09/18/24 10/29/24 Rx mcg-4.5 mcg/actuation aerosol grams inhaler (Symbicort) levalbuterol tartrate 45 2 puff inhalation Q4-6H PRN 09/18/24 11/21/24 Rx mcg/actuation aerosol inhaler shortness of breath or wheezing #15 grams lorazepam 1 mg tablet 1 mg PO BID Anxiety #60 tabs 10/11/24 11/21/24 Rx alendronate 70 mg tablet 70 mg PO WEEKLY 11/22/24 11/22/24 History azithromycin 500 mg tablet 500 mg PO DAILY 5 days #5 tabs 11/22/24 Rx cefdinir 300 mg capsule 300 mg PO BID 5 days #10 caps 11/22/24 Rx furosemide 40 mg tablet (Lasix) 40 mg PO DAILY #30 tabs 11/22/24 Rx hydroxychloroquine 200 mg tablet 200 mg PO BID 11/22/24 11/22/24 History New Prescriptions to Start Prescriptions: Franklyn Crockett cefdinir Franklyn Caballero furosemide [Lasix] Franklyn Caballero Allergies Allergy/AdvReac Type Severity Reaction Status Date / Time levofloxacin (From Levaquin) Allergy Intermediate rash Verified 10/29/24 10:55 ibuprofen (From MOTRIN) Allergy Mild Verified 10/29/24 10:55 NSAIDS (Non-Steroidal Allergy Mild Verified 10/29/24 10:55 Anti-Inflamma (NSAIDS (NON-STEROIDAL ANTI-INFLAMMA) Sulfa (Sulfonamide Allergy Mild Verified 10/29/24 10:55 Antibiotics) (SULFA (SULFONAMIDE ANTIBIOTICS)) sibutramine (From Meridia) Allergy Verified 10/29/24 10:55 Discharge Plan Disposition Patient Disposition: Home, Self-Care Condition: Fair Follow up Plan Follow up with: Antelmo Webb PA [Physician [employer]oom [employer]er] - 11/26/24 Javed Olivares DO [Primary Care Provider] - Enter time for follow up Prescriptions/Medication Reconciliation: New cefdinir 300 mg capsule 300 mg PO BID 5 Days Qty: 10 0RF azithromycin 500 mg tablet 500 mg PO DAILY 5 Days Qty: 5 0RF Continued fexofenadine [Audra Allergy] 180 mg tablet 180 mg PO DAILY budesonide-formoterol [Symbicort] 160-4.5 mcg/actuation HFA aerosol inhaler 2 puff inhalation BID Qty: 10.2 4RF levalbuterol tartrate 45 mcg/actuation HFA aerosol inhaler 2 puff inhalation Q4-6H PRN (Reason: shortness of breath or wheezing) Qty: 15 2RF lorazepam 1 mg tablet 1 mg PO BID Qty: 60 2RF melatonin 1 mg Tablet 1 mg PO HSP PRN (Reason: Insomnia) morphine (PF) 1 mg/mL Solution 1 mg epidural CONT Rhopressa 0.02 % drops 1 drp ophthalmic (eye) HS Patient Comments: INSTILL 1 DROP INTO AFFECTED EYE(S) ONCE DAILY IN THE EVENING levothyroxine 25 mcg tablet 25 mcg PO DAILY pantoprazole 40 mg tablet,delayed release (DR/EC) 40 mg PO DAILY sennosides-docusate sodium [Stimulant Laxative Plus] 8.6-50 mg Tablet 1 tab PO BID PRN (Reason: constipation) 30 Days Qty: 60 0RF alendronate 70 mg tablet 70 mg PO WEEKLY hydroxychloroquine 200 mg tablet 200 mg PO BID Changed furosemide [Lasix] 40 mg tablet 40 mg PO DAILY Qty: 30 0RF Problem Reconciliation Problems Reviewed?: Yes Patient Discharge Instructions Patient Instructions: Urinary Tract Infection, Sepsis, DI for Altered Mental Status Print Language: Serbian Providers Primary Care Provider: Javed Olivares Admit Provider: Franklyn Caballero Attending Provider: Franklyn Caballero
[2024-11-22 17:38] LABS: Lymphocytes % 10 % (10-50); Monocytes % 7 % (2-9); Neutrophils % 83 % (42-76); Platelet Estimate Normal; Poikilocytosis 1+; Total Cells Counted 100
[2024-11-22 17:39] LABS: Ovalocytes 1+; Target Cells 1+; Tear Drop Cells 1+
--- NOTE | 2024-11-22 18:07 | PC.NURSE ---
Pt has allergy to levaquin. called and notified dr nj at 2016 new meds called into clinic pharmacy,. azithromycin 500mg po 1 tab daily x 5 days no refills cefdinir e300mg po 1 tab bid x 5 days no refills. called into [facility] [id number]
--- NOTE | 2024-11-23 10:47 | SW/DCPLANNER ---
Spoke with patient on the phone. Patient stated that she called her Drs early this morning and made follow appointments. Patient stated that she was able to get her new medicine from clinic pharmacy. Patient stated that she has no concerns or questions at this time. Zee Trammell
== END 2024-11-22 18:40 | disposition home or self-care (01) ==
LOC: ER 22:56 → 2ND 11-22 01:26 → ICU 11-22 04:55
PROVIDERS: Nurse Practitioner Family; Admitting Provider Student in an Organized Health Care Education/Training Program; Emergency Provider Emergency Medicine; PCP Internal Medicine; Visit Provider Student in an Organized Health Care Education/Training Program
DX: J96.01 Acute respiratory failure with hypoxia (principal); I50.31 Acute diastolic (congestive) heart failure; I50.810 Right heart failure, unspecified; J18.9 Pneumonia, unspecified organism; I11.0 Hypertensive heart disease with heart failure; J81.0 Acute pulmonary edema; G92.8 Other toxic encephalopathy; D72.829 Elevated white blood cell count, unspecified; Z86.16 Personal history of COVID-19; L89.159 Pressure ulcer of sacral region, unspecified stage; Z79.899 Other long term (current) drug therapy
CPT/HCPCS: 36415; 51702; 70450; 71045; 80048; 80053; 81001; 82803; 83690; 83880; 84145; 84484; 85007; 85025; 85027; 85610; 85730; 87040; 87636; 93005; 93306; 93325; 94640; 97163; 97165; 99285; G0378; J0456; J0696; J1644; J1940; J2060; J2405; J3370; J7030; J7050; J7620

== ENCOUNTER 2024-12-14 09:39 | Day surgery (SDC) | payer MEDICARE, OTHER, SELFPAY ==
--- NOTE | 2024-12-14 09:41 | P.PCN_ITS ---
Procedure Date: 12/14/24 Time: 10:08 Anesthesiologist:: Odilia Bustos APRN Complications:: None Pre-procedure Diagnosis:: Degenerative disc disease of lumbar spine with lumbar radiculopathy symptoms, knee pain Post-procedure Diagnosis:: Same Indications for Procedure:: Patient is a pleasant 84-year-old female who presents today for intrathecal refill and reprogram. Today she rates her pain a 7 out of 10. She denies any new trauma or injury. She does however state that she had recently been hospitalized around November 22. Pneumonia and UTI. She states that she is still trying to recover from all of that illness. Patient does state from her last visit she has been to see a Lisa for rheumatology and they did add Fosamax and a rheumatoid arthritis medicine but it was not the methotrexate. Patient states she does not recall what it was specifically. Patient does have intrat hecal morphine 1 mg/mL with a daily dose of 0.153 mg/day. She denies any side effects. She is asking for a slight increase today. Her Pieter has been reviewed and is appropriate. Physical Exam: General: Alert and oriented x3, no acute distress, pleasant and cooperative Lungs: Respirations even and unlabored, symmetrical chest expansion Eyes: PERRL Musculoskeletal: Flexion and extension of lumbar [spine] somewhat guarded secondary to pain, [antalgic gait noted] Neurological: Speech clear, no gross sensory deficit Procedure Details:: Informed consent was obtained and the risk and benefits of the procedure were explained to the patient. The patient had noninvasive monitoring placed including noninvasive blood pressure cuff and pulse oximeter. Patient's pump was interrogated. The area over the pump was cleansed with chlorhexidine as a cleansing solution. In sterile fashion the pump was accessed with a 22-gauge needle. Approximately 4.5 mls of the pump solution was removed and discarded appropriately. The pump was then refilled with 20 mL's of morphine 1 mg/mL. The needle was withdrawn and a bandage was placed over the puncture site. The infusion rate was reprogrammed and increased 10% to morphine 0.1684 mg/day. The patient tolerated well with no complication. Plan and Disposition:: Patient tolerated the procedure well with no complications and was discharged neurologically intact. Patient will return to clinic on or before their next intrathecal refill date. We will see the patient back in the clinic at the next intrathecal refill. Patient has been instructed to contact the clinic with any concerns before the next appointment. Dr. Wolf has reviewed this note and agrees with this plan of care. This note was dictated using voice recognition software and make contain errors or omissions. -- It Is medically necessary for this patient to continue to have their intrathecal pump refilled at regular intervals. This patient had an intrathecal pain pump implanted after meeting criteria of chronic intractable pain for greater than 3 months and failing conservative treatments. Patient has committed and been compliant to the treatment plan and all planned follow up care. Since implantation of the intrathecal pain pump, the patient has had decreased pain and been more functional. Oral medications have been reduced including intake of oral opioids. Patient continues to do well with intrathecal therapy with decrease in pain symptoms and increase in functional status. Stopping intrathecal medications can lead to life threatening withdrawal, seizures, cardiac arrest, severe pain, and possible . Pumps that are not refilled at regular intervals can be damages and cause and need for replacement. We continually titrate dose and concentration to optimize pain relief and function. We are limited in concentration for certain drugs to safely deliver medications through the pump and stay within the recommendations from the Polyanalgesic Consensus Committee Guidelines. Depending on dose and concentration these pumps may need to be refilled sooner than 3 months as we titrate. A UDS is needed to verify patient's compliance with our office pain contract. This is ordered based off specific treatments related to chronic pain with the potential to abuse certain medications.
[2024-12-14 09:57] VITALS: BP 142/80; PULSE 82; RESP 16; TEMP 36.8; O2SAT 96; BMI 28.8
[2024-12-14 10:03] VITALS: BP 148/96; PULSE 81; RESP 18; O2SAT 97
[2024-12-14 10:04] VITALS: BP 148/96; PULSE 82; RESP 18; O2SAT 97
[2024-12-14 10:15] VITALS: BP 144/80; PULSE 80; RESP 16; O2SAT 93
== END 2024-12-14 10:15 | disposition home or self-care (01) ==
PROVIDERS: PCP Internal Medicine; Visit Provider Nurse Practitioner Family
DX: M51.16 Intervertebral disc disorders with radiculopathy, lumbar region (principal); M25.569 Pain in unspecified knee
CPT/HCPCS: 62370

== ENCOUNTER 2025-02-22 10:36 | Day surgery (SDC) | payer MEDICARE, OTHER, SELFPAY ==
--- NOTE | 2025-02-22 10:38 | P.HP_ITS ---
History of Present Illness *Admission Date: 02/22/25 *Reason for visit:: Degenerative disc disease, intrathecal refill *History of present illness: Degenerative disc disease [facility] Disclaimer: The information contained in this section may have been updated after the patient was seen, as this information can be updated by other users. Medical History Non-ST elevation [place] (NSTEMI) Atypical pneumonia Altered mental status Sepsis Elevated troponin Sinus tachycardia Acute hypoxic respiratory failure Leukocytosis Sepsis Altered mental state Pulmonary edema Pneumonia Hospital discharge follow-up Constipation Knee pain Lumbar radiculopathy Dry mouth Sjogren syndrome Abnormal electrocardiogram [ECG] [EKG] Pneumonia UTI (urinary tract infection) Angioedema Allergic reaction Otitis media Acute bronchitis Acute viral syndrome COVID-19 Nausea & vomiting Abdominal pain GERD (gastroesophageal reflux disease) Urinary tract infection Sleep apnea History of COVID-19 Menopause Anxiety Psoriasis History of gastroesophageal reflux (GERD) Irritable bowel syndrome (IBS) Hypothyroid Hypertension History of sleep apnea History of COPD Asthma Family history of asthma Dyspnea on exertion Sinusitis Infected scalp abrasion Acute bacterial sinusitis Ingrown toenail of left foot Nail disorder (onychogryphosis) Sebaceous cyst of labia Cataract Multiple closed fractures of metatarsal bone of left foot Left foot pain Edema of left foot Normal colonoscopy Fracture of metatarsal bone of left foot Sinusitis Nasal congestion Sinusitis COPD exacerbation Thrush Bronchitis 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 History of eye surgery History of surgery on arm History of cholecystectomy H/O sinus surgery H/O bladder repair surgery Hx of cataract surgery H/O: hysterectomy 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 Other Asthma Diabetes Family history of cancer Heart attack Hypertension 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 Smoking Status: Never smoker alcohol intake: never substance use type: denies use current occupational status: retired Travel in the last 8 weeks?: None Have you lived/traveled outside [place] in past 30 days?: No Contact w/someone who lives/traveled outside [place] past 30 days?: No Exposure to someone with infectious disease in past 14 days?: No Do you have a fever (greater than 100.4 F or 38 C)?: No Have you tested positive for COVID-19?: No Exposed to someone with COVID-19 in past 14 days?: No Do you have a sore throat?: No Do you have a cough?: No Do you have any weakness?: No Do you have any diarrhea?: No Are you experiencing any unusual bleeding?: No Do you have any muscle aches/pain?: No Do you have any abdominal pain?: No Are you experiencing loss of taste or smell?: No Other Medical History Have you received the Flu Vaccine for this season: No Have you received the Pneumonia Vaccine: No Review of Systems Review of Systems Review of systems:: pertinent systems reviewed and negative unless documented below Review of systems (narrative): Review of Systems: General: No recent weight changes, no fever, no sleep disturbances Respiratory: No cough, no shortness of air, no recurring pulmonary infections Cardiovascular/peripheral vascular: No chest pain, no palpitations, no edema, no shortness of breath Gastrointestinal: No new onset incontinence, normal bowel movements reported Genitourinary: No new onset incontinence Musculoskeletal: Chronic back pain Psychiatric: [Normal mood/affect] Neurological: [Denies weakness in extremities], [denies balance issues] Meds Home Medications and Allergies Home Medications ?Medication ?Instructions ?Recorded ?Confirmed ?Type fexofenadine 180 mg tablet 180 mg PO DAILY 04/04/23 01/24/25 History (Audra Allergy) melatonin 1 mg tablet 1 mg PO HSP PRN Insomnia 05/26/23 01/24/25 History morphine (PF) 1 mg/mL injection 1 mg epidural CONT Pain 06/10/23 01/24/25 History solution netarsudil 0.02 % eye drops 1 drp ophthalmic (eye) HS 09/09/24 01/24/25 History (Rhopressa) sennosides 8.6 mg-docusate sodium 1 tab PO BID PRN constipation 30 09/10/24 01/24/25 Rx 50 mg tablet (Stimulant Laxative days #60 tabs Plus) hydroxychloroquine 200 mg tablet 200 mg PO BID 11/22/24 01/24/25 History alendronate 70 mg tablet 70 mg PO WEEKLY #10 tabs 12/05/24 01/24/25 Rx budesonide-formoterol HFA 160 2 puff inhalation BID soa 1 month 12/05/24 01/24/25 Rx mcg-4.5 mcg/actuation aerosol #20.4 grams inhaler (Symbicort) furosemide 40 mg tablet (Lasix) 40 mg PO DAILY #90 tabs 12/05/24 01/24/25 Rx levalbuterol tartrate 45 2 puff inhalation Q4-6H PRN 12/05/24 01/24/25 Rx mcg/actuation aerosol inhaler shortness of breath or wheezing #30 grams levothyroxine 25 mcg tablet 25 mcg PO DAILY #90 tabs 12/05/24 01/24/25 Rx pantoprazole 40 mg tablet,delayed 40 mg PO DAILY #90 tabs 12/05/24 01/24/25 Rx release lorazepam 1 mg tablet 1 mg PO BID Anxiety #60 tabs 01/25/25 01/25/25 Rx sertraline 25 mg tablet 25 mg PO DAILY #30 tabs 01/25/25 01/25/25 Rx New Prescriptions to Start Prescriptions: Allergies Allergy/AdvReac Type Severity Reaction Status Date / Time levofloxacin (From Levaquin) Allergy Intermediate rash Verified 01/24/25 13:20 ibuprofen (From MOTRIN) Allergy Mild Verified 01/24/25 13:20 NSAIDS (Non-Steroidal Allergy Mild Verified 01/24/25 13:20 Anti-Inflamma (NSAIDS (NON-STEROIDAL ANTI-INFLAMMA) Sulfa (Sulfonamide Allergy Mild Verified 01/24/25 13:20 Antibiotics) (SULFA (SULFONAMIDE ANTIBIOTICS)) sibutramine (From Meridia) Allergy Verified 01/24/25 13:20 Exam Constitutional Constitutional: no acute distress *Routine HEENT Exam Head: Present normocephalic and atraumatic Eye: Present PERRL ENT: Present mucous membranes moist *Routine Neck Exam Neck: Present supple *Routine Respiratory Exam Respiratory: Present CTA bilaterally *Routine Cardiovascular Exam Cardiovascular: Present RRR *Routine Abdominal Exam Abdominal: Present soft *Routine Rectal Exam Rectal:: deferred *Routine Genitalia Exam Genitalia:: normal female Routine Back/Spine/Pelvis Exam Back/Spine: Present pain with flexion *Routine Skin Exam Skin: Present intact and warm *Routine Neurological Exam Neurological: Present alert and oriented X3 Routine Psychiatric Exam Psychiatric: Present normal affect and normal thought process Assessment and Plan *Assessment and plan (1) Lumbar facet arthropathy: Status: Acute Category: Medical Code(s): M47.816 - Spondylosis without myelopathy or radiculopathy, lumbar region (2) Greater trochanteric bursitis of right hip: Status: Acute Category: Medical Code(s): M70.61 - Trochanteric bursitis, right hip (3) Degenerative disc disease, lumbar: Status: Acute Category: Medical Code(s): M51.369 - Other intervertebral disc degeneration, lumbar region without mention of lumbar back pain or lower extremity pain Plan Patient has been instructed to contact the clinic with any concerns before the next appointment. Dr. Wolf has reviewed this note and agrees with this plan of care. This note was dictated using voice recognition software and make contain errors or omissions. All injections are used with Lidocaine, Bupivacaine and dexamethasone. Occasionally urine drug screen is needed to verify patient's compliance with our office pain contract. This is ordered based off specific treatments related to chronic pain with the potential to abuse certain medications.
--- NOTE | 2025-02-22 10:40 | P.PCN_ITS ---
Procedure Date: 02/22/25 Time: 11:12 Anesthesiologist:: Odilia Bustos APRN Complications:: None Pre-procedure Diagnosis:: Degenerative disc disease of lumbar spine with lumbar radiculopathy symptoms, chronic back pain Post-procedure Diagnosis:: Same Indications for Procedure:: Patient is a pleasant 84-year-old female who presents today for intrathecal refill and reprogram. Today she rates her pain 5 out of 10. She denies any new falls or injuries. She does state that she has been having a lot more pain due to the increased weather changes. Patient is currently managed with morphine 1 mg/mL with a daily dose of 0.1684 mg/day. She is requesting an increase if we can. Her Pieter has been reviewed and is appropriate. Physical Exam: General: Alert and oriented x3, no acute distress, pleasant and cooperative Lungs: Respirations even and unlabored, symmetrical chest expansion Eyes: PERRL Musculoskeletal: Flexion and extension of lumbar [spine] somewhat guarded secondary to pain, [antalgic gait noted] Neurological: Speech clear, no gross sensory deficit Procedure Details:: Informed consent was obtained and the risk and benefits of the procedure were explained to the patient. The patient had noninvasive monitoring placed i ncluding noninvasive blood pressure cuff and pulse oximeter. Patient's pump was interrogated. The area over the pump was cleansed with chlorhexidine as a cleansing solution. In sterile fashion the pump was accessed with a 22-gauge needle. Approximately 6 mls of the pump solution was removed and discarded appropriately. The pump was then refilled with 20 mL's of morphine 1 mg/mL. The needle was withdrawn and a bandage was placed over the puncture site. The infusion rate was reprogrammed and increased 10% to morphine 0.1851 mg/day. The patient tolerated well with no complication. Plan and Disposition:: Patient tolerated the procedure well with no complications and was discharged neurologically intact. Patient will return to clinic on or before their next intrathecal refill date. We will see the patient back in the clinic at the next intrathecal refill. Patient has been instructed to contact the clinic with any concerns before the next appointment. Dr. Wolf has reviewed this note and agrees with this plan of care. This note was dictated using voice recognition software and make contain errors or omissions. -- It Is medically necessary for this patient to continue to have their intrathecal pump refilled at regular intervals. This patient had an intrathecal pain pump implanted after meeting criteria of chronic intractable pain for greater than 3 months and failing conservative treatments. Patient has committed and been compliant to the treatment plan and all planned follow up care. Since implantation of the intrathecal pain pump, the patient has had decreased pain and been more functional. Oral medications have been reduced including intake of oral opioids. Patient continues to do well with intrathecal therapy with decrease in pain symptoms and increase in functional status. Stopping intrathecal medications can lead to life threatening withdrawal, seizures, cardiac arrest, severe pain, and possible . Pumps that are not refilled at regular intervals can be damages and cause and need for replacement. We continually titrate dose and concentration to optimize pain relief and function. We are limited in concentration for certain drugs to safely deliver medications through the pump and stay within the recommendations from the Polyanalgesic Consensus Committee Guidelines. Depending on dose and concentration these pumps may need to be refilled sooner than 3 months as we titrate. A UDS is needed to verify patient's compliance with our office pain contract. This is ordered based off specific treatments related to chronic pain with the potential to abuse certain medications.
[2025-02-22 10:55] VITALS: BP 179/84; PULSE 79; RESP 16; O2SAT 95; BMI 29.2
[2025-02-22 11:00] VITALS: BP 141/78; PULSE 84; RESP 18; O2SAT 95
[2025-02-22 11:25] VITALS: BP 148/82; PULSE 77; RESP 16; O2SAT 95
== END 2025-02-22 11:25 | disposition home or self-care (01) ==
PROVIDERS: PCP Internal Medicine; Visit Provider Nurse Practitioner Family
DX: M51.16 Intervertebral disc disorders with radiculopathy, lumbar region (principal); M54.9 Dorsalgia, unspecified; G89.29 Other chronic pain
CPT/HCPCS: 62370

== ENCOUNTER 2025-02-28 14:25 | Outpatient (CLI) | payer MEDICARE, OTHER, SELFPAY ==
[2025-02-28 14:44] LABS: Basophils % 0.5 % (0.1-2.0); Eosinophils # 0.2 Kmm3 (0.0-0.4); Eosinophils % 2.4 % (0.1-12.0); Hematocrit 39.3 % (37.0-47.0); Hemoglobin 12.8 g/dL (12.2-16.2); Immature Granulocytes # 0.01 10^3uL; Immature Granulocytes % 0.1 %; Lymphocytes # 2.2 K/mm3 (0.7-4.5); Mean Corpuscular HGB Conc 32.6 g/dL (31.8-35.4); Mean Corpuscular Hemoglobin 31.7 pg (27.0-31.2); Mean Corpuscular Volume 97.3 fl (81-99); Monocytes # 0.5 K/mm3 (0.1-1.0); Monocytes % 5.5 % (1.7-9.3); Neutrophils # 5.3 K/mm3 (1.8-7.8); Neutrophils % 64.5 % (37.0-80.0); Nucleated Red Blood Cells # 0 10^3/uL; Nucleated Red Blood Cells % 0 %; Platelet Count 395 K/mm3 (142-424); Red Blood Count 4.04 M/mm3 (4.20-5.40); Red Cell Distribution Width 15.4 % (11.5-17.5); Red Cell Distribution Width-SD 55.1 fL; White Blood Count 8.2 K/mm3 (4.8-10.8)
[2025-02-28 15:13] LABS: Anion Gap 9.8 mEq/L (5-15); Blood Urea Nitrogen 11 mg/dl (7-17); Calcium 9.2 mg/dl (8.4-10.2); Carbon Dioxide 27 mmol/L (22.0-30.0); Chloride 105 mmol/L (98-107); Estimated Glomerular Filt Rate 95 ml/min (>60); GFR (African American) 115 ML/MIN (>60); Glucose 88 mg/dl (74-100); Potassium 4.8 mmoL/L (3.5-5.1); Sodium 137 mmol/L (136-145)
== END 2025-02-28 23:59 | disposition home or self-care (01) ==
PROVIDERS: PCP Internal Medicine; Visit Provider Nurse Practitioner
DX: I50.9 Heart failure, unspecified (principal)
CPT/HCPCS: 36415; 80048; 85025

== ENCOUNTER 2025-04-08 10:49 | Outpatient (CLI) | payer MEDICARE, OTHER, SELFPAY ==
--- OUTSIDE RECORDS SUMMARY | 2025-02-27 10:15 | XMS_ITS | Continuity of Care Document ---
Author Organization [facility] Address [address] [place] [address] Phone Care Team Providers Care Flat Clothier Name Role Phone Rani OD, Lily Unavailable Unavailable Allergies, Adverse Reactions, Alerts Substance Reaction Status Criticality Sulfa (Sulfonamide Antibiotics) shortness of breath Ac tive No Information NSAIDS (Non-Steroidal Anti-I nflammatory Drug) shortness of breath Active No Information ibuprofen shortness of breath Active No Infor mation SIBUTRAMINE HCL MONOHYDRATE palpitations Active No Information clarithromycin rash Active No Informatio n trimethoprim Active No Information sulfamethoxazole Active No Informat ion aspirin shortness of breath Active No Infor mation Medications Medication Instructions Dosage Effective Dates (start - stop) Status Comments Rhopressa 0.02 % eye drops instill 1 drop by ophthalmic route every day into affected eye(s) in the evening 1.00 drop - Active 90 day supply erythromycin 5 mg/gram (0.5 %) eye ointment apply (1CM) by ophthalmic route 3 times every day ribbon into the lower conjunctival sac in the right eye 1 CM - Active Plaquenil 200 mg tablet take 1 tablet by oral route 2 times every day 200 MG - Active morphine (PF) 30 mg/30 mL (1 mg/mL) in 0.9% sod.chloride PAN DEVULCANIZER IV soln infuse 0.5 milliliter by intravenous route every 5 - 10 minutes via infusion pump as needed 0.5 MG - Active acetaminophen 500 mg capsule take 2 capsule by oral route every 6 hours as needed 1000 MG - Active azithromycin 250 mg tablet take 2 tablet by oral route every day for 1 day then 1 tablet (250 mg) by oral route once daily for 4 days 500 MG - Active baclofen 10 mg tablet take 3 tablet by oral route every day 30 MG - Active hydrocodone 7.5 mg-acetaminophen 325 mg tablet take 1 tablet by oral route every 6 hours as needed for pain 1.00 tablet - Active levothyroxine 25 mcg capsule take 1 capsule by oral route every day 25 MCG - Active multivitamin capsule take 1 capsule by oral route every day - Active lorazepam 0.5 mg tablet take 1 Tablet by oral route once 0.5 MG - Active pantoprazole 40 mg tablet,delayed release take 1 tablet by oral route every day 40 MG - Active Paxil 20 mg tablet take 1 tablet by oral route every day 20 MG - Active Flonase 50 mcg/actuation nasal spray,suspension spray 1 spray by intranasal route every day in each nostril - Active albuterol sulfate 2.5 mg/3 mL (0.083 %) solution for nebulization inhale 3 milliliter by nebulization route 3 times every day 2.5 MG - Active Symbicort 80 mcg-4.5 mcg/actuation HFA aerosol inhaler inhale 2 puff by inhalation route 2 times every day in the morning and evening 2.00 puff - Active Xopenex 0.31 mg/3 mL solution for nebulization - Active Procedures Procedure Date Visual Field Examination W I And R Exten ded Uni Or Bi Ophthal DX Image Post Retina I And R Uni Or Bi Eye Exam Established Patient Comprehensi ve 1 Or More Visits OFFICE/OUTPATIENT VISIT, EST, Low Visual Field Examination W I And R Exten ded Uni Or Bi OFFICE/OUTPATIENT VISIT, EST, Moderate M Ophthal DX Imag Posterior Seg I And R Un i Or Bi OFFICE/OUTPATIENT VISIT, EST, Low OFFICE/OUTPATIENT VISIT, EST, Low OFFICE/OUTPATIENT VISIT, EST, Low OFFICE/OUTPATIENT VISIT, EST, Low Visual Field Examination W I And R Exten ded Uni Or Bi OFFICE/OUTPATIENT VISIT, EST, Low Dec-03 -2021 Ophthal DX Imag Posterior Seg I And R Un i Or Bi Oct- Gonioscopy Bilateral Oct- ECHO EXAM OF EYE, THICKNESS Oct- OFFICE/OUTPATIENT VISIT, EST, Low Oct- OFFICE/OUTPATIENT VISIT, NEW Oct- ECHO EXAM OF EYE, THICKNESS Oct- OFFICE/OUTPATIENT VISIT, EST Visual Field Examination W I And R Exten ded Uni Or Bi Eye Exam Established Patient Comprehensi ve 1 Or More Visits Fundus Photography With I And R Bilcarmena l Post Op Follow Up Visit Excision Of Lesion Eyelid WO Closure Or Simple Closure Incisional Biopsy Of Eyelid Skin Includi ng Lid Margin EXPLORE/BIOPSY EYE SOCKET Void Ticket Eye Exam Established Patient Intermediat e Gonioscopy Visual Field Examination W I And R Exten ded Uni Or Bi OPTIC NERVE HEAD EVAL DONE IOP DOWN Greater Than 15 Percent OF PRES VC LVL OFFICE/OUTPATIENT VISIT, EST Eye Exam Established Patient Intermediat e Gonioscopy Post Op Follow Up Visit Post Op Follow Up Visit CATARACT SURG W/IOL, 1 STAGE Ophthalmic Biometry W Iol Calculation Pr of Comp Unilateral Post Op Follow Up Visit Post Op Follow Up Visit CATARACT SURGERY, COMPLEX OFFICE/OUTPATIENT VISIT, EST Ophthalmic Biometry W Iol Calculation Un ilateral Eye Exam Established Patient Comprehensi ve 1 Or More Visits Gonioscopy OPTIC NERVE HEAD EVAL DONE IOP DOWN Greater Than 15 Percent OF PRES VC LVL Contact Lens Follow Up Iridotomy/Iridectomy By Laser 4 Post Op Follow Up Visit Iridotomy/Iridectomy By Laser 4 Eye Exam Established Patient Intermediat e ECHO EXAM OF EYE, THICKNESS Gonioscopy Visual Field Examination W I And R Exten ded Uni Or Bi OFFICE/OUTPATIENT VISIT, EST Advance Directives Directive Yes / No Effective Date File Name No Information Encounters Encounter Description Practice Location Reason(s) For Visit Diagnoses Date Provider Providers Copied on Encounter [facility], [address] [place], [address], tel:[phone] [facility] 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 [address] [place], [place], [id number], [place]. tel:[phone] Referring Provider: Lily Gaytan, [address] [place], [address] . tel:[phone] OFFICE/OUTPA TIENT VISIT, EST, Low [facility], [address] [place], [address], [place] tel:[phone] [facility] glaucoma (chief complaint) Bialteral capsular glaucoma with pseudoexfolia tion of lenses, moderate stageAnatomic al narrow angle of both eyesPresence of pseudophakiaM eibomian gland dysfunction of right eye, upper and lower eyelidsMeibom carolyn gland dysfunction of left eye, upper and lower eyelidsSquamo us blepharitis right eye, upper and lower eyelidsSquamo us blepharitis left eye, upper and lower eyelids 5 Priti Marti. [address] [place], [place], [id number], [place]. tel:[phone] Referring Provider: Kaia Davis, [address] [place], [address] . tel:[phone] OFFICE/OUTPA TIENT VISIT, EST, Moderate [facility], [address] [place], [address], [place] tel:[phone] [facility] [address] capsular glaucoma with pseudxf lens (chief complaint) Anatomical narrow angle of both eyesPresence of pseudophakiaM eibomian gland dysfunction of right eye, upper and lower eyelidsMeibom carolyn gland dysfunction of left eye, upper and lower eyelidsInfest ation by DemodexPingue cula, rightPterygiu m of right eyeBialteral capsular glaucoma with pseudoexfolia tion of lenses, moderate stage 4 Priti Marti. [address] [place], [place], [id number], [place]. tel:[phone] Referring Provider: Kaia Davis, [address] [place], [address] . tel:[phone] OFFICE/OUTPA TIENT VISIT, EST, Low [facility], [address] [place], [place], [facility], [place] tel:[phone] [facility] [address] Capsular Glaucoma (chief complaint) Bialteral capsular glaucoma with pseudoexfolia tion of lenses, moderate stagePresence of pseudophakiaM eibomian gland dysfunction of right eye, upper and lower eyelidsMeibom carolyn gland dysfunction of left eye, upper and lower eyelids 4 Cherry Gayle. [address] [place], [place], [id number], [place]. tel:[phone] Referring Provider: Irwin Carey, [address] [place], [address] . tel:[phone] OFFICE/OUTPA TIENT VISIT, EST, Low [facility], [address] [place], [address], [place] tel:[phone] [facility] [address] capsular glaucoma (chief complaint) Squamous blepharitis right eye, upper and lower eyelidsSquamo us blepharitis left eye, upper and lower eyelidsMeibom carolyn gland dysfunction of right eye, upper and lower eyelidsMeibom carolyn gland dysfunction of left eye, upper and lower eyelidsAnatom ical narrow angle of both eyesBialteral capsular glaucoma with pseudoexfolia tion of lenses, moderate stage 2 Marcos Kaia. [address] [place], [place], [id number], [place]. [phone] Referring Provider: No Ref Doc No Referring Doc. OFFICE/OUTPA TIENT VISIT, EST, Low [facility], [address] [place], [place], [facility], [phone] KAREEM [address] capsular glaucoma with pseudoexfolia tion of lens modera (chief complaint) Bialteral capsular glaucoma with pseudoexfolia tion of lenses, moderate stageAnatomic al narrow angle of both eyesPresence of pseudophakiaM eibomian gland dysfunction of right eye, upper and lower eyelidsMeibom carolyn gland dysfunction of left eye, upper and lower eyelidsSquamo us blepharitis right eye, upper and lower eyelidsSquamo us blepharitis left eye, upper and lower eyelids 2 Marcos Kaia. [address] [place], [place], [id number], [place]. tel:[phone] Referring Provider: No Ref Doc No Referring Doc. OFFICE/OUTPA TIENT VISIT, EST, Low [facility], [address] [place], [place], [facility], [place] [phone] [facility] [address] OAG (chief complaint) Bialteral capsular glaucoma with pseudoexfolia tion of lenses, moderate stageAnatomic al narrow angle of both eyesPresence of pseudophakia Dec-0 2 Marcos Kaia. [address] [place], [place], [id number], [place]. tel:[phone] Referring Provider: No Ref Doc No Referring Doc. OFFICE/OUTPA TIENT VISIT, EST, Low [facility], [address] [place], [address], [place] tel:[phone] [facility] [address] [facility] glaucoma f/u (chief complaint) Bialteral capsular glaucoma with pseudoexfolia tion of lenses, moderate stageAnatomic al narrow angle of both eyesPresence of pseudophakia Dec-0 3-202 1 Marcos Kaia. [address] [place], [place], [id number], [place]. tel:[phone] Referring Provider: No Ref Doc No Referring Doc. OFFICE/OUTPA TIENT VISIT, EST, Low [facility], [address] [place], [address], [place] tel:[phone] [facility] [place] glaucoma consult (chief complaint) Capsular glaucoma with pseudoexfolia tion of lens, right eye, moderate stageAnatomic al narrow angle of both eyesOpen angle with borderline findings, low risk, left eye Oct-2 1 Priti Marti. [address] [place], [place], [id number], [place]. tel:[phone] Referring Provider: No Ref Doc No Referring Doc. OFFICE/OUTPA TIENT VISIT, EST [facility], [address] [place], [address], [place] tel:[phone] [facility] [place] 5 month glaucoma follow up (chief complaint) Capsular glaucoma with pseudoexfolia tion of lens, right eye, moderate stageChronic angle-closure glaucoma of right eye, stage unspecifiedOp en angle with borderline findings, low risk, left eye Mar-2 4-201 6 Hinel Carlos. [address] [place], [place], [id number], [place]. tel:[phone] Referring Provider: No Ref Doc No Referring Doc. [facility], [address] [place], [address], [place] tel:[phone] [facility] [place] 7 month glaucoma follow up (chief complaint) Capsular glaucoma with pseudoexfolia tion of lens, right eye, moderate stageChronic angle-closure glaucoma of right eye, stage unspecifiedAn atomical narrow angle of both eyesOpen angle with borderline findings, low risk, left eye Oct-2 5 Snuilmanuela Carlos. [address] [place], [place], [id number], [place]. tel:[phone] Referring Provider: No Ref Doc No Referring Doc. [facility], [address] [place], [address], [place] tel:[phone] [facility] Pseudoexfolia tion glaucoma, moderate stageChronic angle-closure glaucoma of right eye, stage unspecifiedAn atomical narrow angle of both eyesDiplopia Oct-2 5 Geronimo Calabrese. [address] [place], [place], [id number]. tel:[phone] [facility], [address] [place], [address], [place] tel:[phone] [facility] Follow Up of s/p ANT ORB (chief complaint) No Information 5 James Calabrese. [address] [place], [place], [id number], [place]. tel:[phone] Referring Provider: Guanakito Gallego, [address] [place], [address] . tel:[phone] [facility], [address] [place], [address], [place] tel:[phone] [facility] No Information James Calabrese. [address] [place], [place], [id number], [place]. tel:[phone] Referring Provider: Guanakito Gallego, [address] [place], [address] . tel:[phone] [facility], [address] [place], [address], [place] tel:[phone] [facility] No Information Jethro-1 6-201 5 No Information Referring Provider: Guanakito Gallego, [address] [place], [address] . tel:[phone] [facility], [address] [place], [address], [place] tel:[phone] [facility] [address] glaucoma, followup w/HVF (chief complaint) No Information Dec-3 0- 5 Geronimo Calabrese. [address] [place], [place], [id number]. tel:[phone] Referring Provider: Guanakito Watkins, [address] [place], [address] . tel:[phone] OFFICE/OUTPA TIENT VISIT, EST [facility], [address] [place], [address], [place] tel:[phone] [facility] Double vision (chief complaint) No Information Sep-0 8 4 James Calabrese. [address] [place], [place], [id number], [place]. tel:[phone] Referring Provider: Guanakito Gallego, [address] [place], [address] . tel:[phone] [facility], [address] [place], [address], [place] tel:[phone] [facility] [address] glaucoma, followup w/GONIO (chief complaint) No Information Jul-0 4 Geronimo Calabrese. [address] [place], [place], [id number]. tel:[phone] Referring Provider: Acosta Rios, [address], [place], [address] . tel:[phone] [facility], [address] [place], [address], [place] tel:[phone] [facility] No Information May-2 2 4 No Information Referring Provider: Acosta Rios, [address], [place], [address] . tel:[phone] [facility], [address], [place], [address], [place] tel:[phone] [facility] [address] No Information 4 Shannan Fuchs. [address], [place], [place], [id number]. tel:[phone] Referring Provider: Acosta Rios, [address], [place], [address] . tel:[phone] [facility], [address], [place], [address], [place] tel:[phone] [facility] No Information 4 [facility]. [address] [place] [address] [address], [place], [place], [id number]. tel:[phone] Referring Provider: Acosta Rios, [address], [place], [address] . tel:[phone] [facility], [address], [place], [address], [place] tel:[phone] [facility] [address] No Information 4 No Information Referring Provider: Acosta Rios, [address], [place], [address] . tel:[phone] [facility], [address], [place], [address], [place] tel:[phone] [facility] [address] No Information 4 [facility]. [address] [place] [address] [address], [place], [place], [address]. tel:[phone] Referring Provider: Acosta Rios, [address], [place], [address] . tel:[phone] [facility], [address], [place], [address], [place] tel:[phone] [facility] No Information 4 [facility]. [address], [address], [place], [place], [id number]. tel:[phone] Referring Provider: Acosta Rios, [address], [place], [address] . tel:[phone] OFFICE/OUTPA TIENT VISIT, EST [facility], [address] [place], [address], [place] tel:[phone] [facility] No Information 2 4 [facility]. [address], [address], [place], [place], [address]. tel:[phone] Referring Provider: Acosta Rios, [address], [place], [address] . tel:[phone] [facility], [address] [place], [address], [place] tel:[phone] [facility] No Information 4 Geronimo Calabrese. [address] [place], [place], [id number]. tel:[phone] Referring Provider: Acosta Rios, [address], [place], [address] . tel:[phone] [facility], [address] [place], [address], [place] tel:[phone] [facility] No Information 4 Geronimo Calabrese. [address] [place], [place], [id number]. tel:[phone] Referring Provider: Acosta Rios, [address], [place], [address] . tel:[phone] [facility], [address] [place], [address], [place] tel:[phone] [facility] No Information 4 Geronimo Calabrese. [address] [place], [place], [id number]. tel:[phone] Referring Provider: Acosta Rios, [address], [place], [address] . tel:[phone] [facility], [address] [place], [address], [place] tel:[phone] [facility] [place] No Information May-0 6-201 4 Geronimo Calabrese. [address] [place], [place], [id number]. tel:[phone] Referring Provider: Acosta Rios, [address], [place], [address] . tel:[phone] [facility], [address] [place], [address], [place] tel:[phone] [facility] No Information May-0 6-201 4 Geronimo Calabrese. [address] [place], [place], [id number]. tel:[phone] Referring Provider: Acosta Rios, [address], [place], [address] . tel:[phone] [facility], [address] [place], [address], [place] tel:[phone] [facility] No Information May-0 5-201 4 Geronimo Calabrese. [address] [place], [place], [id number]. tel:[phone] Referring Provider: Acosta Rios, [address], [place], [address] . tel:[phone] OFFICE/OUTPA TIENT VISIT, EST [facility], [address] [place], [address], [place] tel:[phone] [facility] No Information May-0 1-201 4 Gregory Carpio. [address], [address], [place], [place], [address]. tel:[phone] Referring Provider: Acosta Rios, [address], [place], [address] . tel:[phone] [facility], [address] [facility], [place], [address], [place] tel:[phone] [facility] No Information Dec-0 4 Princess Shane. [address], [address], [place], [place], [id number], [place]. tel:[phone] 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 Family Member Type Diagnosis Age At Onset Problem (finding) Family history of catar act Son Problem (finding) Cancer in the eye Problem (finding) Family history of HBP Problem (finding) Family history of Diabe kade mellitus Problem (finding) No Family history of Gl aucoma Problem (finding) No Family history of Re tinal Disorders Payers Payer name Insurance type Covered democrat ID Authoriza tion(s) [employer] [id number] [facility] - [id number] 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 Type Description Quantity Date Captured Comments Alcohol Use Details No Caffeine Use Details Unknown Tobacco Use Status Current non-smoker Smoking Status Never smoker Sex Female Chief Complaint And Reason For Visit From encounter dated '02/27/2025 14:15'. 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 Pt states VA stable since last visit us and has not noticed any changes. Pt denies any eye pain, redness, flashes, floaters, or difficulty with treatment plan. Pt using drops correctly and is tolerating them well. 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 Pt states VA stable since last visit us and has not noticed any changes. Pt denies any eye pain, redness, flashes, floaters, or difficulty with treatment plan. Pt using drops correctly and is tolerating them well. meds: lid scrubs BID nighttime evelia qhs OU( pt does not use, pt states has redness after that, and vision was blurry for a few days.)Rhopressa hs/hs glaucoma The 84 year old patient presents for evaluation of glaucoma in the right and left eyes. Pt states vision remains stable since last OV. Pt denies pain, flashes of light, and floaters. Pt states she hasn't been using rhopressa for the past month due to cost of drop.drops: rhopressa QHS OU, systane PRN capsular glaucoma with pseudxf l ens The 83 year old patient presents for evaluation of capsular glaucoma with pseudxf lens in the right and left eyes. Pt states has a calcium deposit on right eye and vision is burry. Pt getting yellow strings in the corner right eye and has a dot in left eye. Pt able to get strings out with a tissue. Pt using Visine for redness. Pt has headaches all the time. Pt using Morphine pain pump. Pt denies pain, headaches, flashes, floaters. meds: Rho qhs OU Visine QD OU Capsular Glaucoma The 83 year ol d patient presents for evaluation of Capsular Glaucoma in the right and left eyes. Pt states she is just here to be seen so she is able to get a pair of Bi-Focals;Pt states DVA OU seems to be stable since last OV in 05/2022; NVA seems to be a little worse, and she strains more now to try and do crossword puzzlespt denies pain, feelings of pressure, dryness, double vision, flashes of light, new floatersRhopressa 10/10; capsular glaucoma The 82 year ol d female presents for evaluation of capsular glaucoma in the right eye and left eye. Pt states VA stable since last OV and has not noticed any changes. Pt denies any pain, redness, headaches, flashes, floaters, or difficulty with treatment plan. 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 Pt states saw Dr. Amaya 2 weeks ago and he asked if pt was wearing eyeshadow and she said no, so he told her to stop Alphagan. She tried it once since then and her eyes got pink again so she hasn't been taking it, had itching that has since improved. Pt states VA is blurry sometimes in the right eye. Pt denies any pain, redness, headaches, flashes, floaters. Pt in not using drops correctly and is not tolerating them well. Meds: none OAG The 81 year old female presents for evaluation of OAG in the right and left eyes. Pt states VA stable since last OV and has not noticed any changes. Pt denies any pain, redness, headaches, flashes, floaters, or difficulty with treatment plan. Pt using drops correctly and is tolerating them well. Alph TID OU 1mo glaucoma f/u The 81 year old female presents for evaluation of 1mo glaucoma f/u in the right and left eyes. PT states her vision is okay, stable. PT is experiencing blurry vision (occasionally). PT denies pain, headaches, light sensitivity, and diplopia. gtts:alphagan 3/3 glaucoma consult The 81 year old female presents for evaluation of glaucoma consult in the right and left eyes. Pt states she has been using Travatan for years and about 2 wks ago she started noticing redness on lids and burning. Pt states she has not noticed any changes in her vision and that she does puzzles often with no problem. Pt denies any eye pain, constriction or darkening vision. Stopped drops 2 weeks ago Glaucoma FHx: NONENo h/o: Head/eye trauma, concussion, low BP/HR, BP meds, migraines, Raynaud's, blood transfusion, anemia, sickle cell, kidney stones, COPD, diabetesH/o: asthma, sleep apnea, prednisone shots Meds: Stopped using drops after redness per PCP 5 month glaucoma follow up The 6 6 year old female presents for a 5 month glaucoma follow up in the right and left eyes. The patient describes it as redness in the right eye nasally. The patient feels vision is stable. Patient denies any drop problems and is using drops correctly, change in vision, decreased vision, eye pain, floaters and sensivity to light. States she has been doing pretty good vision montoya since her last visit. 7 month glaucoma follow up The 6 6 year old female presents for a 7 month glaucoma follow up in the right and left eyes. The patient describes it as painful. The patient feels it is stable. The condition is described as having double vision. Patient denies any drop problems and is using drops correctly, change in vision, decreased vision, floaters and sensivity to light. Associated symptoms include: headaches. States she had double vision 2 times since her last visit and stated it was side to side. States she had dull eye pain once since her last visit. States she has headaches but they are sinus related. Follow Up of s/p ANT ORB The 74 year old female presents for evaluation of Follow Up of s/p ANT ORB in the right eye. Patient states that she is having a yellowish discharge. States she is having a lot of double vision . Denies any pain. States she is having itching . States her double vision gets better if she is wearing her sunglasses. glaucoma, followup w/HVF The 74 year old female presents for evaluation of glaucoma, followup w/HVF in the right and left eyes. The patient feels it is stable. The condition is described as no noticeable vision changes. Patient denies eye pain and any drop problems and is using drops correctly. Zoraida gtts well OU. glaucoma, followup w/HVF Double vision The 74 year old female presents for evaluation of Double vision in the right eye. It started about 9 years ago. The onset was sudden. The patient feels it is unchanged. The condition is described as having double vision. Patient states that she had sinus surgery, and they cut the muscle. Patient states that the double vision comes on spontaneous. Patient states that she has to close both eyes to make the double vision. Patient denies any other symptoms other than the double vision. Patient states that the vision is stable otherwise. Patient denies any pain. glaucoma, followup w/GONIO The 6 5 year old female presents for evaluation of glaucoma, followup w/GONIO in the right and left eyes. The patient feels it is stable. The condition is described as no noticeable changes. Patient denies eye pain and any drop problems and is using drops correctly. Pt saw Dr. Wang Alejandre (at [facility]) and pt states she is supposed to get strabismus sx. dur/ilev qd od Functional Status Date Functional Assessmen t No Information Instructions Date Instruction Additional Infor mation Impression/Plan Impression/Plan Impression/Plan Impression/Plan 2-3 months IOP / DFE (0.5% tropicamide) / OCT RNFL with [facility] Related to Anatomical narrow angle of both eyes Impression/Plan Impression/Plan Impression/Plan Impression/Plan Impression/Plan - IOP stable OU. HVF is stable OD; possible early inferior nasal step defect OS. Will need to repeat to confirm. Continue with Jose Z qhs OU. Check SDP today. RTC in 6 months repeat DFE/ HVF 24-2 OS and OCT-RNFL OU Related to See impression details - IOP stable OU. Con tinue with Jose Z qhs OU. Check SDP today. Optic nevre cupping stable OU. RTC in 4 months with IOP / HVF 24-2 OU. Related to See impression details - doing well patient seeing Dr. Alejandre today and will continue in her care for medication and care Recommend excision of lid lesion in the office today. Risks, benefits and alternatives discussed. Patient verbally consents to the procedure. Use prescribed antibiotic ointment on incision three times daily for one week. A biopsy was obtained in the office today. Pathology report will confirm the final diagnosis. Related to See impression details - Return in PRN Related to See i mpression details - IOP stable post st arting Jose Z qhs OU. HVF today stable OU. Rec f/u with [facility] in 3-4 months, IOP check/DFE/disc photos OU. Angle closure warnings discussed and rec. call [facility]. Related to See impression details - see above Related to See i mpression details - Follow up 1 week after operati on Related to See impression details - Plan Ct Scan ANT O rbt explore -OD with Dr. Molly Alejandre Related to See impression details - IOP stable post st arting Jose Z qhs OU. Rec f/u with [facility] in 3-4 months, IOP check, repeat HVF OU to ensure stable OU, disc photos OU. Angle closure warnings discussed and rec. call [facility]. Related to See impression details - see above. Related to See i mpression details - -VA decreased seco ndary to AMD and likely amblyopia-Keep strab eval in [facility] as scheduled for glaucoma Related to PO PCIOL - -Patient very happ y with increase in VA-Proceed as planned with phaco/IOL OS 05/08/14-Has appointment 07/[address] Alejandre at [facility] for strab surgery Related to PO PCIOL - Return in 1 week. 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 Cataracts account for the patient's complaints. Discussed risks, benefits, procedures and recovery. Patient desires to have surgery, recommend phacoemulsification with intraocular lens. 2. Schedule cataract surgery -Standard monofocal OU, OD first.-Intra-op Goni before opening istent OU in surgery3. OU: Educational materials provided:Cataract. Related to See impression: general plan Mod PXFG OD, on flon ase. Anatomically narrow angles OU: deeper post LPI but modest IOP risk with dilation OU, still narrow post LPI OUSenile nuclear cataract OU: OK for [facility] phaco OUDiplopia XT-has appt. with childrens. - IOP stable post starting Jose Z OD. MIld IOP increase with dilation, angle more narrow post dialtion. Rec see [facility] for phaco eval/phaco/measurements but do not dilate OU ([facility] did DFE today). OK for phaco alone OU for now. Phaco needed OU for persistently narrow angle post LPI OU. Start Jose Z qhs OS as well in meantime. f/u with [facility] in 3-4 months, IOP check, back to [facility] sooner with IOP spike OU. Angle closure warnings discussed and rec. call [facility]. Related to See impression: general plan Mod PXFG OD, on flon ase. Anatomically narrow angles OU:Occludable, at risk of AACG/CACG OU. Senile nuclear cataract OU: per [facility] in futureDiplopia - binocular horizontal sec. right XT post sinus surgery, referral to children[facility] for stabismus. - Pachy today. CCT normal OU. IOP stable post starting Jose Z OD. I had a discussion with the patient regarding the findings of today's exam. The patient has anatomically narrow angles which appear occludable. The patient is at risk of an acute angle closure glaucoma attack as well as chronic angle closure glaucoma changes. For these reasons, I have recommended laser peripheral iridotomy OU in the near future. Risks, benefits, alternatives to surgery were discussed with the patient including pain, bleeding, infection, line in vision, loss of vision, need for further surgery, glare, increased IOP, and inflammation. Patient understands the risks and desires to proceed. Recommend the patient avoid [id number]-tgc-[id number] medications with glaucoma label warnings until laser. Patient was warned of the signs and symptoms angle closure glaucoma and need for immediate follow-up. Schedule LPI OD then OS. Pt wants strabismus evaluatuation prior to phaco. Related to See impression: general plan - Senile nuclear cat aract OU- OHT OD- Borderline OAG OD- Diplopia - binocular horizontal - -Patient definitely has cataracts, however with high IOP, and suspect nerve, will refer to glaucoma first. 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
[2025-04-08 13:13] LABS: Coronavirus 19, PCR Not Detected (NotDetected); Human Rhinovirus Not Detected (NotDetected); Influenza A, PCR Not Detected (NotDetected); Influenza B, PCR Not Detected (NotDetected); Respiratory Syncytial Virus Not Detected (NotDetected)
--- OUTSIDE RECORDS SUMMARY | 2025-04-11 11:02 | XMS_ITS | Continuity of Care Document ---
Author Organization [facility], RHEUMATOLOGY SB Address [address] [place] [address] Care Team Providers Care Grain Elevator Worker Name Role Phone KAMRAN ROBERT Shot Tube Machine Tender Assessment No assessment recorded. Plan of Treatment Reminders Order Date Submit Date Provider Last Modified By Organization Details Last Modified Time Details Appointments RHEUM RECHECK 2024 11:00A M KAMRAN ROBERT MD Not available Not available Not available Lab None recorded . Referral None recorded . Procedures None recorded . Surgeries None recorded . Imaging None recorded . Medication Orders None recorded . Patient TargetsNo targets recorded. Patient Instructions Encounter Date Encounter Id Patient Instructions Last Modified By Organization Details Last Modified Time 02/13/2025 [id number] Follow-up 4 months Not available 02/13/2025 12:45:10 Reason for Referral None Reported. Procedures 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 Date Name Laterality Status Provider Name and Address Organization Details Recorded Time 10/31/19 25 DXA Osteoporosis completed AMBER TENORIO MD [address] [place], [address], [facility] 11/01/2024 07:25:17 surgical manipulation of wrist joint completed [facility] 09/21/2024 12:41:00 procedure on ankle completed [facility] 09/21/2024 12:41:13 procedure on gallbladder completed [facility] 09/21/2024 12:41:28 Total Hysterectomy completed [facility] 09/21/2024 12:41:38 accessory sinus excision completed [facility] 09/21/2024 12:43:03 Eye Surgery completed [facility] 09/21/2024 12:42:42 colonoscopy completed Jason Amaya [facility] 09/21/2024 12:43:18 Imaging Results None recorded. Procedure Notes None recorded. Medical Equipment None Reported. Allergies Allergen ID Allergen Name Allergen Category Reaction Reaction Severity Criticality Documentation Date Start Date Code Code System Note Provider Name and Address Organization Details Recorded Time [id number] ibuprofen medicatio n Not available Not available Not available 09/21/2024 5640 RxNorm Jason Amaya [facility] 12:32:31 Medications Name Sig Start Date Stop Date Status Note LastModified by Organization Details LastModified Time furosemide 40 mg tablet Take 0.5 tablets every other day by oral route. active Not Available Not Available No t Available Plaquenil 200 mg tablet Take 1 tablet twice a day by oral route. 2024 active Not Available Not Available Not Avai lable prednisone 5 mg tablet Take 20 mg (4 tabs) daily x 5 days, 15 mg (3 tabs) x 5 days, 10 mg (2 tabs) x 5 days, 5 mg (1 tab) x 5 days then stop 2023 active Not Available Not Available Not Avai lable loperamide 2 mg tablet Take by oral route. active Not Available Not Available No t Available Sudogest 30 mg tablet Take 2 tablets every 4 hours by oral route. active Not Available Not Available No t Available Fosamax 70 mg tablet Take 1 tablet every week by oral route. 2024 active Not Available Not Available Not Avai lable Synthroid 25 mcg tablet Take 1 tablet every day by oral route. active Not Available Not Available No t Available hydrocorti sone 1 % topical cream APPLY A THIN LAYER TO THE AFFECTED AREA(S) BY TOPICAL ROUTE 2 TIMES PER DAY active Not Available Not Available No t Available pantoprazo le 40 mg tablet,del ayed release Take 1 tablet every day by oral route. active Not Available Not Available No t Available sertraline 25 mg tablet Take 1 tablet every day by oral route. active Not Available Not Available No t Available lorazepam 1 mg tablet Take 1 tablet 3 times a day by oral route. active Not Available Not Available No t Available melatonin 10mg active Not Available Not Cherelle ilable Not Available fluocinolo ne active 0.05% solution Not Available Not Available Not Available Stool Softener Vitamin C active Not Available Not Available N ot Available budesonide active Not Available Not Av ailable Not Available Equate Aspirin active 500mg Not Available Not Available Not Available Xopenex HFA 45 mcg/actuat ion aerosol inhaler Inhale 2 puffs every 6 hours by inhalatio n route. active Not Available Not Available No t Available Audra Allergy 180 mg tablet Take 1 tablet every day by oral route. active Not Available Not Available No t Available Stimulant Laxative Plus bid active Not Available Not Available Not Available Rhopressa 0.02 % eye drops INSTILL 1 DROP INTO AFFECTED EYE(S) BY OPHTHALMI C ROUTE ONCE DAILY INTHE EVENING active Not Available Not Available No t Available Vitals Date Recorded Body height Body mass index (BMI) Body weight Heart rate Oxygen saturation Oxygen saturation in Arterial blood by Pulse oximetry Systolic And Diastolic Provider Name and Address Organization Details Last Updated DateTime 5 162.56 cm 30.7 kg/m2 95715.0 3 g 87 /min 97 % 97 % 108/78 mm[Hg] [facility] 5 11:17:14 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 Question Answer Notes LastModified by [employer] Details LastModified Time What Was The Date Of Your Most Recent Tobacco Screening? 10/31/2024 [id number] Information not available 10/31/2024 Sex: Unknown Functional Status None recorded. Mental Status None recorded. 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 Relationship Description Onset Age of this Age Resolved Age Notes LastModified by Organization Details LastModified Time Unspecified Relation Rheumatoid arthritis Multip le family member s with RA Not available 09/21/2024 13:25:19 Daughter Sj gren's syndrome Not available 2023 13:28:33 Medical History No medical history recorded. Gynecological HistoryNo gynecological history recorded. Obstetrics History GPAL:G 0 P 0 0 0 0 Past Encounters Encounter ID Performer Location Encounter Start Date Encounter Closed Date Diagnosis/Indication Diagnosis SNOMED-CT Code Diagnosis ICD10 Code Diagnosis Note [id number] KAMRAN ROBERT MD [facility] [address] [place] [address] 02/13/2025 10:31:58 02/18/2025 16:00:21 Polyarthropathy 55615295 M13.0 Affecting bilateral hands, feet, shoulders. She has history of chronic back pain and has pain pump in place. She reports ?dx RA before in [place] (no records available) .Has elements of both OA and ?inflammat ory arthritis. Symptoms were steroid-re sponsive.D ifferentia l includes CPPD arthritis vs erosive OA; less likely RA given DIP involvemen t. Cannot take NSAID's due to generalize d diffuse rash. Plaquenil started 10/2024. Tolerating better with time. Initially had diarrhea in the beginning, which has resolved. This is too early in terms of full effect of Plaquenil, so we will give more time.State s that she has a second part of her eye exam coming up soon. Xerostomia 32869238 R68. 2 Dry mouth. Sjogren's lab workup negative.S SA, SSB negative. Osteoporosis 59259558 M8 1.0 She reports history of osteoporos is.She is high fall risk. Reports history of many falls. Denies recent falls. DEXA updated 10/31/2024T he L1-L4 lumbar spine bone density scan demonstrat es lumbar spine T-score of -2.6, Z-score of 0.3, BMD 0.760 g/cm .The left hip bone density scan demonstrat es a femoral neck T-score of -3.1, Z-score of -0.6, BMD 0.502 g/cm . 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 Health Concerns Section Related Observation LastModified by Organization Detai ls LastModified Time None Recorded Concern Status LastModified by Organization Details LastModified Time None Recorded Payers Encounter Date Sequence Insurance Name Policy Number Policy Cota Covered Member ID Cota Member ID Guarantor Name 02/13/2025 1 [employer] (MEDICARE REPLACEMENT/ ADVANTAGE - PPO) Briana Valdez [id number] Briana Valdez 02/13/2025 2 [employer] () Briana Valdez [id number] Briana Valdez Notes Date Note Type Note Provider Name and Address Organization Details Recorded Time 02/13/2025 text/html Last seen 10/31/2024. Since last visit, Plaquenil 200 mg was started. Also started on Fosamax once a week for osteoporosis. States that due to fluctuant weather changes the last few months, she has had more flares of pain, stiffness affecting her back, shoulders, hands, feet. Denies side effects related to Fosamax use. Initially had diarrhea with Plaquenil use in the beginning, but this has improved. States that she was seen at [facility], and diagnosed with cradle cap rather than psoriasis. Has been using topicals with improvement. Was told that she does not have psoriasis. Denies fevers, eye redness, eye pain, vision changes.Denies recent falls. States that there is remodeling of her bathroom to include a full shower with a bench. Ambulating with a walker. From initial HPI 09/21/24:Referred by Pain Management for evaluation of polyarthropathy. Here with family member.Endorses chronic pains in bilateral hands, shoulders, feet. Reports numbness in feet. Hand pains for the past several years. Has noticed more deformities in fingers in the past 6 months.Comes and goes. Worse depending on activity.Has arthritis gloves she wears.Morning stiffness is significant, can last all day.Unable to make full fist.Cannot straighten right arm. Has had surgery on right elbow after surgery.Shoulders bother her constantly.Foot pains started in the past 6 months.Has tried a topical hemp. Cannot take NSAID's. She reports diffuse generalized rash, requiring hospitalization.Ta kes Tylenol. Has scalp psoriasis for the past 2 years. Uses topical steroid, shampoo. Correlates with activity with joint pains. Denies blood in stool.reports abdominal pain, LLQ + dry mouth. Uses mouth wash. Denies any oral ulcers, pleuritic pain or shortness of breath, photosensitivity, dry eye, Raynaud's phenomenon She reports prior diagnosis of ?rheumatoid arthritis in [place]. Unclear how diagnosis was made. No records available. She reports history of osteoporosis. Had DEXA several years ago. KAMRAN ROBERT MD [address] [place] [address], [phone], [facility] 02/13/2025 12:45:36 OBGyn Episode No OBEpisode recorded.
--- OUTSIDE RECORDS SUMMARY | 2025-04-11 11:02 | XMS_ITS | Clinical Summary ---
Author Organization [facility] Address [address] [place] [address] Phone Care Team Providers Care Demand Planning Manager Name Role Phone Unavailable Primary Care Provider Unavailabl e Allergies Active Allergy Reactions Criticality Noted Date Comments Amoxicillin Diarrhea Low 05/19/2018 Aspirin Shortness Of Breath High Sulfamethoxazole-Trimet hoprim Rash Low 06/12/2010 Clarithromycin Rash Low 03/10/2004 Levofloxacin Other (See Comments) Low 09/03/2017 Possible angioedema on 09/03/17 Sibutramine Palpitations Low Ibuprofen Shortness Of Breath High Nsaids (Non-Steroidal Anti-Inflammatory Drug) Shortness Of Breath High Sulfa (Sulfonamide Antibiotics) Shortness Of Breath,Rash High Ondansetron Hcl (Pf) Rash Medium 09/06/2016 Medications acetaminophen (TYLENOL EXTRA STRENGTH) 500 mg tablet Take 1 Tab by mouth every 6 hours as needed for Pain. 120 Tab 0 08/07/20 12 Active Hydrocolloid Dressing (DUODERM CGF DRESSING) 8 X 8 Top Bandage Apply 1 Patch topically 2 times daily. 10 Each 10/08/20 19 Active Additional Information Patient not taking.Reason: Therapy Completed, Reported on 07/20/2023 EPINEPHrine (EPIPEN) 0.3 mg/0.3 mL Inj Auto-InjectorIndi cations:Allergic reaction, subsequent encounter Inject 0.3 mL into the muscle as needed for Anaphylaxis. 1 Each 2 04/09/20 21 Active Travoprost (TRAVATAN Z) 0.004 % Opht DropsIndications: Blind one eye Place 1 Drop into both eyes nightly. 3 Each 3 03/15/20 22 Active LEVOthyroxine (SYNTHROID) 25 mcg Oral TabletIndications :Hypothyroidism, unspecified type Take 1 Tablet by mouth daily. 90 Tablet 1 03/15/20 22 Active budesonide-formot Nadia (SYMBICORT) 160-4.5 mcg/actuation Inhl HFA Aerosol InhalerIndication s:AB (asthmatic bronchitis), severe persistent, uncomplicated (HCC) INHALE 2 PUFFS BY MOUTH TWICE A DAY - RINSE MOUTH AFTER EACH DOSE 3 Each 3 03/15/20 22 Active albuterol-ipratro pium (DUO-NEB) 0.5 mg-3 mg(2.5 mg base)/3 mL Inhl Solution for NebulizationIndic ations:COPD, mild (HCC) Take 3 mL by nebulization 0800, 1200, 1600, 2000. 360 mL 6 03/15/20 22 Active albuterol (PROVENTIL) 2.5 mg /3 mL (0.083 %) Inhl Solution for NebulizationIndic ations:AB (asthmatic bronchitis), severe persistent, uncomplicated (HCC) INHALE THE CONTENTS OF ONE VIAL BY NEBULIZER EVERY 4 HOURS NEEDED FOR WHEEZING 675 mL 3 03/15/20 22 Active Levalbuterol Tartrate (XOPENEX HFA) 45 mcg/actuation Inhl HFA Aerosol InhalerIndication s:AB (asthmatic bronchitis), severe persistent, uncomplicated (HCC) Inhale 2 Puffs into the lungs 4 times daily as needed. 15 g 11 07/05/20 22 Active pantoprazole (PROTONIX) 40 mg Oral Tablet, Delayed Release (E.C.)Indications :GERD without esophagitis Take 1 Tablet by mouth daily. 90 Tablet 1 09/14/20 22 Active LORazepam (ATIVAN) 1 mg Oral TabletIndications :Generalized anxiety disorder Take 1 Tablet by mouth 2 times daily as needed. for anxiety 60 Tablet 11/19/19 23 Active Active Problems Patient Care Coordination No te Formatting of this note migh t be different from the original. Informed consents reviewed/signed for appropriate meds yes 06/27/2012 OPI 06/27/2012 and Sha 06/27/2012 Controlled Substance Agreement reviewed/signed yes 06/27/2012 Comprehensive Urine Drug Screen: yes 06/27/2012, 02/27/15, 04/20/16, 07/29/17, 02/14/19, 07/26/2020, 07/15/2021. 07/05/2022 Cont[place] substance [place] yes 06/27/2012, 12/01/18, 02/14/19, 06/08/19, 07/16/19, 01/09/2020, 04/24/2020, 05/11/2021, 07/15/2021, 11/17/2021, 05/19/2022, 07/05/2022 SOAPP:yes 06/27/2012 NO SHOW Dot Gilliam, on 10/08/2022 Problem Noted Date Diagnosed Date Angioedema, initial encounter 07/20/2023 Other chronic pain 12/15/2020 AB (asthmatic bronchitis), severe persistent, un complicated 12/15/2020 Allergic reaction 12/15/2020 Presbycusis of both ears 07/25/2020 Moderate episode of recurrent major depressive d isorder 01/08/2020 Overview (07/25/2020): Stable, continue meds, and routine care Lung nodule 09/04/2017 History of angioedema 09/03/2017 Gastroesophageal reflux disease without esophagi tis 01/14/2017 Overview (09/14/2022): Controlled with pantoprazole. Assessment & Plan (09/14/2022 3:01 PM EST): Continue current medication. Generalized osteoarthritis of multiple sites Essential hypertension 12/04/2015 Glaucoma, right eye s/p lase r iridotomy per Dr Melton (bilaterally) 03/13/2014 Hypothyroidism (acquired) 03/13/2014 Vitamin D deficiency 03/13/2014 DDD (degenerative disc disease), lumbar 07/22/20 13 Overview (07/25/2020): Stable, continue meds, and routine care Schatzki's ring 08/19/2004 Overview (10/26/2009): Dr Gabe Mccoy Hiatal hernia 08/19/2004 Overview (10/26/2009): Dr Gabe Mccoy Blind one eye 10/10/1998 Overview (10/26/2009): Right Generalized anxiety disorder Overview (07/25/2020): Stable, continue meds, and routine care Esophageal reflux Intermittent asthma COPD, mild Overview (07/25/2020): Stable, Patient having no issues. Osteoarth NOS-unspec Obstructive sleep apnea Overview (10/26/2009): On bipap Resolved Problems Problem Noted Date Diagnosed Date Resolved Date Severe obesity (BMI 35.0-35. 9 with comorbidity) 10/30/2019 03/10/2022 Overview (10/30/2019): Morbid Obesity: patient is morbid obese. Discussed weight loss strategies including: Recommend multiple interventions to achieve a BMI of <30 Low fat, low CHO diet Limit between meal snacks Portion control meals Increase water intake, especially before mealtime Make smart choices for snacking - fresh vegetables vs chips Increase daily exercise Obesity, Class II, BMI 35-39.9 09/09/2016 10/30/2019 Overview (08/30/2017): Recommend multiple interventions to achieve a BMI of <30 Low fat, low CHO diet Limit between meal snacks Portion control meals Increase water intake, especially before mealtime Make smart choices for snacking - fresh vegetables vs chips Increase daily exercise Benzodiazepine dependence, continuous 01/10/2015 09/13/2022 Overview (07/25/2020): Stable, continue meds, and routine care Opioid dependence in controlled environment 01/10/2015 09/13/2022 Overview (07/25/2020): Stable, continue meds, and routine care Hypoglycemia 02/26/2013 07/22/2016 Major depression 01/08/2020 Leg cramps, sleep related Immunizations Immunization Administration Dates Next Due Influenza High Dose 09/13/2019, 7,07/22/2016,06/18,08/16/2013,11/06/2012 Influenza Vaccine Quadrivalent PF 07/31/2014 Influenza Vaccine, Unspecifi ed Formulation 08/03/2004 LAST MANUFACTURED 2011-Pneum ococcal Conjugate 7 Valent 12/16/2009 Pfizer SARS-CoV-2 Bivalent B ooster Vaccine 12+ Years ([facility] border) 07/05/2022 Pfizer SARS-CoV-2 Vaccine 12 + Yrs (Purple Cap) 11/07/2020,10/17/2020 Pneumococcal Conjugate Vacci ne 13 Valent 01/14/2017 Pneumococcal Polysaccharide 23 Valent 05/19/2018 Quadrivalent Influenza High Dose 07/05/2022,10/0 03/2021,06/27/2020 Zoster Recombinant 02/21/2022 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 Surgery Date Site/Laterality Comments HEMORRHOID SURGERY BLADDER REPAIR CHOLECYSTECTOMY SINUS SURGERY 2 ORs EYE SURGERY right muscle OR HYSTERECTOMY with BSO FRACTURE SURGERY right radial head arthroplasty EYE SURGERY 02/12/2014 Right RIGHT EYE YAG LASER IRIDOTOMY ; Surgeon: Guanakito Melton MD; Location: [facility]; Service: Ophthalmology EYE SURGERY 02/19/2014 Left LEFT EYE YAG LASER IRIDOTOMY ; Surgeon: Guanakito Melton MD; Location: [facility]; Service: Ophthalmology COLONOSCOPY UPPER GASTROINTESTINAL ENDOSCOPY CARDIAC CATHETERIZATION CATARACT REMOVAL 04/25/2014 Right RIGHT EYE CATARACT EXTRACTION WITH PHACOEMULSIFICATION AND INTRAOCULAR LENS ; Surgeon: Balaji Jenkins MD; Location: [facility]; Service: Ophthalmology Medical devices from this surgery are in the Medical Devices section. CATARACT REMOVAL 05/08/2014 Left LEFT EYE CATARACT EXTRACTION WITH PHACOEMULSIFICATION AND INTRAOCULAR LENS ; Surgeon: Balaji Jenkins MD; Location: [facility]; Service: Ophthalmology Medical devices from this surgery are in the Medical Devices section. Medical History Medical History Date Comments Hypertension Asthma Unspecified sleep apnea bi pap ESPINOZA (dyspnea on exertion) Diaphragmatic hernia without mention of obstruction or gangrene Stress bladder incontinence urge ncy,frequency Hypoglycemia recently episode , early December 2012, and on and off for past 6 months Depression recent stress Cataracts, bilateral Motion sickness Postoperative nausea and vomiting Pneumonia in past Acid reflux Osteoarthritis all over Thyroid disease hypothyroid Glaucoma rt eye Anxiety COPD (chronic obstructive pu lmonary disease) ([facility]) nebulizer Osteoporosis Legally blind in right eye, as defined in [place] Vertigo Severe obesity (BMI 35.0-35. 9 with comorbidity) ([facility]) 10/30/2019 Morbid Obesity: patient is m orbid obese. Discussed weight loss strategies including: Recommend multiple interventions to achieve a BMI of <30 Low fat, low CHO diet Limit between meal snacks Portion control meals Increase water intake, especially before mealtime Make smart choices for snacking - fresh vegetables vs chips Increase daily exercise 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 Medical History Relation Name Comments Diabetes Brother Heart Disease Brother High Blood Pressure Brother Rheum Arthritis Daughter 1 Cancer Daughter 2 cervical Diabetes Father Heart Disease Father No Known Problems Maternal Grandfather No Known Problems Maternal Grandmother Cancer Mother pancreas Early Mother No Known Problems Other No Known Problems Paternal Grandfather No Known Problems Paternal Grandmother Hearing Loss Sister Cancer Son both eyes Allergies Neg Hx Anesth Problems Neg Hx Bleeding Prob Neg Hx Migraines Neg Hx Thyroid Disease Neg Hx Relation Name Status Comments Brother Daughter 1 Alive Daughter 2 Alive Father Maternal Grandfather Maternal Grandmother Mother Other Paternal Grandfather Paternal Grandmother Sister Son Alive 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 Tobacco Use Types Packs/Day Years Used Date Smoking Tobacco: Never Smokeless Tobacco: Never Tobacco Cessation:Counseling Given: Not Answered Alcohol Use Standard Drinks/Week Comments No 0 (1 standard drink = 0.6 oz pur e alcohol) Overall Financial Resource Strain (CARDIA) Answe r Date Recorded How hard is it for you to pa y for the very basics like food, housing, medical care, and heating? Not very hard 07/20/2023 PHQ-2 Answer Date Recorded PHQ-2 Total Score 0 07/20/2023 Exercise Vital Sign Answer Date Recorde d On average, how many days pe r week do you engage in moderate to strenuous exercise (like a brisk walk)? 0 days 07/20/2023 On average, how many minutes do you engage in exercise at this level? 0 min 07/20/2023 Hunger Vital Sign Answer Date Recorded Within the past 12 months, y ou worried that your food would run out before you got the money to buy more. Never true 07/20/20 23 Within the past 12 months, t he food you bought just didn't last and you didn't have money to get more. Never true 07/20/2023 PRAPARE - Transportation Answer Date Re corded In the past 12 months, has l ack of transportation kept you from medical appointments or from getting medications? No 07/10 In the past 12 months, has l ack of transportation kept you from meetings, work, or from getting things needed for daily living? No 07/20/2023 Sexually Active Control Partners Comments Not Currently Comments No Sex and Gender Information Value Date Recorded Sex Assigned at Not on file Legal Sex Female 2:20 AM EDT Gender Identity Not on file Sexual Orientation Not on file Obstetrics History Last Filed Vital Signs Vital Sign Reading Time Taken Comments Blood Pressure 131/60 07/21/2023 7:55 AM EDT Pulse 68 07/21/2023 7:55 AM EDT Temperature 36.4 C (97.6 F) 07/21/2023 7:55 AM EDT Respiratory Rate 20 07/21/2023 7:55 AM EDT Oxygen Saturation 100% 07/21/2023 7:55 AM EDT Inhaled Oxygen Concentration - - Weight 82.2 kg (181 lb 3.5 oz) 07/20/2023 11:50 PM EDT Height 162.6 cm (5' 4 ) 07/20/2023 11:50 PM EDT Body Mass Index 31.11 07/20/2023 11:50 PM EDT Plan of Treatment Health Maintenance Due Date Last Done Comments DTaP/TDaP/Td (1 - Tdap) 1959 RSV or 60+ (1 - 1-dose 75+ series) 2014 Wellness Exam Medicare 05/20/2023 05/19/2022 COVID-19 Vaccine ( season) 2024 07/05/2022, 02/21/2022, 11/07/2020, Additional history exists Influenza Vaccine (#1) 2025 2, 07/15/2021, 06/27/2020, Additional history exists Bone Density Screening Completed 02/08/2017, 2016 Pneumococcal Vaccine 50+ Completed 018, 01/14/2017, 12/16/2009 Zoster Completed 07/19/2022, 02/21/2022 Hepatitis B Vaccine Aged Out No longe r eligible based on patient's age to complete this topic Meningococcal B Vaccine Aged Out No l onger eligible based on patient's age to complete this topic Goals Goal Patient Goal Type Associated Problems Recent Progress Patient-Stated? Author Blood Pressure < 140/90 Blood Pressure 131/60(2022 7:55 AM EDT) No Kody Brown MD BMI (Calculated) < 30 General 31.2(07/20/20 23 11:50 PM EDT) No Salma Jackman APRN Eat better, exercise, reach an ideal body weight General On track( 017 2:10 PM EST) No Dot Catalan MA HDL > 40 Result Component 70(07/26/2020 10:02 AM EDT) No Kody Brown MD LDL CALC < 130 Result Component 73(07/26/2020 10:02 AM EDT) No Kody Brown MD Medical Devices Implanted Type Area Slubber Tender Device Identifier Shelf Expiration Date Model / Serial / Lot Iliamna Gii With Orthocord - [id number] Implanted:Qty: 2 on 06/19/2010 at [facility] Explanted:at [facility] (Quantity not on file) Right: Elbow J&J:ETHICON:MITE K PRDT 03/09/2013 [id number] / / [id number] Component Stem Head Radial Modular Evolve Size+2 6.5mm - [id number] Implanted:Qty: 1 on 06/19/2010 at [facility] MED GRP:myinfoQ [id number] / / [id number] Component Head Radial Modular Evolve Standard 22mm - [id number] Implanted:Qty: 1 on 06/19/2010 at [facility] MED GRP:myinfoQ 10/10/2017 [id number] / / [id number] Iliamna Gii With Orthocord - [id number] Implanted:Qty: 1 on 06/19/2010 at [facility] J&J:ETHICON:MITE K PRDT 03/09/2013 [id number] / / [id number] Lens Intraocular 24.5 Diopter Acrysof Iq 13.0mm Length 6.0mm - [id number] Implanted:Qty: 1 on 04/25/2014 by Balaji Jenkins MD at [facility] Right: Eye [facility]:SURG [id number] 11/10/2018 [id number] .5 / [id number] / Lens Intraocular 24.0 Diopter Acrysof Iq 13.0mm Length 6.0mm - [id number] Implanted:Qty: 1 on 05/08/2014 by Balaji Jenkins MD at [facility] Left: Eye [facility]:SURG 11/10/2018 [id number] .[id number] / [id number] / Procedures Procedure Name Priority Date/Time Associated Diagnosis Comments DX BONE DENSITY AXIAL SKELETON Routine 02/08/2017 4:27 PM EDT Other specified disorders of bone density and structure, right forearm DDD (degenerative disc disease), lumbar Generalized osteoarthritis of multiple sites Vitamin D deficiency Screening for osteoporosis History of fracture of wrist from Last 3 Months or Most Recently Relevant to Health Maintenance Results * DX BONE DENSITY AXIAL SKELETON (02/08/2017 4:27 PM EDT) Anatomical Region Laterality Modality Dexa Scan 02/08/2017 Narrative 02/10/2017 5:10 PM EDT Indication: The patient is a female age 65 or older who requires a bone density assessment. Study was performed on inDplay.2. Bone Density: Region BMD T-score Z-score AP Spine (L2, L3, L4) 0.797 -2.6 0.1 Femoral Neck (Left) 0.606 -2.2 0.0 Total Hip (Left) 0.700 -2.0 0.0 Femoral Neck (Right) 0.724 -1.1 1.1 Total Hip (Right) 0.690 -2.1 -0.1 1/3 Radius (Left) 0.472 -3.7 -0.8 World Health Organization criteria for BMD interpretation classify patients as: Normal (T-score at or above -1.0), Low Bone Density (T-score between -1.0 and -2.5), or Osteoporotic (T-score at or below -2.5). T Scores are reported in Postmenopausal women and in men age 50 and older. Z-scores are reported in females prior to menopause and in males younger than age 50. 10-year Fracture Risk: FRAX not reported because: Some T-score at or below -2.5 Clinical Information Provided by Patient: Has had a low trauma fracture. Has used or is currently using the following medications: Vitamin D, Thyroid medication, Albuterol Has had or currently has the following medical conditions: Asthma, Emphysema, or COPD, Back pain, Hip pain, Vitamin D Insufficiency Patient maximum height was 65 Menopause Age: 37 Patient is postmenopausal. Interpretation: Bone mineral density is in the osteoporotic range. Medical evaluation for secondary causes of low bone density may be appropriate. A minimum of two years may be required between bone density studies due to inherent testing precision limitations. Intervals between BMD testing should be determined according to each patient's clinical status: typically one year after initiation or change of therapy is appropriate, with longer intervals once therapeutic effect is established. The spine portion of the study is limited by visual hypertrophic change with associated vertebra deleted. The spine portion of the study is limited by patient body habitus with elevated TH value. The vertebral fracture assessment is omitted due to body habitus. Reported by: Eden Greco PA-C, CCD on 02/09/2017 8:09:00 AM. Kody Brown MD IMG DEXA ORDERABLES Final Result from Last 3 Months or Most Recently Relevant to Health Maintenance Insurance [address] [facility] [place] [place] [address] [facility] MEDICARE PPO MR [address] [place] [address] [employer] MEDICARE PPO [address] [facility] Advance Directives For more information, please contact: [phone] * Full Code (Latest Code Status on File) Date Activated Date Inactivated Comments 07/20/2023 2:43 PM 07/21/2023 3:25 PM * Full Code Date Activated Date Inactivated Comments 04/27/2018 12:20 AM 04/27/2018 5:06 PM * Full Code Date Activated Date Inactivated Comments 09/04/2017 10:49 AM 09/04/2017 7:10 PM
--- OUTSIDE RECORDS SUMMARY | 2025-04-11 11:02 | XMS_ITS | Data Portability ---
Author Organization LUIS María Jordan c [facility] Address [address] [place] [address] Care Team Providers Care Chief Building Inspector Name Role Phone KAMRAN ANTONY High Density Finishing Operator Assessment No assessment recorded. Plan of Treatment Reminders Order Date Submit Date Provider Last Modified By Organization Details Last Modified Time Details Appointments RHEUM RECHECK 2024 11:00A M KAMRAN ANTONY MD Not available Not available Not available Lab CYNDEE (antinucl ear antibodie s) titer + pattern, ifa, serum 2023 [facility], [address] [place] [address], [id number], 09/26/2024 08:39:48 sjogren antibody panel, serum 2023 024 [facility], [address] [place] [address], [id number], 09/22/2024 15:19:30 C3 (compleme nt), serum or plasma 2023 024 [facility], [address] [place] [address], [id number], 09/22/2024 14:16:54 C4 (compleme nt), serum or plasma 2023 024 [facility], [address] [place] [address], [id number], 09/22/2024 14:16:56 protein electroph oresis panel, serum or plasma 2023 024 [facility], [address] [place] [address], [id number], 09/25/2024 09:53:05 HLA-B27, qual, flow cytometry 2023 [facility], [address] [place] [address], [id number], 09/22/2024 13:20:11 rf (rheumato id factor), serum 2023 024 [facility], [address] [place] [address], [id number], 09/21/2024 16:00:38 ccp (cyclic citrullin ated peptide) iga+igg, serum 2023 024 [facility], [address] [place] [address], [id number], 09/25/2024 14:27:44 ESR (erythroc yte sedimenta tion rate), blood 2023 [facility], [address] [place] [address], [id number], 09/21/2024 15:57:38 C reactive protein, QN, serum or plasma 2023 024 [facility], [address] [place] [address], [id number], 09/21/2024 16:00:40 hepatitis (A+B+C) panel, serum 2023 024 [facility], [address] [place] [address], [id number], 09/21/2024 15:44:47 CBC w/ auto diff 2023 024 [facility], [address] [place] [address], [id number], 09/21/2024 14:42:47 CMP, serum or plasma 2023 024 [facility], [address] [place] [address], [id number], 09/21/2024 16:00:39 magnesium , QN, serum or plasma 2023 024 [facility], [address] [place] [address], [id number], 09/21/2024 16:00:36 vitamin D, 25-hydrox y, total, serum 2023 024 [facility], [address] [place] [address], [id number], 09/21/2024 16:03:21 vitamin B12, serum 2023 024 [facility], [address] [place] [address], [id number], 09/21/2024 16:03:23 iron + total iron-bind ing capacity (TIBC), serum 2023 024 [facility], [address] [place] [address], [id number], 09/21/2024 16:00:43 ferritin, serum or plasma 2023 024 [facility], [address] [place] [address], [id number], 09/21/2024 16:00:41 Referral None recorded. Procedures None recorded. Surgeries None recorded. Imaging DEXA 2023 024 [facility], [address] [place] [address], [id number], 10/08/2024 08:08:29 Medication Orders Plaquenil 200 mg tablet 2024 025 [facility], [address] [place] [address] [address] [place] [place] [place], [id number], 10/31/2024 09:58:57 prednison e 5 mg tablet 2023 024 [facility], [address] [address] [place], [id number], 09/21/2024 13:32:42 Patient TargetsNo targets recorded. Patient Instructions Encounter Date Encounter Id Patient Instructions Last Modified By Organization Details Last Modified Time 09/21/2024 [id number] A total of 65 minutes was spent on today's patient encounter. Time spent includes some or all of the following, both kazr-fe-ikkk time and non wxbx-kh-yfuq time, but is not limited to: Preparing to see the patient and reviewing records Discussion or coordination of car with other health career discovery teacher Reviewing records or discussing history of plan with colleagues Obtaining and/or reviewing the history Individual interpretation of results not billed by me Performing a medically appropriate examination Counseling patient and/or caregiver Ordering of unique tests, medications, referrals or procedures Documentation within the EHR Not available 09/21/2024 17:28:15 02/13/2025 [id number] Follow-up 4 months Not availa ble 02/13/2025 12:45:10 Reason for Referral None Reported. Results Created Date Observation Date Name Description Value Unit Range Abnormal Flag Note LastModifiedBy Organization Detail LastModifiedTime 09/21/2009/21/2024 COMPL ETE BLOOD COUNT white blood cells 8.9 10*3/ uL 3.8-10 .8 normal Not Available [facility] [address] [place], [address], 09/21/2024 14:42:47 09/21/20 24 09/21/2024 COMPL ETE BLOOD COUNT red blood cells 4.24 10*6/ uL 3.80-5 .20 normal Not Available [facility] [address] [place], [address], 09/21/2024 14:42:47 09/21/20 24 09/21/2024 COMPL ETE BLOOD COUNT hemoglobin 13.5 g/dL 12.0-1 6.0 normal Not Available [facility] [address] [place] [address], [id number], 09/21/2024 14:42:47 09/21/20 24 09/21/2024 COMPL ETE BLOOD COUNT hematocrit 40.8 % 35.0-4 7.0 normal Not Available [facility] [address] [place] [address], [id number], 09/21/2024 14:42:47 09/21/20 24 09/21/2024 COMPL ETE BLOOD COUNT MCV 96 fL 80-100 normal Not Available [facility] [address] [place] [address], [id number], 09/21/2024 14:42:47 09/21/20 24 09/21/2024 COMPL ETE BLOOD COUNT MCH 32 pg 26-35 normal Not Available [facility] [address] [place] [address], [address], 09/21/2024 14:42:47 09/21/20 24 09/21/2024 COMPL ETE BLOOD COUNT MCHC 33 g/dL 32-36 normal Not Available [facility] [address] [place] [address], [address], 09/21/2024 14:42:47 09/21/20 24 09/21/2024 COMPL ETE BLOOD COUNT RDW 14.2 % 11.0-1 5.0 normal Not Available [facility] [address] [place] [address], [address], 09/21/2024 14:42:47 09/21/20 24 09/21/2024 COMPL ETE BLOOD COUNT MPV 8.0 fL 6.2-10 .5 normal Not Available [facility] [address] [place] [address], [address], 09/21/2024 14:42:47 09/21/20 24 09/21/2024 COMPL ETE BLOOD COUNT platelet count 579 10*3/ uL 150-40 0 high Not Available [facility] [address] [place] [address], [address], 09/21/2024 14:42:47 09/21/20 24 09/21/2024 COMPL ETE BLOOD COUNT neutrophil,a bsolute 6.1 10*3/ uL 1.6-8. 4 normal Not Available [facility] [address] [place] [address], [id number], 09/21/2024 14:42:47 09/21/20 24 09/21/2024 COMPL ETE BLOOD COUNT lymphocyte,a bsolute 2.1 10*3/ uL 0.4-5. 1 normal Not Available [facility] [address] [place] [address], [address], 09/21/2024 14:42:47 09/21/20 24 09/21/2024 COMPL ETE BLOOD COUNT monocyte,abs olute 0.5 10*3/ uL 0.0-1. 2 normal Not Available [facility] [address] [place] [address], [address], 09/21/2024 14:42:47 09/21/20 24 09/21/2024 COMPL ETE BLOOD COUNT eosinophil,a bsolute 0.2 10*3/ uL 0.0-0. 8 normal Not Available [facility] [address] [place] [address], [address], 09/21/2024 14:42:47 09/21/20 24 09/21/2024 COMPL ETE BLOOD COUNT basophil,abs olute 0.1 10*3/ uL 0.0-0. 3 normal Not Available [facility] [address] [place] [address], [address], 09/21/2024 14:42:47 09/21/20 24 09/21/2024 COMPL ETE BLOOD COUNT % neutrophils 68.6 % 42.0-7 8.0 normal Not Available [facility] [address] [place] [address], [address], 09/21/2024 14:42:47 09/21/20 24 09/21/2024 COMPL ETE BLOOD COUNT % lymphocytes 23.7 % 11.0-4 7.0 normal Not Available [facility] [address] [place] [address], [address], 09/21/2024 14:42:47 09/21/20 24 09/21/2024 COMPL ETE BLOOD COUNT % monocytes 5.2 % 0.0-11 .0 normal Not Available [facility] [address] [place] [address], [address], 09/21/2024 14:42:47 09/21/20 24 09/21/2024 COMPL ETE BLOOD COUNT % eosinophils 1.8 % 0.0-7. 0 normal Not Available [facility] [address] [place] [address], [address], 09/21/2024 14:42:47 09/21/20 24 09/21/2024 COMPL ETE BLOOD COUNT % basophils 0.7 % 0.0-3. 0 normal Not Available [facility] [address] [place] [address], [address], 09/21/2024 14:42:47 09/21/20 24 09/21/2024 COMPL ETE BLOOD COUNT nucleated red cells 0.0 % 0.0-0. 9 normal Not Available [facility] [address] [place] [address], [address], 09/21/2024 14:42:47 09/21/20 24 09/21/2024 COMPL ETE BLOOD COUNT nucleated RBCs, absolute 0.00 10*3/ uL not estab. normal Not Available [facility] [address] [place] [address], [address], 09/21/2024 14:42:47 09/21/20 24 09/21/2024 HEPAT ITIS PANEL hepatitis A Ab, IgM NONREA CTIVE nonrea ctive normal Not Available [facility] [address] [place] [address], [address], 09/21/2024 15:44:47 09/21/20 24 09/21/2024 HEPAT ITIS PANEL hepatitis B surface Ag NONREA CTIVE nonrea ctive normal Not Available [facility] [address] [place] [address], [address], 09/21/2024 15:44:47 09/21/20 24 09/21/2024 HEPAT ITIS PANEL hepatitis B core Ab,IgM NONREA CTIVE nonrea ctive normal Not Available [facility] [address] [place] [address], [address], 09/21/2024 15:44:47 09/21/20 24 09/21/2024 HEPAT ITIS PANEL hcab, reflex viral RNA qt NONREA CTIVE nonrea ctive normal Antib odies to HCV were not detec rell; does not exclu de the possi bilit y of expos ure to HCV. Not Available [facility] [address] [place] [address], [address], 09/21/2024 15:44:47 09/21/20 24 09/21/2024 ESR, AUTOM ATED ESR, automated 46 mm 0-29 high Not Available [facility] [address] [place] [address], [address], 09/21/2024 15:57:38 09/21/20 24 09/21/2024 MAGNE SIUM magnesium 1.9 mg/dL 1.6-2. 6 normal Not Available [facility] [address] [place] [address], [address], 09/21/2024 16:00:36 09/21/20 24 09/21/2024 RF SCREE N, QUANT . rf screen, quant. <10.0 [IU]/ mL 0.0-13 .9 normal Not Available [facility] [address] [place] [address], [address], 09/21/2024 16:00:38 09/21/20 24 09/21/2024 COMP. METAB OLIC PANEL glucose 98 mg/dL 74-100 normal Not Available [facility] [address] [place] [address], [address], 09/21/2024 16:00:39 09/21/20 24 09/21/2024 COMP. METAB OLIC PANEL blood urea nitrogen 9 mg/dL 6-20 normal Not Available [facility] [address] [place] [address], [address], 09/21/2024 16:00:39 09/21/20 24 09/21/2024 COMP. METAB OLIC PANEL creatinine 0.59 mg/dL 0.50-0 .95 normal Not Available [facility] [address] [place] [address], [address], 09/21/2024 16:00:39 09/21/20 24 09/21/2024 COMP. METAB OLIC PANEL BUN/creatini ne ratio 15 (calc ) 10-20 normal Not Available [facility] [address] [place] [address], [address], 09/21/2024 16:00:39 09/21/20 24 09/21/2024 COMP. METAB OLIC PANEL sodium 140 mmol/ L 136-14 5 normal Not Available [facility] [address] [place] [address], [address], 09/21/2024 16:00:39 09/21/20 24 09/21/2024 COMP. METAB OLIC PANEL potassium 4.3 mmol/ L 3.4-5. 0 normal Not Available [facility] [address] [place] [address], [address], 09/21/2024 16:00:39 09/21/20 24 09/21/2024 COMP. METAB OLIC PANEL chloride 102 mmol/ L 98-107 normal Not Available [facility] [address] [place] [address], [address], 09/21/2024 16:00:39 09/21/20 24 09/21/2024 COMP. METAB OLIC PANEL carbon dioxide 27 mmol/ L 22-31 normal Not Available [facility] [address] [place] [address], [address], 09/21/2024 16:00:39 09/21/20 24 09/21/2024 COMP. METAB OLIC PANEL anion gap 11 (calc ) 7-25 normal Not Available [facility] [address] [place] [address], [address], 09/21/2024 16:00:39 09/21/20 24 09/21/2024 COMP. METAB OLIC PANEL calcium 9.7 mg/dL 8.6-10 .2 normal Not Available [facility] [address] [place] [address], [address], 09/21/2024 16:00:39 09/21/20 24 09/21/2024 COMP. METAB OLIC PANEL total protein 7.6 g/dL 6.4-8. 3 normal Not Available [facility] [address] [place] [address], [address], 09/21/2024 16:00:39 09/21/20 24 09/21/2024 COMP. METAB OLIC PANEL albumin 4.1 g/dL 3.5-5. 2 normal Not Available [facility] [address] [place] [address], [address], 09/21/2024 16:00:39 09/21/20 24 09/21/2024 COMP. METAB OLIC PANEL globulin 3.5 1.5-4. 5 normal Not Available [facility] [address] [place] [address], [address], 09/21/2024 16:00:39 09/21/20 24 09/21/2024 COMP. METAB OLIC PANEL albumin/glob ulin ratio 1.2 (calc ) 1.1-2. 5 normal Not Available [facility] [address] [place] [address], [place], [address], 09/21/2024 16:00:39 09/21/20 24 09/21/2024 COMP. METAB OLIC PANEL bilirubin, total 0.5 mg/dL 0.1-1. 2 normal Not Available [facility] [address] [place] [address], [address], 09/21/2024 16:00:39 09/21/20 24 09/21/2024 COMP. METAB OLIC PANEL alkaline phosphatase 100 U/L 30-121 normal Not Available [facility] [address] [place] [address], [address], 09/21/2024 16:00:39 09/21/20 24 09/21/2024 COMP. METAB OLIC PANEL AST 22 U/L 0-32 normal Not Available [facility] [address] [place] [address], [address], 09/21/2024 16:00:39 09/21/20 24 09/21/2024 COMP. METAB OLIC PANEL ALT 13 U/L 0-33 normal Not Available [facility] [address] [place] [address], [address], 09/21/2024 16:00:39 09/21/20 24 09/21/2024 COMP. METAB OLIC PANEL GFR 88 >= 60 normal NOT E New calcu latio n for GFR (CKD- EPI 2020) is formu lated witho ut race adjus tment facto rs at the recom menda tion of the [employer] ation and Ameri can Socie ty of Nephr ology . This calcu latio n has not been valid ated in pregn ant women . For pedia tric patie nts refer to https ://dheeraj cervantes.o munir/pr charles chilel s/KDO QI/gf r_cal culat orPed Not Available [facility] [address] [place] [address], [address], 09/21/2024 16:00:39 09/21/20 24 09/21/2024 C REACT TERRY PROTE IN C reactive protein 0.26 mg/dL 0.00-0 .49 normal Not Available [facility] [address] [place] [address], [address], 09/21/2024 16:00:40 09/21/20 24 09/21/2024 SHEYLA TIN ferritin 192 NG/mL 13-157 high Not Available [facility] [address] [place] [address], [address], 09/21/2024 16:00:41 09/21/20 24 09/21/2024 IRON PANEL -TOTA L AND TIBC iron 69 ug/dL 37-145 normal Not Available [facility] [address] [place] [address], [address], 09/21/2024 16:00:43 09/21/20 24 09/21/2024 IRON PANEL -TOTA L AND TIBC total iron binding cap. 296 ug/dL _(leticia c) 250-45 0 normal Not Available [facility] [address] [place] [address], [address], 09/21/2024 16:00:43 09/21/20 24 09/21/2024 IRON PANEL -TOTA L AND TIBC unsat.iron binding cap. 227 ug/dL 112-34 7 normal Not Available [facility] [address] [place] [address], [address], 09/21/2024 16:00:43 09/21/20 24 09/21/2024 IRON PANEL -TOTA L AND TIBC % saturation 23 %_(ca lc) 15-50 normal Not Available [facility] [address] [place] [address], [address], 09/21/2024 16:00:43 09/21/20 24 09/21/2024 VITAM IN D 25-OH vitamin D 25-oh, total 32 NG/mL >=30 NG/mL normal Not Available [facility] [address] [place] [address], [address], 09/21/2024 16:03:20 09/21/20 24 09/21/2024 VITAM IN B12 vitamin B12 431 pg/mL 232-12 45 normal Not Available [facility] [address] [place] [address], [address], 09/21/2024 16:03:23 09/21/20 24 09/22/2024 HLA B27 ANTIG EN hla B27 antigen NEGATI VE negati ve normal Not Available [facility] [address] [place] [address], [address], 09/22/2024 13:20:11 09/21/20 24 09/22/2024 C3 C3 202 mg/dL normal Refer ence Range <1 year: Not estab lishe d 1-14 years : 82-17 3 15-80 years : 83-19 3 > or = 81 years Not estab lishe d Not Available [facility] [address] [place] [address], [address], 09/22/2024 14:16:54 09/21/20 24 09/22/2024 C4 C4 31 mg/dL normal Refer ence Range <1 year: Not estab lishe d 1-14 years : 13-46 15-80 years : 15-57 > or = 81 years Not estab lishe d Not Available [facility] [address] [place] [address], [address], 09/22/2024 14:16:56 09/21/20 24 09/22/2024 SS-A/ SS-B (SJOG GEE'S ) ss-A Ab <1.0 NEG ai <1.0 neg normal Not Available [facility] [address] [place] [address], [address], 09/22/2024 15:19:30 09/21/20 24 09/22/2024 SS-A/ SS-B (SJOG GEE'S ) ss-B Ab <1.0 NEG ai <1.0 neg normal Not Available [facility] [address] [place], [address], 09/22/2024 15:19:30 09/21/20 24 09/25/2024 PROTE IN ELECT ROPHO RESIS , SERUM protein, total 7.1 g/dL 6.1-8. 1 normal Not Available [facility] [address] [place] [address], [address], 09/25/2024 21:31:10 09/21/20 24 09/25/2024 PROTE IN ELECT ROPHO RESIS , SERUM albumin 3.8 g/dL 3.8-4. 8 normal Not Available [facility] [address] [place] [address], [address], 09/25/2024 21:31:10 09/21/20 24 09/25/2024 PROTE IN ELECT ROPHO RESIS , SERUM zhtys-4-fmiw ulin 0.2 g/dL 0.2-0. 3 normal Not Available [facility] [address] [place] [address], [address], 09/25/2024 21:31:10 09/21/20 24 09/25/2024 PROTE IN ELECT ROPHO RESIS , SERUM kunhf-6-pitz ulin 1.0 g/dL 0.5-0. 9 high Not Available [facility] [address] [place] [address], [address], 09/25/2024 21:31:10 09/21/20 24 09/25/2024 PROTE IN ELECT ROPHO RESIS , SERUM beta 1 globulin 0.5 g/dL 0.4-0. 6 normal Not Available [facility] [address] [place] [address], [address], 09/25/2024 21:31:10 09/21/20 24 09/25/2024 PROTE IN ELECT ROPHO RESIS , SERUM beta 2 globulin 0.5 g/dL 0.2-0. 5 normal Not Available [facility] [address] [place], [address], 09/25/2024 21:31:10 09/21/20 24 09/25/2024 PROTE IN ELECT [facility] RESIS , SERUM gamma globulin 1.1 g/dL 0.8-1. 7 normal Not Available [facility] [address] [place] [address], [address], 09/25/2024 21:31:10 09/21/20 24 09/25/2024 PROTE IN ELECT [facility] RESIS , SERUM interpretati on SEE NOTE normal No restr icted band (M-sp dariusz) seen. Not Available [facility] [address] [place] [address], [address], 09/25/2024 21:31:10 09/21/20 24 09/25/2024 ANTI- CCP anti-ccp <16 units normal Refer ence Range Negat terry: <20 Weak Posit terry: 20-39 Moder ate Posit terry: 40-59 Stron g Posit terry: >59 Not Available [facility] [address] [place] [address], [address], 09/25/2024 14:27:43 09/21/20 24 09/26/2024 CYNDEE SCREE N, IFA CYNDEE screen POSITI VE negati ve abnormal CYNDEE IFA is a first line scree n for detec ting the prese nce of up to appro ximat verenice 150 autoa ntibo dies in vario us autoi mmune disea ses. A posit terry CYNDEE IFA resul t is sugge stive of autoi mmune disea se and refle xes to titer and aakashte rn. Furth er labor atory testi ng may be consi dered if clini alejandro indic ated. For addit ional infor jabier ferrari e refer to http: //[facility] ayla nava.Que stDia gnost ics.c om/fa q/FAQ 177 (This link is being provi ded for infor black nal/ educa gregor l purpo ses only. ) Not Available [facility] [address] [place] [address], [address], 09/26/2024 09:03:29 09/21/20 24 09/26/2024 CYNDEE SCREE N, IFA CYNDEE titer 1:160 titer high Refer ence Range <1:40 Negat terry 1:40- 1:80 Low Antib roger Level >1:80 Broadalbin rell Antib roger Level Not Available [facility] [address] [place] [address], [address], 09/26/2024 09:03:29 09/21/20 24 09/26/2024 CYNDEE SCREE N, IFA CYNDEE pattern SEE BELOW abnormal Nucle ar, Homog eneou s Homog eneou s bautista rn is assoc iated with syste gely lupus eryth emato shawn (SLE) , drug- induc ed lupus and richar ile idiop athic arthr itis. AC-1: Homog celesteedora s Inter natio nal Conse nsus on CYNDEE Patte rns (http s://d oi.or g/10. 1515/ ccl- 2018- 0052) Not Available [facility] [address] [place] [address], [address], 09/26/2024 09:03:29 11/01/19 25 10/31/2024 DEXA No observ ation record ed. Amber Mabry MD [address] [place] [address], [id number], 11/01/2024 09:07:18 Result Notes Documentation Provider Name and Address Organization Details Recorded Time Dexa : [address] [address]GEFX, Carol (id #[id number], : 1940) [address] [address] Date: 11/01/2024RE: Briana Valdez, : 1940, PT ID #[id number] Min MD, I would like to thank you for referring Briana Valdez to our practice for consultation and evaluation. I have enclosed a copy of the office evaluation for your records. Sincerely, Electronically Signed by: Michael HUFF DocumentationDXA Osteoporosis:Bone Densitometry Dual Energy X-Ray Absorptiometry (DXA) Report & Bone Health Report Trabecular Bone Score ( TBS) Follow-up bone mineral density measurement was performed on a Hologic QDR-4500C scanner with good technique. Ordering Provider Dr. Antony Indications for the study:1. Post-menopausal state/prior fracture/rheumatoid arthritis The L1-L4 lumbar spine bone density scan demonstrates lumbar spine T-score of -2.6, Z-score of 0.3, BMD 0.760 g/cm . The left hip bone density scan demonstrates a femoral neck T-score of -3.1, Z-score of -0.6, BMD 0.502 g/cm . The total left hip T-score of -2.4, Z-score of -0.1, BMD 0.684 g/cm . The patient TBS is 1.255 which suggest a partially degraded microarchitecture compared to reference population. The patient's associated BMD and TBS values suggest resilience to fracture.IMPRESSION: Osteoporosis as demonstrated by bone density measurement& low resilience to fracture by bone fragility indexAs perNational Osteoporosis Foundation 2014,postmenopausal women and men age 50 and older presenting with any the following should be considered for treatment: A hip or vertebral (clinical or morphometric) fracture or T-score = -2.5 at the femoral neck or spine after appropriate evaluation to exclude secondary causes or Low bone mass (T-score between -1.0 and -2.5 at the femoral neck or spine) and a 10-year probability of a hip fracture = 3% or a 10-year probability of a major osteoporosis-related fracture = 20% based on the [place]-adapted WHO algorithm Clinician's judgment and/or patient preferences may indicate treatment for people with 10-year fracture probabilities above or below these levels.Patient is a candidate for pharmacologic therapy of osteoporosis based on the above-mentioned criteriaRECOMMENDATIONS:1. Recommend pharmacologic therapy/antiresorptive in the form of bisphosphonate therapy, if not contraindicated, as appropriate as per referring provider. 2. Evaluation for secondary causes of osteoporosis (i.e. uncontrolled hyperthyroidism, etc) as appropriate per referring provider. 3. Ensure adequate calcium and vitamin D intake (1200 mg elemental calcium daily and 2000 IU Vit D daily) if this is clinically appropriate. 4. Keep 25 OHD >30 ng/mL. 5. Encourage practices to help increase bone density ( i.e. resistance/weight bearing exercise 3x weekly) if it could be done safely. 6. Discourage practices that would compromise bone density quality ( i.e. smoking, excessive alcohol consumption, and caffeine consumption) when applicable. 7. Follow bone density scan measurements in 1-2 years from now, while on therapy, utilizing the same scanning equipment to ensure stability or reliability. 8. Fall prevention. KAMRAN ANTONY MD [address] [place] [address], [phone], [facility] 11/01/2024 09:07:18 Procedures 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 Date Name Laterality Status Provider Name and Address Organization Details Recorded Time 10/31/19 DXA Osteoporosis completed AMBER MABRY MD [address] [place] [address], [phone] 11/01/2024 07:25:17 surgical manipulation of wrist joint completed Jason Amaya [facility] 09/21/2024 12:41:00 procedure on ankle completed zeke Amaya [facility] 09/21/2024 12:41:13 procedure on gallbladder completed Jason Amaya [facility] 09/21/2024 12:41:28 Total Hysterectomy completed zeke Amaya [facility] 09/21/2024 12:41:38 accessory sinus excision completed zeke Amaya [facility] 09/21/2024 12:43:03 Eye Surgery completed Jason SMITH [facility] 09/21/2024 12:42:42 colonoscopy completed zeke Amaya [facility] 09/21/2024 12:43:18 Imaging Results None recorded. Procedure Notes None recorded. Medical Equipment None Reported. Allergies Allergen ID Allergen Name Allergen Category Reaction Reaction Severity Criticality Documentation Date Start Date Code Code System Note Provider Name and Address Organization Details Recorded Time [id number] ibuprofen medicatio n Not available Not available Not available 09/21/2024 5640 RxNorm Jason Amaya [facility] 12:32:31 Medications Name Sig Start Date Stop [...] t Available Vitals Date Recorded Body height Respiratory rate Body mass index (BMI) Body weight Heart rate Oxygen saturation Oxygen saturation in Arterial blood by Pulse oximetry Systolic And Diastolic Provider Name and Address Organization Details Last Updated DateTime 5 162.56 cm 16 /min 30.6 kg/m2 36438.4 4 g 78 /min 96 % 96 % 118/78 mm[Hg] [facility] 5 09:30:11 Date Recorded Body height Body mass index (BMI) Body weight Heart rate Oxygen saturation Oxygen saturation in Arterial blood by Pulse oximetry Systolic And Diastolic Provider Name and Address Organization Details Last Updated DateTime 5 162.56 cm 30.7 kg/m2 53828.0 3 g 87 /min 97 % 97 % 108/78 mm[Hg] Rosa Mandujano [facility] 5 11:17:14 Date Recorded Respiratory rate Oxygen saturation Oxygen saturation in Arterial blood by Pulse oximetry Heart rate Body height Body mass index (BMI) Body weight Systolic And Diastolic Provider Name and Address Organization Details Last Updated DateTime 4 16 /min 98 % 98 % 79 /min 162.56 cm 28.5 kg/m2 83713.3 3 g 116/78 mm[Hg] [facility] 4 12:45:54 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 Question Answer Notes LastModified by Organizat ion Details LastModified Time What Was The Date Of Your Most Recent Tobacco Screening? 10/31/2024 [id number] Information not available 10/31/2024 Sex: Unknown Functional [...] SNOMED-CT Code Diagnosis ICD10 Code Diagnosis Note [id number] KAMRAN ANTONY MD [facility] [address] [address] 09/21/2024 12:16:30 09/22/2024 05:11:21 Polyarthropathy 72691875 M13.0 Affecting bilateral hands, feet, shoulders. She has history of chronic back pain and has pain pump in place. She reports ?dx RA before in [place] (no records available) .Symptoms are not clearly inflammato ry in nature. Has elements of both OA and ?inflammat ory arthritis. Differenti al includes CPPD arthritis vs psoriatic arthritis vs erosive OA; less likely RA given DIP involvemen t.Will do labs and trial Prednisone taper.Nisreen ot take NSAID's due to generalize d diffuse rash.Will get X-rays hands, feet, shoulders at next visit.Cons ider EMG of BLE to evaluate numbness in feet. 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 Xerostomia 16610742 R68. 2 Dry mouth. Will check labs related to Sjogren's. Osteoporosis 60812922 M8 1.0 She reports history of osteoporos is. Last DEXA was many years ago. Denies being on therapy for osteoporos is before. She is high fall risk. Reports history of many falls. [id number] KAMRAN ANTONY MD [facility] [address] [address] 10/31/2024 09:15:09 11/01/2024 04:46:53 Polyarthropathy 22348558 M13.0 Affecting bilateral hands, feet, shoulders. She has history of chronic back pain and has pain pump in place. She reports ?dx RA before in [place] (no records available) .Has elements of both OA and ?inflammat ory arthritis. Symptoms were steroid-re sponsive.D ifferentia l includes CPPD arthritis vs psoriatic arthritis vs erosive OA; less likely RA given DIP involvemen t. Cannot take NSAID's due to generalize d diffuse rash. Will plan to treat as seronegati ve RA. Will start Plaquenil. After discussion , we will initiate Plaquenil therapy, 200mg by mouth BID. Risks and benefits of the medication were discussed with the patient including, but not limited to, GI upset, diarrhea, rash, vision blurring and retinal toxicity. Discussed the need for periodic eye exams while on this agent. Patient given ACR handout on Plaquenil. Asked pt to monitor scalp psoriasis as Plaquenil rarely can worsen psoriasis. Follow-up 3 months Psoriasis of scalp 79835 8008 L40.9 Using topicals, shampoo. Xerostomia 60150285 R68. 2 Dry mouth. Sjogren's workup negative. Osteoporosis 77684265 M8 1.0 She reports history of osteoporos is. Last DEXA was many years ago. Denies being on therapy for osteoporos is before. She is high fall risk. Reports history of many falls.Due for DEXA today - will discuss results with pt when they return. Consider bisphospho gema vs Prolia. [id number] AMBER MABRY MD BONE DENSITY [address] [place] [address] 10/31/2024 09:18:20 10/31/2024 12:25:46 Osteoporosis 64470994 M81.0 [id number] KAMRAN ANTONY MD RHEUMATOL [address] [place] [address] 02/13/2025 10:31:58 02/18/2025 16:00:21 Polyarthropathy 06467018 M13.0 Affecting bilateral hands, feet, shoulders. She has history of chronic back pain and has pain pump in place. She reports ?dx RA before in [place] (no records available) .Has elements of both [...] her eye exam coming up soon. Xerostomia 30099782 R68. 2 Dry mouth. Sjogren's lab workup negative.S SA, SSB negative. 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 Health Concerns Section Related Observation LastModified by Organization Detai ls LastModified Time None Recorded Concern Status LastModified by Organization Details LastModified Time None Recorded Advance Directives Directive None Recorded Payers Insurance Date Sequence Insurance Name Policy Number Policy Cota Covered Member ID Cota Member ID Guarantor Name 02/18/2025 2 () Briana Valdez [id number] Briana Valdez 02/18/2025 1 [employer] (MEDICARE REPLACEMENT/ ADVANTAGE - PPO) Briana Valdez [id number] Briana Valdez 09/21/2024 1 [place]ARE[place] Briana Tamayo [id number] Briana Valdez Notes Date Note Type Note Provider Name and Address Organization Details Recorded Time 09/21/2024 text/html Referred by Pain Management for evaluation of polyarthropathy. [...] reports prior diagnosis of ?rheumatoid arthritis in [place]. Unclear how diagnosis was made. No records available. She reports history of osteoporosis. Had DEXA several years ago. KAMRAN ANTONY MD [address] [place] [address], [phone], [facility] 09/21/2024 17:28:27 10/31/2024 text/html Last seen 09/21/24. Since last visit, Prednisone taper completed, which she reports was very helpful for hands, shoulders, feet. Has had some pain in shoulders, back more lately with colder weather changes. Did not have significant stiffness when on steroids. Reports side effects of weight gain on steroids. Scalp psoriasis remains, but doing ok with topicals. Denies major infections, fevers, vision changes.Will be getting DEXA scan today From initial HPI 09/21/24:Referred by Pain Management [...] reports prior diagnosis of ?rheumatoid arthritis in [place]. Unclear how diagnosis was made. No records available. She reports history of osteoporosis. Had DEXA several years ago. KAMRAN ANTONY MD [address] [place] [address], [phone], [place] [facility] 10/31/2024 10:20:17 02/13/2025 text/html Last seen 10/31/2024. Since last [...] improved. States that she was seen at [facility], and diagnosed with cradle cap rather [...] reports prior diagnosis of ?rheumatoid arthritis in [place]. Unclear how diagnosis was made. No records available. She reports history of osteoporosis. Had DEXA several years ago. KAMRAN ANTONY MD [address] [place] [address], [phone], [facility] 02/13/2025 12:45:36 OBGyn Episode No OBEpisode recorded.
--- OUTSIDE RECORDS SUMMARY | 2025-04-11 11:02 | XMS_ITS | Clinical Summary ---
Author Organization Healthcare Address [address] [place] [address] Care Team Providers Care Unemployment Insurance Director Name Role Phone Pcp, No Primary Care Provider Unavailabl e Allergies Active Allergy Reactions Criticality Noted Date Comments Amoxicillin Diarrhea Low 03/09/2024 Aspirin Shortness of breath High 03/09/2024 Sulfamethoxazole-Trimethoprim Rash Low 2023 Clarithromycin Rash Low 03/09/2024 Levofloxacin Angioedema High 03/09/2024 Nsaids Shortness of breath High 03/08/2024 Sibutramine Palpitations Low 03/09/2024 Sulfa Drugs Rash Low 03/08/2024 Medications LORazepam (Ativan) 1 MG tablet Take 1 tablet (1 mg) by mouth 2 (two) times a day. Active oxyCODONE-aceta minophen (Percocet) 7.5-325 MG tablet Take 1 tablet by mouth every 8 (eight) hours if needed for severe pain or moderate pain. 4 Active levothyroxine (Synthroid, Levoxyl) 25 MCG tablet Take 1 tablet (25 mcg) by mouth 1 (one) time each day before breakfast. Active acetaminophen (Tylenol) 325 MG tablet Take 1 tablet (325 mg) by mouth every 6 (six) hours if needed for pain. Active Melatonin 5 MG tablet tablet Take 1 tablet (5 mg) by mouth at night if needed for sleep. Active senna (Senokot) 8.6 MG tablet Take 2 tablets (17.2 mg) by mouth 1 (one) time each day. 30 tablet 4 Active pantoprazole (Protonix) 40 MG EC tablet Take 1 tablet (40 mg) by mouth 2 (two) times a day. 60 tablet 4 Active bisacodyl (Dulcolax) 5 MG EC tablet Take 2 tablets (10 mg) by mouth 1 (one) time each day if needed for constipation. Do not crush, chew, or split. 30 tablet Active fluticasone-naheed meterol (Advair Diskus) 250-50 MCG/ACT diskus inhaler Inhale 1 puff 2 (two) times a day. Rinse mouth with water after use to reduce aftertaste and incidence of candidiasis. Do not swallow. 60 each 11 4 Active Active Problems Problem Noted Date Diagnosed Date Dilated cbd, acquired 03/09/2024 Sleep apnea 03/09/2024 Legally blind in right eye, as defined in [place] Hypothyroidism 03/09/2024 Glaucoma 03/09/2024 GERD (gastroesophageal reflux disease) Depression 03/09/2024 COPD (chronic obstructive pulmonary disease) Asthma 03/09/2024 Arthritis 03/09/2024 Anxiety 03/09/2024 Nausea and vomiting 03/09/2024 Hypomagnesemia 03/09/2024 Leukocytosis 03/09/2024 Encounters Date Type Department Care Team Description 03/25/2025 [facility] Internal Medicine [address] [place] [address] Velvet Orozco MD from Last 3 Months 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 Medical History Relation Name Comments Diabetes Brother Heart disease Brother Hypertension Brother Cervical cancer Daughter Rheum arthritis Daughter Diabetes Father Heart disease Father Pancreatic cancer Mother Relation Name Status Comments Brother Daughter Father Mother 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 Tobacco Use Types Packs/Day Years Used Date Smoking Tobacco: Never Smokeless Tobacco: Never Tobacco Cessation:Counseling Given: Not Answered Alcohol Use Standard Drinks/Week Comments Never 0 (1 standard drink = 0.6 oz pur e alcohol) Humiliation, Afraid, Rape, and Kick questionnair e Answer Date Recorded Within the last year, have y ou been afraid of your partner or ex-partner? No 03/12/2024 Within the last year, have y ou been humiliated or emotionally abused in other ways by your partner or ex-partner? No Within the last year, have y ou been kicked, hit, slapped, or otherwise physically hurt by your partner or ex-partner? No 03/12/2024 Within the last year, have y ou been raped or forced to have any kind of sexual activity by your partner or ex-partner? No 03/12/2024 Hunger Vital Sign Answer Date Recorded Within the past 12 months, y ou worried that your food would run out before you got the money to buy more. Never true 03/12/20 24 Within the past 12 months, t he food you bought just didn't last and you didn't have money to get more. Never true 03/12/2024 PRAPARE - Transportation Answer Date Re corded In the past 12 months, has l ack of transportation kept you from medical appointments or from getting medications? No 12/2023 In the past 12 months, has l ack of transportation kept you from meetings, work, or from getting things needed for daily living? No 03/12/2024 Housing Stability Vital Sign Answer Timothy e Recorded In the last 12 months, was t here a time when you were not able to pay the mortgage or rent on time? No 03/12/2024 [address] Lived in the Last Year Not on f ile 03/12/2024 In the last 12 months, was t here a time when you did not have a steady place to sleep or slept in a assisted (including now)? No 03/12/2024 CAGE ASSESSMENT Answer Date Recorded Cage unable to access Not on file 03/09/2024 Cage max number of drinks Not on file 2023 Cage Beverages a week Not on file 03/09/2024 Have you ever felt you should CUT down on your d rinking? 0 03/09/2024 Have you been ANNOYED by people criticizing your drinking? 0 03/09/2024 Have you felt GUILTY about your drinking? 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 0 03/09/2024 CAGE Questionnaire Score 0 024 Utilities Answer Date Recorded In the past 12 months has th e [employer], gas, oil, or water [employer] threatened to shut off services in your home? No 03/12/2024 Comments No Sex and Gender Information Value Date Recorded Sex Assigned at Not on file Legal Sex Female 7:00 PM EDT Gender Identity Not on file Sexual Orientation Not on file Last Filed Vital Signs Vital Sign Reading Time Taken Comments Blood Pressure 100/59 03/14/2024 12:21 PM EDT Pulse 74 03/14/2024 12:21 PM EDT Temperature 36.2 C (97.2 F) 03/14/2024 12:21 PM EDT Respiratory Rate 17 03/14/2024 9:12 AM EDT Oxygen Saturation 91% 03/14/2024 12:21 PM EDT Inhaled Oxygen Concentration - - Weight 80.7 kg (178 lb) 03/13/2024 6:00 AM EDT Height 162.6 cm (5' 4 ) 03/09/2024 1:14 AM EDT Body Mass Index 30.55 03/09/2024 1:14 AM EDT Plan of Treatment Health Maintenance Due Date Last Done Comments [facility]-Depression Screening 1940 [facility]-Infant/Child/Adol SDOH Screenings 1940 [facility]- SDOH Screenings 1957 [facility]-Adult SDOH Screenings 1957 [facility]-DTaP,Tdap,and Td Vaccines (1 - Tdap) 1958 [facility]-RSV Vaccine: 60+ Years or (1 - 1-dose 75+ series) 2014 [facility]-Bone Density Scan 02/08/2019 02/08/2017, 017 [facility]-Medicare Annual Wellness (AWV) 05/19/2023 05/19/2022, 09/16/2020, 09/13/2019, Additional history exists [id number] Vaccine ( season) 2024 07/05/2022, 02/21/2022, 11/07/2020, Additional history exists [facility]-Influenza Vaccine (#1) 06/10/202507/05, 07/15/2021, 06/27/2020, Additional history exists [facility]-Pneumococcal Vaccine: 50+ Years Completed 05/19/2018, 01/14/2017, 12/16/2009 [facility]-Zoster Vaccines Completed 07/19/2022, [facility]-Obesity Intervention Completed 03/08/2024 HPV Vaccines Aged Out No longer eligi ble based on patient's age to complete this topic [facility]-HIB Vaccines Aged Out No longer e ligible based on patient's age to complete this topic [facility]-Hepatitis A Vaccines Aged Out No longer eligible based on patient's age to complete this topic [facility]-IPV Vaccines Aged Out No longer e ligible based on patient's age to complete this topic [facility]-Rotavirus Vaccines Aged Out No lo nger eligible based on patient's age to complete this topic Insurance [employer] MEDICARE [facility] Advance Directives Documents on File Type Date Recorded 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 Yes Patient has decision-making capacity? Yes Care Teams Unemployment Insurance Director Relationship Specialty Start Date End Date Pcp, No [address] [place] [address] PCP - General Family Medicine 03/08/24
--- OUTSIDE RECORDS SUMMARY | 2025-04-11 11:02 | XMS_ITS | Encounter Summary ---
Author Organization Healthcare Address [address] [id number] Care Team Providers Care Morphology Teacher Name Role Phone Pcp, No Primary Care Provider Unavailabl e Reason for Visit * Reason Comments Med Refill Encounter Details Date Type Department Care Team (Late st Contact Info) Description 03/25/2025 Refill [facility] Internal Medicine [address] [place] [address] Velvet Orozco MD [address] [place] [address] 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 Tobacco Use Types Packs/Day Years Used Date Smoking Tobacco: Never Smokeless Tobacco: Never Alcohol Use Standard Drinks/Week Comments Never 0 [...] place to sleep or slept in a chcf (including now)? No 03/12/2024 CAGE ASSESSMENT Answer [...] drink first t derrell in the morning (EYE-GREASE CUP FILLER) to steady your nerves or to get rid of a hangover? 0 03/09/2024 CAGE Questionnaire Score 0 024 Utilities Answer Date Recorded In the past 12 months has th e electric, gas, oil, or water company threatened to shut off services in your home? No 03/12/2024 Comments No Sex and Gender Information Value Date Recorded Sex Assigned at Not on file Legal Sex Female 7:00 PM EDT Gender Identity Not on file Sexual Orientation Not on file documented as of this encounter Miscellaneous Notes * Telephone Encounter - Lesley Villa - 04/02/2025 8:23 AM EDT Pt not est here at IM. * Telephone Encounter - Eneida Livingston PharmD - 03/29/2025 12:44 PM EDT documented in this encounter Plan of Treatment Not on file documented as of this encounter Visit Diagnoses Not on filedocumented in this encounter Additional Health Concerns Assessment Noted Time A Body Mass Index follow-up plan has been documented for the patient 03/14/2024 11:04 AM EDT documented as of this encounter Care Teams Morphology Teacher Relationship Specialty Start Date [place] [address] PCP - General Family Medicine 03/08/24 documented as of this encounter
--- OUTSIDE RECORDS SUMMARY | 2025-04-11 11:02 | XMS_ITS | Data Portability ---
Author Organization [place] [facility] Address [address] [place] [address] Assessment Encounter Date Assessment Date Assessment LastModified by Organization Details LastModified Time 02/22/2024 02/22/2024 This patient did Undergo intrathecal catheter dye study Today. We were unable to aspirate through the catheter aspiration port. It is suspected that the catheter is obstructed as there was a huge discrepancy in volume at her last refill. We will seek approval for intrathecal catheter revision/replac ement. In the meantime we will give her Percocet 7.5 mg 3 times a day. She is also wanting a referral to a arthritis doctor. We will send her to rheumatology at [facility]. abux Not available 02/22/2024 13:27:26 04/11/2024 04/11/2024 Pt is doing better after Catheter revison. She is having increasing pain with no side effects with her medication. We will increase her pump today to 0.1 mg/day of intrathecal morphine. We will follow up with her in [place] in 2 weeks for removal of sutures and to make further adjustments. abux Not available 04/12/2024 12:44:45 Plan of Treatment Reminders Order Date Submit Date Provider Last Modified By Organization Details Last Modified Time Details Appointments None recorded. Lab None recorded. Referral rheumatolog ist referral 2023 024 [email or web address] [facility], [address], [place], [address], 07:11:26 Procedures None recorded. Surgeries revision or repositioni ng of tunneled intrathecal or epidural catheter (SURG) 2023 024 [email or web address] Not available 11:41:58 Imaging None recorded. Medication Orders Percocet 7.5 mg-325 mg tablet 2023 024 JENA [facility], [address] [address] Selena [place], [id number], 13:30:39 Patient TargetsNo targets recorded. Patient Instructions Encounter Date Encounter Id Patient Instructions Last Modified By Organization Details Last Modified Time 02/22/2024 [id number] back pain: care instructions abux Not available 02/22/2024 13:29:09 learning about relief for back pain abux Not available 02/22/2024 13:29:09 04/11/2024 [id number] back pain: care instructions abux Not available 04/12/2024 12:45:16 learning about relief for back pain abux Not available 04/12/2024 12:45:16 Reason for Referral Blade Balancer Referral for Osteoarthritis Referring Physician: Tai Wolf, Pain Management, [phone] Encounter Date: 02/22/2024 Problems Name Problem SNOMED Code Status Onset Date Resolution Date Notes Provider Name and Address Organization Details Recorded Time Degeneration of lumbar intervertebral disc 78140668 Active 2023 Tai Wolf MD [address], [address], [place] [facility] 12:45:02 Lumbar radiculopathy 553506931 Active 2023 Tai Wolf MD [address], [address], [place] [facility] 12:45:03 Lumbar spondylosis 447601633 Active 2023 Tai Wolf MD [address] [facility],[address], [address], [place] [facility] 12:45:05 Problem Notes None recorded. Procedures 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 Date Name Laterality Status Provider Name and Address Organization Details Recorded Time PUMP ADJUSTMENT completed Tai Wolf MD [address] [facility],[address], [address], [place] [facility] 04/12/2024 12:42:45 05/15/202 4 Intrathecal catheter dye study completed Tai Wolf MD [address], [address], [place] [facility] 02/22/2024 13:25:59 Imaging Results None recorded. Procedure Notes None recorded. Medical Equipment None Reported. Allergies Allergen ID Allergen Name Allergen Category Reaction Reaction Severity Criticality Documentation Date Start Date Code Code System Note Provider Name and Address Organization Details Recorded Time 4943 ibuprofen medicatio n Not available Not available Not available 02/22/2024 5640 RxNorm Saskia Rasmussen null, [place] [facility] 11:01:55 Medications Name Sig Start Date Stop Date Status Note LastModified by Organization Details LastModified Time fluticasone 250 mcg-salmete rol 50 mcg/dose blistr powdr for inhalation active Not Available Not Available N ot Available prednisone 10 mg tablet TAKE 1 TABLET BY MOUTH TWICE DAILY FOR 3 DAYS 02/21 completed Not Available Not Available Not Available griseofulvi n ultramicros ize 125 mg tablet TAKE 1 TABLET BY MOUTH THREE TIMES DAILY. TAKE WITH A HIGH-FAT MEAL OR FOOD active Not Available Not Available No t Available ketoconazol e 2 % shampoo APPLY TOPICALLY EVERY OTHER DAY 02/21 completed Not Available Not Available Not Available clindamycin HCl 300 mg capsule active Not Available Not Available Not Available azithromyci n 250 mg tablet TAKE 2 TABLETS BY MOUTH ON DAY 1, AND THEN TAKE 1 TABLET BY MOUTH ONCE A DAY ON DAY 2 THROUGH DAY 5 02/21 completed Not Available Not Available Not Available senna 8.6 mg tablet active Not Available Not Available No t Available prednisone 20 mg tablet TAKE 1 TABLET BY MOUTH ONCE DAILY FOR 5 DAYS 02/21 completed Not Available Not Available Not Available triamcinolo ne acetonide 0.1 % topical cream APPLY TWO TIMES DAILY 02/21 completed Not Available Not Available Not Available levothyroxi ne 25 mcg tablet active Not Available Not Available Not Available terbinafine HCl 250 mg tablet TAKE 1 TABLET BY MOUTH ONCE DAILY active Not Available Not Available No t Available benzonatate 100 mg capsule 02/21 completed Not Available Not Available Not Available hydrocodone 7.5 mg-acetamin ophen 325 mg tablet TAKE 1 TABLET BY MOUTH EVERY 6 HOURS NEEDED FOR CHRONIC PAIN active Not Available Not Available No t Available paroxetine 20 mg tablet TAKE 1 TABLET BY MOUTH ONCE DAILY active Not Available Not Available No t Available pantoprazol e 40 mg tablet,naldo yed release TAKE 1 TABLET BY MOUTH ONCE DAILY active Not Available Not Available No t Available bisacodyl 5 mg tablet,naldo yed release active Not Available Not Available Not Available mupirocin 2 % topical ointment APPLY OINTMENT TOPICALLY THREE TIMES DAILY FOR 7 DAYS active Not Available Not Available No t Available lorazepam 1 mg tablet TAKE 1 TABLET BY MOUTH TWICE DAILY FOR ANXIETY active Not Available Not Available No t Available fluocinonid e 0.05 % topical solution USE ON SCALP ONCE DAILY NEEDED 02/21 completed Not Available Not Available Not Available oxycodone-a cetaminophe n 7.5 mg-325 mg tablet Take 1 tablet every 6-8 hours by oral route. active Not Available Not Available No t Available methylpredn isolone 4 mg tablets in a dose pack 02/21 completed Not Available Not Available Not Available fluticasone propionate 50 mcg/actuati on nasal spray,suspe nsion SHAKE LIQUID AND USE 2 SPRAYS IN EACH NOSTRIL TWICE DAILY 02/21 completed Not Available Not Available Not Available nitrofurant oin monohydrate /macrocryst als 100 mg capsule 02/21 completed Not Available Not Available Not Available levalbutero l HFA 45 mcg/actuati on aerosol inhaler INHALE 2 PUFFS INTO LUNGS 4 TIMES DAILY NEEDED active Not Available Not Available No t Available Rhopressa 0.02 % eye drops INSTILL 1 DROP INTO AFFECTED EYE(S) ONCE DAILY IN THE EVENING active Not Available Not Available No t Available Breyna 160 mcg-4.5 mcg/actuati on HFA aerosol inhaler active Not Available Not Available Not Available Vitals Date Recorded Heart rate Respiratory rate Heart rate Oxygen saturation Oxygen saturation in Arterial blood by Pulse oximetry Systolic And Diastolic Provider Name and Address Organization Details Last Updated DateTime 4 81 /min 18 /min 81 /min 96 % 96 % 119/82 mm[Hg] Saskia Rasmussen [place] [facility] 4 11:11:40 Date Recorded Heart rate Respiratory rate Heart rate Oxygen saturation Oxygen saturation in Arterial blood by Pulse oximetry Systolic And Diastolic Provider Name and Address Organization Details Last Updated DateTime 4 85 /min 18 /min 85 /min 96 % 96 % 131/87 mm[Hg] Saskia Mezapaulino [place] [facility] 4 11:18:35 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 None recorded. Functional Status None recorded. Mental Status None recorded. 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 Nothing Reported. Medical History Condition Response Coronary Artery Disease N Gout N Head Trauma/Injury N Depression N COPD N Anxiety Disorder N Arthritis N Acid Reflux (GERD) N Cancer N Stroke N Headaches N Fibromyalgia N Kidney Disease N Ulcers N Bleeding Disorder N Tuberculosis N AIDS/HIV N Asthma Y Substance Abuse N Hepatitis N Hernia N Back Injury N High Cholesterol N Liver Disease N Thyroid Problems N Anemia N Heart Attack (NM) N Diabetes N Heart Disease N Hypertension N Osteoporosis N Gynecological HistoryNo gynecological history recorded. Obstetrics History GPAL:G 0 P 0 0 0 0 Past Encounters Encounter ID Performer Location Encounter Start Date Encounter Closed Date Diagnosis/Indication Diagnosis SNOMED-CT Code Diagnosis ICD10 Code Diagnosis Note [id number] Tai Wolf MD [address] [place] [address] [place] [address] 02/22/2024 10:16:04 02/22/2024 12:44:57 Degeneration of lumbar intervertebral disc 29869560 M51.36 Lumbar radiculopathy 128 678300 M54.16 Lumbar spondylosis 79084 0009 M47.896 Complicati on of catheter 76756629 T85.610A Osteoarthritis 978469936 M19.90 [id number] Tai Wolf MD [address] [address] [address] [place] [address] [place] [address] 04/11/2024 10:20:18 04/11/2024 12:31:04 Degeneration of lumbar intervertebral disc 22615593 M51.36 Lumbar radiculopathy 128 529278 M54.16 Lumbar spondylosis 87938 0009 M47.896 Health Concerns Section Related Observation LastModified by Organization Detai ls LastModified Time None Recorded Concern Status LastModified by Organization Details LastModified Time None Recorded Advance Directives Directive None Recorded Payers Insurance Date Sequence Insurance Name Policy Number Policy Cota Covered Member ID Cota Member ID Guarantor Name 03/10/2025 2 () Briana Valdez [id number] Briana Valdez 05/18/2023 1 [place] Briana Valdez [id number] Briana Valdez 03/10/2025 1 [employer] (MEDICARE REPLACEMENT/ ADVANTAGE - PPO) Briana Valdez [id number] Briana Valdez Notes Date Note Type Note Provider Name and Address Organization Details Recorded Time 02/22/2024 text/html Back PainReporte d bypatient.Location :pain radiating to the buttocks;pain radiating to the legs;pain radiating to the foot;pain radiating to the ankle Quality:sharp;achi ng;constant Severity:pain level 3/10;mild (1-4) Duration:chronic Tai Wolf MD [address], [address], [place] [facility] 02/22/2024 13:31:39 04/11/2024 text/html Back PainReporte d [email or web address].Location :pain radiating to the buttocks;pain radiating to the legs;pain radiating to the foot;pain radiating to the ankle Quality:sharp;achi ng;constant Severity:pain level 3/10;mild (1-4) Duration:chronic Tai Wolf MD [address], [address], [place] [facility] 04/12/2024 12:45:39 OBGyn Episode No OBEpisode recorded.
== END 2025-04-08 23:59 | disposition home or self-care (01) ==
LOC: LAB.DROPOF 04-11 10:50
PROVIDERS: PCP Nurse Practitioner Family; Visit Provider Nurse Practitioner Family
DX: J06.9 Acute upper respiratory infection, unspecified (principal)
CPT/HCPCS: 87631

== ENCOUNTER 2025-05-10 09:01 | Day surgery (SDC) | payer MEDICARE, OTHER, SELFPAY ==
--- NOTE | 2025-05-10 09:08 | EXP.PM.HP ---
History of Present Illness *Admission Date: 05/10/25 *Reason for visit:: Intrathecal refill; DDD *History of present illness: Same [facility] Disclaimer: The information contained in this section may have been updated after the patient was seen, as this information can be updated by other users. Medical History Abdominal pain Abnormal electrocardiogram [ECG] [EKG] Acute bacterial sinusitis Acute bronchitis Acute hypoxic respiratory failure Acute viral syndrome Allergic reaction Altered mental state Altered mental status Angioedema Anxiety Asthma Atypical pneumonia Bronchitis Cataract Constipation COPD exacerbation COVID-19 Dry mouth Dyspnea on exertion Edema of left foot Elevated troponin Family history of asthma Fracture of metatarsal bone of left foot GERD (gastroesophageal reflux disease) History of COPD History of COVID-19 History of gastroesophageal reflux (GERD) History of sleep apnea Hospital discharge follow-up Hypertension Hypothyroid Infected scalp abrasion Ingrown toenail of left foot Irritable bowel syndrome (IBS) Knee pain Left foot pain Leukocytosis Lumbar radiculopathy Menopause Multiple closed fractures of metatarsal bone of left foot Nail disorder (onychogryphosis) Nasal congestion Nausea & vomiting Non-ST elevation [place] (NSTEMI) Normal colonoscopy Otitis media Pneumonia Pneumonia Psoriasis Pulmonary edema Sebaceous cyst of labia Sepsis Sepsis Sinus tachycardia Sinusitis Sinusitis Sinusitis Sjogren syndrome Sleep apnea Thrush Urinary tract infection UTI (urinary tract infection) 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 H/O bladder repair surgery H/O sinus surgery H/O: hysterectomy History of cholecystectomy History of eye surgery History of surgery on arm Hx of cataract surgery 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 Other Asthma Diabetes Family history of cancer Heart attack Hypertension 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 Smoking Status: Never smoker alcohol intake: never substance use type: denies use current occupational status: retired Travel in the last 8 weeks?: None Have you lived/traveled outside US in past 30 days?: No Contact w/someone who lives/traveled outside US past 30 days?: No Exposure to someone with infectious disease in past 14 days?: No Do you have a fever (greater than 100.4 F or 38 C)?: No Have you tested positive for COVID-19?: No Exposed to someone with COVID-19 in past 14 days?: No Do you have a sore throat?: No Do you have a cough?: No Do you have any weakness?: No Do you have any diarrhea?: No Are you experiencing any unusual bleeding?: No Do you have any muscle aches/pain?: No Do you have any abdominal pain?: No Are you experiencing loss of taste or smell?: No Other Medical History Have you received the Flu Vaccine for this season: No Have you received the Pneumonia Vaccine: Yes Review of Systems Review of Systems Review of systems:: pertinent systems reviewed and negative unless documented below Review of systems (narrative): Review of Systems: General: No recent weight changes, no fever, no sleep disturbances Respiratory: No cough, no shortness of air, no recurring pulmonary infections Cardiovascular/peripheral vascular: No chest pain, no palpitations, no edema, no shortness of breath Gastrointestinal: No new onset incontinence, normal bowel movements reported Genitourinary: No new onset incontinence Musculoskeletal: Chronic back pain Psychiatric: [Normal mood/affect] Neurological: [Denies weakness in extremities], [denies balance issues] Meds Home Medications and Allergies Home Medications ?Medication ?Instructions ?Recorded ?Confirmed ?Type fexofenadine 180 mg tablet 180 mg PO DAILY 04/04/23 04/25/25 History (Audra Allergy) melatonin 1 mg tablet 1 mg PO HSP PRN Insomnia 05/26/23 04/25/25 History morphine (PF) 1 mg/mL injection 1 mg epidural CONT Pain 06/10/23 04/25/25 History solution netarsudil 0.02 % eye drops 1 drp ophthalmic (eye) HS 09/09/24 04/25/25 History (Rhopressa) sennosides 8.6 mg-docusate sodium 1 tab PO BID PRN constipation 30 09/10/24 04/25/25 Rx 50 mg tablet (Stimulant Laxative days #60 tabs Plus) hydroxychloroquine 200 mg tablet 200 mg PO BID 11/22/24 04/25/25 History alendronate 70 mg tablet 70 mg PO WEEKLY #10 tabs 12/05/24 04/25/25 Rx budesonide-formoterol HFA 160 2 puff inhalation BID soa 1 month 12/05/24 04/25/25 Rx mcg-4.5 mcg/actuation aerosol #20.4 grams inhaler (Symbicort) levalbuterol tartrate 45 2 puff inhalation Q4-6H PRN 12/05/24 04/25/25 Rx mcg/actuation aerosol inhaler shortness of breath or wheezing #30 grams levothyroxine 25 mcg tablet 25 mcg PO DAILY #90 tabs 12/05/24 04/25/25 Rx pantoprazole 40 mg tablet,delayed 40 mg PO DAILY #90 tabs 12/05/24 04/25/25 Rx release amoxicillin 875 mg-potassium 1 tab PO BID 10 days #20 tabs 04/08/25 04/25/25 Rx clavulanate 125 mg tablet fluocinolone 0.01 % scalp oil and 1 applic topical .1-2 times daily 04/08/25 04/25/25 History shower cap furosemide 40 mg tablet (Lasix) 20 mg PO DAILY 04/08/25 04/25/25 History ipratropium 0.5 mg-albuterol 3 mg 3 ml inhalation Q6H PRN shortness 04/08/25 04/25/25 Rx (2.5 mg base)/3 mL nebulization of breath #180 mL soln ofloxacin 0.3 % eye drops 2 drp Eye-Right BID #10 mL 04/08/25 04/25/25 Rx lorazepam 1 mg tablet 1 mg PO BID Anxiety #60 tabs 04/25/25 04/25/25 Rx sertraline 50 mg tablet 50 mg PO DAILY #30 tabs 04/25/25 04/25/25 Rx New Prescriptions to Start Prescriptions: Allergies Allergy/AdvReac Type Severity Reaction Status Date / Time levofloxacin (From Levaquin) Allergy Intermediate rash Verified 04/25/25 11:53 ibuprofen (From MOTRIN) Allergy Mild Verified 04/25/25 11:53 NSAIDS (Non-Steroidal Allergy Mild Verified 04/25/25 11:53 Anti-Inflamma (NSAIDS (NON-STEROIDAL ANTI-INFLAMMA) Sulfa (Sulfonamide Allergy Mild Verified 04/25/25 11:53 Antibiotics) (SULFA (SULFONAMIDE ANTIBIOTICS)) sibutramine (From Meridia) Allergy Verified 04/25/25 11:53 Exam Constitutional Constitutional: no acute distress *Routine HEENT Exam Head: Present normocephalic and atraumatic Eye: Present PERRL ENT: Present mucous membranes moist *Routine Neck Exam Neck: Present supple *Routine Respiratory Exam Respiratory: Present CTA bilaterally *Routine Cardiovascular Exam Cardiovascular: Present RRR *Routine Abdominal Exam Abdominal: Present soft *Routine Rectal Exam Rectal:: deferred *Routine Genitalia Exam Genitalia:: deferred Routine Back/Spine/Pelvis Exam Back/Spine: Present pain with flexion *Routine Skin Exam Skin: Present intact and warm *Routine Neurological Exam Neurological: Present alert and oriented X3 Routine Psychiatric Exam Psychiatric: Present normal affect and normal thought process Assessment and Plan *Assessment and plan (1) Degenerative disc disease, lumbar: Status: Acute Category: Medical Code(s): M51.369 - Other intervertebral disc degeneration, lumbar region without mention of lumbar back pain or lower extremity pain Plan Patient has been instructed to contact the clinic with any concerns before the next appointment. Dr. Wolf has reviewed this note and agrees with this plan of care. This note was dictated using voice recognition software and make contain errors or omissions. All injections are used with Lidocaine, Bupivacaine and dexamethasone. Occasionally urine drug screen is needed to verify patient's compliance with our office pain contract. This is ordered based off specific treatments related to chronic pain with the potential to abuse certain medications.
[2025-05-10 09:13] VITALS: BP 120/65; PULSE 74; RESP 16; O2SAT 98; BMI 29.5
--- NOTE | 2025-05-10 09:26 | EXP.PAIN.PRO ---
Procedure Date: 05/10/25 Time: 09:07 Anesthesiologist:: Odilia Bustos APRN Complications:: None Pre-procedure Diagnosis:: Degenerative disc disease of lumbar spine, chronic pain syndrome Post-procedure Diagnosis:: Same Indications for Procedure:: With herPatient is a pleasant 85-year-old female who presents today for intrathecal refill and reprogram. She denies any falls or injuries. She rates her pain today a 2 out of 10. She does state that she still been having a lot of trouble right leg and that just is not able to pick it up as easily. Patient is also having more numbness and tingling. 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 Patient had previously been using fluid pills however she states it was causing her fingers to drop and she really did not find it beneficial and was aggravating her symptoms. Patient is currently managed with morphine 1 mg/mL with a daily dose of 0.1851 mg/day. She denies any side effects. Her Pieter has been reviewed and is appropriate. Physical Exam: General: Alert and oriented x3, no acute distress, pleasant and cooperative Lungs: Respirations even and unlabored, symmetrical chest expansion Eyes: PERRL Musculoskeletal: Flexion and extension of lumbar [spine] somewhat guarded secondary to pain, [antalgic gait noted] Neurological: Speech clear, no gross sensory deficit Procedure Details:: Informed consent was obtained and the risk and benefits of the procedure were explained to the patient. The patient had noninvasive monitoring placed including noninvasive blood pressure cuff and pulse oximeter. Patient's pump was interrogated. The area over the pump was cleansed with chlorhexidine as a cleansing solution. In sterile fashion the pump was accessed with a 22-gauge needle. Approximately 3.2 mls of the pump solution was removed and discarded appropriately. The pump was then refilled with 20 mL's of morphine 1 mg/mL. The needle was withdrawn and a bandage was placed over the puncture site. The infusion rate was reprogrammed and increased 5% morphine 0.1944 mg/day. The patient tolerated well with no complication. Plan and Disposition:: Patient tolerated the procedure well with no complications and was discharged neurologically intact. We did discuss with the patient that her leg symptoms may be just progression of the degenerative disc. We will continue to follow-up with her regarding this. Patient will return to clinic on or before their next intrathecal refill date. We will see the patient back in the clinic at the next intrathecal refill. Patient has been instructed to contact the clinic with any concerns before the next appointment. Dr. Wolf has reviewed this note and agrees with this plan of care. This note was dictated using voice recognition software and make contain errors or omissions. -- It Is medically necessary for this patient to continue to have their intrathecal pump refilled at regular intervals. This patient had an intrathecal pain pump implanted after meeting criteria of chronic intractable pain for greater than 3 months and failing conservative treatments. Patient has committed and been compliant to the treatment plan and all planned follow up care. Since implantation of the intrathecal pain pump, the patient has had decreased pain and been more functional. Oral medications have been reduced including intake of oral opioids. Patient continues to do well with intrathecal therapy with decrease in pain symptoms and increase in functional status. Stopping intrathecal medications can lead to life threatening withdrawal, seizures, cardiac arrest, severe pain, and possible . Pumps that are not refilled at regular intervals can be damages and cause and need for replacement. We continually titrate dose and concentration to optimize pain relief and function. We are limited in concentration for certain drugs to safely deliver medications through the pump and stay within the recommendations from the Polyanalgesic Consensus Committee Guidelines. Depending on dose and concentration these pumps may need to be refilled sooner than 3 months as we titrate. A UDS is needed to verify patient's compliance with our office pain contract. This is ordered based off specific treatments related to chronic pain with the potential to abuse certain medications.
[2025-05-10 09:29] VITALS: BP 152/77; PULSE 84; RESP 18; O2SAT 95
[2025-05-10 09:40] VITALS: BP 125/70; PULSE 79; RESP 18; O2SAT 97
== END 2025-05-10 09:40 | disposition home or self-care (01) ==
PROVIDERS: PCP Internal Medicine; Visit Provider Nurse Practitioner Family
DX: M51.369 Other intervertebral disc degeneration, lumbar region without mention of lumbar back pain or lower extremity pain (principal); G89.4 Chronic pain syndrome; E03.9 Hypothyroidism, unspecified; M35.00 Sjogren syndrome, unspecified; I25.2 Old myocardial infarction; I10 Essential (primary) hypertension; F41.9 Anxiety disorder, unspecified; K59.00 Constipation, unspecified; J44.89 Other specified chronic obstructive pulmonary disease; Z79.899 Other long term (current) drug therapy; Z79.890 Hormone replacement therapy; Z79.51 Long term (current) use of inhaled steroids; Z88.6 Allergy status to analgesic agent; Z88.1 Allergy status to other antibiotic agents; Z88.8 Allergy status to other drugs, medicaments and biological substances; Z88.2 Allergy status to sulfonamides
CPT/HCPCS: 62370

== ENCOUNTER 2025-05-30 11:04 | Outpatient (CLI) | payer MEDICARE, OTHER, SELFPAY ==
--- OUTSIDE RECORDS SUMMARY | 2025-05-30 11:08 | XMS_ITS | Clinical Summary ---
Author Organization Healthcare Address [address] [place] [address] Care Team Providers Care Scheduler Conveyor Name Role Phone Pcp, No Primary Care [...] Date Type Department Care Team Description 03/25/2025 [facility] Internal Medicine [address], [address]rd [place] [address] Velvet Orozco MD from Last 3 Months [...] place to sleep or slept in a care home (including now)? No 03/12/2024 CAGE ASSESSMENT Answer [...] drink first t derrell in the morning (EYE-FAMILY SERVICE COUNSELOR) to steady your nerves or to get rid of a hangover? 0 03/09/2024 CAGE Questionnaire Score 0 024 Utilities Answer Date Recorded In the past 12 months has th e official.fm, gas, oil, or water [employer] threatened to shut off services in your [...] 05/19/2023 05/19/2022, 09/16/2020, 09/13/2019, Additional history exists [id number] Vaccine ( season) 2024 07/05/2022, 02/21/2022, 11/07/2020, [...] to complete this topic Insurance HUMANA MEDICARE [facility] Advance Directives Documents on File Type Date Recorded Patient Reed Polisher Expl anation Advance Directives and Livin g Will 03/15/2024 9:05 AM Advance Directives and Livin g Will 03/12/2024 10:11 AM Judi Swain * DNR/DNI (Latest Code Status on File) Date Activated Date Inactivated Comments 03/09/2024 12:42 AM 03/14/2024 4:16 PM Question Answer Comments DNR determined on/before admission date? Yes Patient has decision-making capacity? Yes Care Teams Scheduler Conveyor Relationship Specialty Start Date End Date Pcp, No [address] [place] [address] PCP - General Family Medicine 03/08/24
--- OUTSIDE RECORDS SUMMARY | 2025-05-30 11:08 | XMS_ITS | Encounter Summary ---
Author Organization Healthcare Address [address] [place] [address] Care Team Providers Care Legal Counsel Name Role Phone Pcp, No Primary Care Provider Unavailabl e Reason for Visit * Reason Comments Med Refill Encounter Details Date Type Department Care Team (Late st Contact Info) Description 03/25/2025 Refill [facility] Internal Medicine [address], [address]rd [place] [address] Velvet Orozco MD [address] [place] [address] 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 Tobacco Use Types Packs/Day Years [...] place to sleep or slept in a jail (including now)? No 03/12/2024 CAGE ASSESSMENT Answer [...] drink first t derrell in the morning (EYE-PENS AND PENCILS REPAIRER) to steady your nerves or to get [...] documented as of this encounter Care Teams Legal Counsel Relationship Specialty Start Date [place] [address] PCP - General Family Medicine 03/08/24 documented as of this encounter
--- OUTSIDE RECORDS SUMMARY | 2025-05-30 11:08 | XMS_ITS | Clinical Summary ---
Author Organization [facility] Address [address] [place] [address] Phone Care Team Providers Care Cell Efficiency Supervisor Name Role Phone Unavailable Primary Care Provider [...] IRIDOTOMY ; Surgeon: Guanakito Melton MD; Location: [facility]; Service: Ophthalmology EYE SURGERY 02/19/2014 Left LEFT EYE YAG LASER IRIDOTOMY ; Surgeon: Guanakito Melton MD; Location: [facility]; Service: Ophthalmology COLONOSCOPY UPPER GASTROINTESTINAL ENDOSCOPY CARDIAC CATHETERIZATION CATARACT REMOVAL 04/25/2014 Right RIGHT EYE CATARACT EXTRACTION WITH PHACOEMULSIFICATION AND INTRAOCULAR LENS ; Surgeon: Balaji Jenkins MD; Location: [facility]; Service: Ophthalmology Medical devices from this surgery are in the Medical Devices section. CATARACT REMOVAL 05/08/2014 Left LEFT EYE CATARACT EXTRACTION WITH PHACOEMULSIFICATION AND INTRAOCULAR LENS ; Surgeon: Balaji Jenkins MD; Location: [facility]; Service: Ophthalmology Medical devices from this surgery [...] Anxiety COPD (chronic obstructive pu lmonary disease) ([facility]) nebulizer Osteoporosis Legally blind in right eye, as defined in [place] Vertigo Severe obesity (BMI 35.0-35. 9 with comorbidity) ([facility]) 10/30/2019 Morbid Obesity: patient is m orbid [...] Brown MD Medical Devices Implanted Type Area Equipment Analyst Device Identifier Shelf Expiration Date Model / Serial / Lot Imperial Gii With Orthocord - [id number] Implanted:Qty: 2 on 06/19/2010 at [facility] Explanted:at [facility] (Quantity not on file) Right: Elbow J&J:ETHICON:MITE K PRDT 03/09/2013 [id number] / / [id number] Component Stem Head Radial Modular Evolve Size+2 6.5mm - [id number] Implanted:Qty: 1 on 06/19/2010 at [facility] MED GRP:[address] [employer] [id number] / / [id number] Component Head Radial Modular Evolve Standard 22mm - [id number] Implanted:Qty: 1 on 06/19/2010 at [facility] MED GRP:[address] [employer] 10/10/2017 [id number] / / [id number] Imperial Gii With Orthocord - [id number] Implanted:Qty: 1 on 06/19/2010 at [facility] J&J:ETHICON:MITE K PRDT 03/09/2013 [id number] / / [id number] Lens Intraocular 24.5 Diopter Acrysof Iq 13.0mm Length 6.0mm - [id number] Implanted:Qty: 1 on 04/25/2014 by Balaji Jenkins MD at [facility] Right: Eye AMADA LAB:SURG [id number] 11/10/2018 [id number]-35 .5 / [id number] / Lens Intraocular 24.0 Diopter Acrysof Iq 13.0mm Length 6.0mm - [id number] Implanted:Qty: 1 on 05/08/2014 by Balaji Jenkins MD at [facility] Left: Eye AMADA LAB:SURG 11/10/2018 [id number]-42 .0 / [id number] / Procedures Procedure Name Priority Date/Time [...] bone density assessment. Study was performed on [employer].2. Bone Density: Region BMD T-score Z-score AP [...] Relevant to Health Maintenance Insurance [address] [facility] [place] [address] [place] [facility] MEDICARE PPO MR [address] [place] [address] HUMANA MEDICARE PPO MR [address] [facility] Advance Directives For more information, please contact: [phone] * Full Code (Latest Code Status on File) Date Activated Date Inactivated Comments 07/20/2023 2:43 PM 07/21/2023 3:25 PM * Full Code Date Activated Date Inactivated Comments 04/27/2018 12:20 AM 04/27/2018 5:06 PM * Full Code Date Activated Date Inactivated Comments 09/04/2017 10:49 AM 09/04/2017 7:10 PM
--- OUTSIDE RECORDS SUMMARY | 2025-05-30 11:08 | XMS_ITS | Clinical Summary ---
Author Organization [facility] Address [address] [place] [address] Care Team Providers Care Guillotine Operator Name Role Phone Kody Brown M.D. Primary Care Provider [phone] Source Comments [facility] is fully rolled out with thefollowing exceptions:General Clinical Research [facility] Allergies Active Allergy Reactions Criticality Noted Date Comments Trimethoprim-Sulfamethoxazole Respiratory Distress 07/08/2014 Clarithromycin Rash 07/08/2014 Meridia PALPITATIONS 07/08/2014 Motrin Ib Respiratory Distress 07/08/2014 Nsaids 07/08/2014 Sulfa Antibiotics 07/08/2014 Medications cholecalciferol (VITAMIN D) 57772 UNITS capsule Take by mouth every Tuesday and Tuesday. Active budesonide-form oterol (SYMBICORT) 160-4.5 MCG/ACT inhaler 2 Puffs 2 times a day. Active levothyroxine (SYNTHROID) 25 mcg/mL suspension 1 time a day. Activ e ranitidine (ZANTAC) 150 MG capsule 2 times a day. Active HYDROcodone-sarah taminophen (NORCO) 10-325 MG tablet every 4-6 hours as needed. Active meclizine (ANTIVERT) 12.5 MG tablet 12.5 mg 3 times a day as needed. Active levalbuterol (XOPENEX) 0.31 MG/3ML nebulizer solution as directed. Active travoprost (TRAVATAN) 0.004 % ophthalmic solution Put 1 Drop in both eyes at bedtime. Active diazepam (VALIUM) 5 MG tablet Take 5 mg by mouth every 8 hours. Active bacitracin-poly myxin b (POLYSPORIN) 500-18850 UNIT/GM ophthalmic ointmentIndicat ions:Empiric treatment Apply thin ribbon to the affected eye(s) Two times a day right eye.. 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 Diplopia 07/08/2014 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 Medical History Relation Name Comments Amblyopia Neg Hx Blindness Neg Hx Cataracts/Herve.Childhood Neg Hx Eye Muscle Surgery Neg Hx Glaucoma/Herve.Childhood Neg Hx Nystagmus Neg Hx Other Neg Hx Ptosis Neg Hx Retinal Degeneration Neg Hx Strabismus Neg Hx 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 Tobacco Use Types Packs/Day Years Used Date Smoking Tobacco: Never Comments Unknown Sex and Gender Information Value Date Recorded Sex Assigned at Not on file Legal Sex Female 7:20 AM EDT Gender Identity Not on file Sexual Orientation Not on file Plan of Treatment Health Maintenance Due Date Last Done Comments MMR IMMUNIZATION (1 of 1 - S tandard series) 1940 DTAP/Tdap/Td IMMUNIZATION (1 - Tdap) 1946 VARICELLA IMMUNIZATION (1 of 2 - 13+ 2-dose series) 1952 Respiratory Syncytial Virus (RSV) >60yo or (1 - 1-dose 75+ series) 2014 COVID-19 Vaccine ( - 2023-2 5 season) 2024 AMB SEASONAL FLU VACCINE (#1) 08/10/2025 HEPATITIS B IMMUNIZATION Aged Out No longer eligible based on patient's age to complete this topic HIB IMMUNIZATION Aged Out No longer e ligible based on patient's age to complete this topic HPV IMMUNIZATION Aged Out No longer e ligible based on patient's age to complete this topic IPV IMMUNIZATION Aged Out No longer e ligible based on patient's age to complete this topic MCV4 IMMUNIZATION Aged Out No longer eligible based on patient's age to complete this topic MENINGOCOCCAL B VACCINE Aged Out No l onger eligible based on patient's age to complete this topic Respiratory Syncytial Virus (RSV) <20mo Aged Out No longer eligible b ased on patient's age to complete this topic Insurance 1991 [address] [place], [place] [address] [place] [address] [facility] Address: [address] [address] [place] [address] MEDICARE [place] Care Teams Guillotine Operator Relationship Specialty Start Date End Date Kody Brown M.D. [address] [facility] [address] [place] [address] PCP - General External Family Practice 08/26/14
--- NOTE | 2025-05-30 11:12 | XR_ITS ---
FINAL REPORT CLINICAL HISTORY: dyspnea, dizziness, fell on bed COMPARISON: 11/22/2024 FINDINGS: 2 views of the chest were obtained . The heart is normal in size. The mediastinum is within normal limits. There are mild chronic changes. The lungs are otherwise clear. There is no pneumothorax. Osseous structures are unremarkable. IMPRESSION: No acute cardiopulmonary process. Reviewed, Interpreted and Dictated by Rober Alamo MD Transcribed by Virginia Napier Authenticated and [facility]
[2025-05-30 11:43] LABS: Hematocrit 41.7 % (37.0-47.0); Hemoglobin 13.0 g/dL (12.2-16.2); Immature Granulocytes % 0.3 %; Mean Corpuscular HGB Conc 31.2 g/dL (31.8-35.4); Mean Corpuscular Hemoglobin 30.3 pg (27.0-31.2); Mean Corpuscular Volume 97.2 fl (81-99); Nucleated Red Blood Cells % 0 %; Platelet Count 522 K/mm3 (142-424); Red Blood Count 4.29 M/mm3 (4.20-5.40); Red Cell Distribution Width-SD 51.0 fL; White Blood Count 11.5 K/mm3 (4.8-10.8)
[2025-05-30 12:15] LABS: Alanine Aminotransferase 16 U/L (12-78); Albumin Level 4.2 g/dl (3.5-5.0); Alkaline Phosphatase 138 U/L (38-126); Anion Gap 14.1 mEq/L (5-15); Aspartate Amino Transferase 24 U/L (14-36); Bilirubin,Direct 0.3 mg/dl (0.0-0.4); Bilirubin,Indirect 0.5 mg/dL (0.0-0.9); Bilirubin,Total 0.8 mg/dl (0.2-1.3); Bilirubin,Unconjugated 0.5 mg/dL (0.0-1.1); Blood Urea Nitrogen 22 mg/dl (7-17); Calcium 9.6 mg/dl (8.4-10.2); Carbon Dioxide 29 mmol/L (22.0-30.0); Chloride 102 mmol/L (98-107); Cholesterol 150 mg/dl (140-200); Creatinine,Serum 0.70 mg/dl (0.52-1.04); Estimated Glomerular Filt Rate 79 ml/min (>60); GFR (African American) 96 ML/MIN (>60); Glucose 90 mg/dl (74-100); HDL Cholesterol 76 mg/dl (40-60); Magnesium 2.0 mg/dl (1.6-2.3); Potassium 4.1 mmoL/L (3.5-5.1); Sodium 141 mmol/L (136-145); Total Protein,Serum 7.4 g/dl (6.3-8.2); Triglycerides 95 mg/dl (30-150)
[2025-05-30 13:12] LABS: Free T4 (Free Thyroxine) 1.26 ng/dl (0.78-2.19); Thyroid Stimulating Hormone 2.77 uIU/mL (0.465-4.68)
== END 2025-05-30 23:59 | disposition home or self-care (01) ==
LOC: LAB 11:06
PROVIDERS: PCP Internal Medicine; Visit Provider Nurse Practitioner
DX: I21.4 Non-ST elevation (NSTEMI) myocardial infarction (principal); I50.9 Heart failure, unspecified; I31.39 Other pericardial effusion (noninflammatory); J81.1 Chronic pulmonary edema; R94.31 Abnormal electrocardiogram [ECG] [EKG]; R79.89 Other specified abnormal findings of blood chemistry
CPT/HCPCS: 36415; 71046; 80048; 80061; 80076; 83735; 84439; 84443; 85025

== ENCOUNTER 2025-06-19 14:29 | Outpatient (CLI) | payer MEDICARE, OTHER, SELFPAY ==
--- NOTE | 2025-06-19 14:30 | CA_ITS ---
APPROVED REPORT EXAM: Comprehensive 2D, Doppler, and color-flow Echocardiogram Lead Level Designer: Mary Berkowitz, RCS, RVS Ht: 5 ft 4 in Wt: 170lbs BSA: 1.83 BP: 130/85 mmHg Indications: SOA, Murmur 2D Dimensions IVSd 0.92 cm LVEF (Visual) 68.10 % PWd 0.86 cm LA Volume 46.60 mL LVDd 4.32 cm LA Volume Index 25.244328 mL/m2 (M/F) 16-34 LVDs 2.69 cm EF AP4 60.30 % Aortic Root 3.04 cm GL Strain -18.2 % Left Atrium 2.74 cm RVID Base (AP4) 2.57 cm (M/F) 2.5-4.1 LVOT 1.76 cm (M/F) 1.5-2.5 M-Mode Dimensions RVDd 1.61 cm (0.9-2.6) LVDd 4.32 cm (3.5-5.7) Ao Diam 3.44 cm (2.0-3.7) LVDs 2.72 cm (3.5-5.7) IVSd 1.00 cm (0.6-1.1) PWd 1.04 cm (0.6-1.1) EF (Teich) 74.30% EPSs 0.90 cm FS 41.37% EDV (Teich) 107.00 mL TAPSE 1.72 (<1.7) ESV (Teich) 27.50 mL LV Diastology E Decel Time 278 (160-240 msec) E/A Ratio 0.78 MED E' 8.3 (>= 7 cm/sec) MED A' 11.00 cm/s E'/MED E' Ratio 7.92 (<= 14) LAT E' 8.3 (>= 10 cm/sec) LAT A' 13.00 cm/s E/LAT E' Ratio 7.92 (<= 14) Aortic Valve LVOT Max 101.0 (70-110 cm/s) MARYBEL Index 1.04 cm2/m2 LVOT VTI 18.96 cm AoV Peak Emanuel. 138.0 (50-130 cm/s) AO Mean GR. 3.80 (<5 mmHg) AO VTI 24.3 (18-25 cm) MARYBEL (VTI) 1.90 (2.5-4.5 cm2) Mitral Valve MV E Max Emanuel. 66.0 (40-130 cm/s) MV A Velocity 84.0 (40-130 cm/s) E/A Ratio 0.78 MV Decel. Time 278 (160-240 ms) Tricuspid Valve TR P. Velocity 263.00 cm/s RAP Estimate 10.00 mmHg RVSP 37.70 mmHg Left Ventricle The left ventricle is normal size. Left ventricular systolic function is normal. The left ventricular ejection fraction is within the normal range. There is increased left ventricular wall thickness. There is normal LV segmental wall motion. Transmitral Doppler flow pattern suggests impaired LV relaxation. LVEF is 60%. Right Ventricle The right ventricle is normal size. The right ventricular systolic function is normal. Atria The left atrium size is normal. The right atrium size is normal. There is no color Doppler evidence of interatrial shunt. Aortic Valve The aortic valve is mildly thickened. There is no hemodynamically significant aortic valvular stenosis. Trace aortic regurgitation is present. Mitral Valve The mitral valve is normal in structure. No evidence of mitral valve stenosis. Trace mitral regurgitation is present. Tricuspid Valve The tricuspid valve leaflets are thin and pliable. Mild tricuspid regurgitation. RVSP is 20-25 mmHg. Pulmonic Valve The pulmonary valve is grossly normal in structure. Trace pulmonic valve regurgitation is present. Great Vessels The aortic root is normal in size. IVC is normal in size and collapses >50% with inspiration. Pericardium There is no pericardial effusion. Other Information Study Quality: Fair Conclusion Normal biventricular systolic function. Mild TR. Electronically signed by : Daniella Stroud MD 06/19/2025 18:10:16
--- OUTSIDE RECORDS SUMMARY | 2025-06-19 14:36 | XMS_ITS | Encounter Summary ---
Author Organization Healthcare Address [address] [place] [address] Care Team Providers Care High School Social Studies Tutor Name Role Phone Pcp, No Primary Care Provider Unavailabl e Reason for Visit * Reason Comments Med Refill Encounter Details Date Type Department Care Team (Late st Contact Info) Description 03/25/2025 Refill [facility] Internal Medicine [address], [address] [place] [address] Velvet Orozco MD [address] [place] [address] 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 Tobacco Use Types Packs/Day Years [...] drink first t derrell in the morning (EYE-PPAP COORDINATOR) to steady your nerves or to get [...] documented as of this encounter Care Teams [employer] Social Studies Tutor Relationship Specialty Start [place] [address] PCP - General Family Medicine 03/08/24 documented as of this encounter
--- OUTSIDE RECORDS SUMMARY | 2025-06-19 14:36 | XMS_ITS | Clinical Summary ---
Author Organization [facility] Address [address] [place] [address] Phone Care Team Providers Care Envelope Folding Machine Adjuster Name Role Phone Unavailable Primary Care Provider [...] IRIDOTOMY ; Surgeon: Guanakito Melton MD; Location: [facility]; Service: Ophthalmology EYE SURGERY 02/19/2014 Left LEFT EYE YAG LASER IRIDOTOMY ; Surgeon: Guanakito Melton MD; Location: [facility]; Service: Ophthalmology COLONOSCOPY UPPER GASTROINTESTINAL ENDOSCOPY CARDIAC CATHETERIZATION CATARACT REMOVAL 04/25/2014 Right RIGHT EYE CATARACT EXTRACTION WITH PHACOEMULSIFICATION AND INTRAOCULAR LENS ; Surgeon: Balaji Jenkins MD; Location: [facility]; Service: Ophthalmology Medical devices from this surgery are in the Medical Devices section. CATARACT REMOVAL 05/08/2014 Left LEFT EYE CATARACT EXTRACTION WITH PHACOEMULSIFICATION AND INTRAOCULAR LENS ; Surgeon: Balaji Jenkins MD; Location: [facility]; Service: Ophthalmology Medical devices from this surgery [...] Anxiety COPD (chronic obstructive pu lmonary disease) ([facility]) nebulizer Osteoporosis Legally blind in right eye, as defined in [place] Vertigo Severe obesity (BMI 35.0-35. 9 with comorbidity) ([facility]) 10/30/2019 Morbid Obesity: patient is m [...] Health Maintenance Due Date Last Done Comments Wellness Exam Medicare 1942 DTaP/TDaP/Td (1 - Tdap) 1958 RSV or 60+ (1 - 1-dose 75+ series) 2014 COVID-19 Vaccine ( - season) 2025 07/05/2022, 02/21/2022, 11/07/2020, Additional history exists Influenza [...] MD BMI (Calculated) < 30 General 31.2(07/20/20 11:50 PM EDT) No Salma Jackman APRN Eat better, exercise, reach an ideal body weight General On track( 017 2:10 PM EST) No Dot Catalan MA HDL > 40 Result Component 70(07/26/2020 10:02 AM EDT) No Kody Brown MD LDL CALC < 130 Result Component 73(07/26/2020 10:02 AM EDT) No Kody Brown MD Medical Devices Implanted Type Area Sports Management Professor Device Identifier Shelf Expiration Date Model / Serial / Lot Haswell Gii With Orthocord - [id number] Implanted:Qty: 2 on 06/19/2010 at [facility] Explanted:at [facility] (Quantity not on file) Right: Elbow J&J:ETHICON:MITE K PRDT 03/09/2013 [id number] / / [id number] Component Stem Head Radial Modular Evolve Size+2 6.5mm - [id number] Implanted:Qty: 1 on 06/19/2010 at [facility] MED GRP:[facility] [id number] / / [id number] Component Head Radial Modular Evolve Standard 22mm - [id number] Implanted:Qty: 1 on 06/19/2010 at [facility] MED GRP:[facility] 10/10/2017 [id number] / / [id number] Haswell Gii With Orthocord - [id number] Implanted:Qty: 1 on 06/19/2010 at [facility] J&J:ETHICON:MITE K PRDT 03/09/2013 [id number] / / [id number] Lens Intraocular 24.5 Diopter Acrysof Iq 13.0mm Length 6.0mm - [id number] Implanted:Qty: 1 on 04/25/2014 by Balaji Jenkins MD at [facility] Right: Eye [facility]ADA LAB:SURG [id number] 11/10/2018 IU11JE-13 .5 / [id number] / Lens Intraocular 24.0 Diopter Acrysof Iq 13.0mm Length 6.0mm - [id number] Implanted:Qty: 1 on 05/08/2014 by Balaji Jenkins MD at [facility] Left: Eye [employer]ADA LAB:SURG 11/10/2018 TQ68XH-20 .0 / [id number] / Procedures Procedure Name Priority Date/Time [...] bone density assessment. Study was performed on [employer].2. Bone Density: Region BMD T-score Z-score AP [...] Recently Relevant to Health Maintenance Insurance [address] [place], [place] [address] [place] [address] [facility] MEDICARE PPO [place] [id number] [place] [address] [facility] MEDICARE PPO [place] [address] [place] [address] [facility] Advance Directives For more information, please contact: [phone] * Full Code (Latest Code Status on File) Date Activated Date Inactivated Comments 07/20/2023 2:43 PM 07/21/2023 3:25 PM * Full Code Date Activated Date Inactivated Comments 04/27/2018 12:20 AM 04/27/2018 5:06 PM * Full Code Date Activated Date Inactivated Comments 09/04/2017 10:49 AM 09/04/2017 7:10 PM
--- OUTSIDE RECORDS SUMMARY | 2025-06-19 14:36 | XMS_ITS | Clinical Summary ---
Author Organization Healthcare Address [address] [place] [place] [address] Care Team Providers Care Fare Register Repairer Name Role Phone Pcp, No Primary Care [...] Date Type Department Care Team Description 03/25/2025 [facility] Internal Medicine [address], [address] [place] [address] Velevt Orozco MD from Last 3 Months Family [...] drink first t derrell in the morning (EYE-VETERINARY SURGERY TECHNOLOGIST) to steady your nerves or to get rid of a hangover? 0 03/09/2024 CAGE Questionnaire Score 0 024 Utilities Answer Date Recorded In the past 12 months has th e [employer], gas, oil, or water [employer] threatened to shut off services in your [...] Date Last Done Comments [facility]-Depression Screening 1939 [facility]-/Child/Adol SDOH Screenings 1939 [facility]- SDOH Screenings 1957 [facility]-Adult SDOH Screenings 1957 [facility]-DTaP,Tdap,and Td Vaccines (1 - Tdap) 1958 [facility]-RSV Vaccine: 60+ Years or (1 - 1-dose 75+ series) 2014 [facility]-Bone Density Scan 02/08/2019 02/08/2017, 017 [facility]-Medicare Annual Wellness (AWV) 05/19/2023 05/19/2022, 09/16/2020, 09/13/2019, Additional history exists [id number] Vaccine ( - 2024- season) 2025 07/05/2022, 02/21/2022, 11/07/2020, Additional history exists [facility]-Influenza [...] to complete this topic Insurance HUMANA MEDICARE [facility] Advance Directives Documents on File Type Date Recorded Patient Traveler Changer Expl anation Advance Directives and Livin g Will 03/15/2024 9:05 AM Advance Directives and Livin g Will 03/12/2024 10:11 AM Judi Swain * DNR/DNI (Latest Code Status on File) Date Activated Date Inactivated Comments 03/09/2024 12:42 AM 03/14/2024 4:16 PM Question Answer Comments DNR determined on/before admission date? Yes Patient has decision-making capacity? Yes Care Teams Fare Register Repairer Relationship Specialty Start Date End Date Pcp, No [address] [place] [address] PCP - General Family Medicine 03/08/24
--- OUTSIDE RECORDS SUMMARY | 2025-06-19 14:36 | XMS_ITS | Clinical Summary ---
Author Organization [facility] Address [address] [place] [address] Care Team Providers Care Finishing Tunnel Operator Name Role Phone Kody Brown M.D. Primary Care Provider [phone] Source Comments [facility] is fully rolled out with thefollowing exceptions:General Clinical Research [facility] Allergies Active Allergy Reactions Criticality Noted Date Comments Trimethoprim-Sulfamethoxazole Respiratory Distress 07/08/2014 Clarithromycin Rash 07/08/2014 Meridia PALPITATIONS 07/08/2014 Motrin Ib Respiratory Distress 07/08/2014 Nsaids 07/08/2014 Sulfa Antibiotics 07/08/2014 Medications cholecalciferol (VITAMIN D) 52866 UNITS capsule Take by mouth every Tuesday [...] 8 hours. Active bacitracin-poly myxin b (POLYSPORIN) 500-12913 UNIT/GM ophthalmic ointmentIndicat ions:Empiric treatment Apply thin [...] or (1 - 1-dose 75+ series) 2014 AMB SEASONAL FLU VACCINE (#1) 06/10/2025 COVID-19 Vaccine ( - 2023-2 5 season) 2025 HEPATITIS B IMMUNIZATION Aged Out No longer [...] topic Insurance [address] [place], [place] [address] [address] MEDICARE [place] Care Teams Finishing Tunnel Operator Relationship Specialty Start Date End Date Kody Brown M.D. [address] [facility] [address] [place] [address] PCP - General External Family Practice 08/26/14
== END 2025-06-19 23:59 | disposition home or self-care (01) ==
LOC: RT 14:30
PROVIDERS: PCP Internal Medicine; Visit Provider Nurse Practitioner
DX: I07.1 Rheumatic tricuspid insufficiency (principal); I21.4 Non-ST elevation (NSTEMI) myocardial infarction; I50.9 Heart failure, unspecified; J81.0 Acute pulmonary edema; I31.39 Other pericardial effusion (noninflammatory); R79.89 Other specified abnormal findings of blood chemistry; R94.31 Abnormal electrocardiogram [ECG] [EKG]
CPT/HCPCS: 93306